=== PATIENT | female | born 1955 | race Caucasian/White ===

== ENCOUNTER → 2020-03-06 08:33 | Outpatient (REF) | payer MEDICARE, SELFPAY ==
--- NOTE | 2020-03-06 | NM_ITS ---
Lexiscan Myocardial perfusion study Indication: Number diabetes, COPD, cholesterol, tobacco use, chest pain, assess for coronary disease and ischemia Technique: The patient was brought in for a Lexiscan perfusion study on 03/06/2020 and was injected 0.4 mg of Lexiscan intravenously. Within a minute of this injection 25 mCi of sestamibi was given intravenously. Images were obtained using the SPECT gamma camera interlaced with the gating device. Images were obtained in supine position. Resting perfusion study was performed on 03/07/2020. Patient was administered 25 mCi of sestamibi intravenously at rest. Images were then obtained in supine position. Total DLP 52mGy-cm. Images were processed with the software and compared side to side in short axis, horizontal long axis and vertical long axis views. Findings: Raw acquisition was reviewed. The stress perfusion study showed no significant perfusion abnormality. Both uncorrected as well as CT attenuation corrected images were reviewed. The gated study shows normal LV systolic function with calculated LVEF of > 70%. LV cavity is normal in size. The gated study shows normal wall thickening and contraction of segments. Resting study shows no significant perfusion abnormality. Gating at rest reveals normal wall motion with ejection fraction at > 70%. The findings are consistent with no reversible or fixed perfusion abnormality. NM/NM aminata perf SPECT rest & str Impression: 1. Myocardial perfusion imaging study shows normal myocardial perfusion. No evidence of any ischemia or infarction. 2. Gated LVEF is > 70%. 3. Transient ischemic dilatation not present. EKG component of the test reported separately.
--- NOTE | 2020-03-06 08:41 | CA_ITS ---
Acquisition Time: 2020-03-06 09:47:40 Total Exercise Time: 00:02:00 Test Indications: Chest Pain Medications: ASA SEE H Protocol: LEXISCAN Max HR: 105 BPM 66% of Pred: 158 BPM Max BP: 112/064 mmHG Max Work Load: 1.0 METS Pharmacological stress test using Lexiscan while sitting and kicking her feet. Pt tolerated well, denies any anginal sx. EKG without any arrhythmias, non-diagnostic for ischemia. Nuclear images to follow. Normotensive response to test. Pt felt lightheaded after Lexiscan and sx reversed with aminophyline 75 mg IV. Test reviewed with Dr. Solares Referred By: Gonzalez Plata Overread By: Darrell Hunter
== END ==
LOC: HO.CARD 08:33
PROVIDERS: PCP Internal Medicine; Visit Provider Internal Medicine
DX: R07.9 Chest pain, unspecified (principal)
CPT/HCPCS: 78452; 93017; A9500; J0280; J2785

== ENCOUNTER 2020-11-19 06:53 | Outpatient (REF) | payer MEDICARE, SELFPAY ==
[2020-11-19 11:17] LABS: MANUAL DIFF FLAG NO
[2020-11-19 11:27] LABS: Basophils Percent Auto 0.3 % (0-2); Eosinophils Absolute Auto 0.2 X10*3/uL (0.0-0.4); Eosinophils Percent Auto 2.6 % (0-4); Hematocrit 38.7 % (37-47); Hemoglobin 12.7 g/dl (12.0-16.0); Imm Gran Abs Auto 0.05 X10*3/uL (0.00-0.03); Imm Gran Pct Auto 0.8 % (0.0-0.4); Lymphocytes Absolute Auto 2.5 X10*3/uL (1.2-4.9); Lymphocytes Percent Auto 37.5 % (20-40); Mean Corpuscular HGB Conc 32.8 g/dl (31.0-35.0); Mean Corpuscular Hemoglobin 32.6 pg (27.0-33.0); Mean Corpuscular Volume 99.5 fL (80-98); Mean Platelet Volume 11.1 fL (9.4-12.3); Monocytes Absolute Auto 0.3 X10*3/uL (0.1-1.2); Monocytes Percent Auto 4.9 % (2-11); Neutrophils Absolute Auto 3.5 X10*3/uL (2.0-8.3); Neutrophils Percent Auto 53.9 % (45-73); Platelet Count 245 X10*3/uL (160-400); Red Blood Count 3.89 X10*6/uL (4.20-5.50); Red Cell Distribution Width 13.5 % (11.0-16.0); White Blood Count 6.5 X10*3/uL (4.8-10.8)
[2020-11-19 12:00] LABS: Alanine Aminotransferase 12 U/L (0-31); Alkaline Phosphatase 98 U/L (39-117); Anion Gap 13 (12-20); Aspartate Amino Transferase 15 U/L (5-31); Bilirubin Total 0.2 mg/dL (0.0-1.0); Blood Urea Nitrogen 12 mg/dL (9-16); Calcium 8.8 mg/dL (8.4-10.2); Carbon Dioxide 26 mmol/L (22-29); Chloride 104 mmol/L (96-108); Cholesterol 193 mg/dL; Estimated Glomerular Filt Rate > 60; Glucose Fasting 91 mg/dL (60-99); HDL Cholesterol 44 mg/dL; LDL Cholesterol Calculated 107 mg/dl; Potassium 3.9 mmol/L (3.3-5.1); Sodium 139 mmol/L (135-145); Total Protein 6.7 g/dL (6.5-8.0); Triglycerides 212 mg/dL
[2020-11-19 12:24] LABS: Creatinine Urine 294.72 mg/dL; Free T4 (Free Thyroxine) 0.73 ng/dL (0.71-1.85); Microalbum/Creatinine Ratio Ur 6.1 ug/mg cr; Vitamin D 25-OH Total 39.2 ng/mL (>30)
[2020-11-19 12:52] LABS: Folate 14.8 ng/mL (> or = 4.0); Vitamin B12 217 pg/mL (200-900)
== END 2020-11-19 06:54 | disposition home or self-care (01) ==
LOC: HO.HMGCLDS 06:53
PROVIDERS: PCP Internal Medicine; Visit Provider Nurse Practitioner Family
DX: E11.65 Type 2 diabetes mellitus with hyperglycemia (principal); E03.9 Hypothyroidism, unspecified; G43.909 Migraine, unspecified, not intractable, without status migrainosus; E78.00 Pure hypercholesterolemia, unspecified
CPT/HCPCS: 36415; 80053; 80061; 82043; 82306; 82607; 82746; 84439; 84443; 85025

== ENCOUNTER 2020-12-10 10:29 | Outpatient (REF) | payer MEDICARE, SELFPAY ==
--- NOTE | ~2020-12-10 | MM_ITS ---
EXAMINATION: BONE DENSITOMETRY CLINICAL INDICATION: Asymptomatic menopausal state. COMPARISON: Baseline BD dated 12/07/2018. TECHNIQUE: Using a Gradalis DXA System (software version: 13.1) manufactured by [employer], dual-energy x-ray absorptiometry was performed of the lumbar spine and left hip. The images are of good technical quality. Summary results are attached. FINDINGS: AP SPINE L1-L4: Current: BMD 0.962 g/cm2, Z-score -0.3, T-score -1.8, osteopenia, 0.1% decrease from baseline (<5% change is not significant). Baseline: BMD 0.963 g/cm2. LEFT FEMUR, NECK: Current: BMD 0.719 g/cm2, Z-score -0.8, T-score -2.3, osteopenia. Baseline: BMD 0.732 g/cm2. LEFT FEMUR, TOTAL: Current: BMD 0.743 g/cm2, Z-score -0.9, T-score -2.1, osteopenia, 2.1% decrease from baseline (<5% change is not significant). Baseline: BMD 0.759 g/cm2. IDENTIFIED RISK FACTORS: Early menopause, secondary osteoporosis, history of fracture (adult), tobacco use (current smoker), recurrent falls, height loss, family history (parental hip fracture), anticonvulsants. HISTORY OF FRACTURE: Spine. Humerus/shoulder. MEDICATIONS: Calcium supplements or multivitamin, vitamin D. MM/XR DEXA axial skeleton IMPRESSION: 1. DIAGNOSIS: Osteopenia based on the lowest T-score value of -2.3 in the femoral neck applying World Health Organization criteria. 2. 10-YEAR FRACTURE RISK PREDICTION, FRAX: Major osteoporotic fracture (clinical spine, forearm, hip or shoulder) 34.6%. Hip fracture 6.3%. 3. Treatment Recommendations: NOF guidelines recommend consideration for treatment in postmenopausal women and men age 50 and older presenting with the following: -A hip or vertebral (clinical or morphometric) fracture. -T-score less than or equal to -2.5 at the femoral neck or spine after appropriate evaluation to exclude secondary causes. -Low bone mass at the hip or spine and a 10-year fracture probability by FRAX of greater than or equal to 3% for hip fracture or greater than or equal to 20% for major osteoporotic fracture based on the [place] adapted WHO algorithm. 4. Other Recommendations: All treatment decisions require clinical judgment and consideration of individual patient factors, including patient preferences, comorbidities, previous drug use, risk factors not captured in the FRAX model (e.g. frailty, falls, vitamin D deficiency, increased bone turnover, interval significant decline in bone density) and possible under or overestimation of fracture risk by FRAX. Additional medical evaluation for secondary cause of low bone mineral density may be appropriate. FUTURE SCAN RECOMMENDATION: People with diagnosed cases of osteoporosis or at high risk for fracture should have regular bone mineral density tests. For patients eligible for Medicare, routine testing is allowed once every 2 years. The testing frequency can be increased to one year for patients who have rapidly progressing disease, those who are receiving or discontinuing medical therapy to restore bone mass, or have additional risk factors.
== END 2020-12-10 10:30 | disposition home or self-care (01) ==
LOC: HO.MAMMO 10:29
PROVIDERS: PCP Internal Medicine; Visit Provider Nurse Practitioner Family
DX: Z13.820 Encounter for screening for osteoporosis (principal); R29.890 Loss of height; F17.200 Nicotine dependence, unspecified, uncomplicated; Z91.81 History of falling; Z79.899 Other long term (current) drug therapy; Z78.0 Asymptomatic menopausal state
CPT/HCPCS: 77080

== ENCOUNTER 2020-12-22 11:13 | Emergency (ER) | payer MEDICARE, SELFPAY ==
--- NOTE | 2020-12-22 11:17 | ECG_ITS ---
Test Reason : MEDICATION ERROR Blood Pressure : / mmHG Vent. Rate : 072 BPM Atrial Rate : 072 BPM P-R Int : 126 ms QRS Dur : 082 ms QT Int : 384 ms P-R-T Axes : 073 059 054 degrees QTc Int : 420 ms Normal sinus rhythm Nonspecific ST and T wave abnormality Abnormal ECG When compared with ECG of 06-JAN-2012 19:00, Vent. rate has decreased BY 37 BPM Referred By: Duyen Wang Electronically Signed By:TULIO GOLDSMITH
[2020-12-22 11:20] VITALS: BP 133/88; PULSE 76; RESP 18; TEMP 36.8; O2SAT 98; BMI 25.7
--- NOTE | 2020-12-22 11:32 | ED.OVERDOSE ---
HPI - Overdose General Chief Complaint: Overdose Stated Complaint: 4 -150MG WELBUTRIN TAKEN FOR ANXIETY Time Seen by Provider: 12/22/20 11:17 Source: patient and EMS Mode of arrival: EMS Limitations: no limitations History of Present Illness MD complaint: accidental overdose Onset (ago): minute(s) (60) Context: Accidental Overdose: other (took a neighbors pills to help with anxiety normally on 100mg wellbutrin a day, ran out felt anxious states she actually took 2 pills of her neighbor's 150mg wellbutrin) Associated symptoms: other (anxiety) Treatments Prior to Arrival: none Related Data Previous Rx's Medication Instructions Recorded albuterol sulfate 90 mcg/actuation 2 puff INHALATION Q4-6H PRN #8.5 g 03/25/20 aerosol inhaler (ProAir HFA) aspirin 81 mg tablet,delayed 81 mg PO DAILY #90 tab 03/25/20 release (Adult Aspirin Regimen) beclomethasone dipropionate 80 1 inh INHALATION BID #3 ea 03/25/20 mcg/actuation HFA breath activated aerosol (Qvar RediHaler) cholecalciferol (vitamin D3) 25 25 mcg PO DAILY #90 cap 03/25/20 mcg (1,000 unit) capsule erenumab-aooe 70 mg/mL 70 mg SUBCUT .COMPLEX 90 Days #3 ea 03/25/20 subcutaneous auto-injector (Aimovig Autoinjector) fluticasone propionate 50 1 spray INTRANASAL DAILY #15.8 ml 03/25/20 mcg/actuation nasal spray,suspension omeprazole 20 mg capsule,delayed 20 mg PO DAILY #90 cap 03/25/20 release sumatriptan succinate 100 mg 100 mg PO .QD PRN 90 Days #30 tab 03/25/20 tablet (Imitrex) methocarbamol 500 mg tablet 500 mg PO TID PRN #270 cap 05/15/20 levothyroxine 75 mcg tablet 75 mcg PO QAM #90 tab 07/11/20 lidocaine 5 % topical ointment 1 appl TOPICAL TID PRN #60 g 07/18/20 fluoxetine 40 mg capsule 40 mg PO DAILY #90 cap 08/08/20 gabapentin 600 mg tablet 600 mg PO BID #180 tab 08/08/20 simvastatin 40 mg tablet 40 mg PO DAILY 90 Days #90 tab 08/08/20 diazepam 5 mg tablet 5 mg PO TID PRN 90 Days #270 tab 10/06/20 promethazine 25 mg tablet 25 mg PO Q6H PRN #28 tab 10/21/20 azithromycin 250 mg tablet See Rx Instructions PO .COMPLEX #6 11/19/20 (Zithromax) tab bupropion HCl 100 mg tablet,12 hr 100 mg PO BEDTIME #30 tab 11/19/20 sustained-release (Wellbutrin SR) naloxone 4 mg/actuation nasal 4 mg INTRANASAL Q3M PRN #2 ea 11/27/20 spray (Narcan) oxycodone 15 mg tablet 15 mg PO Q4-6H 30 Days #168 tab 11/27/20 Allergies Allergy/AdvReac Type Severity Reaction Status Date / Time clarithromycin [From BIAXIN] Allergy Intermediate N/V Verified 10/28/20 13:26 Iodinated Contrast Media Allergy Mild RASH AND Verified 10/28/20 13:26 [IV Dye, Iodine Containing] NAUSEA AND VOMITING atorvastatin Allergy Unknown Unknown Verified 10/28/20 13:26 doxycycline Allergy Unknown Nausea and Verified 10/28/20 13:26 Vomiting lisinopril Allergy Unknown hypotension Verified 10/28/20 13:26 Penicillins AdvReac Unknown UNKNOWN-FROM Verified 10/28/20 13:26 CHILDHOOD Review of Systems Review of Systems: Constitutional : No Weight loss, No Fever, No Chills, No Fatigue, No Malaise ENT/Mouth : No sore throat, No Rhinorrhea Eyes: No Eye Pain, No Swelling, No Redness Cardiovascular : No Chest Pain, No SOB, No Dyspnea on Exertion, No Orthopnea, No Edema, No Palpitations Respiratory : No Cough, No Sputum, No Wheezing Gastrointestinal : No Nausea, No Vomiting, No Diarrhea, No Constipation, No abdominal Pain, No Hematochezia, No Melena Genitourinary : No Dysuria, No Urinary Frequency, No Hematuria, Musculoskeletal : No joint pain, No Myalgias, No Joint Swelling Skin : No Skin Lesions, No rash Neuro : No Weakness, No Numbness, No Dizziness, No Headache Psych : pos Anxiety/Panic, No Depression, no SI/HI Heme/Lymph: No Bruising, No Bleeding,No Lymphadenopathy Endocrine : No Polyuria, No Polydipsia All other systems reviewed and are negative [facility] Past Medical History Attestation statement: The following information was validated with the patient. Medical History Anxiety and depression Asthma Chest pain COPD (chronic obstructive pulmonary disease) GERD (gastroesophageal reflux disease) Herpes zoster Hypercholesterolemia Hypertension Hypothyroid Insomnia Left scapula fracture Low back pain Migraine Peripheral neuropathy Post-menopausal Tobacco abuse Type 2 diabetes mellitus with hyperglycemia Vitamin D deficiency Surgical History History of cholecystectomy History of colonoscopy History of foot surgery History of lumbar surgery History of thyroidectomy Family History Family History Father Prostate cancer Diabetes Hypertension Mother CVD (cardiovascular disease) Myocardial infarction Social History Social History Housing: Apartment Alcohol intake: unknown Patient Tobacco Use Status: Current everyday Tobacco user Tobacco use type: Cigarette Cigarette Packs Per Day: 1 e-Cigarette/Vaping Use: Never Used Second Hand Smoke Exposure: No Use of substances other than those prescribed or required for medical reasons: Unknown Advance Directives: Yes Advance Directives Information Provided: Yes Advance Directives on File: No Patient : No service: No Current occupational status: disabled Physical Exam Vital Signs: Vital Signs: Last Vital Signs Temp 98.2 F 12/22/20 11:20 Pulse 67 12/22/20 12:50 Resp 18 12/22/20 12:50 BP 130/80 12/22/20 12:50 Pulse Ox 97 12/22/20 12:50 Body Mass Index 25.7 Appearance: Alert. Oriented X3. No acute distress. Eyes: Pupils equal, round and reactive to light. ENT: Pharynx normal. Neck: Normal inspection. Neck supple. CVS: Normal heart rate and rhythm. Pulses normal. Respiratory: No respiratory distress. Breath sounds normal. Abdomen: Soft and nontender. Skin: Skin warm and dry. Normal skin color. Normal skin turgor. Extremities: No lower extremity edema. No calf ttp Neuro: Oriented X 3. No motor deficit. No sensory deficit. Psych: no SI/HI Course Course Course Narrative: patient is adamant she took 2 pills only , she states her neighbor just said that because they are in a financial dispute no SI on scene, nothing reported to EMS I discussed with her the reasons to stay including seizures, cardiac arrythmias she refuses to stay, she is alert and oriented, I do not think I can section here she swears she only took two pills, denies prior SI attempts. she is leaving against medical advice MDM - Overdose MDM Narrative Medical decision making narrative: 65 yo female with accidental possible wellbutrin ingestion denies SI/HI will obtain tox labs, EKG and observe. possible discussion with poison control - would normally observe but 300mg does not seem toxic at this time Lab Data Result diagrams: 12/22/20 11:34 12/22/20 11:34 Labs: Lab Results 12/22/20 12/22/20 12/22/20 Range/Units 11:34 11:34 11:34 WBC 4.5 L (4.8-10.8) X10*3/uL RBC 3.78 L (4.20-5.50) X10*6/uL Hgb 12.4 (12.0-16.0) g/dl Hct 37.5 (37-47) % MCV 99.2 H (80-98) fL MCH 32.8 (27.0-33.0) pg MCHC 33.1 (31.0-35.0) g/dl RDW 13.4 (11.0-16.0) % Plt Count 179 D (160-400) X10*3/uL MPV 10.6 (9.4-12.3) fL Immature Gran % (Auto) 0.2 (0.0-0.4) % Neut % (Auto) 63.4 (45-73) % Lymph % (Auto) 28.1 (20-40) % Rice % (Auto) 5.4 (2-11) % Eos % (Auto) 2.2 (0-4) % Baso % (Auto) 0.7 (0-2) % Lymph # (Auto) 1.3 (1.2-4.9) X10*3/uL Rice # (Auto) 0.2 (0.1-1.2) X10*3/uL Eos # (Auto) 0.1 (0.0-0.4) X10*3/uL Baso # (Auto) 0.0 (0.0-0.2) X10*3/uL Abs Immat Gran (auto) 0.01 (0.00-0.03) X10*3/uL Absolute Neuts (auto) 2.8 (2.0-8.3) X10*3/uL Absolute Nucleated RBC 0.000 (0.0-0.012) X10*3/uL Nucleated RBC % (auto) 0.0 (0.0-0.2) /100WBC Sodium 142 (135-145) mmol/L Potassium 3.6 (3.3-5.1) mmol/L Chloride 108 (96-108) mmol/L Carbon Dioxide 27 (22-29) mmol/L Anion Gap 11 L (12-20) BUN 8 L (9-16) mg/dL Creatinine 0.86 (0.5-1.4) mg/dL Estim Creat Clear Calc 63.4 Estimated GFR > 60 Random Glucose 100 (60-115) mg/dL Calcium 8.7 (8.4-10.2) mg/dL Total Bilirubin 0.4 (0.0-1.0) mg/dL Direct Bilirubin 0.2 (0.0-0.5) mg/dL AST 17 (5-31) U/L ALT 14 (0-31) U/L Alkaline Phosphatase 91 (39-117) U/L Total Protein 6.5 (6.5-8.0) g/dL Albumin 4.0 (3.5-5.0) g/dL Salicylates < 5.0 L (15-30) mg/dL Acetaminophen 14 (<30) mcg/mL COVID-19 (MICHAEL) Negative (Negative) COVID-19 Clin Com See Note ECG Data Attestation: I personally reviewed and interpreted this ECG as follows: ECG interpretation date: 12/22/20 ECG interpretation time: 11:39 Interpretation: Rate: 72 Rhythm: NSR [place]: normal Normal P waves. Normal PATRIZIA. Normal QRS complex. ST T wave : non specific no ANKIT qTC: normal prior studies: no acute ischemia The study has been interpreted contemporaneously by me. . Discharge Plan Discharge Clinical Impression: Accidental overdose Qualifiers: Encounter type: initial encounter Qualified Code(s): T50.901A - Poisoning by unspecified drugs, medicaments and biological substances, accidental (unintentional), initial encounter Patient Disposition: Left Against Medical Advice Instructions: Adult Overdose (ED), Against Medical Advice (ED) Additional Instructions: return to ED for any worsening symptoms or concerns it was advised you stay overnight to monitor your heart and to watch for seizures, you refused Prescriptions: No Action albuterol sulfate [ProAir HFA] 90 mcg/actuation HFA aerosol inhaler 2 puff inhalation Q4-6H PRN (Reason: bronchospasm) Qty: 8.5 RF: 0 aspirin [Adult Aspirin Regimen] 81 mg tablet,delayed release (DR/EC) 81 mg PO DAILY Qty: 90 RF: 3 Qvar RediHaler 80 mcg/actuation HFA aerosol breath activated 1 inh inhalation BID Qty: 3 RF: 3 cholecalciferol (vitamin D3) 25 mcg (1,000 unit) capsule 25 mcg PO DAILY Qty: 90 RF: 3 Aimovig Autoinjector 70 mg/mL auto-injector 70 mg subcut .COMPLEX 90 Days Qty: 3 RF: 2 fluticasone propionate 50 mcg/actuation spray,suspension 1 spray intranasal DAILY Qty: 15.8 RF: 5 omeprazole 20 mg capsule,delayed release(DR/EC) 20 mg PO DAILY Qty: 90 RF: 3 sumatriptan succinate [Imitrex] 100 mg tablet 100 mg PO .QD PRN (Reason: migraine headache) 90 Days Qty: 30 RF: 3 methocarbamol 500 mg tablet 500 mg PO TID PRN (Reason: for pain) Qty: 270 RF: 3 levothyroxine 75 mcg tablet 75 mcg PO QAM Qty: 90 RF: 3 lidocaine 5 % ointment 1 appl topical TID PRN (Reason: pain) Qty: 60 RF: 0 simvastatin 40 mg tablet 40 mg PO DAILY 90 Days Qty: 90 RF: 2 fluoxetine 40 mg capsule 40 mg PO DAILY Qty: 90 RF: 2 gabapentin 600 mg tablet 600 mg PO BID Qty: 180 RF: 2 diazepam 5 mg tablet 5 mg PO TID PRN (Reason: muscle spasm) 90 Days Qty: 270 RF: 1 promethazine 25 mg tablet 25 mg PO Q6H PRN (Reason: for nausea/vomiting) Qty: 28 RF: 0 Narcan 4 mg/actuation spray,non-aerosol 4 mg intranasal Q3M PRN (Reason: opioid overdose) Qty: 2 RF: 0 oxycodone 15 mg tablet 15 mg PO Q4-6H 30 Days Qty: 168 RF: 0 azithromycin [Zithromax] 250 mg tablet See Rx Instructions PO .COMPLEX Qty: 6 RF: 0 bupropion HCl [Wellbutrin SR] 100 mg tablet sustained-release 12 hr 100 mg PO BEDTIME Qty: 30 RF: 2
[2020-12-22 11:39] LABS: MANUAL DIFF FLAG NO
[2020-12-22 11:41] LABS: Basophils Percent Auto 0.7 % (0-2); Eosinophils Absolute Auto 0.1 X10*3/uL (0.0-0.4); Eosinophils Percent Auto 2.2 % (0-4); Hematocrit 37.5 % (37-47); Hemoglobin 12.4 g/dl (12.0-16.0); Imm Gran Abs Auto 0.01 X10*3/uL (0.00-0.03); Imm Gran Pct Auto 0.2 % (0.0-0.4); Lymphocytes Absolute Auto 1.3 X10*3/uL (1.2-4.9); Lymphocytes Percent Auto 28.1 % (20-40); Mean Corpuscular HGB Conc 33.1 g/dl (31.0-35.0); Mean Corpuscular Hemoglobin 32.8 pg (27.0-33.0); Mean Corpuscular Volume 99.2 fL (80-98); Mean Platelet Volume 10.6 fL (9.4-12.3); Monocytes Absolute Auto 0.2 X10*3/uL (0.1-1.2); Monocytes Percent Auto 5.4 % (2-11); Neutrophils Absolute Auto 2.8 X10*3/uL (2.0-8.3); Neutrophils Percent Auto 63.4 % (45-73); Platelet Count 179 X10*3/uL (160-400); Red Blood Count 3.78 X10*6/uL (4.20-5.50); Red Cell Distribution Width 13.4 % (11.0-16.0); White Blood Count 4.5 X10*3/uL (4.8-10.8)
[2020-12-22 11:56] LABS: Acetaminophen LAB 14 mcg/mL (<30); Alanine Aminotransferase 14 U/L (0-31); Alkaline Phosphatase 91 U/L (39-117); Anion Gap 11 (12-20); Aspartate Amino Transferase 17 U/L (5-31); Bilirubin Direct 0.2 mg/dL (0.0-0.5); Bilirubin Total 0.4 mg/dL (0.0-1.0); Blood Urea Nitrogen 8 mg/dL (9-16); Calcium 8.7 mg/dL (8.4-10.2); Carbon Dioxide 27 mmol/L (22-29); Chloride 108 mmol/L (96-108); Creatinine Clr Calc Pharmacy 63.4; Estimated Glomerular Filt Rate > 60; Glucose Random 100 mg/dL (60-115); Potassium 3.6 mmol/L (3.3-5.1); Salicylate < 5.0 mg/dL (15-30); Sodium 142 mmol/L (135-145); Total Protein 6.5 g/dL (6.5-8.0)
[2020-12-22 12:05] LABS: COVID-19 Test Negative (Negative); IDNOW Serial# 9DD0AD1C
[2020-12-22 12:50] VITALS: BP 130/80; PULSE 67; RESP 18; O2SAT 97
== END 2020-12-22 13:38 | disposition left against medical advice (07) ==
PROVIDERS: Emergency Provider Emergency Medicine; PCP Internal Medicine
DX: T43.291A Poisoning by other antidepressants, accidental (unintentional), initial encounter (principal); Y92.009 Unspecified place in unspecified non-institutional (private) residence as the place of occurrence of the external cause; F41.1 Generalized anxiety disorder; F43.0 Acute stress reaction; Z20.822 Contact with and (suspected) exposure to COVID-19; Z79.899 Other long term (current) drug therapy; F17.210 Nicotine dependence, cigarettes, uncomplicated; Z71.6 Tobacco abuse counseling
CPT/HCPCS: 36415; 80048; 80076; 80143; 80179; 85025; 87635; 93005; 99283; 99285

== ENCOUNTER 2021-03-03 06:17 | Outpatient (REF) | payer MEDICARE, SELFPAY ==
[2021-03-03 11:41] LABS: MANUAL DIFF FLAG NO
[2021-03-03 11:43] LABS: Basophils Percent Auto 0.7 % (0-2); Eosinophils Absolute Auto 0.3 X10*3/uL (0.0-0.4); Eosinophils Percent Auto 4.6 % (0-4); Hematocrit 38.4 % (37.0-47.0); Imm Gran Abs Auto 0.02 X10*3/uL (0.00-0.03); Imm Gran Pct Auto 0.4 % (0.0-0.4); Lymphocytes Absolute Auto 2.4 X10*3/uL (1.2-4.9); Lymphocytes Percent Auto 41.2 % (20-40); Mean Corpuscular HGB Conc 31.3 g/dl (31.0-35.0); Mean Corpuscular Hemoglobin 31.7 pg (27.0-33.0); Mean Corpuscular Volume 101.6 fL (80.0-98.0); Mean Platelet Volume 10.8 fL (9.4-12.3); Monocytes Absolute Auto 0.3 X10*3/uL (0.1-1.2); Neutrophils Absolute Auto 2.7 x10*3/uL (2.0-8.3); Neutrophils Percent Auto 47.1 % (45-73); Platelet Count 253 X10*3/uL (160-400); Red Blood Count 3.78 X10*6/uL (4.20-5.50); Red Cell Distribution Width 13.1 % (11.0-16.0); White Blood Count 5.7 X10*3/uL (4.8-10.8)
[2021-03-03 12:12] LABS: Alanine Aminotransferase 13 U/L (0-31); Albumin Level 4.1 g/dL (3.5-5.0); Alkaline Phosphatase 113 U/L (39-117); Anion Gap 13 (12-20); Aspartate Amino Transferase 17 U/L (5-31); Bilirubin Total 0.4 mg/dL (0.0-1.0); Blood Urea Nitrogen 13 mg/dL (9-16); Calcium 8.6 mg/dL (8.4-10.2); Carbon Dioxide 27 mmol/L (22-29); Chloride 105 mmol/L (96-108); Cholesterol 188 mg/dL; Estimated Glomerular Filt Rate > 60; Glucose Random 93 mg/dL (60-115); HDL Cholesterol 53 mg/dL; LDL Cholesterol Calculated 107 mg/dl; Potassium 3.8 mmol/L (3.3-5.1); Sodium 141 mmol/L (135-145); Total Protein 6.7 g/dL (6.5-8.0); Triglycerides 140 mg/dL
[2021-03-03 12:36] LABS: Free T4 (Free Thyroxine) 0.75 ng/dL (0.71-1.85); Thyroid Stimulating Hormone 4.99 uIU/mL (0.32-4.0); Vitamin D 25-OH Total 35.6 ng/mL (>30)
[2021-03-03 12:46] LABS: Folate 14.9 ng/mL (> or = 4.0); Vitamin B12 415 pg/mL (200-900)
== END 2021-03-03 06:18 | disposition home or self-care (01) ==
LOC: HO.HMGCLDS 06:17
PROVIDERS: PCP Internal Medicine; Visit Provider Internal Medicine
DX: E03.9 Hypothyroidism, unspecified (principal); E78.00 Pure hypercholesterolemia, unspecified
CPT/HCPCS: 36415; 80053; 80061; 82306; 82607; 82746; 84439; 84443; 85025

== ENCOUNTER 2021-05-07 06:23 | Outpatient (REF) | payer MEDICARE, SELFPAY ==
[2021-05-07 12:01] LABS: Free T4 (Free Thyroxine) 0.87 ng/dL (0.71-1.85); Thyroid Stimulating Hormone 7.97 uIU/mL (0.32-4.0)
== END 2021-05-07 06:24 | disposition home or self-care (01) ==
LOC: HO.HMGCLDS 06:23
PROVIDERS: Visit Provider Internal Medicine
DX: E03.9 Hypothyroidism, unspecified (principal)
CPT/HCPCS: 36415; 84439; 84443

== ENCOUNTER 2021-11-11 14:51 | Outpatient (REF) | payer MEDICARE, SELFPAY ==
--- NOTE | ~2021-11-11 | XR_ITS ---
EXAMINATION: XR CHEST CLINICAL INFORMATION: Circulatory signs COMPARISON: 04/28/2018 TECHNIQUE: 2 views of the chest were obtained. FINDINGS: Mild retrocardiac density may represent a small area of infiltrate. Otherwise lung gandhi are grossly clear. The cardiac silhouette is comparable. No infiltrate. Hilar regions do not appear pathologically enlarged. There is no effusion. XR/XR chest 2V IMPRESSION: Mild retrocardiac opacity may represent a small area of infiltrate. Follow-up films recommended to assess for resolution
[2021-11-11 16:41] LABS: MANUAL DIFF FLAG NO
[2021-11-11 16:54] LABS: Basophils Percent Auto 0.3 % (0-2); Eosinophils Absolute Auto 0.1 X10*3/uL (0.0-0.4); Eosinophils Percent Auto 0.9 % (0-4); Hematocrit 38.3 % (37.0-47.0); Hemoglobin 12.3 g/dl (12.0-16.0); Imm Gran Abs Auto 0.04 X10*3/uL (0.00-0.03); Imm Gran Pct Auto 0.4 % (0.0-0.4); Lymphocytes Absolute Auto 1.5 X10*3/uL (1.2-4.9); Lymphocytes Percent Auto 14.3 % (20-40); Mean Corpuscular HGB Conc 32.1 g/dl (31.0-35.0); Mean Corpuscular Hemoglobin 31.3 pg (27.0-33.0); Mean Corpuscular Volume 97.5 fL (80.0-98.0); Mean Platelet Volume 10.5 fL (9.4-12.3); Monocytes Absolute Auto 0.5 X10*3/uL (0.1-1.2); Monocytes Percent Auto 4.9 % (2-11); Neutrophils Absolute Auto 8.4 x10*3/uL (2.0-8.3); Neutrophils Percent Auto 79.2 % (45-73); Platelet Count 268 X10*3/uL (160-400); Red Blood Count 3.93 X10*6/uL (4.20-5.50); Red Cell Distribution Width 13.1 % (11.0-16.0); White Blood Count 10.6 X10*3/uL (4.8-10.8)
[2021-11-11 17:03] LABS: Estimated Average Glucose 100 mg/dL; Hemoglobin A1c % 5.1 %
[2021-11-11 17:15] LABS: Alanine Aminotransferase 8 U/L (0-31); Alkaline Phosphatase 135 U/L (39-117); Anion Gap 15 (12-20); Aspartate Amino Transferase 11 U/L (5-31); Bilirubin Total 0.2 mg/dL (0.0-1.0); Blood Urea Nitrogen 10 mg/dL (9-16); Calcium 8.7 mg/dL (8.4-10.2); Carbon Dioxide 30 mmol/L (22-29); Chloride 102 mmol/L (96-108); Estimated Glomerular Filt Rate > 60; Glucose Random 90 mg/dL (60-115); Potassium 4.5 mmol/L (3.3-5.1); Sodium 142 mmol/L (135-145); Total Protein 6.9 g/dL (6.5-8.0)
[2021-11-11 17:24] LABS: Thyroid Stimulating Hormone 0.03 uIU/mL (0.32-4.0)
[2021-11-11 17:25] LABS: Free T4 (Free Thyroxine) 1.06 ng/dL (0.71-1.85)
== END 2021-11-11 14:52 | disposition home or self-care (01) ==
LOC: HO.HMGCX 14:51
PROVIDERS: PCP Internal Medicine; Visit Provider Family Medicine
DX: E03.9 Hypothyroidism, unspecified (principal); R09.89 Other specified symptoms and signs involving the circulatory and respiratory systems
CPT/HCPCS: 36415; 71046; 80053; 83036; 84439; 84443; 85025

== ENCOUNTER 2022-01-15 11:42 | Outpatient (REF) | payer MEDICARE, SELFPAY ==
[2022-01-15 14:45] LABS: Free T4 (Free Thyroxine) 1.05 ng/dL (0.71-1.85); Thyroid Stimulating Hormone 0.91 uIU/mL (0.32-4.0)
== END 2022-01-15 11:43 | disposition home or self-care (01) ==
LOC: HO.HMGCLDS 11:42
PROVIDERS: PCP Internal Medicine; Visit Provider Internal Medicine
DX: E03.9 Hypothyroidism, unspecified (principal)
CPT/HCPCS: 36415; 84439; 84443

== ENCOUNTER 2022-05-04 10:41 | Outpatient (REF) | payer MEDICARE, SELFPAY ==
[2022-05-04 11:27] LABS: MANUAL DIFF FLAG NO
[2022-05-04 11:33] LABS: Basophils Percent Auto 0.4 % (0-2); Eosinophils Absolute Auto 0.1 X10*3/uL (0.0-0.4); Eosinophils Percent Auto 0.6 % (0-4); Hematocrit 42.4 % (37.0-47.0); Hemoglobin 14.1 g/dl (12.0-16.0); Imm Gran Abs Auto 0.03 X10*3/uL (0.00-0.03); Imm Gran Pct Auto 0.4 % (0.0-0.4); Lymphocytes Absolute Auto 1.7 X10*3/uL (1.2-4.9); Lymphocytes Percent Auto 20.1 % (20-40); Mean Corpuscular HGB Conc 33.3 g/dl (31.0-35.0); Mean Corpuscular Hemoglobin 32.2 pg (27.0-33.0); Mean Corpuscular Volume 96.8 fL (80.0-98.0); Mean Platelet Volume 10.7 fL (9.4-12.3); Monocytes Absolute Auto 0.3 X10*3/uL (0.1-1.2); Monocytes Percent Auto 3.9 % (2-11); Neutrophils Absolute Auto 6.3 x10*3/uL (2.0-8.3); Neutrophils Percent Auto 74.6 % (45-73); Platelet Count 235 X10*3/uL (160-400); Red Blood Count 4.38 X10*6/uL (4.20-5.50); Red Cell Distribution Width 12.7 % (11.0-16.0); White Blood Count 8.4 X10*3/uL (4.8-10.8)
[2022-05-04 12:27] LABS: Alanine Aminotransferase 7 U/L (0-31); Albumin Level 4.3 g/dL (3.5-5.0); Alkaline Phosphatase 107 U/L (39-117); Anion Gap 19 (12-20); Aspartate Amino Transferase 14 U/L (5-31); Bilirubin Total 0.7 mg/dL (0.0-1.0); Blood Urea Nitrogen 10 mg/dL (9-16); Calcium 9.5 mg/dL (8.4-10.2); Carbon Dioxide 22 mmol/L (22-29); Chloride 105 mmol/L (96-108); Cholesterol 189 mg/dL; Estimated Glomerular Filt Rate 59; Glucose Random 129 mg/dL (60-115); HDL Cholesterol 41 mg/dL; LDL Cholesterol Calculated 106 mg/dl; Potassium 3.9 mmol/L (3.3-5.1); Sodium 142 mmol/L (135-145); Triglycerides 211 mg/dL
[2022-05-04 12:43] LABS: Folate 12.5 ng/mL (> or = 4.0); Free T4 (Free Thyroxine) 0.86 ng/dL (0.71-1.85); Vitamin B12 334 pg/mL (200-900); Vitamin D 25-OH Total 28.2 ng/mL (>30)
[2022-05-04 14:25] LABS: Microalbum/Creatinine Ratio Ur 14.3 ug/mg cr
== END 2022-05-04 10:42 | disposition home or self-care (01) ==
LOC: HO.HMGCLDS 10:41
PROVIDERS: PCP Internal Medicine; Visit Provider Internal Medicine
DX: E11.65 Type 2 diabetes mellitus with hyperglycemia (principal); E78.00 Pure hypercholesterolemia, unspecified
CPT/HCPCS: 36415; 80053; 80061; 82043; 82306; 82607; 82746; 84439; 84443; 85025

== ENCOUNTER → 2022-06-29 12:45 | Outpatient (BNVA) | payer MEDICARE, SELFPAY | PROVIDERS: PCP Internal Medicine; Visit Provider Orthopaedic Surgery | DX: M65.341 Trigger finger, right ring finger (principal) | CPT/HCPCS: 20550; 99202; J1100 ==

== ENCOUNTER → 2022-08-03 13:15 | Outpatient (BNVA) | payer MEDICARE, SELFPAY | PROVIDERS: PCP Internal Medicine; Visit Provider Orthopaedic Surgery | DX: M65.341 Trigger finger, right ring finger (principal) | CPT/HCPCS: 99212 ==

== ENCOUNTER 2022-08-09 09:22 | Day surgery (SDC) | payer MEDICARE, SELFPAY ==
[2022-08-09 10:00] VITALS: BMI 21.3
--- NOTE | 2022-08-09 10:20 | HO.ANESPROP2 ---
HPI - Anesthesia Eval Consult details Narrative: right distal radius fracture heavy pot and smoking history PMF Active Problems Active Problems: All Active Problems (Updated 08/09/22 @ 10:02 by Luzmaria Wilkinson RN) Type 2 diabetes mellitus with hyperglycemia (Acute) Generalized anxiety disorder (Acute) Hammer toe of right foot (Acute) Chronic low back pain (Acute) Depression (Acute) Trigger finger (Acute) Trigger finger, right ring finger (Acute) History of lumbar surgery (Acute) Tobacco abuse (Acute) Migraine (Acute) Hypercholesterolemia (Acute) Hypothyroid (Acute) COPD (chronic obstructive pulmonary disease) (Acute) GERD (gastroesophageal reflux disease) (Acute) Low back pain (Acute) Past Medical History Medical History (Updated 08/09/22 @ 10:02 by Luzmaria Wilkinson RN) Abnormal lung sounds Asthma Chest pain Chest tightness COPD (chronic obstructive pulmonary disease) COPD exacerbation GERD (gastroesophageal reflux disease) Herpes zoster Hypercholesterolemia Hypertension Hypothyroid Insomnia Knee pain, left Left scapula fracture Low back pain Migraine Peripheral neuropathy Pneumonia Post-menopausal Screening for colon cancer Tobacco abuse Type 2 diabetes mellitus with hyperglycemia Vitamin D deficiency Weight loss Family History Family History Father Prostate cancer Diabetes Hypertension Mother CVD (cardiovascular disease) Myocardial infarction Family history of problems with anesthesia: No Surgical History Surgical History History of cholecystectomy History of colonoscopy History of foot surgery History of lumbar surgery History of thyroidectomy History of Problems with Anesthesia: No Social History Social History Housing: Apartment Alcohol intake: unknown Patient Tobacco Use Status: Current everyday Tobacco user Tobacco use type: Cigarette Cigarette Packs Per Day: 1 e-Cigarette/Vaping Use: Never Used Second Hand Smoke Exposure: No Advance Directives: No Advance Directives Information Provided: Yes service: No Current occupational status: disabled Cognitive needs: Yes (cane ) Hearing needs: No Vision needs: Yes Meds Allergies Allergy/AdvReac Type Severity Reaction Status Date / Time clarithromycin [From BIAXIN] Allergy Intermediate N/V Verified 08/09/22 10:00 atorvastatin Allergy Mild Unknown Verified 08/09/22 10:00 Iodinated Contrast Media Allergy Mild RASH AND Verified 08/09/22 10:00 [IV Dye, Iodine Containing] NAUSEA AND VOMITING doxycycline Allergy Unknown Nausea and Verified 08/09/22 10:00 Vomiting lisinopril Allergy Unknown hypotension Verified 08/09/22 10:00 Penicillins AdvReac Unknown UNKNOWN-FROM Verified 08/09/22 10:00 CHILDHOOD Active Medications: Current Medications Lidocaine HCl 8.11 ml/Epinephrine 0.08 mg/ Sodium Bicarbonate 0.405 meq/ IV Miscellaneous Supplies 9 mls @ 0 mls/hr INFILTRATI ONCE ONE Stop: 08/09/22 11:31 Exam Exam Date and Time: August 09, 2022 1020 Height,Weight and Vital Signs: Height 5 ft 6 in Weight 59.874 kg Airway Mallampati Class: II TM Dist: >3cm Neck ROM: Full Heart: rrr Lungs: cta Assessment and Plan Assessment Anesthesia Assessment: Anesthesia Plan Discussed, Smoking Cess. Discussed and Chart Reviewed Final Anesthetic Review Family History of Problems with Anesthesia: No History of Problems with Anesthesia: No NPO: Yes ASA Class: II Final Preanesthetic Review: No Changes in Pt Med Stat, Meds/Allgs Chart Reviewed, Consent Obtained/Reviewed and Anes Risks/Benef Reviewed Patient Risk: Intermediate Procedure Risk: Intermediate Anesthetic Plan Anesthetic Plan: GA and Regional Block Disposition: Standard PACU
--- NOTE | 2022-08-09 12:15 | MHC.SHP ---
Pre-Procedural Eval Section A Date of Service: 08/09/22 The patient is an INPATIENT: No Changes since office visit: No Cold of Flu in the past 2 weeks, No New Medical Problems, No Changes in Medication and No Patient answered all questions The History & Physical has been completed within 30 days and I have reviewed it.: Yes Section B Chief Complaint: Trigger finger, right ring finger Allergies: Allergies Allergy/AdvReac Type Severity Reaction Status Date / Time clarithromycin [From BIAXIN] Allergy Intermediate N/V Verified 08/09/22 10:00 atorvastatin Allergy Mild Unknown Verified 08/09/22 10:00 Iodinated Contrast Media Allergy Mild RASH AND Verified 08/09/22 10:00 [IV Dye, Iodine Containing] NAUSEA AND VOMITING doxycycline Allergy Unknown Nausea and Verified 08/09/22 10:00 Vomiting lisinopril Allergy Unknown hypotension Verified 08/09/22 10:00 Penicillins AdvReac Unknown UNKNOWN-FROM Verified 08/09/22 10:00 CHILDHOOD Plan I have reviewed the history and physical and performed a pertinent physical examination on my patient. No changes have occurred unless specified. Time Spent With Patient Time: Total time managing care of this patient today ____ minutes.
--- NOTE | 2022-08-09 12:15 | W.PM.OPN ---
Operative Note Operative Note Date of Service: 08/09/22 Narrative: Operative Note Preop diagnosis: 1. Right ring finger Trigger finger Postop diagnosis: 1. right ring finger Trigger finger Procedure: 1. right ring finger A1 ilan release Surgeon: Natalia Bowman MD Anesthesia: local block using 1% lidocaine with epinephrine Findings: No locking or catching after A1 ilan release EBL: Less than 5 mL Tourniquet time: None Specimens: None Complications: None Disposition: Brought to recovery room in stable condition Plan: Follow-up for 10-14 days for wound check and suture removal Indications: The patient is 62 for years old, with a right ring finger trigger finger that has been unresponsive to nonoperative management. The risks and benefits of operative treatment including but not limited to risk of damage to blood vessels, nerves, tendons, infection, persistent pain, persistent symptoms, recurrence or possible need for additional surgery were discussed with the patient and the patient wishes to proceed with surgery. Procedure: Once consent was obtained a local block was performed in the preop area using a combination of 1% lidocaine with epinephrine. The patient was then brought back to the operating suite and placed on the operative table in supine position. The right upper extremity was prepped and draped in a standard surgical fashion. Once assured that we had a good block, a 1.5 cm oblique incision was made centered over the A1 ilan of the right ring finger . The incision was made through the skin to the subcutaneous tissues using a #15 blade. Careful dissection was made down to the level of the A1 ilan using tenotomy scissors, with care being taken to protect the nearby neurovascular structures. A longitudinal incision was made in the A1 ilan 1st using a #15 blade, then using tenotomy scissors under direct visualization. The A1 ilan was noted to be thickened. Following our A1 ilan release, we no longer saw any locking or catching of the digit with flexion and extension. Once satisfied with our A1 ilan release the wound was copiously irrigated with normal saline and hemostasis was obtained with a brief period of local pressure. The skin edges were reapproximated with some 5.0 nylon suture material and a sterile dressing was applied. The patient appears to have tolerated the procedure well and with no complications. All digits were well vascularized at the conclusion of the case.
[2022-08-09 12:40] VITALS: BP 146/78; PULSE 75; RESP 16; O2SAT 96
== END 2022-08-09 12:49 | disposition home or self-care (01) ==
PROVIDERS: PCP Internal Medicine; Visit Provider Orthopaedic Surgery
PROC: (CPT 26055; principal; 2022-08-09 10:50)
DX: M65.341 Trigger finger, right ring finger (principal); E11.9 Type 2 diabetes mellitus without complications; J44.9 Chronic obstructive pulmonary disease, unspecified; I10 Essential (primary) hypertension; E78.00 Pure hypercholesterolemia, unspecified; E03.9 Hypothyroidism, unspecified; K21.9 Gastro-esophageal reflux disease without esophagitis; G62.9 Polyneuropathy, unspecified; R63.4 Abnormal weight loss; Z68.28 Body mass index [BMI] 28.0-28.9, adult; E55.9 Vitamin D deficiency, unspecified; Z88.8 Allergy status to other drugs, medicaments and biological substances; Z88.1 Allergy status to other antibiotic agents; Z88.0 Allergy status to penicillin; Z91.041 Radiographic dye allergy status; F17.210 Nicotine dependence, cigarettes, uncomplicated
CPT/HCPCS: 26055; J0171

== ENCOUNTER 2022-08-17 06:13 | Outpatient (REF) | payer MEDICARE, SELFPAY ==
[2022-08-17 11:49] LABS: Alanine Aminotransferase 27 U/L (0-31); Albumin Level 3.9 g/dL (3.5-5.0); Alkaline Phosphatase 123 U/L (39-117); Anion Gap 12 (12-20); Aspartate Amino Transferase 32 U/L (5-31); Bilirubin Total 0.5 mg/dL (0.0-1.0); Blood Urea Nitrogen 12 mg/dL (9-16); Calcium 8.7 mg/dL (8.4-10.2); Carbon Dioxide 27 mmol/L (22-29); Chloride 104 mmol/L (96-108); Cholesterol 141 mg/dL; Estimated Glomerular Filt Rate > 60; Glucose Random 103 mg/dL (60-115); HDL Cholesterol 54 mg/dL; LDL Cholesterol Calculated 70 mg/dl; Potassium 3.9 mmol/L (3.3-5.1); Sodium 139 mmol/L (135-145); Total Protein 6.3 g/dL (6.5-8.0); Triglycerides 85 mg/dL
[2022-08-17 12:06] LABS: Creatinine Urine 110.49 mg/dL
== END 2022-08-17 06:14 | disposition home or self-care (01) ==
LOC: HO.HMGCLDS 06:13
PROVIDERS: PCP Internal Medicine; Visit Provider Internal Medicine
DX: E11.65 Type 2 diabetes mellitus with hyperglycemia (principal); E78.00 Pure hypercholesterolemia, unspecified
CPT/HCPCS: 36415; 80053; 80061

== ENCOUNTER → 2022-08-24 12:35 | Outpatient (BNVA) | payer MEDICARE, SELFPAY | PROVIDERS: PCP Internal Medicine; Visit Provider Orthopaedic Surgery | DX: Z47.89 Encounter for other orthopedic aftercare (principal); Z87.39 Personal history of other diseases of the musculoskeletal system and connective tissue | CPT/HCPCS: 99212 ==

== ENCOUNTER 2022-10-08 10:58 | Outpatient (AMB) | payer MEDICARE, SELFPAY ==
--- NOTE | 2022-10-08 11:05 | A.OFFVIS_ITS ---
Intake Vital Signs 10/08/22 11:09 Height 5 ft 6 in Weight 167 lb BMI 27.0 Intake Visit Reasons: PO R RF Trig Release 08/09/22 AR Intake Note: Sherlyn, 66 yr old right hand dominant female, presents today for her Post Op Right RF Trig Release 08/09/22 AR. States she is now having locking of her pinky and middle finger. States she has pain and swelling in across her A1 ilan of digits 2,3,4 and 5. Allergies clarithromycin [From BIAXIN] Allergy (Intermediate, Verified 10/08/22 11:09) N/V atorvastatin Allergy (Mild, Verified 10/08/22 11:09) Unknown Iodinated Contrast Media [IV Dye, Iodine Containing] Allergy (Mild, Verified 10/08/22 11:09) RASH AND NAUSEA AND VOMITING doxycycline Allergy (Unknown, Verified 10/08/22 11:09) Nausea and Vomiting lisinopril Allergy (Unknown, Verified 10/08/22 11:09) hypotension Penicillins Adverse Reaction (Unknown, Verified 10/08/22 11:09) UNKNOWN-FROM CHILDHOOD HPI PO R RF Trig Release 08/09/22 AR HPI Details Sherlyn us a 66 year old left hand dominant woman who presents with complaints of her right middle & small fingers locking painfully. She is S/P right ring trigger finger release, DOS: 08/09/22. She complains of painful locking of her middle and ring fingers. She denies any pain in the thumb, index, and small fingers The pain she has is in the palm in the area of the middle finger and ring finger A1 pulleys. She does not feel like she has any pain on the dorsal aspect of the MCP joints At her last appointment she had subluxation of the middle finger extensor tendon. [facility] Medical History Abnormal lung sounds Asthma Chest pain Chest tightness COPD (chronic obstructive pulmonary disease) COPD exacerbation GERD (gastroesophageal reflux disease) Herpes zoster Hypercholesterolemia Hypertension Hypothyroid Insomnia Knee pain, left Left scapula fracture Low back pain Migraine Peripheral neuropathy Pneumonia Post-menopausal Screening for colon cancer Tobacco abuse Type 2 diabetes mellitus with hyperglycemia Vitamin D deficiency Weight loss Surgical History History of cholecystectomy History of colonoscopy History of foot surgery History of lumbar surgery History of thyroidectomy Family History Father Prostate cancer Diabetes Hypertension Mother CVD (cardiovascular disease) Myocardial infarction Social History Housing: Apartment Alcohol intake: unknown Patient Tobacco Use Status: Current everyday Tobacco user Tobacco use type: Cigarette Cigarette Packs Per Day: 1 e-Cigarette/Vaping Use: Never Used Second Hand Smoke Exposure: No service: No Current occupational status: disabled Cognitive needs: Yes (cane ) Hearing needs: No Vision needs: Yes Review of Systems Const All systems reviewed & are unremarkable except as noted in HPI and below Physical Exam Vital Signs: BMI result Body Mass Index 27.0 Const General: no acute distress and alert Orientation/consciousness: patient oriented x3 Neuro General: patient oriented x3 Extrem Other: Evaluation of Right Upper Extremity: The patient is alert, oriented, and in no acute distress Neuro: Median, Ulnar, Radial nerves motor and sensory intact and sensation is normal to the tips of all digits Vascular: Cap refill brisk ROM: She can make a fist and extend all her digits Visible subluxation of the middle and ring finger extensor tendons. They both appear to have sagittal band insufficiency on the radial side causing ulnar subluxation of the tendons. She is able to actively bring her fingers from a tight fist to full extension. The area of the extensor tendons as they pass over the MCP joint is not particularly tender today. When I hold the extensor tendons centralized over the MCP joint she brings a fist and extends her fingers I do not see any locking or catching. However, she is tender to palpation over the middle finger A1 ilan or just proximal to the A1 ilan. Again, I think the locking or catching that were seeing is related more to the dorsal sagittal band issues. 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 Right middle finger possible pre trigger tenosynovitis With tenderness over the A1 ilan or just proximal to it. This is the pain that appears to be bothering her the most. Injection #1: The risks and benefits of a steroid injection including but not limited to risk of damage to blood vessels, nerves, tendons, infection, skin bleaching, failure to improve symptoms, increased pain, and possible need for further injections or other intervention were discussed with the patient and the patient wishes to proceed with the steroid injection. Once consent was obtained, I sterilely prepped the area over the A1 ilan of the flexor tendon sheath of the right middle. I then injected the flexor tendon sheath with a combination of 1 mL of dexamethasone (4mg/ml), and 1% lidocaine. The patient tolerated the procedure well with no complications. 2. 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 We are going to treat the painful symptom of the right middle finger pre trigger tenosynovitis and see how that helps her. It is possible that she may benefit from a reconstruction of the radial sagittal bands, however that would involve surgery and casting and likely recovering from some stiffness in her hand. We will see how she does after the trigger finger injection today and see if her hand is more comfortable. She is also in a try to stop smoking, as smoking can affect healing from any jenkins rgery. 4. Right ring trigger finger S/P release Possible radial sagittal band injury DOS: 08/09/22 She appears to be doing well postoperatively, and I do not believe she has locking or catching from a ring finger trigger finger. Scribed for Natalia Bowman MD by Siddharth Warner, health care / medical job titles, on 10/08/22 at 1:30 AM, EST. 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
[2022-10-08 11:09] VITALS: BMI 27.0
== END 2022-10-08 12:26 | disposition home or self-care (01) ==
PROVIDERS: PCP Internal Medicine; Visit Provider Orthopaedic Surgery
DX: M65.331 Trigger finger, right middle finger (principal); M66.241 Spontaneous rupture of extensor tendons, right hand
CPT/HCPCS: 20550; 99214

== ENCOUNTER → 2022-10-08 10:58 | Outpatient (BNVA) | payer MEDICARE, SELFPAY | PROVIDERS: PCP Internal Medicine; Visit Provider Orthopaedic Surgery | DX: M66.249 Spontaneous rupture of extensor tendons, unspecified hand (principal); M65.331 Trigger finger, right middle finger | CPT/HCPCS: 20550; 99212; J1100 ==

== ENCOUNTER 2022-11-02 10:48 | Outpatient (AMB) | payer MEDICARE, SELFPAY ==
[2022-11-02 10:53] VITALS: BP 132/80; PULSE 72; O2SAT 96; BMI 27.0
--- NOTE | 2022-11-02 10:53 | A.OFFVIS_ITS ---
Intake Vital Signs 11/02/22 10:53 Height 5 ft 6 in Weight 167 lb BMI 27.0 BP 132/80 Blood Pressure Location Lt brachial Position Sitting Pulse 72 Pulse Source Pulse Oximeter Temp Source Skin Pulse Oximetry (%) 96 Oxygen Delivery Method Room Air Intake Visit Reasons: V G0439 Intake Note: Patient is here for an Annual Wellness Visit. Relocation Specialist Required: No Allergies clarithromycin [From BIAXIN] Allergy (Intermediate, Verified 11/02/22 11:11) N/V atorvastatin Allergy (Mild, Verified 11/02/22 11:11) Unknown Iodinated Contrast Media [IV Dye, Iodine Containing] Allergy (Mild, Verified 11/02/22 11:11) RASH AND NAUSEA AND VOMITING doxycycline Allergy (Unknown, Verified 11/02/22 11:11) Nausea and Vomiting lisinopril Allergy (Unknown, Verified 11/02/22 11:11) hypotension Penicillins Adverse Reaction (Unknown, Verified 11/02/22 11:11) UNKNOWN-FROM CHILDHOOD Medication List - Last Reconciled 11/02/22 by DRE Ruffin albuterol sulfate 90 mcg/actuation (ProAir HFA) 2 puffs inhalation Q4-6H PRN beclomethasone dipropionate 80 mcg/actuation (Qvar RediHaler) 1 inh inhalation BID buspirone 5 mg PO BID 90 days cholecalciferol (vitamin D3) 25 mcg PO DAILY [DIABETIC SHOES As directed] diazepam 5 mg PO TID PRN 90 days [EXTRA DEPTH ORTHOPEDIC SHOES WITH CUSTOMIZED HEAT MOLDED MULTIDENSITY INNERSOLES As directed] fluoxetine 40 mg PO DAILY fluticasone propionate 50 mcg/actuation 1 spray intranasal DAILY gabapentin 600 mg PO BID levothyroxine take 88 mcg QD except for tuesday orally every morning; 30 days methocarbamol 500 mg PO TID PRN naloxone 4 mg/actuation (Narcan) 4 mg intranasal Q3M PRN omeprazole 20 mg PO DAILY oxycodone 15 mg PO Q4-6H 30 days promethazine 25 mg PO Q6H PRN rosuvastatin 20 mg PO DAILY 90 days sumatriptan succinate (Imitrex) 100 mg PO .QD PRN 90 days Fall Risk Assessment Fall risk assessment: No Falls in past year Date Fall Risk Assessed: 08/24/22 HPI [facility] G0439 HPI Details Patient is a 67-year-old female who presents today for subsequent wellness visit. Patient of Dr. Plata. Today we discussed patient's need for colon cancer screening, mammogram, and cervical cancer screening, patient has declined such screenings. Bone density screen 12/10/2020 which showed osteopenia. Up-to-date with immunizations. PHQ-9 score 23, patient denies SI or HI, interested in counseling referral, also has referral to see Psychiatry. [place] of care was reviewed with the patient and she was provided with a screening schedule. Health care proxy and MOLST forms on file. [facility] Medical History Abnormal lung sounds Asthma Chest pain Chest tightness COPD (chronic obstructive pulmonary disease) COPD exacerbation GERD (gastroesophageal reflux disease) Herpes zoster Hypercholesterolemia Hypertension Hypothyroid Insomnia Knee pain, left Left scapula fracture Low back pain Migraine Peripheral neuropathy Pneumonia Post-menopausal Screening for colon cancer Tobacco abuse Type 2 diabetes mellitus with hyperglycemia Vitamin D deficiency Weight loss Surgical History History of cholecystectomy History of colonoscopy History of foot surgery History of lumbar surgery History of thyroidectomy Family History Father Prostate cancer Diabetes Hypertension Mother CVD (cardiovascular disease) Myocardial infarction Social History Housing: Apartment Alcohol intake: unknown Patient Tobacco Use Status: Current everyday Tobacco user Tobacco use type: Cigarette Cigarette Packs Per Day: 1 e-Cigarette/Vaping Use: Never Used Second Hand Smoke Exposure: No service: No Current occupational status: disabled Cognitive needs: Yes (cane ) Hearing needs: No Vision needs: Yes Questionnaire Medicare Wellness Checkup What [age] What gender do you identify with?: female During the past 4 weeks, how much have you been bothered by emotional problems such as feeling anxious, depressed, irritable, sad or downhearted, and blue?: extremely During the past 4 weeks, has your physical & emotional health limited your social activities with family, friends, neighbors, or groups?: quite a bit During the past 4 weeks, how much bodily pain have you generally had?: moderate pain During the past 4 weeks, was someone available to help you if you needed & wanted help?: yes, some During the past 4 weeks, what was the hardest physical activity you could do for at least 2 minutes?: light Can you get to places out of walking distance without help? (For eg., can you travel alone on buses, taxis or drive your car?): Yes (sometimes ) Can you go shopping for groceries or clothes without someone's help?: No Can you prepare your own meals?: Yes Can you do your housework without help?: Yes (sometimes ) Because of any health problems, do you need the help of another person with your personal care needs such as eating, bathing, dressing or getting around the house?: No Can you handle your own money without help?: Yes (sometimes ) During the past 4 weeks, how would you rate your health in general?: fair During the past 4 weeks how have things been going for you?: good & bad parts about equal Are you having difficulties driving your car?: no Do you always fasten your seat belt when you are in a car?: no During past 4 weeks, have you been bothered by the following: never: Falling or dizzy when standing up, Sexual problems? and Teeth or denture problems?, seldom: Problems using the telephone? and often: Trouble eating well? and Tiredness or fatigue? Have you fallen 2 or more times in the past year?: No Are you afraid of falling?: No Are you a smoker?: yes, and I might quit During the past 4 weeks, how many drinks of wine, beer, or other alcoholic beverages did you have?: no alcohol at all Do you exercise for about 20 minutes 3 or more times a week?: no, I usually do not exercise this much Have you been given information to help with the following?: yes: Hazards in your house that might hurt you? and no: Keeping track of your medications? How often do you have trouble taking medicines the way you have been told to take them?: sometimes I take medicine as prescribed How confident are you that you can control & manage most of your health problems?: somewhat confident What is your race?: White Mini Mental State Exam (MMSE) Orientation What is the (year) (season) (date) (day) (month)?: year, season, date, day and month Score Score: 5 Activity of Daily Living Bathing - sponge bath, tub bath or shower: receives no assistance (gets in/out by self, if usual bathing means Dressing - getting clothes from closets & drawers, including inner/outer garments & fasteners.: gets clothes & gets completely dressed without help Toileting - going to the 'toilet room' for urine/bowel elimination & cleaning self/arranging clothes: goes to toilet room, cleans self, arranges clothes without help Transfer: moves in & out of bed and chair without help (may use support object) Continence: controls urination/bowel movements completely by self Feeding: feeds self without help Total Score: 0 Information obtained from: patient Using telephone: independent Traveling: independent Shopping: needs assistance Preparing meals: needs assistance Housework: needs assistance Taking medicine: independent Managing money: independent PHQ-9 Over the last 2 weeks, how often have you been bothered by any of the following problems? 1. Little interest or pleasure in doing things: nearly every day 2. Feeling down, depressed, or hopeless: nearly every day 3. Trouble falling or staying asleep, or sleeping too much: nearly every day 4. Feeling tired or having little energy: nearly every day 5. Poor appetite or overeating: nearly every day 6. Feeling bad about yourself - or that you are a failure or have let yourself or your family down: nearly every day 7. Trouble concentrating on things, such as reading the newspaper or watching television: nearly every day 8. Moving or speaking so slowly that other people could have noticed. Or the opposite - being so fidgety or restless that you have been moving around a lot more than usual: more than half the days 9. Thoughts that you would be better off or of hurting yourself in some way: not at all Total score: 23 Depression Screening Interpretation: Positive Depression Screening Follow-up: [facility] Mental Health Worker F/U 43120 - PHQ-9 Billing: Yes Source: Developed by Drs. Bhavesh Alfred, Yuridia Suarez, Triston Gabriel and colleagues, with an educational yara from [employer]. SIL-7 AMB Questionnaire SIL-7 Date SIL - 7 assessed: 11/02/22 Feeling nervous, anxious, or on edge: 3 = Nearly every day Not being able to stop or control worryin = Nearly every day Worrying too much about different things: 0 = Not at all Trouble relaxin = Not at all Being so restless that it is hard to sit still: 0 = Not at all Becoming easily annoyed or irritable: 0 = Not at all Feeling afraid as if something awful might happen: 0 = Not at all Total SIL-7 score (0-4 normal; 5-9 mild; 10-14 moderate; 15-21 severe): 6 Source: Developed by Drs. Bhavesh Alfred, Yuridia Suarez, Triston Gabriel and colleagues, with an educational yara from [employer]. SIL-7 Assessment Billing SIL-7 Assessment Tool: SIL-7 Assessment 52065 Thrive Questionnaire Date Thrive assessed: 05/18/22 Physical Exam Vital Signs: Last Vital Signs Pulse 72 11/02/22 10:53 BP 132/80 11/02/22 10:53 Pulse Ox 96 11/02/22 10:53 Oxygen Delivery Method Room Air 11/02/22 10:53 BMI result Body Mass Index 27.0 Const General: cooperative and no acute distress Orientation/consciousness: patient oriented x3 HEENT Other: Whisper test: pass Neuro Other: Balance: Normal - patient ambulance with 2 canes Get up and walk: unable to Romberg: negative Tandem gait: unable to General: patient oriented x3 Assessment & Plan Assessment & Plan (1) Chronic low back pain: Code(s): M54.50 - Low back pain, unspecified; G89.29 - Other chronic pain Plan: Continue current treatment (2) Generalized anxiety disorder: Comment: Panic disorder Code(s): F41.1 - Generalized anxiety disorder Plan: Patient has a referral to Psychiatry - will follow-up on this Referral to counseling Continue current treatment (3) Tobacco abuse: Code(s): Z72.0 - Tobacco use Plan: Encouraged smoking cessation (4) Migraine: Code(s): G43.909 - Migraine, unspecified, not intractable, without status migrainosus Plan: Continue current treatment (5) Type 2 diabetes mellitus with hyperglycemia: Code(s): E11.65 - Type 2 diabetes mellitus with hyperglycemia Qualifiers: Diabetes mellitus mcc insulin use: without biofuels technology development manager use Qualified Code(s): E11.65 - Type 2 diabetes mellitus with hyperglycemia Plan: Diet controlled A1c 5.1 10/2021 A1c ordered (6) Hypercholesterolemia: Code(s): E78.00 - Pure hypercholesterolemia, unspecified Plan: Continue current treatment Low-cholesterol diet (7) Hypothyroid: Code(s): E03.9 - Hypothyroidism, unspecified Qualifiers: Hypothyroidism type: acquired Qualified Code(s): E03.9 - Hypothyroidism, unspecified Plan: Continue levothyroxine (8) COPD (chronic obstructive pulmonary disease): Code(s): J44.9 - Chronic obstructive pulmonary disease, unspecified Qualifiers: COPD type: emphysema Emphysema type: unspecified Qualified Code(s): J43.9 - Emphysema, unspecified Plan: Stable Continue current treatment (9) GERD (gastroesophageal reflux disease): Code(s): K21.9 - Gastro-esophageal reflux disease without esophagitis Qualifiers: Esophagitis presence: without esophagitis Qualified Code(s): K21.9 - Gastro-esophageal reflux disease without esophagitis Plan: Omeprazole 20 mg daily Avoid GERD trigger foods Do not lay down 2-3 hours after evening meal (10) Depression: Code(s): F32.A - Depression, unspecified Qualifiers: Depression Type: other depression Qualified Code(s): F32.89 - Other specified depressive episodes Plan: Patient denies SI or HI Patient has psychiatry referral, counseling referral placed Continue current treatment (11) Adult general medical exam: Code(s): Z00.00 - Encounter for general adult medical examination without abnormal findings (12) Colonoscopy refused: Code(s): Z53.20 - Procedure and treatment not carried out because of patient's decision for unspecified reasons Orders: Orders Hemoglobin A1c Today E11.65 - Type 2 diabetes mellitus with hyperglycemia Referrals Counseling Referral F32.A - Depression, unspecified, F41.1 - Generalized anxiety disorder Quality Reporting (2019) Fall Risk Screening ([facility] 139) Last assessed Fall Risk: 08/24/22 Fall risk assessment: No Falls in past year Depression/Bipolar (159/160/161/177) PHQ-9: Total score: 23 Coding Level of Care Code Medicare Subsequent (G0439) Diagnoses Chronic low back pain M54.50; G89.29 Generalized anxiety disorder F41.1 Tobacco abuse Z72.0 Migraine G43.909 Type 2 diabetes mellitus with hyperglycemia E11.65 Diabetes mellitus mcc insulin use: without mcc use Hypercholesterolemia E78.00 Hypothyroid E03.9 Hypothyroidism type: acquired COPD (chronic obstructive pulmonary disease) J43.9 COPD type: emphysema Emphysema type: unspecified GERD (gastroesophageal reflux disease) K21.9 Esophagitis presence: without esophagitis Depression F32.89 Depression Type: other depression Adult general medical exam Z00.00 Colonoscopy refused Z53.20 CPT Codes Advance Care Planning - Advance Care Planning discussion: On file, no changes ([id number]) Advance Care Planning - Time spent: 1-15 minutes, on File ([id number]) Additional Codes SIL-7 Assessment Billing - SIL-7 Assessment Tool: SIL-7 Assessment 99014 ([id number]) Advance Care Planning Advance Care Planning discussion: On file, no changes Date of discussion: 11/02/22 Who was present: pt and front sight attacher Forms completed: None Time spent: 1-15 minutes, on File Actual minutes spent: 1 Did not discuss due to Cultural/Spiritual beliefs: No
== END 2022-11-02 11:29 | disposition home or self-care (01) ==
PROVIDERS: PCP Internal Medicine; Visit Provider Nurse Practitioner Family
DX: Z00.00 Encounter for general adult medical examination without abnormal findings (principal); G43.909 Migraine, unspecified, not intractable, without status migrainosus; E11.65 Type 2 diabetes mellitus with hyperglycemia; E03.9 Hypothyroidism, unspecified; J43.9 Emphysema, unspecified; K21.9 Gastro-esophageal reflux disease without esophagitis; G89.29 Other chronic pain; M54.50 Low back pain, unspecified; Z72.0 Tobacco use; F41.1 Generalized anxiety disorder; E78.00 Pure hypercholesterolemia, unspecified; F32.89 Other specified depressive episodes
CPT/HCPCS: 1123F; G0439

== ENCOUNTER 2022-12-30 12:36 | Outpatient (REF) | payer MEDICARE, SELFPAY | END 2022-12-30 12:37 | disposition home or self-care (01) | LOC: HO.HMGCLDS 12:36 | PROVIDERS: PCP Nurse Practitioner Family; Visit Provider Nurse Practitioner Family | DX: E11.65 Type 2 diabetes mellitus with hyperglycemia (principal) | CPT/HCPCS: 36415; 83036 ==

== ENCOUNTER 2023-02-21 15:04 | Outpatient (AMB) | payer MEDICARE, SELFPAY ==
[2023-02-21 15:06] VITALS: BP 130/90; PULSE 85; O2SAT 98; BMI 24.5
--- NOTE | 2023-02-21 15:06 | MHC.PC.OV ---
Vital Signs 02/21/23 15:06 Height 5 ft 6 in Weight 152 lb BMI 24.5 BP 130/90 H Blood Pressure Location Lt brachial Position Sitting Pulse 85 Pulse Source Pulse Oximeter Pulse Oximetry (%) 98 Oxygen Delivery Method Room Air Intake Visit Reasons: CLBP [employer]'S Electronic War[employer] Officer Required: No Allergies clarithromycin [From BIAXIN] Allergy (Intermediate, Verified 02/21/23 15:07) N/V atorvastatin Allergy (Mild, Verified 02/21/23 15:07) Unknown Iodinated Contrast Media [IV Dye, Iodine Containing] Allergy (Mild, Verified 02/21/23 15:07) RASH AND NAUSEA AND VOMITING doxycycline Allergy (Unknown, Verified 02/21/23 15:07) Nausea and Vomiting lisinopril Allergy (Unknown, Verified 02/21/23 15:07) hypotension Penicillins Adverse Reaction (Unknown, Verified 02/21/23 15:07) UNKNOWN-FROM CHILDHOOD Medication List - Last Reconciled 02/21/23 by Gonzalez Plata MD albuterol sulfate 90 mcg/actuation (ProAir HFA) 2 puffs inhalation Q4-6H PRN beclomethasone dipropionate 80 mcg/actuation (Qvar RediHaler) 1 inh inhalation BID bupropion HCl (Wellbutrin SR) 100 mg PO BEDTIME cholecalciferol (vitamin D3) 25 mcg PO DAILY [DIABETIC SHOES As directed] diazepam 5 mg PO TID PRN 90 days [EXTRA DEPTH ORTHOPEDIC SHOES WITH CUSTOMIZED HEAT MOLDED MULTIDENSITY INNERSOLES As directed] fluoxetine 40 mg PO DAILY fluticasone propionate 50 mcg/actuation 1 spray intranasal DAILY gabapentin 600 mg PO BID levothyroxine take 88 mcg QD except for tuesday orally every morning; 30 days methocarbamol 500 mg PO TID PRN naloxone 4 mg/actuation (Narcan) 4 mg intranasal Q3M PRN omeprazole 20 mg PO DAILY oxycodone 15 mg PO Q4-6H 30 days promethazine 25 mg PO Q6H PRN rosuvastatin 20 mg PO DAILY 90 days sumatriptan succinate (Imitrex) 100 mg PO .QD PRN 90 days Tobacco use date assessed: 02/21/23 Fall risk assessment: No Falls in past year Last assessed Fall Risk: 02/21/23 Dental Screening Dental Screen Date: 02/21/23 Did you have a dental visit in the last 12 months?: Yes Did you have a dental problem in the last 6 months where you did not have access to dental care?: No Was dental information given to patient?: Patient has dentist HPI CLBP HPI Details 67-year-old female smoker with a history of lumbar surgery on narcotic pain medication, hypercholesterolemia hypothyroidism COPD GERD controlled diabetes mellitus and generalized anxiety disorder last seen in July 2022. Patient's colonoscopy is up-to-date declined mammogram. Patient was seen by the nurse practitioner in October 2022 for annual well visit. Patient had trigger finger with release in 08/10/2019 [facility] Medical History Abnormal lung sounds Asthma Chest pain Chest tightness COPD (chronic obstructive pulmonary disease) COPD exacerbation GERD (gastroesophageal reflux disease) Herpes zoster Hypercholesterolemia Hypertension Hypothyroid Insomnia Knee pain, left Left scapula fracture Low back pain Migraine Peripheral neuropathy Pneumonia Post-menopausal Screening for colon cancer Tobacco abuse Type 2 diabetes mellitus with hyperglycemia Vitamin D deficiency Weight loss Surgical History History of cholecystectomy History of colonoscopy History of foot surgery History of lumbar surgery History of thyroidectomy Family History Father Prostate cancer Diabetes Hypertension Mother CVD (cardiovascular disease) Myocardial infarction Housing: Apartment Alcohol intake: unknown Patient Tobacco Use Status: Current everyday Tobacco user Tobacco use type: Cigarette Cigarette Packs Per Day: 1 e-Cigarette/Vaping Use: Never Used Second Hand Smoke Exposure: No service: No Current occupational status: disabled Cognitive needs: Yes (cane ) Hearing needs: No Vision needs: Yes Questionnaire Thrive Questionnaire Date Thrive assessed: 05/18/22 AUDIT C Alcohol Use Questionnaire (AUDIT-C) 1. How often do you have a drink containing alcohol?: Never 3. How often do you have six or more drinks on one occasion?: Never Total Score: 0 Score Reviewed/Action Taken: No SIL-7 AMB Questionnaire SIL-7 Date SIL - 7 assessed: 11/02/22 Source: Developed by Drs. Bhavesh Alfred, Yuridia Suarez, Triston Gabriel and colleagues, with an educational yara from [employer]. Physical exam (Primary Care) Vital Signs: Last Vital Signs Pulse 85 02/21/23 15:06 BP 130/90 H 02/21/23 15:06 Pulse Ox 98 02/21/23 15:06 Oxygen Delivery Method Room Air 02/21/23 15:06 BMI result Body Mass Index 24.5 Tobacco/Smoking Status: Tobacco use Status Tobacco use date assessed 02/21/23 02/21/23 15:07 Patient Tobacco Use Status Current everyday Tobacco 02/21/23 15:07 Tobacco use type Cigarette 02/21/23 15:07 e-Cigarette/Vaping Use Never Used 02/21/23 15:07 Thrive Assessment: Date of Thrive Assessment Date Thrive assessed 05/18/22 02/21/23 15:07 Const General: alert; No acute distress Eyes Conjunctivae: conjunctivae normal Resp Auscultation: clear to auscultation bilaterally Cardio Rate: regular rate Rhythm: regular rhythm GI Inspection: Yes normal to inspection Extrem General: Yes normal to inspection and No edema Immunizations pneumoc 20-christian conj-dip cr(PF) 0.5 mL IM syringe Performing Provider: Gonzalez Plata MD Performing Location: [facility] Administered by: ANA ROSA Reyes on 02/21/23 15:51 Dose Route Admin Location Dispensed Lot Number Expiration Date [facility] Traveling Secretary 0.5 mL IM Left Deltoid 0.5 mL [id number] 09/26/23 9761-2808-21 [employer] VIS Given Date VIS Provided VIS Publication Date 02/21/23 Single Vaccine 21 Eligibility Eligibility Date Funding Source Not [facility] [place]ible 02/21/23 Private Assessment and Plan Assessment & Plan (1) Type 2 diabetes mellitus with hyperglycemia: Code(s): E11.65 - Type 2 diabetes mellitus with hyperglycemia Qualifiers: Diabetes mellitus photographer news insulin use: without photographer news use Qualified Code(s): E11.65 - Type 2 diabetes mellitus with hyperglycemia Plan: Decrease the amount of carbohydrate intake, pasta, bread, rice and potatoes are all sugar and that is aside from all the sweet stuff, remember that fruits are good but they are Sweet also. With the loss of weight patient on diet control only (2) Tobacco abuse: Code(s): Z72.0 - Tobacco use Plan: Strongly advised to stop smoking! (3) Hypothyroid: Code(s): E03.9 - Hypothyroidism, unspecified Qualifiers: Hypothyroidism type: acquired Qualified Code(s): E03.9 - Hypothyroidism, unspecified Plan: Continue with thyroid medication last blood work was April 2022 (4) Hypercholesterolemia: Code(s): E78.00 - Pure hypercholesterolemia, unspecified Plan: Avoid fried foods, chicken skin, eggs, butter margarine, pastries and meat. Be it pork or beef they have a lot of cholesterol LDL goal of less than 100 and triglyceride of less than 150. Patient on rosuvastatin 20 mg once a day (5) COPD (chronic obstructive pulmonary disease): Code(s): J44.9 - Chronic obstructive pulmonary disease, unspecified Qualifiers: COPD type: emphysema Emphysema type: unspecified Qualified Code(s): J43.9 - Emphysema, unspecified Plan: Stop smoking! Continue with inhaler (6) GERD (gastroesophageal reflux disease): Code(s): K21.9 - Gastro-esophageal reflux disease without esophagitis Qualifiers: Esophagitis presence: without esophagitis Qualified Code(s): K21.9 - Gastro-esophageal reflux disease without esophagitis Plan: Avoid the foods that causes that usually spicy foods, tomato products, juices, coffee, soda and foods that your sensitive to. After eating do not lie down, allow 3-4 hours before in lie down. And keep the head of bed above 30 degrees to avoid the acid from going up. (7) History of lumbar surgery: Comment: work injury low back OR x4 Dr. Montoya Code(s): Z98.890 - Other specified postprocedural states Plan: Narcotic pain meds: Is being prescribed with the understanding that these medications are potentially addictive and should be used only when absolutely necessary and must always be secured. Any remaining pills should be safely disposed off appropriately. Patient is advised that narcotics can impaired judgment and one should not drive or operate heavy machinery while taking these medications. Never share these medications with anybody and do not leave them unattended. They will not be replaced under any circumstances. (8) Generalized anxiety disorder: Comment: Panic disorder Code(s): F41.1 - Generalized anxiety disorder Plan: Continue with present medication (9) Diarrhea: Code(s): R19.7 - Diarrhea, unspecified Orders: Orders Comprehensive Met. Panel 3 Months E78.00 - Pure hypercholesterolemia, unspecified Creatinine Urine 3 Months E11.65 - Type 2 diabetes mellitus with hyperglycemia Complete Blood Count Auto Diff 3 Months E11.65 - Type 2 diabetes mellitus with hyperglycemia Hemoglobin A1c 3 Months E11.65 - Type 2 diabetes mellitus with hyperglycemia Vitamin B12 and Folate 3 Months E11.65 - Type 2 diabetes mellitus with hyperglycemia Comprehensive Met. Panel Today R19.7 - Diarrhea, unspecified Thyroid Stimulating Hormone Today R19.7 - Diarrhea, unspecified Free T4 (Free Thyroxine) Today R19.7 - Diarrhea, unspecified Thyroid Stimulating Hormone 3 Months E03.9 - Hypothyroidism, unspecified Free T4 (Free Thyroxine) 3 Months E03.9 - Hypothyroidism, unspecified Lipid Panel 3 Months E78.00 - Pure hypercholesterolemia, unspecified Microalbumin, Random (w Creat) 3 Months E11.65 - Type 2 diabetes mellitus with hyperglycemia Vitamin D 25-OH Total 3 Months E11.65 - Type 2 diabetes mellitus with hyperglycemia Pneumococcal 20 Immunization Today Z23 - Encounter for immunization Referrals Neurology Referral G43.909 - Migraine, unspecified, not intractable, without status migrainosus Medications: Refilled bupropion HCl (Wellbutrin SR) 100 mg PO BEDTIME 30 tabs 3RF F41.1 - Generalized anxiety disorder promethazine 25 mg PO Q6H PRN 28 tabs 0RF for nausea/vomiting G43.909 - Migraine, unspecified, not intractable, without status migrainosus Discontinued buspirone Discontinued Reason: Ancillary Entered New Order 5 mg PO BID 90 days 180 tabs 2RF F41.1 - Generalized anxiety disorder Coding Level of Care Code Est Pt Level 4 (81478) Diagnoses Type 2 diabetes mellitus with hyperglycemia, without long-term current use of insulin Diabetes mellitus photographer news insulin use: without photographer news use Tobacco abuse Z72.0 Acquired hypothyroidism E03.9 Hypothyroidism type: acquired Hypercholesterolemia E78.00 Pulmonary emphysema, unspecified emphysema type J43.9 COPD type: emphysema Emphysema type: unspecified Gastroesophageal reflux disease without esophagitis K21.9 Esophagitis presence: without esophagitis History of lumbar surgery Z98.890 Generalized anxiety disorder F41.1 Diarrhea R19.7
== END 2023-02-21 15:52 | disposition home or self-care (01) ==
PROVIDERS: PCP Internal Medicine; Visit Provider Internal Medicine
DX: E11.65 Type 2 diabetes mellitus with hyperglycemia (principal); J43.9 Emphysema, unspecified; Z72.0 Tobacco use; Z23 Encounter for immunization; E03.9 Hypothyroidism, unspecified; E78.00 Pure hypercholesterolemia, unspecified; K21.9 Gastro-esophageal reflux disease without esophagitis; Z98.890 Other specified postprocedural states; F41.1 Generalized anxiety disorder; R19.7 Diarrhea, unspecified
CPT/HCPCS: 90471; 90677; 99214

== ENCOUNTER 2023-04-27 09:48 | Outpatient (AMB) | payer MEDICARE, SELFPAY ==
--- NOTE | 2023-04-27 09:53 | MHC.OFFWIV ---
Intake Vital Signs 04/27/23 09:54 Height 5 ft 6 in Weight 152 lb BMI 24.5 BP 134/76 Blood Pressure Location Rt brachial Position Sitting Pulse 81 Pulse Source Pulse Oximeter Temp 98.8 F Temp Source Oral Pulse Oximetry (%) 96 Oxygen Delivery Method Room Air Intake Visit Reasons: EST/right arm pain from fall (lobby) Intake Note: Pt is here c/o right arm pain. Pt states she fell at home three days ago. Patient Tobacco Use Status: Current everyday Tobacco user Allergies clarithromycin [From BIAXIN] Allergy (Intermediate, Verified 04/27/23 09:54) N/V atorvastatin Allergy (Mild, Verified 04/27/23 09:54) Unknown Iodinated Contrast Media [IV Dye, Iodine Containing] Allergy (Mild, Verified 04/27/23 09:54) RASH AND NAUSEA AND VOMITING doxycycline Allergy (Unknown, Verified 04/27/23 09:54) Nausea and Vomiting lisinopril Allergy (Unknown, Verified 04/27/23 09:54) hypotension Penicillins Adverse Reaction (Unknown, Verified 04/27/23 09:54) UNKNOWN-FROM CHILDHOOD Do you need a note to return to daycare/school/sports/work: No HPI HPI Comments History of Present Illness Details Patient is a 67yo F who presents to office with R wrist/forearm pain She is L hand dominant Had mechanical fall in house this week No HT or LOC Oxycodone for chronic back pain Denies numbness/tingling Intermittent pain radiation into digits Worse with ROM/movement. Cant use cane with R hand No other complaints PFSH Medical History Abnormal lung sounds Asthma Chest pain Chest tightness COPD (chronic obstructive pulmonary disease) COPD exacerbation GERD (gastroesophageal reflux disease) Herpes zoster Hypercholesterolemia Hypertension Hypothyroid Insomnia Knee pain, left Left scapula fracture Low back pain Migraine Peripheral neuropathy Pneumonia Post-menopausal Screening for colon cancer Tobacco abuse Type 2 diabetes mellitus with hyperglycemia Vitamin D deficiency Weight loss Surgical History History of cholecystectomy History of colonoscopy History of foot surgery History of lumbar surgery History of thyroidectomy Family History Father Prostate cancer Diabetes Hypertension Mother CVD (cardiovascular disease) Myocardial infarction Social History Housing: Apartment Alcohol intake: unknown Patient Tobacco Use Status: Current everyday Tobacco user Tobacco use type: Cigarette Cigarette Packs Per Day: 1 e-Cigarette/Vaping Use: Never Used Second Hand Smoke Exposure: No service: No Current occupational status: disabled Cognitive needs: Yes (cane ) Hearing needs: No Vision needs: Yes Review of Systems Const Denies chills, Denies fatigue and Denies fever(s) ENT Denies dizziness Card Denies syncope Musc Reports arthralgias, Denies numbness and Denies tingling Skin/Breast Reports erythema (slight swelling to distal R forearm/radial aspect wrist) Neuro Denies dizziness, Denies syncope, Denies numbness, Denies tingling and Denies other (denies LOC or HT) Endo Denies fatigue Physical Exam Vital Signs: Last Vital Signs Temp 98.8 F 04/27/23 09:54 Pulse 81 04/27/23 09:54 BP 134/76 04/27/23 09:54 Pulse Ox 96 04/27/23 09:54 Oxygen Delivery Method Room Air 04/27/23 09:54 BMI result Body Mass Index 24.5 General: Non-toxic, NAD. Speaking full sentences. Skin: Warm dry throughout. SLight edema radial aspect R wrist. Minimal redness without warmth. No blue/black ecchymosis Eye: EOMI Respiratory: No respiratory distress Cardiac: Radial pulse intact RUE MSK: + tenderness to palpation R distal radial aspect forearm. No snuffbox tenderness. + full ROM R wrist, elbow and digits on hand without tenderness to palpation. Neurology: A/O No aphasia or facial droop. Psych: Good mood and affect Assessment & Plan Assessment & Plan (1) Arm pain: Code(s): M79.603 - Pain in arm, unspecified Qualifiers: Laterality: right Qualified Code(s): M79.601 - Pain in right arm Plan: Patient seen and evaluated. Xray R forearm: I viewed as negative. Rest, ice Continue at home pain medicine as prescribed Patient gave verbal understanding and had no additional questions or concerns at time of discharge All questions answered Orders: Orders XR forearm RT 2V Today M79.603 - Pain in arm, unspecified Coding Level of Care Code Est Pt Level 3 (07147) Diagnoses Pain of right upper extremity M79.601 Laterality: right
[2023-04-27 09:54] VITALS: BP 134/76; PULSE 81; TEMP 37.1; O2SAT 96; BMI 24.5
== END 2023-04-27 10:51 | disposition home or self-care (01) ==
PROVIDERS: PCP Internal Medicine; Visit Provider Physician Assistant
DX: M79.601 Pain in right arm (principal)
CPT/HCPCS: 99213

== ENCOUNTER 2023-04-27 10:18 | Outpatient (REF) | payer MEDICARE, SELFPAY ==
--- NOTE | ~2023-04-27 | XR_ITS ---
EXAMINATION: XR FOREARM, RIGHT CLINICAL INFORMATION: Pain. COMPARISON: None available. TECHNIQUE: AP and lateral views of the right forearm were obtained. FINDINGS: No acute fracture or dislocation. No cortical erosion. No concerning lytic or blastic osseous lesion. Probable phlebolith within the medial soft tissues. No abnormal soft tissue calcification. No joint space narrowing or marginal osteophytes. XR/XR forearm RT 2V IMPRESSION: Unremarkable examination.
== END 2023-04-27 10:19 | disposition home or self-care (01) ==
LOC: HO.HMGCX 10:18
PROVIDERS: Visit Provider Physician Assistant
DX: M79.631 Pain in right forearm (principal)
CPT/HCPCS: 73090

== ENCOUNTER 2023-05-09 06:29 | Outpatient (REF) | payer MEDICARE, SELFPAY ==
[2023-05-09 11:48] LABS: MANUAL DIFF FLAG NO
[2023-05-09 12:21] LABS: Estimated Average Glucose 103 mg/dL; Hemoglobin A1c % 5.2 % (<6.0)
[2023-05-09 12:31] LABS: Basophils Percent Auto 0.4 % (0-2); Eosinophils Absolute Auto 0.2 X10*3/uL (0.0-0.4); Eosinophils Percent Auto 2.2 % (0-4); Hematocrit 40.4 % (37.0-47.0); Hemoglobin 13.2 g/dl (12.0-16.0); Imm Gran Abs Auto 0.03 X10*3/uL (0.00-0.03); Imm Gran Pct Auto 0.4 % (0.0-0.4); Lymphocytes Absolute Auto 2.2 X10*3/uL (1.2-4.9); Lymphocytes Percent Auto 32.5 % (20-40); Mean Corpuscular HGB Conc 32.7 g/dl (31.0-35.0); Mean Corpuscular Hemoglobin 32.5 pg (27.0-33.0); Mean Corpuscular Volume 99.5 fL (80.0-98.0); Mean Platelet Volume 10.7 fL (9.4-12.3); Monocytes Absolute Auto 0.4 X10*3/uL (0.1-1.2); Neutrophils Percent Auto 58.5 % (45-73); Platelet Count 274 X10*3/uL (160-400); Red Blood Count 4.06 X10*6/uL (4.20-5.50); Red Cell Distribution Width 13.5 % (11.0-16.0); White Blood Count 6.8 X10*3/uL (4.8-10.8)
[2023-05-09 12:34] LABS: Creatinine Urine 264.67 mg/dL; Microalbum/Creatinine Ratio Ur 7.1 ug/mg cr (<30)
[2023-05-09 12:46] LABS: Alanine Aminotransferase 18 U/L (0-31); Albumin Level 4.1 g/dL (3.5-5.0); Alkaline Phosphatase 163 U/L (39-117); Anion Gap 14 (12-20); Aspartate Amino Transferase 17 U/L (5-31); Bilirubin Total 0.3 mg/dL (0.0-1.0); Blood Urea Nitrogen 18 mg/dL (9-16); Calcium 9.3 mg/dL (8.4-10.2); Carbon Dioxide 24 mmol/L (22-29); Chloride 107 mmol/L (96-108); Cholesterol 149 mg/dL (<200); Estimated Glomerular Filt Rate > 60; Free T4 (Free Thyroxine) 0.86 ng/dL (0.71-1.85); Glucose Random 93 mg/dL (60-115); HDL Cholesterol 54 mg/dL (>40); LDL Cholesterol Calculated 75 mg/dL (<100); Sodium 141 mmol/L (135-145); Thyroid Stimulating Hormone 0.58 uIU/mL (0.32-4.0); Total Protein 7.3 g/dL (6.5-8.0); Triglycerides 102 mg/dL (<150); Vitamin D 25-OH Total 32.5 ng/mL (>30)
[2023-05-09 12:51] LABS: Vitamin B12 309 pg/mL (200-900)
== END 2023-05-09 06:30 | disposition home or self-care (01) ==
LOC: HO.HMGCLDS 06:29
PROVIDERS: PCP Internal Medicine; Visit Provider Internal Medicine
DX: E11.65 Type 2 diabetes mellitus with hyperglycemia (principal); E03.9 Hypothyroidism, unspecified; E78.00 Pure hypercholesterolemia, unspecified
CPT/HCPCS: 36415; 80053; 80061; 82043; 82306; 82570; 82607; 82746; 83036; 84439; 84443; 85025

== ENCOUNTER 2023-05-17 11:41 | Outpatient (AMB) | payer MEDICARE, SELFPAY ==
[2023-05-17 11:42] VITALS: BP 122/68; PULSE 74; TEMP 36.1; O2SAT 97; BMI 26.1
--- NOTE | 2023-05-17 11:42 | MHC.OFFWIV ---
Intake Vital Signs 05/17/23 11:42 Height 5 ft 6 in Weight 162 lb BMI 26.1 BP 122/68 Blood Pressure Location Lt brachial Position Sitting Pulse 74 Pulse Source Pulse Oximeter Temp 97.0 F Temp Source Temporal Artery Scan Pulse Oximetry (%) 97 Oxygen Delivery Method Room Air Intake Visit Reasons: EP Tightness in chest/losing voice about a month Intake Note: pt is here today for tightness in chest losing voice started 1 month ago Patient Tobacco Use Status: Current everyday Tobacco user Allergies clarithromycin [From BIAXIN] Allergy (Intermediate, Verified 05/17/23 11:56) N/V atorvastatin Allergy (Mild, Verified 05/17/23 11:56) Unknown Iodinated Contrast Media [IV Dye, Iodine Containing] Allergy (Mild, Verified 05/17/23 11:56) RASH AND NAUSEA AND VOMITING doxycycline Allergy (Unknown, Verified 05/17/23 11:56) Nausea and Vomiting lisinopril Allergy (Unknown, Verified 05/17/23 11:56) hypotension Penicillins Adverse Reaction (Unknown, Verified 05/17/23 11:56) UNKNOWN-FROM CHILDHOOD Medication List - Last Reconciled 05/17/23 by DRE Hutchinson albuterol sulfate 90 mcg/actuation (ProAir HFA) 2 puffs inhalation Q4-6H PRN beclomethasone dipropionate 80 mcg/actuation (Qvar RediHaler) 1 inh inhalation BID bupropion HCl (Wellbutrin SR) 100 mg PO BEDTIME cholecalciferol (vitamin D3) 25 mcg PO DAILY [DIABETIC SHOES As directed] diazepam 5 mg PO TID PRN 90 days erenumab-aooe (Aimovig Autoinjector) mg subcut [EXTRA DEPTH ORTHOPEDIC SHOES WITH CUSTOMIZED HEAT MOLDED MULTIDENSITY INNERSOLES As directed] fluoxetine 40 mg PO DAILY gabapentin 600 mg PO BID levothyroxine take 88 mcg QD except for tuesday orally every morning; 30 days methocarbamol 500 mg PO TID PRN omeprazole 20 mg PO DAILY oxycodone 15 mg PO Q4-6H 30 days promethazine 25 mg PO Q6H PRN rosuvastatin 20 mg PO DAILY 90 days sumatriptan succinate (Imitrex) 100 mg PO .QD PRN 90 days Do you need a note to return to daycare/school/sports/work: No HPI HPI Comments History of Present Illness Details Patient is a 67-year-old female in today for sick visit. She has a past medical history significant for COPD. She is a current everyday cigarette smoker. The patient states that over the past several weeks she has developed symptoms of cough, sore throat, chest tightness. She states that the sore throat and a cough of resolved, and her chief complaint now is chest congestion. She is prescribed a daily use inhaler QVAR which she states she often forgets to use. She has not used her albuterol inhaler today, will give nebulizer treatment. She denies chest pain, dizziness, numbness, shortness of breath, nausea, vomiting, diarrhea. [facility] Medical History Knee pain, left Pneumonia COPD exacerbation Chest tightness Abnormal lung sounds Screening for colon cancer Weight loss Post-menopausal Herpes zoster Chest pain Migraine Left scapula fracture Asthma Peripheral neuropathy Tobacco abuse Hypercholesterolemia Vitamin D deficiency Hypothyroid COPD (chronic obstructive pulmonary disease) Insomnia GERD (gastroesophageal reflux disease) Hypertension Type 2 diabetes mellitus with hyperglycemia Low back pain Surgical History History of colonoscopy History of lumbar surgery History of foot surgery History of thyroidectomy History of cholecystectomy Family History Father Prostate cancer Diabetes Hypertension Mother CVD (cardiovascular disease) Myocardial infarction Social History Housing: Apartment Alcohol intake: unknown Patient Tobacco Use Status: Current everyday Tobacco user Tobacco use type: Cigarette Cigarette Packs Per Day: 1 e-Cigarette/Vaping Use: Never Used Second Hand Smoke Exposure: No service: No Current occupational status: disabled Cognitive needs: Yes (cane ) Hearing needs: No Vision needs: Yes Review of Systems Const Details: Constitutional : No Weight loss, No Fever, No Chills, No Fatigue, Admits Malaise ENT/Mouth : No sore throat, No Rhinorrhea. No ear pain. Eyes: No Eye Pain, No Swelling, No Redness Cardiovascular : No Chest Pain, No SOB, Admits some Dyspnea on Exertion, No Orthopnea, No Edema, No Palpitations Respiratory : Admits Cough, Admits Sputum, Admits Wheezing Gastrointestinal : No Nausea, No Vomiting, No Diarrhea, No Constipation, No abdominal Pain, No Hematochezia, No Melena Genitourinary : No Dysuria, No Urinary Frequency, No Hematuria, Musculoskeletal : No joint pain, No Myalgias, No Joint Swelling Skin : No Skin Lesions, No rash Neuro : No Weakness, No Numbness, No Dizziness, No Headache Psych : No Anxiety/Panic, No Depression Heme/Lymph: No Bruising, No Bleeding,No Lymphadenopathy Endocrine : No Polyuria, No Polydipsia All other systems reviewed and are negative Physical Exam Vital Signs: Last Vital Signs Temp 97.0 F 05/17/23 11:42 Pulse 74 05/17/23 11:42 BP 122/68 05/17/23 11:42 Pulse Ox 97 05/17/23 11:42 Oxygen Delivery Method Room Air 05/17/23 11:42 BMI result Body Mass Index 26.1 Vital signs reviewed stable Const Other: Appearance: Alert.? Oriented X3.? No acute distress.? Head: Normocephalic, atraumatic. Eyes: Pupils equal, round and reactive to light.? ENT: Pharynx normal.?TM intact and pearly sigala, Neck: Normal inspection.? Neck supple.?Full ROM. CVS: Normal heart rate and rhythm.? Pulses normal.? Respiratory: No respiratory distress.? Bilateral Wheeze Throughout. ? Abdomen: Soft and nontender.? Skin: Skin warm and dry.? Normal skin color.? Normal skin turgor.? Neuro: Oriented X 3.? No motor deficit.? No sensory deficit. CN 2-12 intact Post nebulizer treatment breath sounds Office Procedures Nebulizer Treatment Nebulizer Treatment [id number] RX initial, or Nebulizer Subsequent Treatment Office Meds ipratropium 0.5 mg-albuterol 3 mg (2.5 mg base)/3 mL nebulization soln Performing Provider: DRE Hutchinson Performing Location: [facility] Administered by: DRE Hutchinson on 05/17/23 12:33 Dose Route Admin Location Dispensed Lot Number Expiration Date [employer] 3 mL inhalation 3 mL ndc [id number] 12/27/23 2203-0037-78 [employer]ST[employer] Results Reviewed Results Reviewed: Will call with chest x-ray and blood test results. Assessment & Plan Assessment & Plan (1) Upper respiratory infection: Code(s): J06.9 - Acute upper respiratory infection, unspecified Qualifiers: URI type: unspecified URI Qualified Code(s): J06.9 - Acute upper respiratory infection, unspecified Plan: Patient states that she has had azithromycin in the past with no allergic reaction, will prescribe that, with prednisone. Patient has been instructed to use her QVAR inhaler as it is prescribed. She can also utilize her albuterol inhaler more often as she only uses sparingly. Patient has been educated on signs of worsening symptoms and when to return to the walk-in clinic or when to present to the emergency room. Patient states she understands. Plan Take your medications as prescribed. If you were prescribed antibiotics today, it is important that you take your medication to their entirety, do not skip any doses, do not finish them early. Follow-up with your primary care provider this week. Return to the emergency department with new or worsening symptoms. Such as fevers, chills, chest pain, shortness of breath, nausea, vomiting, dizziness, headache, vision changes, lethargy In case of emergency call 911 Orders: Orders AMB Nebulizer Treatment Today R09.89 - Other specified symptoms and signs involving the circulatory and respiratory systems SARS-CoV2/FLU/RSV Today J06.9 - Acute upper respiratory infection, unspecified Comprehensive Met. Panel Today Z91.89 - Other specified personal risk factors, not elsewhere classified UA CC w/rflx Micro + Cult Today E86.0 - Dehydration XR chest 2V Today Medications: New azithromycin For 250 mg dose pack: take 500 mg today (day 1), then 250 mg for 4 days (days 2-5) PO 6 tabs 0RF prednisone 20 mg PO BID 10 tabs 0RF Refilled beclomethasone dipropionate 80 mcg/actuation (Qvar RediHaler) administer with spacer 1 inh inhalation BID 3 ea 3RF J44.9 - Chronic obstructive pulmonary disease, unspecified Coding Level of Care Code Est Pt Level 3 (65537) Diagnoses Upper respiratory tract infection, unspecified type J06.9 URI type: unspecified URI CPT Codes Nebulizer Treatment - Nebulizer Treatment, initial or subsequent: [id number]/[id number] RX initial, or Nebulizer Subsequent Treatment ([id number]) Time Spent (min) 35
== END 2023-05-17 15:06 | disposition home or self-care (01) ==
PROVIDERS: PCP Internal Medicine; Visit Provider Nurse Practitioner Primary Care
DX: J06.9 Acute upper respiratory infection, unspecified (principal); R09.89 Other specified symptoms and signs involving the circulatory and respiratory systems
CPT/HCPCS: 94640; 99214; J7620

== ENCOUNTER 2023-05-17 12:16 | Outpatient (REF) | payer MEDICARE, SELFPAY ==
--- NOTE | ~2023-05-17 | XR_ITS ---
EXAMINATION: XR CHEST CLINICAL INFORMATION: Cough. COMPARISON: 11/11/2021. TECHNIQUE: 2 views of the chest were obtained. FINDINGS: The lungs are well-inflated. There is no gross pneumothorax. Heart size is normal. Mild degenerative changes in the thoracic spine. Trace left costophrenic angle may represent a tiny pleural effusion. Moderately increased retrocardiac opacities may represent pneumonia. XR/XR chest 2V IMPRESSION: Trace left costophrenic blunting and a tiny pleural effusion. Increased retrocardiac opacities may represent pneumonia. Recommend follow up imaging in 4-6 weeks to confirm resolution and exclude underlying pathology. This study was presented May 17, 2023 for interpretation. Stat results provided at this time as requested by referring provider.
[2023-05-17 13:22] LABS: Appearance Urine Clear; Color Urine Dark Yellow; Glucose Urine UA Negative (Negative); Leukocyte Esterase Urine Negative (Negative); Nitrite Urine Negative (Negative); PH 5.5 (5.0-9.0); Specific Gravity - Urine >= 1.030 (1.005-1.025); Urine Blood Negative (Negative); Urine Ketones Negative (Negative); Urine Protein Negative (Neg-Trace)
[2023-05-17 14:07] LABS: Alanine Aminotransferase 13 U/L (0-31); Albumin Level 4.3 g/dL (3.5-5.0); Alkaline Phosphatase 151 U/L (39-117); Anion Gap 13 (12-20); Aspartate Amino Transferase 21 U/L (5-31); Bilirubin Total 0.3 mg/dL (0.0-1.0); Blood Urea Nitrogen 13 mg/dL (9-16); Calcium 9.3 mg/dL (8.4-10.2); Carbon Dioxide 23 mmol/L (22-29); Chloride 109 mmol/L (96-108); Estimated Glomerular Filt Rate 56; Glucose Random 86 mg/dL (60-115); Potassium 4.3 mmol/L (3.3-5.1); Sodium 141 mmol/L (135-145); Total Protein 7.7 g/dL (6.5-8.0)
[2023-05-17 15:57] LABS: Influenza A PCR NEGATIVE (Negative); Influenza B PCR NEGATIVE (Negative); Resp Syncy Virus RNA Qual PCR NEGATIVE (Negative); SARS COV2 PCR INHOUSE NEGATIVE (Negative)
== END 2023-05-17 12:17 | disposition home or self-care (01) ==
LOC: HO.HMGCX 12:16
PROVIDERS: Visit Provider Nurse Practitioner Primary Care
DX: Z13.89 Encounter for screening for other disorder (principal)
CPT/HCPCS: 0241U; 36415; 71046; 80053; 81003

== ENCOUNTER 2023-05-17 15:00 | Emergency (ER) | payer MEDICARE, SELFPAY ==
[2023-05-17 15:10] VITALS: BP 154/88; PULSE 84; RESP 18; TEMP 37.3; O2SAT 97; BMI 26.3
--- NOTE | 2023-05-17 15:17 | ED.GENADULT ---
HPI - General Adult General Chief complaint: Dyspnea Stated complaint: sent by urgent care to have lungs drained Time Seen by Provider: 05/17/23 17:01 History of Present Illness HPI narrative: Seen by REACTOR TECHNICIAN Giuliana Related Data Home Medications Medication Instructions Recorded Confirmed erenumab-aooe 140 mg/mL mg subcut 05/17/23 05/17/23 subcutaneous auto-injector (Aimovig Autoinjector) Previous Rx's Medication Instructions Recorded DIABETIC SHOES #1 ea 04/05/23 EXTRA DEPTH ORTHOPEDIC SHOES WITH #1 ea 04/05/23 CUSTOMIZED HEAT MOLDED MULTIDENSITY INNERSOLES albuterol sulfate 90 mcg/actuation 2 puff inhalation Q4-6H PRN 04/05/23 aerosol inhaler (ProAir HFA) bronchospasm #8.5 grams bupropion HCl 100 mg tablet,12 hr 100 mg PO BEDTIME #90 tabs 04/05/23 sustained-release (Wellbutrin SR) cholecalciferol (vitamin D3) 25 25 mcg PO DAILY #90 caps 04/05/23 mcg (1,000 unit) capsule diazepam 5 mg tablet 5 mg PO TID PRN muscle spasm 90 04/05/23 days #270 tabs fluoxetine 40 mg capsule 40 mg PO DAILY #90 caps 04/05/23 gabapentin 600 mg tablet 600 mg PO BID #180 tabs 04/05/23 levothyroxine 88 mcg tablet See Rx Instructions PO QAM 30 days 04/05/23 #90 tabs methocarbamol 500 mg tablet 500 mg PO TID PRN for pain #270 04/05/23 caps omeprazole 20 mg capsule,delayed 20 mg PO DAILY #90 caps 04/05/23 release promethazine 25 mg tablet 25 mg PO Q6H PRN for 04/05/23 nausea/vomiting #28 tabs rosuvastatin 20 mg tablet 20 mg PO DAILY 90 days #90 tabs 04/05/23 sumatriptan succinate 100 mg 100 mg PO .QD PRN migraine 04/05/23 tablet (Imitrex) headache 90 days #42 tabs oxycodone 15 mg tablet 15 mg PO Q4-6H pain 30 days #168 05/10/23 tabs azithromycin 250 mg tablet See Rx Instructions PO .COMPLEX #6 05/17/23 tabs beclomethasone dipropionate 80 1 inh inhalation BID #3 ea 05/17/23 mcg/actuation HFA breath activated aerosol (Qvar RediHaler) cefpodoxime 200 mg tablet 200 mg PO BID #14 tabs 05/17/23 prednisone 20 mg tablet 20 mg PO BID #10 tabs 05/17/23 Allergies Allergy/AdvReac Type Severity Reaction Status Date / Time clarithromycin [From BIAXIN] Allergy Intermediate N/V Verified 05/17/23 11:56 atorvastatin Allergy Mild Unknown Verified 05/17/23 11:56 Iodinated Contrast Media Allergy Mild RASH AND Verified 05/17/23 11:56 [IV Dye, Iodine Containing] NAUSEA AND VOMITING doxycycline Allergy Unknown Nausea and Verified 05/17/23 11:56 Vomiting lisinopril Allergy Unknown hypotension Verified 05/17/23 11:56 Penicillins AdvReac Unknown UNKNOWN-FROM Verified 05/17/23 11:56 CHILDHOOD buspirone [From BuSpar] AdvReac Headache Verified 05/17/23 15:18 PMFSH Past Medical History Medical History Knee pain, left Pneumonia COPD exacerbation Chest tightness Abnormal lung sounds Screening for colon cancer Weight loss Post-menopausal Herpes zoster Chest pain Migraine Left scapula fracture Asthma Peripheral neuropathy Tobacco abuse Hypercholesterolemia Vitamin D deficiency Hypothyroid COPD (chronic obstructive pulmonary disease) Insomnia GERD (gastroesophageal reflux disease) Hypertension Type 2 diabetes mellitus with hyperglycemia Low back pain Surgical History History of colonoscopy History of lumbar surgery History of foot surgery History of thyroidectomy History of cholecystectomy Family History Family History Father Prostate cancer Diabetes Hypertension Mother CVD (cardiovascular disease) Myocardial infarction Social History Social History Housing: Apartment Alcohol intake: unknown Patient Tobacco Use Status: Current everyday Tobacco user Tobacco use type: Cigarette Cigarette Packs Per Day: 1 e-Cigarette/Vaping Use: Never Used Second Hand Smoke Exposure: No Advance Directives: No Advance Directives Information Provided: Yes service: No Current occupational status: disabled Cognitive needs: Yes (cane ) Hearing needs: No Vision needs: Yes Physical Exam ED Vital Signs: Vital Signs - 24 hr 05/17/23 15:10 Temperature 99.1 F Pulse Rate 84 Respiratory Rate 18 Blood Pressure 154/88 H Pulse Oximetry 97 Oxygen Delivery Method Room Air BMI result Body Mass Index 26.3 Course Course Course Narrative: RME: 67 yold female with pmh of COPD presents to the ED for admission for Chest xray todays shows plueral effussion with LEft sided pneumonia. 02 sat normal. Will need antibotics. labs ordered. Vital signs stable. Charge nurse made aware of patient for BED. Medical Decision Making Lab Data 05/17/23 15:51 05/17/23 15:51 Labs: Lab Results 05/17/23 05/17/23 Range/Units 15:46 15:51 WBC 7.8 (4.8-10.8) X10*3/uL RBC 3.90 L (4.20-5.50) X10*6/uL Hgb 12.7 (12.0-16.0) g/dl Hct 38.0 (37.0-47.0) % MCV 97.4 (80.0-98.0) fL MCH 32.6 (27.0-33.0) pg MCHC 33.4 (31.0-35.0) g/dl RDW 13.3 (11.0-16.0) % Plt Count 183 D (160-400) X10*3/uL MPV 10.2 (9.4-12.3) fL Immature Gran % (Auto) 0.3 (0.0-0.4) % Neut % (Auto) 78.2 H (45-73) % Lymph % (Auto) 16.3 L (20-40) % [place] % (Auto) 3.7 (2-11) % Eos % (Auto) 1.2 (0-4) % Baso % (Auto) 0.3 (0-2) % Lymph # (Auto) 1.3 (1.2-4.9) X10*3/uL [place] # (Auto) 0.3 (0.1-1.2) X10*3/uL Eos # (Auto) 0.1 (0.0-0.4) X10*3/uL Baso # (Auto) 0.0 (0.0-0.2) X10*3/uL Abs Immat Gran (auto) 0.02 (0.00-0.03) X10*3/uL Absolute Neuts (auto) 6.1 (2.0-8.3) x10*3/uL Absolute Nucleated RBC 0.000 (0.0-0.012) X10*3/uL Nucleated RBC % (auto) 0.0 (0.0-0.2) /100WBC Sodium 140 (135-145) mmol/L Potassium 4.1 (3.3-5.1) mmol/L Chloride 108 (96-108) mmol/L Carbon Dioxide 24 (22-29) mmol/L Anion Gap 12 (12-20) BUN 13 (9-16) mg/dL Creatinine 0.99 (0.5-1.4) mg/dL Estim Creat Clear Calc 58.2 Estimated GFR 56 Random Glucose 121 H (60-115) mg/dL Lactic Acid 1.0 (0.5-2.0) mmol/L Calcium 9.2 (8.4-10.2) mg/dL Total Bilirubin 0.3 (0.0-1.0) mg/dL AST 17 (5-31) U/L ALT 13 (0-31) U/L Alkaline Phosphatase 146 H (39-117) U/L B-Natriuretic Peptide 61 (<100) pg/mL Total Protein 7.6 (6.5-8.0) g/dL Albumin 4.3 (3.5-5.0) g/dL Influenza Type A (PCR) NEGATIVE (Negative) Influenza Type B (PCR) NEGATIVE (Negative) RSV RNA Qual (PCR) NEGATIVE (Negative) SARS-CoV-2 RNA (RT-PCR) NEGATIVE (Negative) Discharge Plan Discharge Clinical Impression: Community acquired pneumonia Patient Disposition: Home, Self-Care Instructions: Community Acquired Pneumonia (ED) Additional Instructions: Take the antibiotics as prescribed by urgent care; azithromycin in addition to the prednisone. Be sure to closely monitor your blood sugar levels while taking the prednisone as this can increase your levels, keep a close watch and follow-up with your doctor regarding any elevated readings I have sent an additional prescription for cefpodoxime, this is also an antibiotic, please take this as prescribed. Complete the entire course, do not skip any doses. As discussed, there is a very small amount of fluid around the bottom of the left lung, this does not require drainage. Contact your primary care provider to arrange for a follow-up visit. Prescriptions: New cefpodoxime 200 mg tablet 200 mg PO BID Qty: 14 0RF Rx Instructions: must administer with a meal/food No Action albuterol sulfate [ProAir HFA] 90 mcg/actuation HFA aerosol inhaler 2 puff inhalation Q4-6H PRN (Reason: bronchospasm) Qty: 8.5 0RF cholecalciferol (vitamin D3) 25 mcg (1,000 unit) capsule 25 mcg PO DAILY Qty: 90 3RF levothyroxine 88 mcg tablet See Rx Instructions PO QAM 30 Days Qty: 90 1RF Rx Instructions: take 88 mcg QD except for tuesday orally every morning; omeprazole 20 mg capsule,delayed release(DR/EC) 20 mg PO DAILY Qty: 90 3RF promethazine 25 mg tablet 25 mg PO Q6H PRN (Reason: for nausea/vomiting) Qty: 28 0RF rosuvastatin 20 mg tablet 20 mg PO DAILY 90 Days Qty: 90 1RF sumatriptan succinate [Imitrex] 100 mg tablet 100 mg PO .QD PRN (Reason: migraine headache) 90 Days Qty: 42 3RF bupropion HCl [Wellbutrin SR] 100 mg tablet sustained-release 12 hr 100 mg PO BEDTIME Qty: 90 2RF (DME) DIABETIC SHOES See Rx Instructions .Route .MEDSUPPLY Qty: 1 0RF Rx Instructions: As directed diazepam 5 mg tablet 5 mg PO TID PRN (Reason: muscle spasm) 90 Days Qty: 270 1RF (DME) EXTRA DEPTH ORTHOPEDIC SHOES WITH CUSTOMIZED HEAT MOLDED MULTIDENSITY INNERSOLES See Rx Instructions .Route .MEDSUPPLY Qty: 1 0RF Rx Instructions: As directed fluoxetine 40 mg capsule 40 mg PO DAILY Qty: 90 3RF gabapentin 600 mg tablet 600 mg PO BID Qty: 180 3RF methocarbamol 500 mg tablet 500 mg PO TID PRN (Reason: for pain) Qty: 270 3RF oxycodone 15 mg tablet 15 mg PO Q4-6H 30 Days Qty: 168 0RF Aimovig Autoinjector 140 mg/mL auto-injector subcut azithromycin 250 mg tablet See Rx Instructions PO .COMPLEX Qty: 6 0RF Rx Instructions: For 250 mg dose pack: take 500 mg today (day 1), then 250 mg for 4 days (days 2-5) PO prednisone 20 mg tablet 20 mg PO BID Qty: 10 0RF Qvar RediHaler 80 mcg/actuation HFA aerosol breath activated 1 inh inhalation BID Qty: 3 3RF Rx Instructions: administer with spacer Referrals: Gonzalez Plata MD [Primary Care Provider] - Interventions: ED Discharge Assessment Last Done: 05/17/23 17:57 Discharge Date/Time: 05/17/23 17:57
[2023-05-17 16:06] LABS: MANUAL DIFF FLAG NO
[2023-05-17 16:09] LABS: Basophils Percent Auto 0.3 % (0-2); Eosinophils Absolute Auto 0.1 X10*3/uL (0.0-0.4); Eosinophils Percent Auto 1.2 % (0-4); Hemoglobin 12.7 g/dl (12.0-16.0); Imm Gran Abs Auto 0.02 X10*3/uL (0.00-0.03); Imm Gran Pct Auto 0.3 % (0.0-0.4); Lymphocytes Absolute Auto 1.3 X10*3/uL (1.2-4.9); Lymphocytes Percent Auto 16.3 % (20-40); Mean Corpuscular HGB Conc 33.4 g/dl (31.0-35.0); Mean Corpuscular Hemoglobin 32.6 pg (27.0-33.0); Mean Corpuscular Volume 97.4 fL (80.0-98.0); Mean Platelet Volume 10.2 fL (9.4-12.3); Monocytes Absolute Auto 0.3 X10*3/uL (0.1-1.2); Monocytes Percent Auto 3.7 % (2-11); Neutrophils Absolute Auto 6.1 x10*3/uL (2.0-8.3); Neutrophils Percent Auto 78.2 % (45-73); Platelet Count 183 X10*3/uL (160-400); Red Cell Distribution Width 13.3 % (11.0-16.0); White Blood Count 7.8 X10*3/uL (4.8-10.8)
[2023-05-17 16:22] LABS: Alanine Aminotransferase 13 U/L (0-31); Albumin Level 4.3 g/dL (3.5-5.0); Alkaline Phosphatase 146 U/L (39-117); Anion Gap 12 (12-20); Aspartate Amino Transferase 17 U/L (5-31); Bilirubin Total 0.3 mg/dL (0.0-1.0); Blood Urea Nitrogen 13 mg/dL (9-16); Calcium 9.2 mg/dL (8.4-10.2); Carbon Dioxide 24 mmol/L (22-29); Chloride 108 mmol/L (96-108); Creatinine Clr Calc Pharmacy 58.2; Estimated Glomerular Filt Rate 56; Glucose Random 121 mg/dL (60-115); Potassium 4.1 mmol/L (3.3-5.1); Sodium 140 mmol/L (135-145); Total Protein 7.6 g/dL (6.5-8.0)
[2023-05-17 16:28] LABS: B Type Natriuretic Peptide 61 pg/mL (<100)
[2023-05-17 16:52] LABS: Influenza A PCR NEGATIVE (Negative); Influenza B PCR NEGATIVE (Negative); Resp Syncy Virus RNA Qual PCR NEGATIVE (Negative); SARS COV2 PCR INHOUSE NEGATIVE (Negative)
--- NOTE | 2023-05-17 17:26 | ED.URI ---
HPI - URI/Sore Throat General Chief Complaint: Dyspnea Stated Complaint: sent by urgent care to have lungs drained Time Seen by Provider: 05/17/23 17:01 Source: patient Mode of arrival: ambulatory Limitations: no limitations History of Present Illness HPI Narrative: Patient is a 67-year-old female presents to the emergency department with referral from [facility] walk-in [facility], advised that she needed to have her lungs drained. She presented there today for evaluation of a productive cough and shortness of breath over the past month. She reports that she was given a prescription for antibiotic and steroids in addition to an inhaler and was discharged home. However, she received a call back stating that she needed to come to the emergency department right away to have would drain from her lungs. She reports that she is only experiencing shortness of breath when she has significant episodes of coughing, increased sputum in color change from what her baseline is with COPD. Denies chest pain, fevers, chills, nausea, vomiting, numbness or tingling of the extremities. Related Data Home Medications Medication Instructions Recorded Confirmed erenumab-aooe 140 mg/mL mg subcut 05/17/23 05/17/23 subcutaneous auto-injector (Aimovig Autoinjector) Previous Rx's Medication Instructions Recorded DIABETIC SHOES #1 ea 04/05/23 EXTRA DEPTH ORTHOPEDIC SHOES WITH #1 ea 04/05/23 CUSTOMIZED HEAT MOLDED MULTIDENSITY INNERSOLES albuterol sulfate 90 mcg/actuation 2 puff inhalation Q4-6H PRN 04/05/23 aerosol inhaler (ProAir HFA) bronchospasm #8.5 grams bupropion HCl 100 mg tablet,12 hr 100 mg PO BEDTIME #90 tabs 04/05/23 sustained-release (Wellbutrin SR) cholecalciferol (vitamin D3) 25 25 mcg PO DAILY #90 caps 04/05/23 mcg (1,000 unit) capsule diazepam 5 mg tablet 5 mg PO TID PRN muscle spasm 90 04/05/23 days #270 tabs fluoxetine 40 mg capsule 40 mg PO DAILY #90 caps 04/05/23 gabapentin 600 mg tablet 600 mg PO BID #180 tabs 04/05/23 levothyroxine 88 mcg tablet See Rx Instructions PO QAM 30 days 04/05/23 #90 tabs methocarbamol 500 mg tablet 500 mg PO TID PRN for pain #270 04/05/23 caps omeprazole 20 mg capsule,delayed 20 mg PO DAILY #90 caps 04/05/23 release promethazine 25 mg tablet 25 mg PO Q6H PRN for 04/05/23 nausea/vomiting #28 tabs rosuvastatin 20 mg tablet 20 mg PO DAILY 90 days #90 tabs 04/05/23 sumatriptan succinate 100 mg 100 mg PO .QD PRN migraine 04/05/23 tablet (Imitrex) headache 90 days #42 tabs oxycodone 15 mg tablet 15 mg PO Q4-6H pain 30 days #168 05/10/23 tabs azithromycin 250 mg tablet See Rx Instructions PO .COMPLEX #6 05/17/23 tabs beclomethasone dipropionate 80 1 inh inhalation BID #3 ea 05/17/23 mcg/actuation HFA breath activated aerosol (Qvar RediHaler) cefpodoxime 200 mg tablet 200 mg PO BID #14 tabs 05/17/23 prednisone 20 mg tablet 20 mg PO BID #10 tabs 05/17/23 Allergies Allergy/AdvReac Type Severity Reaction Status Date / Time clarithromycin [From BIAXIN] Allergy Intermediate N/V Verified 05/17/23 11:56 atorvastatin Allergy Mild Unknown Verified 05/17/23 11:56 Iodinated Contrast Media Allergy Mild RASH AND Verified 05/17/23 11:56 [IV Dye, Iodine Containing] NAUSEA AND VOMITING doxycycline Allergy Unknown Nausea and Verified 05/17/23 11:56 Vomiting lisinopril Allergy Unknown hypotension Verified 05/17/23 11:56 Penicillins AdvReac Unknown UNKNOWN-FROM Verified 05/17/23 11:56 CHILDHOOD buspirone [From BuSpar] AdvReac Headache Verified 05/17/23 15:18 Review of Systems Review of Systems: Yes all other systems are reviewed and are negative PMFSH Past Medical History Attestation statement: The following information was validated with the patient. Source: old records reviewed Medical History Knee pain, left Pneumonia COPD exacerbation Chest tightness Abnormal lung sounds Screening for colon cancer Weight loss Post-menopausal Herpes zoster Chest pain Migraine Left scapula fracture Asthma Peripheral neuropathy Tobacco abuse Hypercholesterolemia Vitamin D deficiency Hypothyroid COPD (chronic obstructive pulmonary disease) Insomnia GERD (gastroesophageal reflux disease) Hypertension Type 2 diabetes mellitus with hyperglycemia Low back pain Surgical History History of colonoscopy History of lumbar surgery History of foot surgery History of thyroidectomy History of cholecystectomy Family History Family History Father Prostate cancer Diabetes Hypertension Mother CVD (cardiovascular disease) Myocardial infarction Social History Social History Housing: Apartment Alcohol intake: unknown Patient Tobacco Use Status: Current everyday Tobacco user Tobacco use type: Cigarette Cigarette Packs Per Day: 1 e-Cigarette/Vaping Use: Never Used Second Hand Smoke Exposure: No Advance Directives: No Advance Directives Information Provided: Yes service: No Current occupational status: disabled Cognitive needs: Yes (cane ) Hearing needs: No Vision needs: Yes Physical Exam Vital Signs: Vital Signs: Last Vital Signs Temp 99.1 F 05/17/23 15:10 Pulse 84 05/17/23 15:10 Resp 18 05/17/23 15:10 BP 154/88 H 05/17/23 15:10 Pulse Ox 97 05/17/23 15:10 O2 Del Method Room Air 05/17/23 15:10 BMI result Body Mass Index 26.3 Appearance: Alert.?Oriented to person, place and time. No acute distress.?Normal affect. Eyes: Pupils equal, round and reactive to light.? ENT: Pharynx normal.?? Neck: Normal inspection.? Neck supple.?? CVS: Heart sounds normal. Normal heart rate and rhythm.? Pulses normal.?? Respiratory: No respiratory distress.? Lung sounds with mild rhonchi in the left lower lobe, no wheezing. Abdomen: Soft and non-tender. Normoactive bowel sounds. Skin: Skin warm and dry.? Normal skin color.? Extremities: No lower extremity edema.? No calf ttp? Neuro: Moves all extremities spontaneously. Sensation intact bilaterally. No focal neuro deficits. Ambulates with normal steady gait. Medical Decision Making Medical Decision Making MDM Narrative: Patient is a 67-year-old female past medical history of COPD, hyperlipidemia, hypothyroidism, GERD, hypertension, type 2 diabetes presenting to emergency department for evaluation from urgent care. Upon review of her outpatient x-ray there is trace left costophrenic blunting representing likely a very small pleural effusion, this does not require thoracentesis and patient was made aware of this. CXR also revealing increased retrocardiac opacities which may represent pneumonia, given her duration of symptoms history of COPD, will treat as community-acquired pneumonia, prescription for azithromycin and prednisone has already been given, patient advised that she will also take cefpodoxime in addition to this and follow-up with her primary care provider outpatient. She is ambulatory with steady gait, speaking clear full sentences, no respiratory distress. She is afebrile without tachycardia tachypnea or hypoxia. Feel that she is stable for outpatient treatment. Discussed strict return precautions. Differential Diagnosis Differential Diagnoses: The differential diagnosis associated with the presentation includes (Pleural effusion, pneumonia, viral syndrome, COPD exacerbation) Admission/Observation Consideration of admission/observation: Escalation of care including admission/observation considered (See narrative above, stable for discharge) Lab Data MDM Lab Attestation statement: I reviewed the patient's lab results. CBC is without leukocytosis or anemia. No electrolyte abnormality, no LUPE, BNP within normal range. Influenza/RSV/COVID-19 testing negative. 05/17/23 15:51 05/17/23 15:51 Labs: Lab Results 05/17/23 05/17/23 Range/Units 15:46 15:51 WBC 7.8 (4.8-10.8) X10*3/uL RBC 3.90 L (4.20-5.50) X10*6/uL Hgb 12.7 (12.0-16.0) g/dl Hct 38.0 (37.0-47.0) % MCV 97.4 (80.0-98.0) fL MCH 32.6 (27.0-33.0) pg MCHC 33.4 (31.0-35.0) g/dl RDW 13.3 (11.0-16.0) % Plt Count 183 D (160-400) X10*3/uL MPV 10.2 (9.4-12.3) fL Immature Gran % (Auto) 0.3 (0.0-0.4) % Neut % (Auto) 78.2 H (45-73) % Lymph % (Auto) 16.3 L (20-40) % [place] % (Auto) 3.7 (2-11) % Eos % (Auto) 1.2 (0-4) % Baso % (Auto) 0.3 (0-2) % Lymph # (Auto) 1.3 (1.2-4.9) X10*3/uL [place] # (Auto) 0.3 (0.1-1.2) X10*3/uL Eos # (Auto) 0.1 (0.0-0.4) X10*3/uL Baso # (Auto) 0.0 (0.0-0.2) X10*3/uL Abs Immat Gran (auto) 0.02 (0.00-0.03) X10*3/uL Absolute Neuts (auto) 6.1 (2.0-8.3) x10*3/uL Absolute Nucleated RBC 0.000 (0.0-0.012) X10*3/uL Nucleated RBC % (auto) 0.0 (0.0-0.2) /100WBC Sodium 140 (135-145) mmol/L Potassium 4.1 (3.3-5.1) mmol/L Chloride 108 (96-108) mmol/L Carbon Dioxide 24 (22-29) mmol/L Anion Gap 12 (12-20) BUN 13 (9-16) mg/dL Creatinine 0.99 (0.5-1.4) mg/dL Estim Creat Clear Calc 58.2 Estimated GFR 56 Random Glucose 121 H (60-115) mg/dL Lactic Acid 1.0 (0.5-2.0) mmol/L Calcium 9.2 (8.4-10.2) mg/dL Total Bilirubin 0.3 (0.0-1.0) mg/dL AST 17 (5-31) U/L ALT 13 (0-31) U/L Alkaline Phosphatase 146 H (39-117) U/L B-Natriuretic Peptide 61 (<100) pg/mL Total Protein 7.6 (6.5-8.0) g/dL Albumin 4.3 (3.5-5.0) g/dL Influenza Type A (PCR) NEGATIVE (Negative) Influenza Type B (PCR) NEGATIVE (Negative) RSV RNA Qual (PCR) NEGATIVE (Negative) SARS-CoV-2 RNA (RT-PCR) NEGATIVE (Negative) Independent Interpretation I performed an independent interpretation of an: Plain X-Ray (Trace pleural effusion, not amenable to thoracentesis) Independent Historian Clinical information obtained from an independent historian. History obtained from or confirmed by: Friend (Present who confirms history) External Record Review External record reviewed: Outpatient record XR/XR chest 2V IMPRESSION: Trace left costophrenic blunting and a tiny pleural effusion. Increased retrocardiac opacities may represent pneumonia. Recommend follow up imaging in 4-6 weeks to confirm resolution and exclude underlying pathology. This study was presented May 17, 2023 for interpretation. Stat results provided at this time as requested by referring provider. Prescription Management I considered prescription management with: Antibiotic Chronic Conditions Patient?s care impacted by: Diabetes and Hypertension Critical Care Time Critical Care Time Critical Care Time: Yes Total Critical Care Time: 35 Attestation: I personally attest to this critical care time spent taking care of the patient exclusive of all other billable procedures was approximately 35 minutes including initial evaluation of patient, ordering tests, x-ray interpretation, documentation, re-evaluation. Discharge Plan Discharge Clinical Impression: Community acquired pneumonia Patient Disposition: Home, Self-Care Instructions: Community Acquired Pneumonia (ED) Additional Instructions: Take the antibiotics as prescribed by urgent care; azithromycin in addition to the prednisone. Be sure to closely monitor your blood sugar levels while taking the prednisone as this can increase your levels, keep a close watch and follow-up with your doctor regarding any elevated readings I have sent an additional prescription for cefpodoxime, this is also an antibiotic, please take this as prescribed. Complete the entire course, do not skip any doses. As discussed, there is a very small amount of fluid around the bottom of the left lung, this does not require drainage. Contact your primary care provider to arrange for a follow-up visit. Prescriptions: New cefpodoxime 200 mg tablet 200 mg PO BID Qty: 14 0RF Rx Instructions: must administer with a meal/food No Action albuterol sulfate [ProAir HFA] 90 mcg/actuation HFA aerosol inhaler 2 puff inhalation Q4-6H PRN (Reason: bronchospasm) Qty: 8.5 0RF cholecalciferol (vitamin D3) 25 mcg (1,000 unit) capsule 25 mcg PO DAILY Qty: 90 3RF levothyroxine 88 mcg tablet See Rx Instructions PO QAM 30 Days Qty: 90 1RF Rx Instructions: take 88 mcg QD except for tuesday orally every morning; omeprazole 20 mg capsule,delayed release(DR/EC) 20 mg PO DAILY Qty: 90 3RF promethazine 25 mg tablet 25 mg PO Q6H PRN (Reason: for nausea/vomiting) Qty: 28 0RF rosuvastatin 20 mg tablet 20 mg PO DAILY 90 Days Qty: 90 1RF sumatriptan succinate [Imitrex] 100 mg tablet 100 mg PO .QD PRN (Reason: migraine headache) 90 Days Qty: 42 3RF bupropion HCl [Wellbutrin SR] 100 mg tablet sustained-release 12 hr 100 mg PO BEDTIME Qty: 90 2RF (DME) DIABETIC SHOES See Rx Instructions .Route .MEDSUPPLY Qty: 1 0RF Rx Instructions: As directed diazepam 5 mg tablet 5 mg PO TID PRN (Reason: muscle spasm) 90 Days Qty: 270 1RF (DME) EXTRA DEPTH ORTHOPEDIC SHOES WITH CUSTOMIZED HEAT MOLDED MULTIDENSITY INNERSOLES See Rx Instructions .Route .MEDSUPPLY Qty: 1 0RF Rx Instructions: As directed fluoxetine 40 mg capsule 40 mg PO DAILY Qty: 90 3RF gabapentin 600 mg tablet 600 mg PO BID Qty: 180 3RF methocarbamol 500 mg tablet 500 mg PO TID PRN (Reason: for pain) Qty: 270 3RF oxycodone 15 mg tablet 15 mg PO Q4-6H 30 Days Qty: 168 0RF Aimovig Autoinjector 140 mg/mL auto-injector subcut azithromycin 250 mg tablet See Rx Instructions PO .COMPLEX Qty: 6 0RF Rx Instructions: For 250 mg dose pack: take 500 mg today (day 1), then 250 mg for 4 days (days 2-5) PO prednisone 20 mg tablet 20 mg PO BID Qty: 10 0RF Qvar RediHaler 80 mcg/actuation HFA aerosol breath activated 1 inh inhalation BID Qty: 3 3RF Rx Instructions: administer with spacer Referrals: Po,Gonzalez Narvaez MD [Primary Care Provider] - Interventions: ED Discharge Assessment Last Done: 05/17/23 17:57 Discharge Date/Time: 05/17/23 17:57
== END 2023-05-17 17:57 | disposition home or self-care (01) ==
PROVIDERS: Physician Assistant; Emergency Provider Emergency Medicine Emergency Medical Services; PCP Internal Medicine
DX: J18.9 Pneumonia, unspecified organism (principal); R06.02 Shortness of breath; R05.9 Cough, unspecified; F17.210 Nicotine dependence, cigarettes, uncomplicated; Z11.52 Encounter for screening for COVID-19; Z20.822 Contact with and (suspected) exposure to COVID-19; Z79.899 Other long term (current) drug therapy
CPT/HCPCS: 0241U; 36415; 71046; 80053; 81003; 83605; 83880; 85025; 87040; 99282; 99283

== ENCOUNTER 2023-05-24 14:59 | Outpatient (AMB) | payer MEDICARE, SELFPAY ==
[2023-05-24 15:06] VITALS: BP 144/92; PULSE 79; O2SAT 99; BMI 25.8
--- NOTE | 2023-05-24 15:06 | A.OFFPC_ITS ---
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: No Allergies clarithromycin [From BIAXIN] Allergy (Intermediate, Verified 05/24/23 15:17) N/V atorvastatin Allergy (Mild, Verified 05/24/23 15:17) Unknown Iodinated Contrast Media [IV Dye, Iodine Containing] Allergy (Mild, Verified 05/24/23 15:17) RASH AND NAUSEA AND VOMITING doxycycline Allergy (Unknown, Verified 05/24/23 15:17) Nausea and Vomiting lisinopril Allergy (Unknown, Verified 05/24/23 15:17) hypotension Penicillins Adverse Reaction (Unknown, Verified 05/24/23 15:17) UNKNOWN-FROM CHILDHOOD buspirone [From BuSpar] Adverse Reaction (Verified 05/24/23 15:17) Headache Medication List - Last Reconciled 05/24/23 by Gonzalez Plata MD albuterol sulfate 90 mcg/actuation (ProAir HFA) 2 puffs inhalation Q4-6H PRN beclomethasone dipropionate 80 mcg/actuation (Qvar RediHaler) 1 inh inhalation BID bupropion HCl (Wellbutrin SR) 100 mg PO BEDTIME cholecalciferol (vitamin D3) 25 mcg PO DAILY [DIABETIC SHOES As directed] diazepam 5 mg PO TID PRN 90 days erenumab-aooe (Aimovig Autoinjector) mg subcut [EXTRA DEPTH ORTHOPEDIC SHOES WITH CUSTOMIZED HEAT MOLDED MULTIDENSITY INNERSOLES As directed] fluoxetine 40 mg PO DAILY gabapentin 600 mg PO BID levothyroxine take 88 mcg QD except for tuesday orally every morning; 30 days methocarbamol 500 mg PO TID PRN nebulizers (Aeroneb Go Nebulizer) As directed UPDRAFT QID omeprazole 20 mg PO DAILY oxycodone 15 mg PO Q4-6H 30 days prednisone 20 mg PO BID promethazine 25 mg PO Q6H PRN rosuvastatin 20 mg PO DAILY 90 days sumatriptan succinate (Imitrex) 100 mg PO .QD PRN 90 days Tobacco use date assessed: 05/24/23 Fall risk assessment: No Falls in past year Last assessed Fall Risk: 05/24/23 HPI migraine, tobacco abuse HPI Details 67-year-old female smoker with controlle d diabetes mellitus hypothyroidism hypercholesterolemia COPD GERD history lumbar surgery having low back pain on narcotic pain medication and generalized anxiety disorder last seen in January 2023. Mammogram declined, bone density last done in November 2020 and colonoscopy last done in August 2016. Noted ER visit for sore throat in April diagnosis of community-acquired pneumonia treated with cefpodoxime 200 mg twice a day. COUNTS INCLUDE 234 BEDS AT THE [facility] Medical History (Updated 05/24/23 @ 15:45 by Gonzalez Plata MD) Community acquired pneumonia Knee pain, left Pneumonia COPD exacerbation Chest tightness Abnormal lung sounds Screening for colon cancer Weight loss Post-menopausal Herpes zoster Chest pain Migraine Left scapula fracture Asthma Peripheral neuropathy Tobacco abuse Hypercholesterolemia Vitamin D deficiency Hypothyroid COPD (chronic obstructive pulmonary disease) Insomnia GERD (gastroesophageal reflux disease) Hypertension Type 2 diabetes mellitus with hyperglycemia Low back pain Surgical History History of colonoscopy History of lumbar surgery History of foot surgery History of thyroidectomy History of cholecystectomy Family History Father Prostate cancer Diabetes Hypertension Mother CVD (cardiovascular disease) Myocardial infarction Social History Housing: Apartment Alcohol intake: unknown Patient Tobacco Use Status: Current everyday Tobacco user Tobacco use type: Cigarette Cigarette Packs Per Day: 1 e-Cigarette/Vaping Use: Never Used Second Hand Smoke Exposure: No service: No Current occupational status: disabled Cognitive needs: Yes (cane ) Hearing needs: No Vision needs: Yes Questionnaire Thrive Questionnaire Date Thrive assessed: 05/24/23 I am a: Patient What is your living situation today?: I have a steady place to live Within the past 12 months, did the food you bought not last and you didn't have the money to get more?: Never true Within the past 12 months, did you worry whether your food would run out before you got money to buy more?: Never true Do you have trouble paying for medicines?: No Do you have trouble getting transportation to medical appointments?: No Do you have trouble paying your heating and electricity bill?: No Do you have trouble taking care of your child, family member or friend?: No Do you have trouble with day-to-day activities such as bathing, preparing meals, shopping, managing finances, etc.?: No Are you currently unemployed and looking for a job?: No Are you interested in more education?: No Please select the resources that you would like help with: None THRIVE Score: 0 AUDIT C Alcohol Use Questionnaire (AUDIT-C) 1. How often do you have a drink containing alcohol?: Never 3. How often do you have six or more drinks on one occasion?: Never Total Score: 0 Score Reviewed/Action Taken: No SIL-7 AMB Questionnaire SIL-7 Date SIL - 7 assessed: 05/24/23 Source: Developed by Drs. Bhavesh Alfred, Yuridia Suarez, Triston Gabriel and colleagues, with an educational yara from [employer]. Physical exam (Primary Care) Vital Signs: Last Vital Signs Pulse 79 05/24/23 15:06 BP 144/92 H 05/24/23 15:06 Pulse Ox 99 05/24/23 15:06 Oxygen Delivery Method Room Air 05/24/23 15:06 BMI result Body Mass Index 25.8 Tobacco/Smoking Status: Tobacco use Status Tobacco use date assessed 05/24/23 05/24/23 15:07 Patient Tobacco Use Status Current everyday Tobacco 05/24/23 15:07 Tobacco use type Cigarette 05/24/23 15:07 e-Cigarette/Vaping Use Never Used 05/24/23 15:07 Thrive Assessment: Date of Thrive Assessment Date Thrive assessed 05/24/23 05/24/23 15:07 Const General: alert; No acute distress Eyes Conjunctivae: conjunctivae normal Resp Auscultation: crackles, rales and wheezes Cardio Rate: regular rate Rhythm: regular rhythm GI Inspection: Yes normal to inspection Extrem General: Yes normal to inspection and No edema Assessment and Plan Assessment & Plan (1) Community acquired pneumonia: Comment: April 2023 Code(s): J18.9 - Pneumonia, unspecified organism Plan: Patient has been treated with cefpodoxime. Advised to repeat chest x-ray in 1 month (2) Type 2 diabetes mellitus with hyperglycemia: Code(s): E11.65 - Type 2 diabetes mellitus with hyperglycemia Qualifiers: Diabetes mellitus terminal makeup operator insulin use: without terminal makeup operator use Qualified Code(s): E11.65 - Type 2 diabetes mellitus with hyperglycemia Plan: Decrease the amount of carbohydrate intake, pasta, bread, rice and potatoes are all sugar and that is aside from all the sweet stuff, remember that fruits are good but they are Sweet also. Diet controlled (3) COPD (chronic obstructive pulmonary disease): Code(s): J44.9 - Chronic obstructive pulmonary disease, unspecified Qualifiers: COPD type: emphysema Emphysema type: unspecified Qualified Code(s): J4 3.9 - Emphysema, unspecified Plan: Patient advised to stop smoking! Continue with inhalers (4) Tobacco abuse: Code(s): Z72.0 - Tobacco use Plan: Patient is strongly advised to stop smoking! (5) History of lumbar surgery: Comment: work injury low back OR x4 Dr. Montoya Code(s): Z98.890 - Other specified postprocedural states Plan: Narcotic pain meds: Is being prescribed with the understanding that these medications are potentially addictive and should be used only when absolutely necessary and must always be secured. Any remaining pills should be safely disposed off appropriately. Patient is advised that narcotics can impaired judgment and one should not drive or operate heavy machinery while taking these medications. Never share these medications with anybody and do not leave them unattended. They will not be replaced under any circumstances. (6) Hypercholesterolemia: Code(s): E78.00 - Pure hypercholesterolemia, unspecified Plan: Avoid fried foods, chicken skin, eggs, butter margarine, pastries and meat. Be it pork or beef they have a lot of cholesterol LDL goal of less than 100 on rosuvastatin 20 mg once a day (7) Hypothyroid: Code(s): E03.9 - Hypothyroidism, unspecified Qualifiers: Hypothyroidism type: acquired Qualified Code(s): E03.9 - Hypothyroidism, unspecified Plan: Continue with thyroid medication (8) Hoarseness of voice: Code(s): R49.0 - Dysphonia Orders: Orders XR chest 2V 4 Weeks J18.9 - Pneumonia, unspecified organism Referrals Pulmonology Referral J43.9 - Emphysema, unspecified Medications: New umeclidinium 62.5 mcg/actuation (Incruse Ellipta) 1 inh inhalation BEDTIME 30 ea 1RF J43.9 - Emphysema, unspecified Discontinued beclomethasone dipropionate 80 mcg/actuation (Qvar RediHaler) administer with spacer Discontinued Reason: Doctor's Order 1 inh inhalation BID 3 ea 3RF J44.9 - Chronic obstructive pulmonary disease, unspecified prednisone Discontinued Reason: Patient Completed Course 20 mg PO BID 10 tabs 0RF Coding Level of Care Code Est Pt Level 4 (25917) Diagnoses Community acquired pneumonia J18.9 Type 2 diabetes mellitus with hyperglycemia, without long-term current use of insulin E11.65 Diabetes mellitus terminal makeup operator insulin use: without terminal makeup operator use Pulmonary emphysema, unspecified emphysema type J43.9 COPD type: emphysema Emphysema type: unspecified Tobacco abuse Z72.0 History of lumbar surgery Z98.890 Hypercholesterolemia E78.00 Acquired hypothyroidism E03.9 Hypothyroidism type: acquired Hoarseness of voice R49.0
== END 2023-05-24 16:03 | disposition home or self-care (01) ==
PROVIDERS: PCP Nurse Practitioner Family; Visit Provider Internal Medicine
DX: J18.9 Pneumonia, unspecified organism (principal); E11.65 Type 2 diabetes mellitus with hyperglycemia; J43.9 Emphysema, unspecified; Z72.0 Tobacco use; Z98.890 Other specified postprocedural states; E78.00 Pure hypercholesterolemia, unspecified; E03.9 Hypothyroidism, unspecified; R49.0 Dysphonia
CPT/HCPCS: 99214

== ENCOUNTER 2023-06-16 19:49 | Emergency (ER) | payer MEDICARE, SELFPAY ==
--- NOTE | 2023-06-16 | ECG_ITS ---
Test Reason : DYSPNEA Blood Pressure : / mmHG Vent. Rate : 071 BPM Atrial Rate : 071 BPM P-R Int : 126 ms QRS Dur : 086 ms QT Int : 406 ms P-R-T Axes : 065 057 038 degrees QTc Int : 441 ms Normal sinus rhythm Nonspecific ST abnormality Abnormal ECG When compared with ECG of 22-DEC-2020 11:25, No significant changes seen Referred By: Generic ED Physician Electronically Signed By:RENE BRAVO
--- NOTE | ~2023-06-16 | XR_ITS ---
EXAMINATION: XR CHEST CLINICAL INFORMATION: Dyspnea. COMPARISON: Chest 05/17/2023 TECHNIQUE: 2 views of the chest were obtained. FINDINGS: The lungs are well-expanded and clear. The heart size and pulmonary vascularity is normal. No gross bony abnormality seen. XR/XR chest 2V IMPRESSION: Unremarkable chest exam.
[2023-06-16 19:57] VITALS: BP 150/66; BP 155/80; PULSE 74; PULSE 80; RESP 16; TEMP 36.7; O2SAT 96; O2SAT 99; BMI 27.1
--- NOTE | 2023-06-16 20:14 | PC.NURSE ---
pt biba from home, reporting onset of shortness of breath 3 months ago. pt reports being diagnosed with pneumonia one month ag and was given medications without relief. prior to arrival pt was given duoneb treatment and reports relief. pt sating 96-98 on room air. pt denies fevers, n/v/d. lung sounds clear bilaterally. 20G placed in right ac by ems. labs obtained and sent to lab. pt normal sinus on tele 68-72bpm.
[2023-06-16 20:15] LABS: MANUAL DIFF FLAG NO
[2023-06-16 20:16] LABS: Basophils Percent Auto 0.2 % (0-2); Eosinophils Absolute Auto 0.1 X10*3/uL (0.0-0.4); Eosinophils Percent Auto 1.5 % (0-4); Hemoglobin 11.9 g/dl (12.0-16.0); Imm Gran Abs Auto 0.02 X10*3/uL (0.00-0.03); Imm Gran Pct Auto 0.2 % (0.0-0.4); Lymphocytes Absolute Auto 2.1 X10*3/uL (1.2-4.9); Lymphocytes Percent Auto 24.3 % (20-40); Mean Corpuscular HGB Conc 33.1 g/dl (31.0-35.0); Mean Corpuscular Hemoglobin 32.6 pg (27.0-33.0); Mean Corpuscular Volume 98.6 fL (80.0-98.0); Mean Platelet Volume 10.4 fL (9.4-12.3); Monocytes Absolute Auto 0.4 X10*3/uL (0.1-1.2); Monocytes Percent Auto 4.9 % (2-11); Neutrophils Absolute Auto 5.9 x10*3/uL (2.0-8.3); Neutrophils Percent Auto 68.9 % (45-73); Platelet Count 193 X10*3/uL (160-400); Red Blood Count 3.65 X10*6/uL (4.20-5.50); Red Cell Distribution Width 13.8 % (11.0-16.0); White Blood Count 8.6 X10*3/uL (4.8-10.8)
--- NOTE | 2023-06-16 20:23 | ED.SOB ---
HPI - SOB/Dyspnea General Chief Complaint: Dyspnea Stated Complaint: SOB Time Seen by Provider: 06/16/23 20:13 Source: patient Mode of arrival: ambulatory Limitations: no limitations History of Present Illness HPI Narrative: Patient with 40 pack year history with COPD comes here for increased shortness of breath for last 3 months using nebulizer treatment at home has a dry cough no fever no chills no chest pain has not seen any pricer bagger yet patient had small pneumonia on 05/17/2023 Related Data Home Medications Medication Instructions Recorded Confirmed erenumab-aooe 140 mg/mL mg subcut 05/17/23 05/24/23 subcutaneous auto-injector (Aimovig Autoinjector) Previous Rx's Medication Instructions Recorded DIABETIC SHOES #1 ea 04/05/23 EXTRA DEPTH ORTHOPEDIC SHOES WITH #1 ea 04/05/23 CUSTOMIZED HEAT MOLDED MULTIDENSITY INNERSOLES albuterol sulfate 90 mcg/actuation 2 puff inhalation Q4-6H PRN 04/05/23 aerosol inhaler (ProAir HFA) bronchospasm #8.5 grams bupropion HCl 100 mg tablet,12 hr 100 mg PO BEDTIME #90 tabs 04/05/23 sustained-release (Wellbutrin SR) cholecalciferol (vitamin D3) 25 25 mcg PO DAILY #90 caps 04/05/23 mcg (1,000 unit) capsule diazepam 5 mg tablet 5 mg PO TID PRN muscle spasm 90 04/05/23 days #270 tabs fluoxetine 40 mg capsule 40 mg PO DAILY #90 caps 04/05/23 gabapentin 600 mg tablet 600 mg PO BID #180 tabs 04/05/23 levothyroxine 88 mcg tablet See Rx Instructions PO QAM 30 days 04/05/23 #90 tabs methocarbamol 500 mg tablet 500 mg PO TID PRN for pain #270 04/05/23 caps omeprazole 20 mg capsule,delayed 20 mg PO DAILY #90 caps 04/05/23 release promethazine 25 mg tablet 25 mg PO Q6H PRN for 04/05/23 nausea/vomiting #28 tabs rosuvastatin 20 mg tablet 20 mg PO DAILY 90 days #90 tabs 04/05/23 sumatriptan succinate 100 mg 100 mg PO .QD PRN migraine 04/05/23 tablet (Imitrex) headache 90 days #42 tabs nebulizers (Aeroneb Go Nebulizer) #1 ea 02/21/24 umeclidinium 62.5 mcg/actuation 1 inh inhalation BEDTIME #30 ea 05/24/23 blister powder for inhalation (Incruse Ellipta) albuterol sulfate 2.5 mg/3 mL 2.5 mg (3 mL) inhalation QID PRN 05/30/23 (0.083 %) solution for nebulization shortness of breath or wheezing #180 mL oxycodone 15 mg tablet 15 mg PO Q4-6H pain 30 days #168 06/08/23 tabs benzonatate 200 mg capsule 200 mg PO TID PRN cough #30 caps 06/16/23 cefuroxime axetil 500 mg tablet 500 mg PO BID 7 days #14 tabs 06/16/23 prednisone 20 mg tablet 40 mg (2 x 20 mg) PO DAILY #10 tabs 06/16/23 Allergies Allergy/AdvReac Type Severity Reaction Status Date / Time clarithromycin [From BIAXIN] Allergy Intermediate N/V Verified 06/16/23 20:07 atorvastatin Allergy Mild Unknown Verified 06/16/23 20:07 Iodinated Contrast Media Allergy Mild RASH AND Verified 06/16/23 20:07 [IV Dye, Iodine Containing] NAUSEA AND VOMITING doxycycline Allergy Unknown Nausea and Verified 06/16/23 20:07 Vomiting lisinopril Allergy Unknown hypotension Verified 06/16/23 20:07 Penicillins AdvReac Unknown UNKNOWN-FROM Verified 06/16/23 20:07 CHILDHOOD buspirone [From BuSpar] AdvReac Headache Verified 06/16/23 20:07 Review of Systems Review of Systems: Yes all other systems are reviewed and are negative [facility] Past Medical History Medical History (Updated 06/16/23 @ 23:01 by Apolinar Valadez MD) Community acquired pneumonia Knee pain, left Pneumonia COPD exacerbation Chest tightness Abnormal lung sounds Screening for colon cancer Weight loss Post-menopausal Herpes zoster Chest pain Migraine Left scapula fracture Asthma Peripheral neuropathy Tobacco abuse Hypercholesterolemia Vitamin D deficiency Hypothyroid COPD (chronic obstructive pulmonary disease) Insomnia GERD (gastroesophageal reflux disease) Hypertension Type 2 diabetes mellitus with hyperglycemia Low back pain Surgical History History of colonoscopy History of lumbar surgery History of foot surgery History of thyroidectomy History of cholecystectomy Family History Family History Father Prostate cancer Diabetes Hypertension Mother CVD (cardiovascular disease) Myocardial infarction Social History Social History Housing: Apartment Alcohol intake: unknown Patient Tobacco Use Status: Current everyday Tobacco user Tobacco use type: Cigarette Cigarette Packs Per Day: 1 Smoked in Last 30 Days: No e-Cigarette/Vaping Use: Never Used Second Hand Smoke Exposure: No Use of substances other than those prescribed or required for medical reasons: No Advance Directives: Yes Advance Directives on File: Yes Advance Directives Date on File: 02/12/21 service: No Current occupational status: disabled Cognitive needs: Yes (cane ) Hearing needs: No Vision needs: Yes Physical Exam Vital Signs: Vital Signs: Last Vital Signs Temp 98.9 F 06/17/23 00:23 Pulse 74 06/17/23 00:23 Resp 17 06/17/23 00:23 BP 136/77 06/17/23 00:23 Pulse Ox 96 06/17/23 00:23 O2 Del Method Room Air 06/17/23 00:23 BMI result Body Mass Index 27.1 Appearance: Alert. Oriented X3. No acute distress. Eyes: No pallor or icterus ENT: Pharynx normal. Oral Mucosa moist Neck: Normal inspection. Neck supple. CVS: Normal heart rate and rhythm. Pulses normal. Respiratory: No respiratory distress. Equal air entry bilateral, no wheezing/rales/rhonchi prolonged expiration Abdomen: Soft and nontender. Bowel sounds are present, no mass palpable, no CVA tenderness Skin: Skin warm and dry. Normal skin color. Normal skin turgor. Extremities: No lower extremity edema. No calf tenderness Neuro: Oriented X 3. No motor deficit. Medications Administered Discontinued Medications Generic Name Dose Route Start Last Admin Trade Name Freq PRN Reason Stop Dose Admin Benzonatate 200 mg 06/16/23 20:51 06/16/23 21:06 Benzonatate 100 Mg Capsule PO 06/16/23 20:52 200 mg ONCE ONE Administration Albuterol Sulfate 2.5 mg/ 0 mg 06/16/23 20:51 06/16/23 21:07 Albuterol/Ipratropium 3 ml INHALE 06/16/23 20:52 5 dose ONCE ONE Administration Prednisone 40 mg 06/16/23 20:51 06/16/23 21:06 Prednisone 20 Mg Tablet PO 06/16/23 20:52 40 mg ONCE ONE Administration Medical Decision Making Medical Decision Making [facility] Narrative: Patient has chronic lung disease from smoking COPD comes here for chronic shortness of breath and cough patient already on nebulizing treatment at home scribe were short course of prednisone and short course of antibiotic for bronchitis labs are stable Differential Diagnosis Differential Diagnoses: The differential diagnosis associated with the presentation includes Lab Data MDM Lab Attestation statement: I reviewed the patient's lab results. 06/16/23 20:10 06/16/23 20:34 Labs: Lab Results 06/16/23 06/16/23 Range/Units 20:10 20:34 WBC 8.6 (4.8-10.8) X10*3/uL RBC 3.65 L (4.20-5.50) X10*6/uL Hgb 11.9 L (12.0-16.0) g/dl Hct 36.0 L (37.0-47.0) % MCV 98.6 H (80.0-98.0) fL MCH 32.6 (27.0-33.0) pg MCHC 33.1 (31.0-35.0) g/dl RDW 13.8 (11.0-16.0) % Plt Count 193 (160-400) X10*3/uL MPV 10.4 (9.4-12.3) fL Immature Gran % (Auto) 0.2 (0.0-0.4) % Neut % (Auto) 68.9 (45-73) % Lymph % (Auto) 24.3 (20-40) % [place] % (Auto) 4.9 (2-11) % Eos % (Auto) 1.5 (0-4) % Baso % (Auto) 0.2 (0-2) % Lymph # (Auto) 2.1 (1.2-4.9) X10*3/uL [place] # (Auto) 0.4 (0.1-1.2) X10*3/uL Eos # (Auto) 0.1 (0.0-0.4) X10*3/uL Baso # (Auto) 0.0 (0.0-0.2) X10*3/uL Abs Immat Gran (auto) 0.02 (0.00-0.03) X10*3/uL Absolute Neuts (auto) 5.9 (2.0-8.3) x10*3/uL Absolute Nucleated RBC 0.000 (0.0-0.012) X10*3/uL Nucleated RBC % (auto) 0.0 (0.0-0.2) /100WBC Sodium 144 (135-145) mmol/L Potassium 4.2 (3.3-5.1) mmol/L Chloride 109 H (96-108) mmol/L Carbon Dioxide 23 (22-29) mmol/L Anion Gap 16 (12-20) BUN 8 L (9-16) mg/dL Creatinine 0.81 (0.5-1.4) mg/dL Estim Creat Clear Calc 72.2 Estimated GFR > 60 Random Glucose 132 H (60-115) mg/dL Calcium 9.2 (8.4-10.2) mg/dL Total Bilirubin 0.2 (0.0-1.0) mg/dL AST 28 (5-31) U/L ALT 17 (0-31) U/L Alkaline Phosphatase 122 H (39-117) U/L B-Natriuretic Peptide 59 (<100) pg/mL Total Protein 7.5 (6.5-8.0) g/dL Albumin 4.0 (3.5-5.0) g/dL Urine Color Yellow Urine Appearance Clear Urine pH 5.5 (5.0-9.0) Ur Specific [place] 1.010 (1.005-1.025) Urine Protein Negative (Neg-Trace) mg/dL Urine Glucose (UA) Negative (Negative) mg/dL Urine Ketones Negative (Negative) mg/dL Urine Blood Negative (Negative) Urine Nitrite Negative (Negative) Ur Leukocyte Esterase Negative (Negative) Urine RBC 0-2 (0-2) /HPF Urine WBC 0-5 (0-5) /HPF Ur Squamous Epith Cells 0-2 (0-2) /HPF Urine Bacteria None Seen (None Seen) Hyaline Casts 0-2 (0-2) /LPF Influenza Type A (PCR) NEGATIVE (Negative) Influenza Type B (PCR) NEGATIVE (Negative) RSV RNA Qual (PCR) NEGATIVE (Negative) SARS-CoV-2 RNA (RT-PCR) NEGATIVE (Negative) Independent Interpretation I performed an independent interpretation of an: Plain X-Ray Interpretation: No infiltrate Radiology Impression Discussion of test interpretation with radiology: I have reviewed the radiologist's reading. Discharge Plan Discharge Clinical Impression: Acute bronchitis, COPD (chronic obstructive pulmonary disease) Patient Disposition: Home, Self-Care Instructions: Acute Bronchitis (ED), COPD (Chronic Obstructive Pulmonary Disease) (DC) Additional Instructions: Take cough syrup and antibiotic as prescribed Prednisone as prescribed Continue to use your nebulizer every 4-6 hours as needed Follow-up with lung specialist as planned Prescriptions: New benzonatate 200 mg capsule 200 mg PO TID PRN (Reason: cough) Qty: 30 0RF cefuroxime axetil 500 mg tablet 500 mg PO BID 7 Days Qty: 14 0RF prednisone 20 mg tablet 40 mg PO DAILY Qty: 10 0RF No Action albuterol sulfate [ProAir HFA] 90 mcg/actuation HFA aerosol inhaler 2 puff inhalation Q4-6H PRN (Reason: bronchospasm) Qty: 8.5 0RF cholecalciferol (vitamin D3) 25 mcg (1,000 unit) capsule 25 mcg PO DAILY Qty: 90 3RF levothyroxine 88 mcg tablet See Rx Instructions PO QAM 30 Days Qty: 90 1RF Rx Instructions: take 88 mcg QD except for tuesday orally every morning; omeprazole 20 mg capsule,delayed release(DR/EC) 20 mg PO DAILY Qty: 90 3RF promethazine 25 mg tablet 25 mg PO Q6H PRN (Reason: for nausea/vomiting) Qty: 28 0RF rosuvastatin 20 mg tablet 20 mg PO DAILY 90 Days Qty: 90 1RF sumatriptan succinate [Imitrex] 100 mg tablet 100 mg PO .QD PRN (Reason: migraine headache) 90 Days Qty: 42 3RF bupropion HCl [Wellbutrin SR] 100 mg tablet sustained-release 12 hr 100 mg PO BEDTIME Qty: 90 2RF (DME) DIABETIC SHOES See Rx Instructions .Route .MEDSUPPLY Qty: 1 0RF Rx Instructions: As directed diazepam 5 mg tablet 5 mg PO TID PRN (Reason: muscle spasm) 90 Days Qty: 270 1RF (DME) EXTRA DEPTH ORTHOPEDIC SHOES WITH CUSTOMIZED HEAT MOLDED MULTIDENSITY INNERSOLES See Rx Instructions .Route .MEDSUPPLY Qty: 1 0RF Rx Instructions: As directed fluoxetine 40 mg capsule 40 mg PO DAILY Qty: 90 3RF gabapentin 600 mg tablet 600 mg PO BID Qty: 180 3RF methocarbamol 500 mg tablet 500 mg PO TID PRN (Reason: for pain) Qty: 270 3RF (DME) nebulizers [Aeroneb Go Nebulizer] Misc See Rx Instructions .Route Qty: 1 0RF Rx Instructions: As directed UPDRAFT QID albuterol sulfate 2.5 mg /3 mL (0.083 %) solution for nebulization 2.5 mg inhalation QID PRN (Reason: shortness of breath or wheezing) Qty: 180 0RF oxycodone 15 mg tablet 15 mg PO Q4-6H 30 Days Qty: 168 0RF Incruse Ellipta 62.5 mcg/actuation blister with device 1 inh inhalation BEDTIME Qty: 30 1RF Aimovig Autoinjector 140 mg/mL auto-injector subcut Interventions: ED Discharge Assessment Last Done: 06/17/23 00:23 Discharge Date/Time: 06/17/23 00:24
[2023-06-16 20:41] LABS: Appearance Urine Clear; Color Urine Yellow; Glucose Urine UA Negative (Negative); Leukocyte Esterase Urine Negative (Negative); Nitrite Urine Negative (Negative); PH 5.5 (5.0-9.0); Urine Blood Negative (Negative); Urine Ketones Negative (Negative); Urine Protein Negative (Neg-Trace)
[2023-06-16 20:43] LABS: Bacteria Urine None Seen (None Seen); Hyaline Casts Urine 0-2 /LPF (0-2); RBC Urine 0-2 /HPF (0-2); Squamous Epithelial Cell Urine 0-2 /HPF (0-2); WBC Urine 0-5 /HPF (0-5)
[2023-06-16 20:57] LABS: Alanine Aminotransferase 17 U/L (0-31); Alkaline Phosphatase 122 U/L (39-117); Anion Gap 16 (12-20); Aspartate Amino Transferase 28 U/L (5-31); Bilirubin Total 0.2 mg/dL (0.0-1.0); Blood Urea Nitrogen 8 mg/dL (9-16); Calcium 9.2 mg/dL (8.4-10.2); Carbon Dioxide 23 mmol/L (22-29); Chloride 109 mmol/L (96-108); Creatinine Clr Calc Pharmacy 72.2; Estimated Glomerular Filt Rate > 60; Glucose Random 132 mg/dL (60-115); Potassium 4.2 mmol/L (3.3-5.1); Sodium 144 mmol/L (135-145); Total Protein 7.5 g/dL (6.5-8.0)
[2023-06-16] MEDS: Benzonatate 100 MG CAPSULE 200 MG PO (21:06)
[2023-06-16] MEDS: predniSONE 20 MG TABLET 40 MG PO (21:06)
[2023-06-16] MEDS: Albuterol Sulfate 2.5 MG, Albuterol/Iprat 2.5/0.5MG 3 ML 3 ML INHALE (21:07)
--- NOTE | 2023-06-16 21:07 | PC.NURSE ---
pt medicated per mar, tolerated well with water.
[2023-06-16 21:10] VITALS: PULSE 72; RESP 16; O2SAT 96
[2023-06-16 21:18] LABS: B Type Natriuretic Peptide 59 pg/mL (<100)
[2023-06-16 23:16] LABS: Influenza A PCR NEGATIVE (Negative); Influenza B PCR NEGATIVE (Negative); Resp Syncy Virus RNA Qual PCR NEGATIVE (Negative); SARS COV2 PCR INHOUSE NEGATIVE (Negative)
[2023-06-17 00:23] VITALS: BP 136/77; PULSE 74; RESP 17; TEMP 37.2; O2SAT 96
== END 2023-06-17 00:24 | disposition home or self-care (01) ==
PROVIDERS: Emergency Provider Internal Medicine; PCP Internal Medicine
DX: J20.9 Acute bronchitis, unspecified (principal); J44.9 Chronic obstructive pulmonary disease, unspecified; R06.02 Shortness of breath; R05.9 Cough, unspecified; R94.31 Abnormal electrocardiogram [ECG] [EKG]; Z11.52 Encounter for screening for COVID-19; Z20.822 Contact with and (suspected) exposure to COVID-19; Z79.899 Other long term (current) drug therapy
CPT/HCPCS: 0241U; 36415; 71046; 80053; 81001; 83880; 85025; 93005; 94640; 99283; 99285

== ENCOUNTER → 2023-06-16 20:00 | Outpatient (BNV) | payer MEDICARE, SELFPAY | PROVIDERS: Emergency Provider Internal Medicine; PCP Internal Medicine; Visit Provider Internal Medicine | DX: R06.00 Dyspnea, unspecified (principal) | CPT/HCPCS: 93010 ==

== ENCOUNTER 2023-06-27 11:04 | Outpatient (AMB) | payer MEDICARE, SELFPAY ==
[2023-06-27 11:07] VITALS: BP 136/68; PULSE 88; O2SAT 97; BMI 25.6
--- NOTE | 2023-06-27 11:07 | A.OFFVIS_ITS ---
Intake Vital Signs 06/27/23 11:07 Height 5 ft 6 in Weight 158 lb 11.725 oz BMI 25.6 BP 136/68 Blood Pressure Location Lt brachial Position Sitting Pulse 88 Pulse Source Pulse Oximeter Pulse Oximetry (%) 97 Oxygen Delivery Method Room Air Intake Visit Reasons: Empysema Lokie Engineer Required: No Accompanied by: Self / Same As Patient Allergies clarithromycin [From BIAXIN] Allergy (Intermediate, Verified 06/27/23 11:15) N/V atorvastatin Allergy (Mild, Verified 06/27/23 11:15) Unknown Iodinated Contrast Media [IV Dye, Iodine Containing] Allergy (Mild, Verified 06/27/23 11:15) RASH AND NAUSEA AND VOMITING doxycycline Allergy (Unknown, Verified 06/27/23 11:15) Nausea and Vomiting lisinopril Allergy (Unknown, Verified 06/27/23 11:15) hypotension Penicillins Adverse Reaction (Unknown, Verified 06/27/23 11:15) UNKNOWN-FROM CHILDHOOD buspirone [From BuSpar] Adverse Reaction (Verified 06/27/23 11:15) Headache Medication List - Last Reconciled 06/27/23 by Tereza Peters LPN albuterol sulfate 90 mcg/actuation (ProAir HFA) 2 puffs inhalation Q4-6H PRN albuterol sulfate 2.5 mg (3 mL) inhalation QID PRN benzonatate 200 mg PO TID PRN bupropion HCl (Wellbutrin SR) 100 mg PO BEDTIME cholecalciferol (vitamin D3) 25 mcg PO DAILY [DIABETIC SHOES As directed] diazepam 5 mg PO TID PRN 90 days erenumab-aooe (Aimovig Autoinjector) mg subcut [EXTRA DEPTH ORTHOPEDIC SHOES WITH CUSTOMIZED HEAT MOLDED MULTIDENSITY INNERSOLES As directed] fluoxetine 40 mg PO DAILY gabapentin 600 mg PO BID levothyroxine take 88 mcg QD except for tuesday orally every morning; 30 days methocarbamol 500 mg PO TID PRN nebulizers (Aeroneb Go Nebulizer) As directed UPDRAFT QID omeprazole 20 mg PO DAILY oxycodone 15 mg PO Q4-6H 30 days promethazine 25 mg PO Q6H PRN rosuvastatin 20 mg PO DAILY 90 days sumatriptan succinate (Imitrex) 100 mg PO .QD PRN 90 days umeclidinium 62.5 mcg/actuation (Incruse Ellipta) 1 inh inhalation BEDTIME HPI Empysema HPI Details Sherlyn is a pleasant 67 year old female, former smoker, recently quit, with 100+ pack year history, with underlying COPD, emphysema, asthma, GERD, HTN, and DMII. She was referred by PCP for pulmonary evaluation for worsening respiratory symptoms. She reports over the last three months she has noticed an increase in dyspnea, wheezing, and chest tightness. Of note, she was recently treated on 06/15 with cefuroxime and prednisone for exacerbation and feels symptoms are unchanged. She continues with chest congestion and difficulty expectorating. When she has been able to produce sputum, it has been green. She has been using Incruse as well as albuterol MDI/neb with suboptimal effect. She also reports hoarseness as well as difficulty swallowing, reporting food getting stuck in throat on multiple occasions. She does have a h/o GERD which is moderately controlled. She reports mild seasonal allergies. 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 She denies any pertinent family history. [facility] Medical History (Updated 06/27/23 @ 12:51 by Fabiana Calero NP) Community acquired pneumonia Knee pain, left Pneumonia COPD exacerbation Chest tightness Abnormal lung sounds Screening for colon cancer Weight loss Post-menopausal Herpes zoster Chest pain Migraine Left scapula fracture Asthma Peripheral neuropathy Tobacco abuse Hypercholesterolemia Vitamin D deficiency Hypothyroid COPD (chronic obstructive pulmonary disease) Insomnia GERD (gastroesophageal reflux disease) Hypertension Type 2 diabetes mellitus with hyperglycemia Low back pain Surgical History History of colonoscopy History of lumbar surgery History of foot surgery History of thyroidectomy History of cholecystectomy Family History Father Prostate cancer Diabetes Hypertension Mother CVD (cardiovascular disease) Myocardial infarction Social History (Updated 06/27/23 @ 11:19 by Tereza Peters LPN) Housing: Apartment Alcohol intake: unknown Patient Tobacco Use Status: Former Tobacco user Tobacco use type: Cigarette Years Smoked: 45 years/ Quit Feb 2023 e-Cigarette/Vaping Use: Never Used Second Hand Smoke Exposure: No Advance Directives Date on File: 02/12/21 service: No Current occupational status: disabled Cognitive needs: Yes (cane ) Hearing needs: No Vision needs: Yes Review of Systems Const Denies chills, Denies excessive sweating, Denies fever(s), Denies headache(s) and Denies night sweats Eyes Denies dry eyes, Denies irritation and Denies itchy eyes ENT Reports Normal hearing present, Denies headache(s), Denies nasal congestion, Denies nasal discharge, Denies post nasal drip and Denies sore throat Card Denies chest pain, Denies chest pain at rest, Denies chest pain with activity, Denies claudication, Denies leg edema and Denies paroxysmal nocturnal dyspnea Resp Denies excessive phlegm production, Denies pain on inspiration, Denies pain with cough and Denies stridor Musc Denies myalgias Neuro Reports Normal hearing present and Denies headache(s) Endo Denies excessive sweating Dayo/Lymph Denies lymphadenopathy Aller/Immun Denies itchy eyes and Denies seasonal rhinorrhea Physical Exam Vital Signs: Last Vital Signs Pulse 88 06/27/23 11:07 BP 136/68 06/27/23 11:07 Pulse Ox 97 06/27/23 11:07 Oxygen Delivery Method Room Air 06/27/23 11:07 BMI result Body Mass Index 25.6 Const Other: severe kyphosis ambulating with two canes. General: cooperative, healthy appearing, comfortable, no acute distress, well developed and alert Orientation/consciousness: patient oriented x3 HEENT Head: Yes normal to inspection, Yes normocephalic and Yes atraumatic Ears: hearing grossly normal bilaterally and external ears normal Eyes General: appearance normal, both eyes and all related structures Eyelids: Yes eyelids normal Sclerae: sclerae normal EOM: EOMs intact bilaterally Neck Neck: Yes normal visual inspection and Yes no lymphadenopathy Lymphatic: no lymphadenopathy noted Chest Chest palpation & inspection: normal inspection of the chest Resp Effort & Inspection: normal respiratory effort, able to speak in complete sentences, no audible wheezes, no cough, no stridor, not tachypneic, no tripod positioning and no use of accessory muscles Auscultation: no crackles, no rhonchi, no wheezes and diminished lung sounds Cardio Jugular venous distension: no JVD Rate: regular rate Rhythm: regular rhythm Skin Other: warm, dry General skin exam: no rashes or lesions noted Neuro General: patient oriented x3 Cranial nerves: Yes Normal hearing present Cognition (Neuro): normal cognition Extrem General: Yes normal to inspection, Yes capillary refill normal, Yes no clubbing, cyanosis or edema and Yes no pedal edema Psych Appearance: grossly normal and well kempt Speech and movement: Normal speech and movement present and Clear speech present Affect: normal affect Attitude: cooperative Thought process: Normal thought process present Thought content: Normal thought content present Insight: Good insight present (Psych) Judgement: Good judgement present (Psych) Assessment & Plan Assessment & Plan (1) COPD (chronic obstructive pulmonary disease): Code(s): J44.9 - Chronic obstructive pulmonary disease, unspecified (2) Kyphosis: Code(s): M40.209 - Unspecified kyphosis, site unspecified (3) Nicotine dependence, cigarettes, uncomplicated: Code(s): F17.210 - Nicotine dependence, cigarettes, uncomplicated (4) Dysphagia: Code(s): R13.10 - Dysphagia, unspecified (5) Dyspnea on minimal exertion: Code(s): R06.09 - Other forms of dyspnea Plan Sherlyn's symptoms are likely due to COPD, unclear severity, as well as restrictive defect secondary to kyphotic posture. Will send for PFT to evaluate. Patient with significant smoking history and reports worsening dyspnea on exertion, will send for chest CT to evaluate. CXR unremarkable. Will treat bronc hitic symptoms with levaquin as patient unresponsive to cefuroxime. Discussed risk of tendon rupture. Will switch Incruse to Trelegy and trial duoneb in place of albuterol neb. She noted duoneb with recent evaluation at [facility] with significant improvement in symptoms. Patient also reported newer onset of hoarseness and dysphagia, will send for MBSS. If unremarkable, will enter referral to ENT. All questions were answered and patient is in agreement of plan. Will follow up to review results of PFT, CT, MBSS and response to trelegy. Orders: Orders CT chest wo IV con 4 Weeks F17.210 - Nicotine dependence, cigarettes, uncomplicated, J44.9 - Chronic obstructive pulmonary disease, unspecified FL barium swallow modified Today R13.10 - Dysphagia, unspecified PFT pulmonary function test Today J44.9 - Chronic obstructive pulmonary disease , unspecified Medications: New levofloxacin 750 mg PO DAILY 7 tabs 0RF hmezbtqrehw-jpxzbdjvr-gaqmuwel 200-62.5-25 mcg (Trelegy Ellipta) 1 inh inhalation DAILY 60 ea 6RF ipratropium-albuterol 0.5 mg-3 mg(2.5 mg base)/3 mL 3 mL inhalation DAILY PRN 90 mL 0RF wheezing Discontinued umeclidinium 62.5 mcg/actuation (Incruse Ellipta) Discontinued Reason: Ancillary Entered New Order 1 inh inhalation BEDTIME 30 ea 1RF J43.9 - Emphysema, unspecified Coding Level of Care Code New Pt Level 4 (18140) Diagnoses Pulmonary emphysema, unspecified emphysema type J44.9 Kyphosis M40.209 Nicotine dependence, cigarettes, uncomplicated F17.210 Dysphagia R13.10 Dyspnea on minimal exertion R06.09
== END 2023-06-27 12:02 | disposition home or self-care (01) ==
PROVIDERS: PCP Internal Medicine; Referring Provider Internal Medicine; Visit Provider Nurse Practitioner Family
DX: J44.9 Chronic obstructive pulmonary disease, unspecified (principal); M40.209 Unspecified kyphosis, site unspecified; F17.210 Nicotine dependence, cigarettes, uncomplicated; R13.10 Dysphagia, unspecified; R06.09 Other forms of dyspnea
CPT/HCPCS: 99204

== ENCOUNTER → 2023-06-27 11:04 | Outpatient (BNVA) | payer MEDICARE, SELFPAY | PROVIDERS: PCP Internal Medicine; Referring Provider Internal Medicine; Visit Provider Nurse Practitioner Family | DX: J43.9 Emphysema, unspecified (principal); J44.9 Chronic obstructive pulmonary disease, unspecified; M40.209 Unspecified kyphosis, site unspecified; R13.10 Dysphagia, unspecified; R06.09 Other forms of dyspnea; Z87.891 Personal history of nicotine dependence | CPT/HCPCS: 99202 ==

== ENCOUNTER 2023-07-22 10:14 | Outpatient (REF) | payer MEDICARE, SELFPAY ==
--- NOTE | ~2023-07-22 | FL_ITS ---
EXAMINATION: Modified Barium Swallow CLINICAL INFORMATION: Dysphagia COMPARISON: None TECHNIQUE: Modified barium swallow was performed under lateral fluoroscopy with patient in standing position. Different consistency of barium was administered by the speech therapist. FINDINGS: No laryngeal penetration or aspiration was seen during this examination. There is to and fro motion of the barium column. FLUOROSCOPY TIME: 1 minute 35 seconds Number of Spot Images: 1 image hold DOSE AREA PRODUCT: 674 uGy-m2 (microgray-meter squared) FL/FL barium swallow modified IMPRESSION: 1. No evidence of laryngeal penetration or aspiration was seen during this examination 2. Limited evaluation of the esophagus demonstrates to and fro motion of the barium column. This likely represents esophageal dysmotility. Recommend dedicated esophagram. Refer to the speech therapy report for further clarification This procedure was performed by Solomon Kat PA-C, and supervised by Dr. Ram
--- NOTE | ~2023-07-22 | XR_ITS ---
EXAMINATION: XR CHEST CLINICAL INFORMATION: Pneumonia COMPARISON: None available. TECHNIQUE: 2 views of the chest were obtained. FINDINGS: No significant abnormality is noted involving the heart, lungs, mediastinum, bony thorax or soft tissues. XR/XR chest 2V IMPRESSION: Unremarkable examination. No x-ray signs of pneumonia
--- NOTE | 2023-08-24 13:14 | MHC.SL.IMP ---
Date of Plan of Treatment: 07/22/23 Onset of Symptoms/Illness: 05/23/23 Date Treatment Started: 07/22/23 Admitting Diagnosis: Dysphagia Primary Speech & Language Diagnosis: R13.10 Dysphagia Reason for Today's Visit: 23533 Modified Barium Swallow Study Pre-evaluation Dietary Consistencies: Regular Pre-evaluation Liquid Consistency: Thin Pre-evaluation Medication Administration: Whole with Liquid Medical History: Community acquired pneumonia Knee pain, left Pneumonia COPD exacerbation Chest tightness Abnormal lung sounds Screening for colon cancer Weight loss Post-menopausal Herpes zoster Chest pain Migraine Left scapula fracture Asthma Peripheral neuropathy Tobacco abuse Hypercholesterolemia Vitamin D deficiency Hypothyroid COPD (chronic obstructive pulmonary disease) Insomnia GERD (gastroesophageal reflux disease) Hypertension Type 2 diabetes mellitus with hyperglycemia Low back pain Oral Motor Exam Facial Symmetry: Normal for Patient Symmetrical Facial Movement: Oral-Facial Teeth Characteristics: Intact/Normal Oral-Facial Lip Pucker Description: Normal Oral-Facial Smile (Lips) Description: Normal Oral-Facial Puff Cheeks Description: Normal Oral Expression Ability: No Impairment Is patient able to manage secretions?: Yes Is patient able to produce volitional cough?: Yes Food and Liquid Trials: Oral Impairment: Lip Closure: 0=No labial escape Oral Impairment: Tongue Control During Bolus Hold: 0=Cohesive bolus between tongue to palatal seal Oral Impairment: Bolus Preparation/Mastication: 0=Timely and efficient chewing and mashing Oral Impairment: Bolus Transport/Lingual Motion: 0=Brisk tongue motion Oral Impairment: Oral Residue: 1=Trace residue lining oral structures Oral Impairment:Initiation of Pharyngeal Swallow: 3=Bolus head in pyriforms Pharyngeal Impairment: Soft Palate Elevation: 0=No bolus between soft palate (SP)/pharyngeal wall (PW) Pharyngeal Impairment: Laryngeal Elevation: 1=Partial thyroid cartilage/arytenoids to epiglottic petiole movement Pharyngeal Impairment: Anterior Hyoid Excursion: 1=Partial anterior movement Pharyngeal Impairment: Epiglottic Movement: 0=Complete inversion Pharyngeal Impairment: Laryngeal Vestibular Closure:: 1=Incomplete: narrow column air/contrast in laryngeal vestibule Pharyngeal Impairment: Pharyngeal Stripping Wave: 0=Present: complete Pharyngeal Impairment: Pharyngeal Contraction: Did not test Pharyngeal Impairment: Pharyngoesophageal Segment Openin=Partial distention/partial duration: partial obstruction of flow Pharyngeal Impairment: Tongue Base (TB) Retraction: 2=Narrow column of contrast/air between TB and posterior PW Pharyngeal Impairment: Pharyngeal Residue: 1=Trace residue within or on pharyngeal structures Pharyngeal Impairment: Esophageal Clearance Upright Position: 2=Esophageal retention with retrograde flow below PES Impressions and Recommendations Clinical Observations: MBSImP Results: Lip closure for intraoral bolus containment resulted in no labial escape. Tongue control during bolus hold maintained a cohesive bolus held between tongue to palate seal. Bolus preparation and mastication resulted in timely and efficient chewing and mashing. Bolus transport/lingual motion was with brisk tongue motion. Oral residue was a trace, lining oral structures. Initiation of the pharyngeal swallow occurred when the bolus head was in the pyriform sinuses. Soft palate elevation resulted in no bolus between the soft palate and the pharyngeal wall. Laryngeal elevation was decreased, with partial superior movement of the thyroid cartilage/partial approximation of the arytenoids to the epiglottic petiole. Anterior hyoid excursion demonstrated partial anterior movement. Epiglottic movement resulted in complete inversion. Laryngeal vestibular closure was incomplete, with a narrow column of air/contrast noted within the laryngeal vestibule at the height of the swallow. Pharyngeal stripping wave was present and complete. Pharyngeal contraction could not be determined due to logistical reasons not related to physiologic impairment. Pharyngoesophageal segment opening could not be assessed due to logistical reasons not related to physiologic impairment. Tongue base retraction could not be assessed due to logistical reasons not related to physiologic impairment. Pharyngeal residue could not be assessed due to logistical reasons not related to physiologic impairment. Esophageal clearance in the upright position resulted in esophageal retention with incidence of retrograde bolus flow below the pharyngoesophageal segment. Oral Impairment Score: 3 Pharyngeal Impairment Score: 3 (absence of score, component 13component 14component 15component 16) Esophageal Impairment Score: 2 Laryngeal Penetration and Aspiration: Penetration was observed in today's study. Cookie, Pudding-thick, Thin Contrast entered the airway, remained above the vocal folds, and were ejected from the airway. SUMMARY: Findings were significant for delayed initiation of the swallow to the level of the pyriforms. This resulted on penetration across all consistencies, however any penetrated contrast was spontaneously removed from the airway. Given globus pharyngeus symptoms an oblique scan of the esophagus was performed and significant for retrograde motion of the contrast contained within the esophagus. Liquid Intake Recommendation: Thin Liquid Intake Strategies: Unrestricted Dietary Recommendations: Regular Medication Administration: Please contact the pharmacy regarding appropriate crushable or liquid drug formulations that are available whenever modified delivery is recommended. Compensatory Strategies Recommended: Sitting Upright (90 deg) Supervision during eating and or drinking: None Needed Recommended Treatments: Compens. Strategy Educat. Recommendation for Speech Therapy: NA:Typical Evaluation Timeline to reassess: PRN Hot Baller Clinician/Clinical Fellow: No Supervisory Statement: N/A Speech Language Pathologist: Uche Morales M.A., CCC-GRAVEL SCREENER
== END 2023-07-22 10:15 | disposition home or self-care (01) ==
LOC: HO.XRAY 10:14
PROVIDERS: PCP Internal Medicine; Visit Provider Nurse Practitioner Family
DX: R13.10 Dysphagia, unspecified (principal); J18.9 Pneumonia, unspecified organism
CPT/HCPCS: 71046; 74230; 92611

== ENCOUNTER → 2023-07-22 10:18 | Outpatient (BNV) | payer MEDICARE, SELFPAY | PROVIDERS: PCP Internal Medicine; Visit Provider Physician Assistant Surgical | DX: R13.10 Dysphagia, unspecified (principal) | CPT/HCPCS: 74230 ==

== ENCOUNTER 2023-08-01 09:40 | Outpatient (REF) | payer MEDICARE, SELFPAY ==
[2023-08-01 08:48] VITALS: PULSE 88; RESP 16; O2SAT 95
--- NOTE | 2023-08-01 13:33 | PFT_ITS ---
Flows: FEV1: 93 % of predicted at 2.32 L FVC: 100 % of predicted at 3.20 L FEV1/FVC: 73 % Bronchodilator response: Absent Volumes: Total lung capacity: 89 % of predicted at 4.82 L Residual volume: 81 % of predicted at on 0.60 L Slow vital capacity: 95 % of predicted at 3.2 to L Expiratory reserve volume: 107 % of predicted at 0.90 L Diffusion capacity: Mildly decreased Impression: No obstructive or restrictive ventilatory defect. No bronchodilator response. Decreased diffusion capacity suggests emphysema. MTDD
== END 2023-08-01 09:41 | disposition home or self-care (01) ==
LOC: HO.RESP 09:40
PROVIDERS: PCP Internal Medicine; Visit Provider Nurse Practitioner Family
DX: J44.9 Chronic obstructive pulmonary disease, unspecified (principal)
CPT/HCPCS: 94010; 94640; 94727; 94729

== ENCOUNTER → 2023-08-01 13:33 | Outpatient (BNV) | payer MEDICARE, SELFPAY | PROVIDERS: PCP Internal Medicine; Visit Provider Internal Medicine Pulmonary Disease | DX: J44.9 Chronic obstructive pulmonary disease, unspecified (principal) | CPT/HCPCS: 94060; 94727; 94729 ==

== ENCOUNTER 2023-08-03 14:22 | Outpatient (AMB) | payer MEDICARE, SELFPAY ==
[2023-08-03 14:31] VITALS: BP 142/72; PULSE 87; O2SAT 97; BMI 23.4
--- NOTE | 2023-08-03 14:31 | A.OFFPC_ITS ---
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: No Ethics Officer: Not Required per policy Accompanied by: Self / Same As Patient Allergies clarithromycin [From BIAXIN] Allergy (Intermediate, Verified 08/03/23 14:32) N/V atorvastatin Allergy (Mild, Verified 08/03/23 14:32) Unknown Iodinated Contrast Media [IV Dye, Iodine Containing] Allergy (Mild, Verified 08/03/23 14:32) RASH AND NAUSEA AND VOMITING doxycycline Allergy (Unknown, Verified 08/03/23 14:32) Nausea and Vomiting lisinopril Allergy (Unknown, Verified 08/03/23 14:32) hypotension Penicillins Adverse Reaction (Unknown, Verified 08/03/23 14:32) UNKNOWN-FROM CHILDHOOD buspirone [From BuSpar] Adverse Reaction (Verified 08/03/23 14:32) Headache Medication List - Last Reconciled 08/03/23 by Gonzalez Plata MD albuterol sulfate 90 mcg/actuation (ProAir HFA) 2 puffs inhalation Q4-6H PRN albuterol sulfate 2.5 mg (3 mL) inhalation QID PRN benzonatate 200 mg PO TID PRN bupropion HCl SR (Wellbutrin SR) 100 mg PO BEDTIME cholecalciferol (vitamin D3) 25 mcg PO DAILY [DIABETIC SHOES As directed] diazepam 5 mg PO TID PRN 90 days erenumab-aooe (Aimovig Autoinjector) mg subcut [EXTRA DEPTH ORTHOPEDIC SHOES WITH CUSTOMIZED HEAT MOLDED MULTIDENSITY INNERSOLES As directed] fluoxetine 40 mg PO DAILY febsydclsvn-mkiztczbk-raivlley 200-62.5-25 mcg (Trelegy Ellipta) 1 inh inhalation DAILY gabapentin 600 mg PO BID guaifenesin ER (Mucinex) 600 mg PO Q12H PRN ipratropium-albuterol 0.5 mg-3 mg(2.5 mg base)/3 mL 3 mL inhalation DAILY PRN levofloxacin 750 mg PO DAILY levothyroxine take 88 mcg QD except for tuesday orally every morning; 30 days methocarbamol 500 mg PO TID PRN nebulizers (Aeroneb Go Nebulizer) As directed UPDRAFT QID omeprazole 20 mg PO DAILY oxycodone 15 mg PO Q4-6H 30 days promethazine 25 mg PO Q6H PRN rosuvastatin 20 mg PO DAILY 90 days sumatriptan succinate (Imitrex) 100 mg PO .QD PRN 90 days Tobacco use date assessed: 05/24/23 Fall risk assessment: No Falls in past year Last assessed Fall Risk: 08/03/23 Dental Screening Dental Screen Date: 08/03/23 Did you have a dental visit in the last 12 months?: No Did you have a dental problem in the last 6 months where you did not have access to dental care?: No Was dental information given to patient?: Patient has dentist HPI COPD HPI Details 67-year-old female smoker generalized an xiety disorder controlled diabetes mellitus after weight loss chronic low back pain on narcotic pain medication coming in for follow-up. Last seen in April 2023 had some pneumonia at that time. Patient's colonoscopy is August 2016 declined mammogram bone density done in November 2020. with COPD GERD hypothyroid hypercholesterolemia Revie of the notes had pulmonary function test no results chest x-ray in June. Negative patient also had the barium swallow showing no e vidence of laryngeal penetration or aspiration but has esophageal dysmotility. Patient has seen Pulmonary also in June 2023 COPD problem with hoarseness advised referral to ear nose and throat . PFT done yesterday [facility] Medical History (Updated 06/27/23 @ 12:51 by Fabiana Calero NP) Community acquired pneumonia Knee pain, left Pneumonia COPD exacerbation Chest tightness Abnormal lung sounds Screening for colon cancer Weight loss Post-menopausal Herpes zoster Chest pain Migraine Left scapula fracture Asthma Peripheral neuropathy Tobacco abuse Hypercholesterolemia Vitamin D deficiency Hypothyroid COPD (chronic obstructive pulmonary disease) Insomnia GERD (gastroesophageal reflux disease) Hypertension Type 2 diabetes mellitus with hyperglycemia Low back pain Surgical History History of colonoscopy History of lumbar surgery History of foot surgery History of thyroidectomy History of cholecystectomy Family History Father Prostate cancer Diabetes Hypertension Mother CVD (cardiovascular disease) Myocardial infarction Social History (Updated 06/27/23 @ 11:19 by Tereza Peters LPN) Housing: Apartment Alcohol intake: unknown Patient Tobacco Use Status: Former Tobacco user Tobacco use type: Cigarette Years Smoked: 45 years/ Quit Feb 2023 e-Cigarette/Vaping Use: Never Used Second Hand Smoke Exposure: No Advance Directives Date on File: 02/12/21 service: No Current occupational status: disabled Cognitive needs: Yes (cane ) Hearing needs: No Vision needs: Yes Questionnaire Thrive Questionnaire Date Thrive assessed: 05/24/23 SIL-7 AMB Questionnaire SIL-7 Date SIL - 7 assessed: 05/24/23 Source: Developed by Drs. Bhavesh Alfred, Yuridia Suarez, Triston Gabriel and colleagues, with an educational yara from [employer]. Physical exam (Primary Care) Vital Signs: Last Vital Signs Pulse 87 08/03/23 14:31 BP 142/72 H 08/03/23 14:31 Pulse Ox 97 08/03/23 14:31 Oxygen Delivery Method Room Air 08/03/23 14:31 BMI result Body Mass Index 23.4 Tobacco/Smoking Status: Tobacco use Status Tobacco use date assessed 05/24/23 08/03/23 14:33 Patient Tobacco Use Status Former Tobacco user 08/03/23 14:33 Tobacco use type Cigarette 08/03/23 14:33 e-Cigarette/Vaping Use Never Used 08/03/23 14:33 Thrive Assessment: Date of Thrive Assessment Date Thrive assessed 05/24/23 08/03/23 14:33 Const General: alert; No acute distress Eyes Conjunctivae: conjunctivae normal Resp Auscultation: clear to auscultation bilaterally Cardio Rate: regular rate Rhythm: regular rhythm GI Inspection: Yes normal to inspection Extrem General: Yes normal to inspection and No edema Results AMB Hemoglobin A1c AMB Hemoglobin A1c 5.9 % Last Edit by ANA ROSA Adame on 08/03/23 14:48 Results Reviewed Results Reviewed: Laboratory Last Values Hgb A1c (Clinic) 5.9 % (4.0-6.0) 08/03/23 14:33 Assessment and Plan Assessment & Plan (1) Type 2 diabetes mellitus with hyperglycemia: Code(s): E11.65 - Type 2 diabetes mellitus with hyperglycemia Qualifiers: Diabetes mellitus prison insulin use: without keno terminal operator use Qualified Code(s): E11.65 - Type 2 diabetes mellitus with hyperglycemia Plan: Decrease the amount of carbohydrate intake, pasta, bread, rice and potatoes are all sugar and that is aside from all the sweet stuff, remember that fruits are good but they are Sweet also. Since weight loss hemoglobin A1c has been under control (2) Tobacco abuse: Code(s): Z72.0 - Tobacco use Plan: Patient is strongly advised to stop smoking! (3) COPD (chronic obstructive pulmonary disease): Code(s): J44.9 - Chronic obstructive pulmonary disease, unspecified Plan: Stop smoking! Has the albuterol inhaler (4) GERD (gastroesophageal reflux disease): Code(s): K21.9 - Gastro-esophageal reflux disease without esophagitis Qualifiers: Esophagitis presence: without esophagitis Qualified Code(s): K21.9 - Gastro-esophageal reflux disease without esophagitis Plan: Avoid the foods that causes that usually spicy foods, tomato products, juices, c offee, soda and foods that your sensitive to. After eating do not lie down, allow 3-4 hours before in lie down. And keep the head of bed above 30 degrees to avoid the acid from going up. (5) Hypothyroid: Code(s): E03.9 - Hypothyroidism, unspecified Qualifiers: Hypothyroidism type: acquired Qualified Code(s): E03.9 - Hypothyroidism, unspecified Plan: Continue with thyroid medication (6) Hypercholesterolemia: Code(s): E78.00 - Pure hypercholesterolemia, unspecified Plan: Avoid fried foods, chicken skin, eggs, butter margarine, pastries and meat. Be it pork or beef they have a lot of cholesterol LDL goal of less than 100 and triglyceride of less than 150. On rosuvastatin 20 mg once a day (7) History of lumbar surgery: Comment: work injury low back OR x4 Dr. Montoya Code(s): Z98.890 - Other specified postprocedural states Plan: Continue with narcotic pain medication. (8) Hoarseness of voice: Code(s): R49.0 - Dysphonia Plan: referral to ENT Orders: Orders AMB Hemoglobin A1c Today E11.65 - Type 2 diabetes mellitus with hyperglycemia Referrals 2 Ear/Nose/Throat Referral R49.0 - Dysphonia Medications: New guaifenesin ER (Mucinex) 600 mg PO Q12H PRN 30 tabs 0RF congestion R49.0 - Dysphonia Refilled oxycodone 15 mg PO Q4-6H 168 tabs 0RF pain 30 days M54.5 - Low back pain Coding Level of Care Code Est Pt Level 4 (89190) Diagnoses Type 2 diabetes mellitus with hyperglycemia, without long-term current use of insulin E11.65 Diabetes mellitus prison insulin use: without keno terminal operator use Tobacco abuse Z72.0 Pulmonary emphysema, unspecified emphysema type J44.9 Gastroesophageal reflux disease without esophagitis K21.9 Esophagitis presence: without esophagitis Acquired hypothyroidism E03.9 Hypothyroidism type: acquired Hypercholesterolemia E78.00 History of lumbar surgery Z98.890 Hoarseness of voice R49.0
== END 2023-08-03 14:59 | disposition home or self-care (01) ==
PROVIDERS: PCP Internal Medicine; Visit Provider Internal Medicine
DX: E11.65 Type 2 diabetes mellitus with hyperglycemia (principal); Z72.0 Tobacco use; J44.9 Chronic obstructive pulmonary disease, unspecified; K21.9 Gastro-esophageal reflux disease without esophagitis; E03.9 Hypothyroidism, unspecified; E78.00 Pure hypercholesterolemia, unspecified; Z98.890 Other specified postprocedural states; R49.0 Dysphonia
CPT/HCPCS: 83036; 99214

== ENCOUNTER 2023-08-08 09:35 | Outpatient (AMB) | payer MEDICARE, SELFPAY ==
--- NOTE | 2023-08-08 09:38 | MHC.OFFVIS ---
Vital Signs 08/08/23 09:46 Height 5 ft 6 in Weight 151 lb 0.266 oz BMI 24.4 BP 120/68 Blood Pressure Location Lt brachial Position Sitting Pulse 89 Pulse Source Pulse Oximeter Pulse Oximetry (%) 96 Oxygen Delivery Method Room Air Intake Visit Reasons: Emphysema/PFT/CT Chest Follow Up Allergies clarithromycin [From BIAXIN] Allergy (Intermediate, Verified 08/08/23 09:51) N/V atorvastatin Allergy (Mild, Verified 08/08/23 09:51) Unknown Iodinated Contrast Media [IV Dye, Iodine Containing] Allergy (Mild, Verified 08/08/23 09:51) RASH AND NAUSEA AND VOMITING doxycycline Allergy (Unknown, Verified 08/08/23 09:51) Nausea and Vomiting lisinopril Allergy (Unknown, Verified 08/08/23 09:51) hypotension Penicillins Adverse Reaction (Unknown, Verified 08/08/23 09:51) UNKNOWN-FROM CHILDHOOD buspirone [From BuSpar] Adverse Reaction (Verified 08/08/23 09:51) Headache HPI HPI Emphysema/PFT/CT Chest Follow Up: Details: Sherlyn is a pleasant 67 year old female, current 03/31-03/29 ppd smoker, with 100+ pack year history, with underlying COPD, emphysema, asthma, GERD, HTN, and DMII. She reports over the last three months she has noticed an increase in dyspnea, wheezing, and chest tightness. At the last visit, she was switched from Incruse to Trelegy and duoneb QD with improvement in symptoms. However over the weekend she developed chest congestion with difficulty expectorating, wheezing and feeling feverish. She denies any change in dyspnea on exertion. She denies any chills or sick contacts. She does report improvements overall and hoarseness. Today she presents to review results of MBSS for dysphagia, as well as PFT and chest CT. [facility] Medical History (Updated 08/08/23 @ 10:21 by Fabiana Calero NP) Community acquired pneumonia Knee pain, left Pneumonia COPD exacerbation Chest tightness Abnormal lung sounds Screening for colon cancer Weight loss Post-menopausal Herpes zoster Chest pain Migraine Left scapula fracture Asthma Peripheral neuropathy Tobacco abuse Hypercholesterolemia Vitamin D deficiency Hypothyroid COPD (chronic obstructive pulmonary disease) Insomnia GERD (gastroesophageal reflux disease) Hypertension Type 2 diabetes mellitus with hyperglycemia Low back pain Surgical History History of colonoscopy History of lumbar surgery History of foot surgery History of thyroidectomy History of cholecystectomy Family History Father Prostate cancer Diabetes Hypertension Mother CVD (cardiovascular disease) Myocardial infarction Social History (Updated 08/08/23 @ 09:50 by Claudia Worthy CMA) Housing: Apartment Alcohol intake: unknown Patient Tobacco Use Status: Current everyday Tobacco user Tobacco use type: Cigarette Cigarettes Per Day: 6 Years Smoked: 45 years/ Quit Feb 2023 e-Cigarette/Vaping Use: Never Used Second Hand Smoke Exposure: No Advance Directives Date on File: 02/12/21 service: No Current occupational status: disabled Cognitive needs: Yes (cane ) Hearing needs: No Vision needs: Yes Review of Systems Const Denies chills, Denies excessive sweating, Denies headache(s) and Denies night sweats Eyes Denies dry eyes, Denies irritation and Denies itchy eyes ENT Reports Normal hearing present and Denies headache(s) Card Denies chest pain, Denies chest pain at rest, Denies chest pain with activity, Denies claudication, Denies leg edema and Denies paroxysmal nocturnal dyspnea Resp Denies excessive phlegm production, Denies pain on inspiration, Denies pain with cough and Denies stridor Musc Denies myalgias Neuro Reports Normal hearing present and Denies headache(s) Endo Denies excessive sweating Dayo/Lymph Denies lymphadenopathy Aller/Immun Denies itchy eyes and Denies seasonal rhinorrhea Physical Exam Vital Signs: Last Vital Signs Pulse 89 08/08/23 09:46 BP 120/68 08/08/23 09:46 Pulse Ox 96 08/08/23 09:46 Oxygen Delivery Method Room Air 08/08/23 09:46 BMI result Body Mass Index 24.4 Const Other: severe kyphosis ambulating with two canes. General: cooperative, healthy appearing, comfortable, no acute distress, well developed and alert Orientation/consciousness: patient oriented x3 HEENT Head: Yes normal to inspection, Yes normocephalic and Yes atraumatic Ears: hearing grossly normal bilaterally and external ears normal Eyes General: appearance normal, both eyes and all related structures Eyelids: Yes eyelids normal Sclerae: sclerae normal EOM: EOMs intact bilaterally Neck Neck: Yes normal visual inspection and Yes no lymphadenopathy Lymphatic: no lymphadenopathy noted Chest Chest palpation & inspection: normal inspection of the chest Resp Effort & Inspection: normal respiratory effort, able to speak in complete sentences, no audible wheezes, no cough, no stridor, not tachypneic, no tripod positioning and no use of accessory muscles Auscultation: no crackles, no rhonchi, no wheezes and diminished lung sounds Cardio Jugular venous distension: no JVD Rate: regular rate Rhythm: regular rhythm Skin Other: warm, dry General skin exam: no rashes or lesions noted Neuro General: patient oriented x3 Cranial nerves: Yes Normal hearing present Cognition (Neuro): normal cognition Extrem General: Yes normal to inspection, Yes capillary refill normal, Yes no clubbing, cyanosis or edema and Yes no pedal edema Psych Appearance: grossly normal and well kempt Speech and movement: Normal speech and movement present and Clear speech present Affect: normal affect Attitude: cooperative Thought process: Normal thought process present Thought content: Normal thought content present Insight: Good insight present (Psych) Judgement: Good judgement present (Psych) Results Reviewed Results Reviewed: [address] [address] Fluoroscopy Report Signed Patient: Sherlyn Biggs MR#: [id number] : 1955 Acct:[id number] Age/Sex: 67 / F ADM Date: 07/22/23 Loc: HO.XRAY Attending Dr: Fabiana Calero NP Ordering Physician: Fabiana Calero NP Date of Service: 07/22/23 Procedure(s): FL barium swallow modified Accession Number(s): [id number] cc: Gonzalez Plata MD; Fabiana Calero NP~ EXAMINATION: Modified Barium Swallow CLINICAL INFORMATION: Dysphagia COMPARISON: None TECHNIQUE: Modified barium swallow was performed under lateral fluoroscopy with patient in standing position. Different consistency of barium was administered by the speech therapist. FINDINGS: No laryngeal penetration or aspiration was seen during this examination. There is to and fro motion of the barium column. FLUOROSCOPY TIME: 1 minute 35 seconds Number of Spot Images: 1 image hold DOSE AREA PRODUCT: 674 uGy-m2 (microgray-meter squared) FL/FL barium swallow modified IMPRESSION: 1. No evidence of laryngeal penetration or aspiration was seen during this examination 2. Limited evaluation of the esophagus demonstrates to and fro motion of the barium column. This likely represents esophageal dysmotility. Recommend dedicated esophagram. Refer to the speech therapy report for further clarification This procedure was performed by Solomon Kat PA-C, and supervised by Dr. 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: Assessment & Plan Assessment & Plan (1) COPD (chronic obstructive pulmonary disease): Code(s): J44.9 - Chronic obstructive pulmonary disease, unspecified Category: Medical (2) Kyphosis: Code(s): M40.209 - Unspecified kyphosis, site unspecified Category: Medical (3) Nicotine dependence, cigarettes, uncomplicated: Code(s): F17.210 - Nicotine dependence, cigarettes, uncomplicated Category: Medical (4) Dysphagia: Code(s): R13.10 - Dysphagia, unspecified Category: Medical (5) Dyspnea on minimal exertion: Code(s): R06.09 - Other forms of dyspnea Category: Medical Plan Reviewed PFT which reveals borderline obstructive defect. No response to bronchodilator. There was a decrease in diffusion capacity suggestive of emphysema. Patient was sent for chest CT however this is not been scheduled yet. Order was placed at last visit. Will treat bronchitic symptoms with azithromycin. She is aware if symptoms do not improve to call the office. Advised to continue using Trelegy and DuoNeb. Patient previously reported newer onset of hoarseness and dysphagia, so was sent for MBSS. This revealed esophageal dysmotility, with recommendations for esophagram. Will enter a referral to GI. Patient also reported possible seasonal allergies contributing to symptoms, will send for RAST testing. All questions were answered and patient is in agreement of plan. Will follow up to review results of CT. Orders: Orders Immunoglobulin E Today Z91.09 - Other allergy status, other than to drugs and biological substances Resp Allergy Profile Region I Today Z91.09 - Other allergy status, other than to drugs and biological substances Complete Blood Count Auto Diff Today Z91.09 - Other allergy status, other than to drugs and biological substances Referrals Gastroenterology Referral R13.10 - Dysphagia, unspecified Medications: New azithromycin For 250 mg dose pack: take 500 mg today (day 1), then 250 mg for 4 days (days 2-5) PO 6 tabs 0RF Refilled ipratropium-albuterol 0.5 mg-3 mg(2.5 mg base)/3 mL 3 mL inhalation DAILY PRN 180 mL 3RF wheezing J44.9 - Chronic obstructive pulmonary disease, unspecified Coding Level of Care Code Est Pt Level 4 (02773) Diagnoses Pulmonary emphysema, unspecified emphysema type J44.9 Kyphosis M40.209 Nicotine dependence, cigarettes, uncomplicated F17.210 Dysphagia R13.10 Dyspnea on minimal exertion R06.09
[2023-08-08 09:46] VITALS: BP 120/68; PULSE 89; O2SAT 96; BMI 24.4
== END 2023-08-08 10:31 | disposition home or self-care (01) ==
PROVIDERS: PCP Internal Medicine; Visit Provider Nurse Practitioner Family
DX: J44.9 Chronic obstructive pulmonary disease, unspecified (principal); M40.209 Unspecified kyphosis, site unspecified; F17.210 Nicotine dependence, cigarettes, uncomplicated; R13.10 Dysphagia, unspecified; R06.09 Other forms of dyspnea
CPT/HCPCS: 99214

== ENCOUNTER → 2023-08-08 09:35 | Outpatient (BNVA) | payer MEDICARE, SELFPAY | PROVIDERS: PCP Internal Medicine; Visit Provider Nurse Practitioner Family | DX: J44.9 Chronic obstructive pulmonary disease, unspecified (principal); M40.209 Unspecified kyphosis, site unspecified; R13.10 Dysphagia, unspecified; R06.09 Other forms of dyspnea; F17.210 Nicotine dependence, cigarettes, uncomplicated | CPT/HCPCS: 99212 ==

== ENCOUNTER 2023-08-23 06:07 | Outpatient (REF) | payer MEDICARE, SELFPAY ==
[2023-08-23 10:22] LABS: MANUAL DIFF FLAG NO
[2023-08-23 10:38] LABS: Basophils Percent Auto 0.4 % (0-2); Eosinophils Absolute Auto 0.1 X10*3/uL (0.0-0.4); Eosinophils Percent Auto 1.6 % (0-4); Hematocrit 42.3 % (37.0-47.0); Hemoglobin 13.9 g/dl (12.0-16.0); Imm Gran Abs Auto 0.03 X10*3/uL (0.00-0.03); Imm Gran Pct Auto 0.4 % (0.0-0.4); Lymphocytes Absolute Auto 1.4 X10*3/uL (1.2-4.9); Lymphocytes Percent Auto 18.9 % (20-40); Mean Corpuscular HGB Conc 32.9 g/dl (31.0-35.0); Mean Corpuscular Volume 97.2 fL (80.0-98.0); Mean Platelet Volume 10.7 fL (9.4-12.3); Monocytes Absolute Auto 0.4 X10*3/uL (0.1-1.2); Neutrophils Absolute Auto 5.6 x10*3/uL (2.0-8.3); Neutrophils Percent Auto 73.7 % (45-73); Platelet Count 260 X10*3/uL (160-400); Red Blood Count 4.35 X10*6/uL (4.20-5.50); White Blood Count 7.6 X10*3/uL (4.8-10.8)
[2023-08-27 06:09] LABS: Class Alternaria alternata 0; Class Aspergillus fumigatus 0/1; Class Bermuda Grass 0; Class Birch 0; Class Cat Dander 0; Class Cladosporium herbarum 0; Class Cockroach 0; Class Common Ragweed 0; Class Cottonwood 0; Class Derm. pterony 0; Class Dermatophagoides farinae 0; Class Dog Dander 0; Class Elm 0; Class Maple Box Elder 0; Class Mountain Cedar 0; Class Mouse Urine Protein 0; Class Mugwort 0; Class Oak 0; Class Penicillium crysogenum 0; Class Rough Pigweed 0; Class Sheep Sorrel 0; Class Sycamore 0; Class Timothy Grass 0; Class Walnut Tree 0; Class White Ash 0; Class White Mulberry 0; D001 IgE D pteronyssinus <0.10 kU/L; D002 - IgE D farinae <0.10 kU/L; E001 - IgE Cat Dander <0.10 kU/L; E005 - IgE Dog Dander <0.10 kU/L; E072-IgE Mouse Urine <0.10 kU/L; G002 IgE Bermuda Grass <0.10 kU/L; G006 - IgE Timothy Grass <0.10 kU/L; I006-IgE Cockroach, German <0.10 kU/L; Immunoglobulin E 94 kU/L (<OR=114); M001 IgE Penicillium chrysogen <0.10 kU/L; M002 - IgE Cladosporium herbar <0.10 kU/L; M003 - IgE Aspergillus fumigat 0.28 kU/L; M006 - IgE Alternaria alternat <0.10 kU/L; T001 IgE Maple/Box Elder <0.10 kU/L; T003 IgE Common Silver Birch <0.10 kU/L; T006 - IgE Cedar, Mountain <0.10 kU/L; T007 - IgE Oak, White <0.10 kU/L; T008 IgE Elm, American <0.10 kU/L; T010 - IgE Walnut <0.10 kU/L; T011 - IgE Maple Leaf Sycamore <0.10 kU/L; T014 - IgE Cottonwood <0.10 kU/L; T015 - IgE Ash, White <0.10 kU/L; T070 - IgE White Mulberry <0.10 kU/L; W001 - IgE Ragweed, Short <0.10 kU/L; W006 - IgE Mugwort <0.10 kU/L; W014 IgE Pigweed, Common <0.10 kU/L; W018 IgE Sheep Sorrel <0.10 kU/L
== END 2023-08-23 06:08 | disposition home or self-care (01) ==
LOC: HO.HMGCLDS 06:07
PROVIDERS: PCP Internal Medicine; Visit Provider Nurse Practitioner Family
DX: Z91.09 Other allergy status, other than to drugs and biological substances (principal)
CPT/HCPCS: 36415; 82785; 85025; 86003

== ENCOUNTER 2023-10-21 07:00 | Outpatient (REF) | payer MEDICARE, SELFPAY ==
--- NOTE | ~2023-10-21 | CT_ITS ---
EXAMINATION: CT CHEST WITHOUT IV CONTRAST. CLINICAL INFORMATION: J44.9 - Chronic obstructive pulmonary disease, unspecified COMPARISON: Prior CT scan 2018 TECHNIQUE: Multidetector volumetric CT imaging of the chest was done. Axial MIP volume rendering provided. Sagittal and coronal reformatted images were obtained. This CT examination was performed using dose optimization techniques as appropriate, variously including the following: *Automated exposure control *Adjustment of mA and/or kV according to patient size (this includes techniques or standardized protocols for targeted exams where dose is matched to indication/reason for exam; i.e. extremities or head) *Use of iterative reconstruction technique CONTRAST: Noncontrasted study. DLP: 149 mGy-cm FINDINGS: SEARCH STRATEGIST: LINES/TUBES: Metal Ceiling Builder reviewed, no lines. LUNGS: Lung parenchyma: Diffuse mild panlobular pulmonary emphysema. Lung nodules/masses: There is a 5 mm nodule right lower lobe image 134 series 1 unchanged from prior exam. 4 mm radiodensity left lower lobe unchanged. There are several other scattered tiny lung densities measuring 3 mm or less nonspecific. No suspicious nodule or lung mass. AIRWAYS: Trachea and bronchi are normal. PLEURA: No pleural effusion or pneumothorax. MEDIASTINUM AND DIYA: No mediastinal, hilar or axillary lymphadenopathy. No mediastinal mass. VESSELS: HEART AND PERICARDIUM: Thoracic aorta is normal in size. Heart is normal in size. No pericardial effusion. There are a few coronary artery calcifications. Pulmonary arteries are normal in size. LOWER NECK, AXILLA: The visualized thyroid gland is unremarkable. No axillary mass or adenopathy. VISUALIZED ABDOMEN: Diffusely hyperdense liver, this has been described in association with a metabolic disease including iron deposition such as hemosiderosis, thalassemia, copper deposition Chris disease, glycogen storage disease and certain medications such as amiodarone and gold therapy. Otherwise upper abdomen is unremarkable. CHEST WALL AND BONES: Incidental finding was made of soft tissue nodule in the left breast measuring 1.1 cm, this may require correlation with follow-up diagnostic mammogram and ultrasound. The visualized bony thorax is within normal limits. CT/CT chest wo IV con IMPRESSION: * Incidental finding made of 1.1 cm soft tissue NODULE IN THE LEFT BREAST, attention to follow-up correlation with diagnostic mammogram and ultrasound. * Diffuse mild panlobular pulmonary emphysema. * No suspicious lung mass, there are stable subcentimeter lung nodules largest 5 mm nodule right lower lobe unchanged. According to the UPDATED 2017 Fleischner Society recommendations, the advised follow-up imaging for nodules <6mm in the upper lobes is not necessarily required in low-risk patients. In high-risk patients with a nodule in the upper lobe and/or demonstrating suspicious morphology, an optional CT follow-up at 12 months may be obtained. If stable at 12 months, no further follow-up is recommended. * Diffusely hyperdense liver, this has been described in association with a metabolic disease including iron deposition such as hemosiderosis, thalassemia, copper deposition Chris disease, glycogen storage disease and certain medications such as amiodarone and gold therapy. * Coronary calcification. (Referring physician staff is being called, by physician staff assistance, to be alerted of the above critical findings and recommendations.) 11/23/2023 10:06 AM CDT KH Electronically signed by: Kimberly Bahena MD 11/23/2023 11:07 AM EDT
== END 2023-10-21 07:01 | disposition home or self-care (01) ==
LOC: HO.CT 07:00
PROVIDERS: PCP Internal Medicine; Visit Provider Nurse Practitioner Family
DX: J44.9 Chronic obstructive pulmonary disease, unspecified (principal); F17.210 Nicotine dependence, cigarettes, uncomplicated
CPT/HCPCS: 71250

== ENCOUNTER 2023-10-25 11:30 | Outpatient (AMB) | payer MEDICARE, SELFPAY ==
[2023-10-25 11:40] VITALS: BP 116/66; PULSE 72
--- NOTE | 2023-10-25 11:40 | MHC.OFFVIS ---
Vital Signs 10/25/23 11:40 Weight 143 lb 4.807 oz BP 116/66 Blood Pressure Location Lt brachial Position Sitting Pulse 72 Intake Visit Reasons: Dysphagia - Referred by Pulmonology Intake Note: Patient in office today for evaluation and management of dysphagia. CC: Patient c/o chocking with solids and liquids and that the food stays stuck in her esophagus. She also reports heartburn, and acid reflux and occasional diarrhea. 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 Accompanied by: Friend Allergies clarithromycin [From BIAXIN] Allergy (Intermediate, Verified 10/25/23 11:45) N/V atorvastatin Allergy (Mild, Verified 10/25/23 11:45) Unknown Iodinated Contrast Media [IV Dye, Iodine Containing] Allergy (Mild, Verified 10/25/23 11:45) RASH AND NAUSEA AND VOMITING doxycycline Allergy (Unknown, Verified 10/25/23 11:45) Nausea and Vomiting lisinopril Allergy (Unknown, Verified 10/25/23 11:45) hypotension Penicillins Adverse Reaction (Unknown, Verified 10/25/23 11:45) UNKNOWN-FROM CHILDHOOD buspirone [From BuSpar] Adverse Reaction (Verified 10/25/23 11:45) Headache HPI HPI Dysphagia - Referred by Pulmonology: Details: FOR INITIAL EVALUATION OF DYSPHAGIA. She is referred by her instrumentation specialist but her primary care provider is Dr. Plata. PMX Smoker COPD/asthma Diabetes Migraines High cholesterol Hypothyroid Peripheral neuropathy GERD Chronic low back pain Depression with anxiety Diarrhea * SURGICAL HISTORY Trigger finger release Lumbar surgery Thyroidectomy Cholecystectomy Foot surgery Colonoscopy with EGD-2016 * ALLERGIES CLARITHROMYCIN ATORVASTATIN IVP CONTRAST DOXYCYCLINE LISINOPRIL PENICILLIN BUSPAR * [employer] LABS: Laboratory Tests 06/16/23 08/23/23 20:34 06:28 WBC 7.6 Hgb 13.9 Hct 42.3 Plt Count 260 D Estimated GFR > 60 Total Bilirubin 0.2 AST 28 ALT 17 Alkaline Phosphatase 122 H EXAMINATION: Modified Barium Swallow 07/22/23 CLINICAL INFORMATION: Dysphagia COMPARISON: None TECHNIQUE: Modified barium swallow was performed under lateral fluoroscopy with patient in standing position. Different consistency of barium was administered by the speech therapist. FINDINGS: No laryngeal penetration or aspiration was seen during this examination. There is to and fro motion of the barium column. FLUOROSCOPY TIME: 1 minute 35 seconds Number of Spot Images: 1 image hold DOSE AREA PRODUCT: 674 uGy-m2 (microgray-meter squared) FL/FL barium swallow modified IMPRESSION: 1. No evidence of laryngeal penetration or aspiration was seen during this examination 2. Limited evaluation of the esophagus demonstrates to and fro motion of the barium column. This likely represents esophageal dysmotility. Recommend dedicated esophagram. Refer to the speech therapy report for further clarification SUMMARY: Findings were significant for delayed initiation of the swallow to the level of the pyriforms. This resulted on penetration across all consistencies, however any penetrated contrast was spontaneously removed from the airway. Given globus pharyngeus symptoms an oblique scan of the esophagus was performed and significant for retrograde motion of the contrast contained within the esophagus. Liquid Intake Recommendation: Thin Liquid Intake Strategies: Unrestricted Dietary Recommendations: Regular Medication Administration: Please contact the pharmacy regarding appropriate crushable or liquid drug formulations that are available whenever modified delivery is recommended. Compensatory Strategies Recommended: Sitting Upright (90 deg) Supervision during eating and or drinking: None Needed Recommended Treatments: Compens. Strategy Educat. Recommendation for Speech Therapy: NA:Typical Evaluation TODAY'S VISIT She had dysphagia initially many years ago when she had a large goiter, but this resolved with thyroidectomy. But 7 mos ago she had a return of the sx, and she had a choking episode that was followed by a bout of pneumonia. She has continued dysphagia since then. She has dysphagia of both solids and liquids, but more solids that occurs in the area of the voicebox. This happens every time I eat, and this makes her fearful of eating. It happens occasionally with pills and it will panic. She feels like the left side is worse and she will frequently cough food back up. She says she had a hard time with the mod barium swallow r/t anxiety and a dry mouth. At times [facility] also feels that food gets stuck at the GE jxn area. She has a hx of PUD and she takes omeprazole. The modified barium swallow may have shown some evidence for to and fro movement and esophageal dysmotility. She suffers post prandial diarrhea and uses imodium if I have to go out. She likely has some element of bile diarrhea and possible bile reflux/gastritis since she is status post cholecystectomy. She has a CT of the chest pending. 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 Low back pain Trigger finger Knee pain, left Pneumonia COPD exacerbation Chest tightness Abnormal lung sounds Screening for colon cancer Weight loss Post-menopausal Herpes zoster Chest pain Migraine Left scapula fracture Asthma Peripheral neuropathy Tobacco abuse Hypercholesterolemia Vitamin D deficiency Hypothyroid COPD (chronic obstructive pulmonary disease) Insomnia GERD (gastroesophageal reflux disease) Hypertension Type 2 diabetes mellitus with hyperglycemia Surgical History (Updated 10/25/23 @ 11:50 by PHILLIP Calderon) History of lumbar surgery History of colonoscopy History of foot surgery History of thyroidectomy History of cholecystectomy Family History Father Prostate cancer Diabetes Hypertension Mother CVD (cardiovascular disease) Myocardial infarction Social History (Updated 08/08/23 @ 09:50 by Claudia Worthy [facility]) Housing: Apartment Alcohol intake: unknown Patient Tobacco Use Status: Current everyday Tobacco user Tobacco use type: Cigarette Cigarettes Per Day: 6 Years Smoked: 45 years/ Quit Feb 2023 e-Cigarette/Vaping Use: Never Used Second Hand Smoke Exposure: No Advance Directives Date on File: 02/12/21 service: No Current occupational status: disabled Cognitive needs: Yes (cane ) Hearing needs: No Vision needs: Yes Review of Systems Const Denies fatigue, Denies fever(s), Denies night sweats, Denies poor appetite and Denies weight loss Eyes Details: Glasses Reports requires corrective lenses ENT Reports Normal hearing present, Reports change in voice, Denies dental pain, Reports dysphagia, Denies hearing loss, Denies mouth pain, Denies odynophagia, Denies throat swelling, Denies tongue swelling and Reports other (Dentition adequate) Card Reports no additional complaints and Reports dyspnea on exertion Resp Reports cough and Reports dyspnea on exertion GI Details: Denies abdominal pain, Denies melena, Denies bloating, Denies hematochezia, Denies constipation, Denies GI cramping, Reports dysphagia, Denies excessive flatus, Denies early satiety, Reports heartburn, Reports diarrhea, Denies nausea, Denies odynophagia, Denies vomiting and Denies hematemesis Skin/Breast Denies pruritus, Denies lesions, Denies rash and Denies jaundice Neuro Reports Normal hearing present and Denies Abnormal speech present Psych Reports anxiety Endo Denies fatigue Aller/Immun Denies throat swelling and Denies tongue swelling Physical Exam Vital Signs: Last Vital Signs Pulse 72 10/25/23 11:40 BP 116/66 10/25/23 11:40 Const General: cooperative, no acute distress, well developed and well groomed Nutritional Appearance: well nourished and overweight Orientation/consciousness: oriented to person, oriented to place and oriented to time Limitations: No language barrier and ambulation with cane HEENT Head: Yes normocephalic and Yes atraumatic Eyes General: appearance normal, both eyes and all related structures Pupils: Equal, round and reactive pupils present Neck Neck: Yes normal visual inspection and Yes no lymphadenopathy Resp Effort & Inspection: normal respiratory effort and able to speak in complete sentences Auscultation: clear to auscultation bilaterally Cardio Rate: regular rate Rhythm: regular rhythm Heart sounds: Normal, physiologic split S2 sound present Peripheral pulses: radial pulses present and posterior tibial pulses present GI Inspection: No distended, No Abdominal panniculus present, Yes obesity and Yes scar Palpation (GI): Soft to palpation, nontender, no guarding, not rigid and No hepatosplenomegaly present Percussion: Yes normal to percussion Auscultation: normal bowel sounds Rectal Exam - Female: deferred Abdomen image: 1. surgical scar Skin General skin exam: no rashes or lesions noted, turgor normal, skin not dry, no jaundice, No spider nevi and no striae Rashes: no rashes Nails: normal Neuro General: oriented to person, oriented to place and oriented to time Cranial nerves: Yes Equal, round and reactive pupils present and Yes Normal hearing present Speech: No Abnormal speech present Extrem General: Yes normal to inspection, No clubbing, No cyanosis and No edema Psych Appearance: grossly normal and well kempt Mental Status: mental status grossly normal Speech and movement: Normal speech and movement present Affect: Anxious affect present Attitude: cooperative Thought process: not confabulating Thought content: Normal thought content present Insight: Limited insight present (Psych) Judgement: Limited judgement present (Psych) Results Reviewed Results Reviewed: Laboratory Tests 06/16/23 08/23/23 20:34 06:28 WBC 7.6 Hgb 13.9 Hct 42.3 Plt Count 260 D Estimated GFR > 60 Total Bilirubin 0.2 AST 28 ALT 17 Alkaline Phosphatase 122 H EXAMINATION: Modified Barium Swallow 07/22/23 CLINICAL INFORMATION: Dysphagia COMPARISON: None TECHNIQUE: Modified barium swallow was performed under lateral fluoroscopy with patient in standing position. Different consistency of barium was administered by the speech therapist. FINDINGS: No laryngeal penetration or aspiration was seen during this examination. There is to and fro motion of the barium column. FLUOROSCOPY TIME: 1 minute 35 seconds Number of Spot Images: 1 image hold DOSE AREA PRODUCT: 674 uGy-m2 (microgray-meter squared) FL/FL barium swallow modified IMPRESSION: 1. No evidence of laryngeal penetration or aspiration was seen during this examination 2. Limited evaluation of the esophagus demonstrates to and fro motion of the barium column. This likely represents esophageal dysmotility. Recommend dedicated esophagram. Refer to the speech therapy report for further clarification SUMMARY: Findings were significant for delayed initiation of the swallow to the level of the pyriforms. This resulted on penetration across all consistencies, however any penetrated contrast was spontaneously removed from the airway. Given globus pharyngeus symptoms an oblique scan of the esophagus was performed and significant for retrograde motion of the contrast contained within the esophagus. Liquid Intake Recommendation: Thin Liquid Intake Strategies: Unrestricted Dietary Recommendations: Regular Medication Administration: Please contact the pharmacy regarding appropriate crushable or liquid drug formulations that are available whenever modified delivery is recommended. Compensatory Strategies Recommended: Sitting Upright (90 deg) Supervision during eating and or drinking: None Needed Recommended Treatments: Compens. Strategy Educat. Recommendation for Speech Therapy: NA:Typical Evaluation Assessment & Plan Assessment & Plan (1) Dysphagia: Code(s): R13.10 - Dysphagia, unspecified Category: Medical (2) COPD (chronic obstructive pulmonary disease): Code(s): J44.9 - Chronic obstructive pulmonary disease, unspecified Category: Medical (3) GERD (gastroesophageal reflux disease): Code(s): K21.9 - Gastro-esophageal reflux disease without esophagitis Category: Medical Qualifiers: Esophagitis presence: without esophagitis Qualified Code(s): K21.9 - Gastro-esophageal reflux disease without esophagitis (4) Tobacco abuse: Code(s): Z72.0 - Tobacco use Category: Medical Plan She had dysphagia initially many years ago when she had a large goiter, but this resolved with thyroidectomy. But 7 mos ago she had a return of the sx, and she had a choking episode that was followed by a bout of pneumonia. She has continued dysphagia since then. She has dysphagia of both solids and liquids, but more solids that occurs in the area of the voicebox. This happens every time I eat, and this makes her fearful of eating. It happens occasionally with pills and it will panic. She feels like the left side is worse and she will frequently cough food back up. She says she had a hard time with the mod barium swallow r/t anxiety and a dry mouth. At times [facility] also feels that food gets stuck at the GE jxn area. She has a hx of PUD and she takes omeprazole. The modified barium swallow may have shown some evidence for to and fro movement and esophageal dysmotility. She suffers post prandial diarrhea and uses imodium if I have to go out. She likely has some element of bile diarrhea and possible bile reflux/gastritis since she is status post cholecystectomy. She has a CT of the chest pending. Orders: Orders EGD - GI Use Only Today R13.10 - Dysphagia, unspecified FL barium swallow Today R13.10 - Dysphagia, unspecified Coding Level of Care Code New Pt Level 3 (11303) Diagnoses Dysphagia R13.10 Pulmonary emphysema, unspecified emphysema type J44.9 Gastroesophageal reflux disease without esophagitis K21.9 Esophagitis presence: without esophagitis Tobacco abuse Z72.0
== END 2023-10-25 12:23 | disposition home or self-care (01) ==
PROVIDERS: PCP Internal Medicine; Visit Provider Nurse Practitioner
DX: R13.10 Dysphagia, unspecified (principal); J44.9 Chronic obstructive pulmonary disease, unspecified; K21.9 Gastro-esophageal reflux disease without esophagitis; Z72.0 Tobacco use
CPT/HCPCS: 99203; 99213

== ENCOUNTER → 2023-10-25 11:30 | Outpatient (BNVA) | payer MEDICARE, SELFPAY | PROVIDERS: PCP Internal Medicine; Visit Provider Nurse Practitioner | DX: R13.10 Dysphagia, unspecified (principal); K21.9 Gastro-esophageal reflux disease without esophagitis; J44.9 Chronic obstructive pulmonary disease, unspecified; Z72.0 Tobacco use | CPT/HCPCS: 99202 ==

== ENCOUNTER 2023-10-31 09:58 | Outpatient (AMB) | payer MEDICARE, SELFPAY ==
--- NOTE | 2023-10-31 10:01 | MHC.OFFVIS ---
Vital Signs 10/31/23 10:02 Height 5 ft 6 in Weight 149 lb 14.629 oz BMI 24.2 BP 100/58 L Blood Pressure Location Lt brachial Position Sitting Pulse 69 Pulse Source Pulse Oximeter Pulse Oximetry (%) 98 Oxygen Delivery Method Room Air Intake Visit Reasons: COPD Allergies clarithromycin [From BIAXIN] Allergy (Intermediate, Verified 10/31/23 10:05) N/V atorvastatin Allergy (Mild, Verified 10/31/23 10:05) Unknown Iodinated Contrast Media [IV Dye, Iodine Containing] Allergy (Mild, Verified 10/31/23 10:05) RASH AND NAUSEA AND VOMITING doxycycline Allergy (Unknown, Verified 10/31/23 10:05) Nausea and Vomiting lisinopril Allergy (Unknown, Verified 10/31/23 10:05) hypotension Penicillins Adverse Reaction (Unknown, Verified 10/31/23 10:05) UNKNOWN-FROM CHILDHOOD buspirone [From BuSpar] Adverse Reaction (Verified 10/31/23 10:05) Headache HPI HPI COPD: Details: Sherlyn is a pleasant 68 year old female, current 1/4-1/ ppd smoker, with 100+ pack year history, with underlying COPD, emphysema, asthma, GERD, HTN, and DMII. Since the last visit she has been well controlled on Trelegy and albuterol MDI/neb. She is requesting the Duoneb prescription to be sent to [facility] which is a [facility] of [facility]. At the last visit, she reported bronchitic symptoms treated with a zpak with resolution of symptoms. She continues to report dyspnea on moderate exertion otherwise denies wheezing, chest tightness or cough. Unfortunately, she continues to smoke 1/4 ppd. She has tried chantix, hypnosis and NRT with no effect. She is currently maintained on Wellbutrin for mood disorder however discontinued due to increased headaches. Recommended a referral to nurse navigator but she deferred at this time. She denies any urgent care visits or hospitalizations since last visit. Today she presents to review RAST and CT chest results. Of note, she was referred to GI for dysphagia and it was recommended she proceed with endoscopy for further evaluation. 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 Low back pain Trigger finger Knee pain, left Pneumonia COPD exacerbation Chest tightness Abnormal lung sounds Screening for colon cancer Weight loss Post-menopausal Herpes zoster Chest pain Migraine Left scapula fracture Asthma Peripheral neuropathy Tobacco abuse Hypercholesterolemia Vitamin D deficiency Hypothyroid COPD (chronic obstructive pulmonary disease) Insomnia GERD (gastroesophageal reflux disease) Hypertension Type 2 diabetes mellitus with hyperglycemia Surgical History (Updated 10/25/23 @ 11:50 by PHILLIP Calderon) History of lumbar surgery History of colonoscopy History of foot surgery History of thyroidectomy History of cholecystectomy Family History Father Prostate cancer Diabetes Hypertension Mother CVD (cardiovascular disease) Myocardial infarction Social History Housing: Apartment Alcohol intake: unknown Patient Tobacco Use Status: Current everyday Tobacco user Tobacco use type: Cigarette Cigarettes Per Day: 6 Years Smoked: 45 years/ Quit Feb 2023 e-Cigarette/Vaping Use: Never Used Second Hand Smoke Exposure: No Advance Directives Date on File: 02/12/21 service: No Current occupational status: disabled Cognitive needs: Yes (cane ) Hearing needs: No Vision needs: Yes Review of Systems Const Denies chills, Denies excessive sweating, Denies headache(s) and Denies night sweats Eyes Denies dry eyes, Denies irritation and Denies itchy eyes ENT Reports Normal hearing present and Denies headache(s) Card Denies chest pain, Denies chest pain at rest, Denies chest pain with activity, Denies claudication, Denies leg edema and Denies paroxysmal nocturnal dyspnea Resp Denies excessive phlegm production, Denies pain on inspiration, Denies pain with cough and Denies stridor Musc Denies myalgias Neuro Reports Normal hearing present and Denies headache(s) Endo Denies excessive sweating Dayo/Lymph Denies lymphadenopathy Aller/Immun Denies itchy eyes and Denies seasonal rhinorrhea Physical Exam Vital Signs: Last Vital Signs Pulse 69 10/31/23 10:02 BP 100/58 L 10/31/23 10:02 Pulse Ox 98 10/31/23 10:02 Oxygen Delivery Method Room Air 10/31/23 10:02 BMI result Body Mass Index 24.2 Const Other: severe kyphosis ambulating with two canes. General: cooperative, healthy appearing, comfortable, no acute distress, well developed and alert Orientation/consciousness: patient oriented x3 HEENT Head: Yes normal to inspection, Yes normocephalic and Yes atraumatic Ears: hearing grossly normal bilaterally and external ears normal Eyes General: appearance normal, both eyes and all related structures Eyelids: Yes eyelids normal Sclerae: sclerae normal EOM: EOMs intact bilaterally Neck Neck: Yes normal visual inspection and Yes no lymphadenopathy Lymphatic: no lymphadenopathy noted Chest Chest palpation & inspection: normal inspection of the chest Resp Effort & Inspection: normal respiratory effort, able to speak in complete sentences, no audible wheezes, no cough, no stridor, not tachypneic, no tripod positioning and no use of accessory muscles Auscultation: no crackles, no rhonchi, no wheezes and diminished lung sounds Cardio Jugular venous distension: no JVD Rate: regular rate Rhythm: regular rhythm Skin Other: warm, dry General skin exam: no rashes or lesions noted Neuro General: patient oriented x3 Cranial nerves: Yes Normal hearing present Cognition (Neuro): normal cognition Extrem General: Yes normal to inspection, Yes capillary refill normal, Yes no clubbing, cyanosis or edema and Yes no pedal edema Psych Appearance: grossly normal and well kempt Speech and movement: Normal speech and movement present and Clear speech present Affect: normal affect Attitude: cooperative Thought process: Normal thought process present Thought content: Normal thought content present Insight: Good insight present (Psych) Judgement: Good judgement present (Psych) Assessment & Plan Assessment & Plan (1) COPD (chronic obstructive pulmonary disease): Code(s): J44.9 - Chronic obstructive pulmonary disease, unspecified Category: Medical (2) Kyphosis: Code(s): M40.209 - Unspecified kyphosis, site unspecified Category: Medical (3) Nicotine dependence, cigarettes, uncomplicated: Code(s): F17.210 - Nicotine dependence, cigarettes, uncomplicated Category: Medical (4) Dysphagia: Code(s): R13.10 - Dysphagia, unspecified Category: Medical (5) Dyspnea on minimal exertion: Code(s): R06.09 - Other forms of dyspnea Category: Medical Plan At this time Sherlyn reports good control of symptoms with current regimen, advised to continue. Will send Duoneb prescription to [facility]. She is aware to call if there are issues obtaining prescription or if symptoms worsen. Reviewed RAST which revealed positive IgE to aspergillus, mildly elevated IgE 94, with no eosinophilia. Will monitor symptoms and if worsen will consider Dupixent. Awaiting CT chest read from radiologist. All questions were answered and patient is in agreement of plan. Will follow up in 3-6 months or sooner if needed. Medications: Refilled ipratropium-albuterol 0.5 mg-3 mg(2.5 mg base)/3 mL 3 mL inhalation DAILY PRN 180 mL 3RF wheezing J44.9 - Chronic obstructive pulmonary disease, unspecified Coding Level of Care Code Est Pt Level 4 (13147) Diagnoses Pulmonary emphysema, unspecified emphysema type J44.9 Kyphosis M40.209 Nicotine dependence, cigarettes, uncomplicated F17.210 Dysphagia R13.10 Dyspnea on minimal exertion R06.09
[2023-10-31 10:02] VITALS: BP 100/58; PULSE 69; O2SAT 98; BMI 24.2
== END 2023-10-31 10:53 | disposition home or self-care (01) ==
PROVIDERS: PCP Internal Medicine; Visit Provider Nurse Practitioner Family
DX: J44.9 Chronic obstructive pulmonary disease, unspecified (principal); M40.209 Unspecified kyphosis, site unspecified; F17.210 Nicotine dependence, cigarettes, uncomplicated; R13.10 Dysphagia, unspecified; R06.09 Other forms of dyspnea
CPT/HCPCS: 99214

== ENCOUNTER → 2023-10-31 09:58 | Outpatient (BNVA) | payer MEDICARE, SELFPAY | PROVIDERS: PCP Internal Medicine; Visit Provider Nurse Practitioner Family | DX: J43.9 Emphysema, unspecified (principal); M40.209 Unspecified kyphosis, site unspecified; R13.10 Dysphagia, unspecified; R06.09 Other forms of dyspnea; F17.210 Nicotine dependence, cigarettes, uncomplicated; Z79.899 Other long term (current) drug therapy | CPT/HCPCS: 99212 ==

== ENCOUNTER 2023-11-07 09:45 | Outpatient (AMB) | payer MEDICARE, SELFPAY ==
[2023-11-07 09:59] VITALS: BP 102/58; PULSE 102; O2SAT 97; BMI 22.6
--- NOTE | 2023-11-07 09:59 | AM.OFFVISMDC ---
Intake Vital Signs 11/07/23 09:59 Height 5 ft 6 in Weight 140 lb BMI 22.6 BP 102/58 L Blood Pressure Location Lt brachial Position Sitting Pulse 102 H Pulse Source Pulse Oximeter Pulse Oximetry (%) 97 Oxygen Delivery Method Room Air Intake Visit Reasons: SAWV Allergies clarithromycin [From BIAXIN] Allergy (Intermediate, Verified 10/31/23 10:05) N/V atorvastatin Allergy (Mild, Verified 10/31/23 10:05) Unknown Iodinated Contrast Media [IV Dye, Iodine Containing] Allergy (Mild, Verified 10/31/23 10:05) RASH AND NAUSEA AND VOMITING doxycycline Allergy (Unknown, Verified 10/31/23 10:05) Nausea and Vomiting lisinopril Allergy (Unknown, Verified 10/31/23 10:05) hypotension Penicillins Adverse Reaction (Unknown, Verified 10/31/23 10:05) UNKNOWN-FROM CHILDHOOD buspirone [From BuSpar] Adverse Reaction (Verified 10/31/23 10:05) Headache Medication List - Last Reconciled 11/07/23 by Bridgett ePrez PA-C albuterol sulfate 90 mcg/actuation (ProAir HFA) 2 puffs inhalation Q4-6H PRN albuterol sulfate 2.5 mg (3 mL) inhalation QID PRN bupropion HCl SR (Wellbutrin SR) 100 mg PO BEDTIME cholecalciferol (vitamin D3) 25 mcg PO DAILY [DIABETIC SHOES As directed] diazepam 5 mg PO TID erenumab-aooe (Aimovig Autoinjector) mg subcut .once a month [EXTRA DEPTH ORTHOPEDIC SHOES WITH CUSTOMIZED HEAT MOLDED MULTIDENSITY INNERSOLES As directed] fluoxetine 40 mg PO DAILY nszhglhwxch-rjackpsan-ioxfijek 200-62.5-25 mcg (Trelegy Ellipta) 1 inh inhalation DAILY gabapentin 600 mg PO BID ipratropium-albuterol 0.5 mg-3 mg(2.5 mg base)/3 mL 3 mL inhalation DAILY PRN levothyroxine take 88 mcg QD except for tuesday orally every morning; 30 days methocarbamol 500 mg PO TID PRN nebulizers (Aeroneb Go Nebulizer) As directed UPDRAFT QID omeprazole 20 mg PO DAILY oxycodone 15 mg PO Q4-6H 30 days promethazine 25 mg PO Q6H PRN rosuvastatin 20 mg PO DAILY 90 days sumatriptan succinate (Imitrex) 100 mg PO .QD PRN 90 days HPI SAWV HPI Details 68-year-old female with past medical history of GERD, COPD, hypothyroid, hypercholesterolemia, tobacco abuse, generalized anxiety disorder, and diabetes mellitus last seen by Dr. Plata 07/2023 coming in for annual wellness visit.? In review of the notes, patient was seen by pulmonology 10/2023 considered stable on current med regimen.? She was seen by GI 09/2023 after completion of barium swallow which showed esophageal dysmotility.? Scheduled for EGD.? Also seen by Podiatry for annual diabetic foot exam. Patient states her breathing has been okay because she has not left the house often however she does still have shortness of breath. She has not use her Trelegy daily instead use as needed. She also mentioned she has been more depressed and anxious lately it has previously seen a counselor in the past. Patient is overdue for mammogram, bone density and colonoscopy and has declined both of the services. She does not regularly see a environmental health nurse and is not up-to-date on Pap smears. She also mentions she has been trying to get visiting nurse services due to limited mobility. [facility] Medical History Nicotine dependence, cigarettes, uncomplicated Hoarseness of voice Community acquired pneumonia Arm pain Scratch of eye region Trigger finger, right middle finger 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 Low back pain Trigger finger Knee pain, left Pneumonia COPD exacerbation Chest tightness Abnormal lung sounds Screening for colon cancer Weight loss Post-menopausal Herpes zoster Chest pain Migraine Left scapula fracture Asthma Peripheral neuropathy Tobacco abuse Hypercholesterolemia Vitamin D deficiency Hypothyroid COPD (chronic obstructive pulmonary disease) Insomnia GERD (gastroesophageal reflux disease) Hypertension Type 2 diabetes mellitus with hyperglycemia Surgical History History of lumbar surgery History of colonoscopy History of foot surgery History of thyroidectomy History of cholecystectomy Family History Father Prostate cancer Diabetes Hypertension Mother CVD (cardiovascular disease) Myocardial infarction Social History (Reviewed 11/07/23 @ 10:56 by STACIE Jaimes Housing: Apartment Alcohol intake: unknown Patient Tobacco Use Status: Current everyday Tobacco user Tobacco use type: Cigarette Cigarettes Per Day: 6 Years Smoked: 45 years/ Quit Feb 2023 e-Cigarette/Vaping Use: Never Used Second Hand Smoke Exposure: No Advance Directives Date on File: 02/12/21 service: No Current occupational status: disabled Cognitive needs: Yes (cane ) Hearing needs: No Vision needs: Yes Questionnaire Medicare Wellness Checkup What [age] What gender do you identify with?: female During the past 4 weeks, how much have you been bothered by emotional problems such as feeling anxious, depressed, irritable, sad or downhearted, and blue?: extremely During the past 4 weeks, has your physical & emotional health limited your social activities with family, friends, neighbors, or groups?: quite a bit During the past 4 weeks, how much bodily pain have you generally had?: severe pain During the past 4 weeks, was someone available to help you if you needed & wanted help?: yes, quite a bit During the past 4 weeks, what was the hardest physical activity you could do for at least 2 minutes?: very light Can you get to places out of walking distance without help? (For eg., can you travel alone on buses, taxis or drive your car?): Yes (sometimes ) Can you go shopping for groceries or clothes without someone's help?: No Can you prepare your own meals?: Yes Can you do your housework without help?: No Because of any health problems, do you need the help of another person with your personal care needs such as eating, bathing, dressing or getting around the house?: No Can you handle your own money without help?: Yes (sometimes ) During the past 4 weeks, how would you rate your health in general?: fair During the past 4 weeks how have things been going for you?: pretty bad Are you having difficulties driving your car?: sometimes Do you always fasten your seat belt when you are in a car?: yes, sometimes During past 4 weeks, have you been bothered by the following: never: Falling or dizzy when standing up and Sexual problems?, sometimes: Teeth or denture problems?, often: Problems using the telephone? and Tiredness or fatigue? and always: Trouble eating well? Have you fallen 2 or more times in the past year?: No Are you afraid of falling?: No Are you a smoker?: yes, and I might quit During the past 4 weeks, how many drinks of wine, beer, or other alcoholic beverages did you have?: no alcohol at all Do you exercise for about 20 minutes 3 or more times a week?: no, I usually do not exercise this much Have you been given information to help with the following?: yes: Hazards in your house that might hurt you? and no: Keeping track of your medications? How often do you have trouble taking medicines the way you have been told to take them?: sometimes I take medicine as prescribed How confident are you that you can control & manage most of your health problems?: somewhat confident What is your race?: White Activity of Daily Living Bathing - sponge bath, tub bath or shower: receives no assistance (gets in/out by self, if usual bathing means Dressing - getting clothes from closets & drawers, including inner/outer garments & fasteners.: gets clothes & gets completely dressed without help Toileting - going to the 'toilet room' for urine/bowel elimination & cleaning self/arranging clothes: goes to toilet room, cleans self, arranges clothes without help Transfer: moves in & out of bed and chair without help (may use support object) Continence: controls urination/bowel movements completely by self Feeding: feeds self without help Total Score: 0 Information obtained from: patient Using telephone: independent Traveling: independent Shopping: independent Preparing meals: independent Housework: needs assistance Taking medicine: independent Managing money: independent PHQ-9 Over the last 2 weeks, how often have you been bothered by any of the following problems? 1. Little interest or pleasure in doing things: nearly every day 2. Feeling down, depressed, or hopeless: nearly every day 3. Trouble falling or staying asleep, or sleeping too much: more than half the days 4. Feeling tired or having little energy: more than half the days 5. Poor appetite or overeating: nearly every day 6. Feeling bad about yourself - or that you are a failure or have let yourself or your family down: nearly every day 7. Trouble concentrating on things, such as reading the newspaper or watching television: nearly every day 8. Moving or speaking so slowly that other people could have noticed. Or the opposite - being so fidgety or restless that you have been moving around a lot more than usual: nearly every day Depression Screening Interpretation: Positive (Declined counseling referral) Depression Screening Follow-up: New Medication prescribed Depression Screening Done: Yes [id number] - PHQ-9 Billing: Yes Source: Developed by Drs. Bhavesh Alfred, Yuridia Suarez, Triston Gabriel and colleagues, with an educational yara from [employer]. Review of Systems Const Denies body aches, Denies fatigue, Denies fever(s), Denies frequent falls, Reports headache(s) (improving with Aimovig) and Denies weakness Eyes Reports no additional complaints and Denies change in vision ENT Denies dysphagia, Denies dizziness, Denies facial pain, Reports headache(s) (improving with Aimovig), Denies nasal congestion, Denies odynophagia and Denies sinus pressure Card Denies chest pain, Denies syncope, Denies irregular heart rhythm, Denies leg edema, Denies lightheadedness and Reports dyspnea (improves with inhaler) Resp Denies cough and Reports dyspnea (improves with inhaler) GI Denies constipation, Denies dysphagia, Denies dyspepsia, Reports diarrhea (after every meal), Denies nausea, Denies odynophagia and Denies vomiting Denies urinary frequency, Denies dysuria, Denies urinary hesitancy and Denies urinary urgency Musc Reports back pain (Chronic) and Denies myalgias Skin/Breast Reports system reviewed and no additional complaints, except as documented Neuro Denies dizziness, Denies syncope, Denies frequent falls, Reports headache(s) (improving with Aimovig) and Denies weakness Psych Reports no additional complaints Endo Denies fatigue Physical Exam Vital Signs: Last Vital Signs Pulse 102 H 11/07/23 09:59 BP 102/58 L 11/07/23 09:59 Pulse Ox 97 11/07/23 09:59 Oxygen Delivery Method Room Air 11/07/23 09:59 BMI result Body Mass Index 22.6 Const General: cooperative, healthy appearing, comfortable and no acute distress Orientation/consciousness: patient oriented x3 HEENT Head: Yes normocephalic Ears: hearing grossly normal bilaterally, external ears normal, TM's normal bilaterally and EAC's normal General nose exam: Normal external nose present Face and sinus: Yes normal facial exam and Yes sinuses nontender Mouth: Normal oral and palatal mucosa present and tongue normal Throat: Yes posterior oropharynx normal Eyes General: appearance normal, both eyes and all related structures Conjunctivae: conjunctivae normal Pupils: Equal, round and reactive pupils present EOM: EOMs intact bilaterally and No Nystagmus present Neck Neck: Yes normal visual inspection, Yes full ROM and Yes no lymphadenopathy Chest Chest palpation & inspection: normal inspection of the chest Resp Effort & Inspection: normal respiratory effort Auscultation: clear to auscultation bilaterally, no crackles, no rales, no rhonchi, no wheezes and breath sounds present Cardio Rate: regular rate Rhythm: regular rhythm Peripheral pulses: radial pulses present and dorsalis pedis present GI Inspection: Yes normal to inspection and No Abdominal wall edema Palpation (GI): Soft to palpation, not firm and nontender Auscultation: normal bowel sounds Rectal Exam - Female: deferred General: Yes no CVA tenderness Back/Spine/Pelvis Back: no CVA tenderness Skin General skin exam: no rashes or lesions noted Neuro General: patient oriented x3 Cranial nerves: Yes Equal, round and reactive pupils present, Yes Midline tongue present, Yes Ability to bilaterally elevate shoulders present and No Nystagmus present Gait exam (Neuro): Normal gait present Extrem General: Yes normal to inspection, Yes full ROM, No no pedal edema and No edema Psych Speech and movement: Normal speech and movement present Affect: normal affect Insight: Good insight present (Psych) Judgement: Good judgement present (Psych) Results AMB Hemoglobin A1c AMB Hemoglobin A1c 5.5 % Last Edit by ANA ROSA Reyes on 11/07/23 10:10 Assessment & Plan Assessment & Plan (1) Chronic low back pain: Code(s): M54.50 - Low back pain, unspecified; G89.29 - Other chronic pain Plan: Patient has chronic low back pain on oxycodone. Declined referral for pain management. Patient requesting VNA services due to limited mobility and pain with mobility. Referral placed today. (2) Dysphagia: Code(s): R13.10 - Dysphagia, unspecified Plan: Patient is following with Gastroenterology for dysphagia and is scheduled for EGD. Barium swallow completed 09/2023 which showed esophageal dysmotility. 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 Not currently on medications. Decrease the amount of carbohydrates such as pasta, bread, rice, and potatoes and limit the amount of sweets. Although fruits are generally healthy they should be eaten in moderation as they are still high in sugar. (4) Generalized anxiety disorder: Comment: Panic disorder Code(s): F41.1 - Generalized anxiety disorder Plan: Patient is currently on fluoxetine and diazepam for management of anxiety. Previously on Wellbutrin but did not find this helpful and has discontinued at this time. Discussed at length the mental health services available to us and patient has declined all services at this time. We will trial hydroxyzine 25 mg nightly for anxiety. Follow up at next appointment. (5) Depression: Code(s): F32.A - Depression, unspecified Qualifiers: Depression Type: other depression Qualified Code(s): F32.89 - Other specified depressive episodes Plan: Continue on fluoxetine and diazepam. Counseling referral declined at this time. (6) Tobacco abuse: Code(s): Z72.0 - Tobacco use Plan: Patient is a current every day tobacco user. Discussed the importance of smoking cessation at this visit. She has declined nicotine replacement therapy or pharmacotherapy for smoking cessation. Declined annual lung cancer screening. (7) Migraine: Code(s): G43.909 - Migraine, unspecified, not intractable, without status migrainosus Plan: Continue on Aimovig as well as sumatriptan and promethazine as needed. (8) Hypercholesterolemia: Code(s): E78.00 - Pure hypercholesterolemia, unspecified Plan: Continue on rosuvastatin. We will order for updated labs. Avoid foods that are high in cholesterol such as red meat, fried foods, eggs and baked goods. LDL goal of less than 100. (9) Hypothyroid: Code(s): E03.9 - Hypothyroidism, unspecified Qualifiers: Hypothyroidism type: acquired Qualified Code(s): E03.9 - Hypothyroidism, unspecified Plan: Continue on levothyroxine. (10) COPD (chronic obstructive pulmonary disease): Code(s): J44.9 - Chronic obstructive pulmonary disease, unspecified Plan: Patient had previously been taking Trelegy as needed instead of daily. She mentioned symptoms are not well managed and she does have often shortness of breath. Begin taking Trelegy daily and albuterol as needed for symptom management. Continue to follow with pulmonology (11) GERD (gastroesophageal reflux disease): Code(s): K21.9 - Gastro-esophageal reflux disease without esophagitis Qualifiers: Esophagitis presence: without esophagitis Qualified Code(s): K21.9 - Gastro-esophageal reflux disease without esophagitis Plan: Patient no longer taking omeprazole under guidance of GI. Continue to follow up with Gastroenterology. (12) Medicare annual wellness visit, subsequent: Code(s): Z00.00 - Encounter for general adult medical examination without abnormal findings Plan: Patient has declined colonoscopy, mammogram, lung cancer screening, and bone density scan despite recommendations. Strongly encouraged patient COVID a screenings however she continues to decline. Routine blood work ordered. Follow up at next visit. Plan This note was constructed using voice recognition software. While every effort has been made to ensure accuracy and senior online marketing manager, still areas may have been included sometimes these areas may affect the content or meeting of the given symptoms. Total time spent caring for the patient today was 45 minutes. This includes time spent before the visit reviewing the chart, time spent during the visit, and time spent after the visit and documentation. Orders: Orders AMB Hemoglobin A1c Today E11.65 - Type 2 diabetes mellitus with hyperglycemia Complete Blood Count Auto Diff Today Z00.00 - Encounter for general adult medical examination without abnormal findings Comprehensive Met. Panel Today Z00.00 - Encounter for general adult medical examination without abnormal findings Free T4 (Free Thyroxine) Today Z00.00 - Encounter for general adult medical examination without abnormal findings TSH reflex Free T4 Today Z00.00 - Encounter for general adult medical examination without abnormal findings Vitamin B12 and Folate Today Z00.00 - Encounter for general adult medical examination without abnormal findings Lipid Panel Today Z00.00 - Encounter for general adult medical examination without abnormal findings Vitamin D 25-OH (D2 and D3) Today Z00.00 - Encounter for general adult medical examination without abnormal findings Referrals [facility] Referral G89.29 - Other chronic pain, M54.50 - Low back pain, unspecified, R06.09 - Other forms of dyspnea Medications: New hydroxyzine HCl 25 mg PO BEDTIME 30 tabs 3RF Refilled ipratropium-albuterol 0.5 mg-3 mg(2.5 mg base)/3 mL 3 mL inhalation DAILY PRN 180 mL 3RF wheezing J44.9 - Chronic obstructive pulmonary disease, unspecified Discontinued bupropion HCl SR (Wellbutrin SR) Discontinued Reason: Patient no longer taking 100 mg PO BEDTIME 90 tabs 2RF F41.1 - Generalized anxiety disorder Quality Reporting (2019) Adult ([facility] 13805/19/68) Smoking risk assessment performed?: Yes Patient Tobacco Use Status: Current everyday Tobacco user Tobacco cessation counseling provided: Yes Items discussed: Nicotine replacement Pharmacotherapy not ordered: Yes (Patient declined) Depression screening performed: Yes Screen Results: Yes Positive screen (Patient declined counseling or psych referral) Positive Screen Plan: Yes follow-up for depression Recommended changes: lifestyle and physical activity Coding Level of Care Code Medicare Subsequent (G0439) Est Pt Level 3 (33531) Diagnoses Chronic low back pain M54.50; G89.29 Dysphagia R13.10 Type 2 diabetes mellitus with hyperglycemia, without long-term current use of insulin E11.65 Diabetes mellitus 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 insulin use: without senior care use Generalized anxiety disorder F41.1 Other depression F32.89 Depression Type: other depression Tobacco abuse Z72.0 Migraine G43.909 Hypercholesterolemia E78.00 Acquired hypothyroidism E03.9 Hypothyroidism type: acquired Pulmonary emphysema, unspecified emphysema type J44.9 Gastroesophageal reflux disease without esophagitis K21.9 Esophagitis presence: without esophagitis Medicare annual wellness visit, subsequent Z00.00 CPT Codes Advance Care Planning - Advance Care Planning discussion: On file, no changes ([id number]) Advance Care Planning - Time spent: 1-15 minutes, on File ([id number]) Advance Care Planning Advance Care Planning discussion: On file, no changes Date of discussion: 11/07/23 Who was present: Patient Forms completed: Health Care Proxy and MOLST Time spent: 1-15 minutes, on File Actual minutes spent: 5 Did not discuss due to Cultural/Spiritual beliefs: No
== END 2023-11-07 10:53 | disposition home or self-care (01) ==
PROVIDERS: PCP Internal Medicine
DX: Z00.00 Encounter for general adult medical examination without abnormal findings (principal); E11.65 Type 2 diabetes mellitus with hyperglycemia; J44.9 Chronic obstructive pulmonary disease, unspecified; M54.50 Low back pain, unspecified; G89.29 Other chronic pain; R13.10 Dysphagia, unspecified; F41.1 Generalized anxiety disorder; F32.89 Other specified depressive episodes; Z72.0 Tobacco use; G43.909 Migraine, unspecified, not intractable, without status migrainosus; E78.00 Pure hypercholesterolemia, unspecified; E03.9 Hypothyroidism, unspecified
CPT/HCPCS: 1123F; 83036; 99213; G0439

== ENCOUNTER 2023-11-22 09:11 | Day surgery (SDC) | payer MEDICARE, SELFPAY ==
[2023-11-22 10:04] VITALS: BMI 23.9
[2023-11-22 10:12] VITALS: BP 127/75; PULSE 67; RESP 18; TEMP 36.9; O2SAT 96
[2023-11-22] MEDS: Lactated Ringers 1,000 ML 80 ML IVCONT (10:27)
--- NOTE | 2023-11-22 10:34 | P.OP_ITS ---
Operative Note Operative Note Date of Service: 11/22/23 Narrative: Procedure: Esophagogastroduodenoscopy Endoscopist: Sofia Ziegler MD Indication: Dysphagia Anesthesia Provider: Anesthesia Type: MAC ?? EGD Procedure:?? The procedure, indications, preparation and potential complications were reviewed with the patient, who indicated understanding and gave written informed consent to proceed. A physical exam was performed. The endoscope was introduced through the mouth, and advanced to the second part of duodenum. The mucosa was carefully examined on slow withdrawal of the endoscope. The patient tolerated the procedure well. There were no immediate complications.? ? EGD Findings:? * Oropharynx: Localised erythema and ulceration of hard palate noticed on endoscopic exam. * Esophagus:? Normal mucosa noted in the entire esophagus. The Z line was at 40 cm. Middle and lower esophagus forceps biopsies were obtained to rule out eosinophilic esophagitis. * Stomach:? Erythema erosions and scant heme noted in the body of the stomach. Retroflexion performed in the cardia showed Hill grade II hiatal hernia. Small patch of erythematous and edematous mucosa noted ib antrum just at the pyloric opening. Targeted antral as well as random cold forceps biopsies were taken from the stomach. * Duodenum:? Normal mucosa was noted in the whole of the examined duodenum. Additional intervention: Soft tipped Savary wire was advanced through the biopsy channel of the gastroscope span left in the antrum. Gastroscope was then backed out. A Savary Laura bougie measuring 18 mm in diameter was advanced over the guidewire and the esophagus was dilated. On relook with the endoscope, there was a superficial tear at 15-17 cm confirming successful dilation at the level of cricopharyngeus. ? EGD Impressions:? * Hard palate ulcer * UES stenosis (dilation) * Normal esophageal mucosa (biopsy) * Gastritis (biopsy) * Normal duodenum (biopsy) ?? Recommendations:?? * Follow biopsy results. Our office will call or send a letter with results within 7-10 days. * Increase PPI to BID * If H pylori +, patient will be prescribed eradication therapy followed by test of cure. * Avoid NSAIDs and smoking. * Anticipate improvement in difficulty swallowing after the dilation. Can repeat this PRN for return of symptoms. Above has been reviewed with the patient.
--- NOTE | 2023-11-22 10:34 | MHC.SHP ---
Pre-Procedural Eval Section A - 24 Hr Update-Section A only Date of Service: 11/22/23 The patient is an INPATIENT: No The patient has been examined within 24 hours of the surgical procedure. The History & Physical has been completed within 30 days and I have reviewed it.: Yes Section B - Complete if H&P > 30 days Chief Complaint: Dysphagia, unspecified Allergies: Allergies Allergy/AdvReac Type Severity Reaction Status Date / Time clarithromycin [From BIAXIN] Allergy Intermediate N/V Verified 10/31/23 10:05 atorvastatin Allergy Mild Unknown Verified 10/31/23 10:05 Iodinated Contrast Media Allergy Mild RASH AND Verified 10/31/23 10:05 [IV Dye, Iodine Containing] NAUSEA AND VOMITING doxycycline Allergy Unknown Nausea and Verified 10/31/23 10:05 Vomiting lisinopril Allergy Unknown hypotension Verified 10/31/23 10:05 Penicillins AdvReac Unknown UNKNOWN-FROM Verified 10/31/23 10:05 CHILDHOOD buspirone [From BuSpar] AdvReac Headache Verified 10/31/23 10:05 Plan Diagnosis/Plan: Unchanged I have reviewed the history and physical and performed a pertinent physical examination on my patient. No changes have occurred unless specified. Time Spent With Patient Time: Total time managing care of this patient today ____ minutes.
--- NOTE | 2023-11-22 10:51 | HO.ANESPROP2 ---
HPI - Anesthesia Eval Consult details Narrative: for endo PMFSH Active Problems Active Problems: All Active Problems Medicare annual wellness visit, subsequent (Acute) Environmental allergies (Acute) Dyspnea on minimal exertion (Acute) Dysphagia (Acute) Kyphosis (Acute) Diarrhea (Acute) Colonoscopy refused (Acute) Type 2 diabetes mellitus with hyperglycemia (Acute) Generalized anxiety disorder (Acute) Hammer toe of right foot (Acute) Chronic low back pain (Acute) Depression (Acute) Trigger finger, right ring finger (Acute) Tobacco abuse (Acute) Migraine (Acute) Hypercholesterolemia (Acute) Hypothyroid (Acute) COPD (chronic obstructive pulmonary disease) (Acute) GERD (gastroesophageal reflux disease) (Acute) Past Medical History Medical History Nicotine dependence, cigarettes, uncomplicated Hoarseness of voice Community acquired pneumonia Arm pain Scratch of eye region Trigger finger, right middle finger 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 Low back pain Trigger finger Knee pain, left Pneumonia COPD exacerbation Chest tightness Abnormal lung sounds Screening for colon cancer Weight loss Post-menopausal Herpes zoster Chest pain Migraine Left scapula fracture Asthma Peripheral neuropathy Tobacco abuse Hypercholesterolemia Vitamin D deficiency Hypothyroid COPD (chronic obstructive pulmonary disease) Insomnia GERD (gastroesophageal reflux disease) Hypertension Type 2 diabetes mellitus with hyperglycemia Family History Family History Father Prostate cancer Diabetes Hypertension Mother CVD (cardiovascular disease) Myocardial infarction Family history of problems with anesthesia: No Surgical History Surgical History History of lumbar surgery History of colonoscopy History of foot surgery History of thyroidectomy History of cholecystectomy History of Problems with Anesthesia: No Social History Social History Housing: Apartment Alcohol intake: unknown Patient Tobacco Use Status: Current everyday Tobacco user Tobacco use type: Cigarette Cigarette Packs Per Day: 0.5 Cigarettes Per Day: 10.0 Years Smoked: 45 years/ Quit Feb 2023 e-Cigarette/Vaping Use: Never Used Second Hand Smoke Exposure: No Use of substances other than those prescribed or required for medical reasons: No Are you DNR?: No Advance Directives: No Advance Directives Information Provided: Yes Advance Directives on File: No Advance Directives Date on File: 02/12/21 Recently lost weight without trying: No Eating poorly because of decreased appetite: No Nutrition Risks: No Nutritional Risk Patient : No service: No Current occupational status: disabled Cognitive needs: Yes (cane ) Hearing needs: No Vision needs: Yes Meds Allergies Allergy/AdvReac Type Severity Reaction Status Date / Time clarithromycin [From BIAXIN] Allergy Intermediate N/V Verified 10/31/23 10:05 atorvastatin Allergy Mild Unknown Verified 10/31/23 10:05 Iodinated Contrast Media Allergy Mild RASH AND Verified 10/31/23 10:05 [IV Dye, Iodine Containing] NAUSEA AND VOMITING doxycycline Allergy Unknown Nausea and Verified 10/31/23 10:05 Vomiting lisinopril Allergy Unknown hypotension Verified 10/31/23 10:05 Penicillins AdvReac Unknown UNKNOWN-FROM Verified 10/31/23 10:05 CHILDHOOD buspirone [From BuSpar] AdvReac Headache Verified 10/31/23 10:05 Active Medications: Current Medications Lactated Ringer's (Lr) 1,000 mls @ 80 mls/hr IVCONT .[id number] LG Last Admin: 11/22/23 10:27 Dose: 80 mls/hr Home Medications ?Medication ?Instructions ?Recorded ?Confirmed ?Last Taken ?Type diazepam 5 mg tablet 5 mg PO TID muscle spasm 10/25/23 11/07/23 11/22/23 History erenumab-aooe 140 mg/mL mg subcut .once a month 10/25/23 11/07/23 Unknown History subcutaneous auto-injector (Aimovig Autoinjector) Exam Height,Weight and Vital Signs: Height 5 ft 6 in Weight 67.188 kg Last Vital Signs Temp 98.4 F 11/22/23 10:12 Pulse 67 11/22/23 10:12 Resp 18 11/22/23 10:12 BP 127/75 11/22/23 10:12 Pulse Ox 96 11/22/23 10:12 O2 Del Method Room Air 11/22/23 10:12 Airway Mallampati Class: II TM Dist: >3cm Heart: rrr Lungs: cta Assessment and Plan Assessment Anesthesia Assessment: Anesthesia Plan Discussed Final Anesthetic Review Family History of Problems with Anesthesia: No History of Problems with Anesthesia: No NPO: Yes ASA Class: III Final Preanesthetic Review: No Changes in Pt Med Stat, Meds/Allgs Chart Reviewed, Consent Obtained/Reviewed and Anes Risks/Benef Reviewed Patient Risk: Intermediate Procedure Risk: Low Anesthetic Plan Anesthetic Plan: MAC: Disposition: Standard PACU
[2023-11-22 11:04] LABS: Glucose, Whole Blood 91 mg/dL (60-115)
[2023-11-22 11:05] VITALS: BP 98/56; PULSE 58; RESP 16; TEMP 36.2; O2SAT 99
[2023-11-22 11:20] VITALS: BP 130/90; PULSE 66; RESP 18; TEMP 36.1; O2SAT 98
== END 2023-11-22 12:20 | disposition home or self-care (01) ==
PROVIDERS: PCP Internal Medicine; Visit Provider Internal Medicine
PROC: 0DJ08ZZ Inspection of Upper Intestinal Tract, Via Natural or Artificial Opening Endoscopic (ICD-10-PCS; CPT 43235; principal; 2023-11-22 09:20)
DX: R13.10 Dysphagia, unspecified (principal); K29.50 Unspecified chronic gastritis without bleeding; K29.80 Duodenitis without bleeding; K44.9 Diaphragmatic hernia without obstruction or gangrene; K21.9 Gastro-esophageal reflux disease without esophagitis; I10 Essential (primary) hypertension; E11.65 Type 2 diabetes mellitus with hyperglycemia; J44.9 Chronic obstructive pulmonary disease, unspecified; Z87.01 Personal history of pneumonia (recurrent); E78.00 Pure hypercholesterolemia, unspecified; Z79.51 Long term (current) use of inhaled steroids; Z79.899 Other long term (current) drug therapy; Z88.0 Allergy status to penicillin; Z88.1 Allergy status to other antibiotic agents; Z88.8 Allergy status to other drugs, medicaments and biological substances; Z91.041 Radiographic dye allergy status; F17.210 Nicotine dependence, cigarettes, uncomplicated
CPT/HCPCS: 43248; 43239; 82947; 88305; 88313; 88342; C1769; J2704

== ENCOUNTER → 2023-11-22 09:11 | Outpatient (BNV) | payer MEDICARE, SELFPAY | PROVIDERS: PCP Internal Medicine; Visit Provider Internal Medicine | DX: K22.89 Other specified disease of esophagus (principal); K22.2 Esophageal obstruction; K29.70 Gastritis, unspecified, without bleeding | CPT/HCPCS: 43239; 43450 ==

== ENCOUNTER 2023-12-09 06:18 | Outpatient (REF) | payer MEDICARE, SELFPAY ==
[2023-12-09 10:30] LABS: MANUAL DIFF FLAG NO
[2023-12-09 10:36] LABS: Basophils Percent Auto 0.3 % (0-2); Eosinophils Absolute Auto 0.1 X10*3/uL (0.0-0.4); Eosinophils Percent Auto 1.3 % (0-4); Hematocrit 41.5 % (37.0-47.0); Imm Gran Abs Auto 0.04 X10*3/uL (0.00-0.03); Imm Gran Pct Auto 0.4 % (0.0-0.4); Lymphocytes Absolute Auto 1.4 X10*3/uL (1.2-4.9); Lymphocytes Percent Auto 13.7 % (20-40); Mean Corpuscular HGB Conc 33.7 g/dl (31.0-35.0); Mean Corpuscular Hemoglobin 33.3 pg (27.0-33.0); Mean Corpuscular Volume 98.6 fL (80.0-98.0); Mean Platelet Volume 10.9 fL (9.4-12.3); Monocytes Absolute Auto 0.4 X10*3/uL (0.1-1.2); Monocytes Percent Auto 3.8 % (2-11); Neutrophils Absolute Auto 8.4 x10*3/uL (2.0-8.3); Neutrophils Percent Auto 80.5 % (45-73); Platelet Count 218 X10*3/uL (160-400); Red Blood Count 4.21 X10*6/uL (4.20-5.50); Red Cell Distribution Width 13.9 % (11.0-16.0); White Blood Count 10.4 X10*3/uL (4.8-10.8)
[2023-12-09 10:53] LABS: Creatinine Urine 152.56 mg/dL
[2023-12-09 11:03] LABS: Alanine Aminotransferase 17 U/L (0-31); Alkaline Phosphatase 112 U/L (39-117); Anion Gap 12 (12-20); Aspartate Amino Transferase 20 U/L (5-31); Bilirubin Total 0.3 mg/dL (0.0-1.0); Blood Urea Nitrogen 12 mg/dL (9-16); Calcium 9.5 mg/dL (8.4-10.2); Carbon Dioxide 28 mmol/L (22-29); Chloride 105 mmol/L (96-108); Cholesterol 172 mg/dL (<200); Estimated Glomerular Filt Rate 56; Glucose Random 124 mg/dL (60-115); HDL Cholesterol 66 mg/dL (>40); LDL Cholesterol Calculated 85 mg/dL (<100); Potassium 4.3 mmol/L (3.3-5.1); Sodium 141 mmol/L (135-145); Total Protein 7.2 g/dL (6.5-8.0); Triglycerides 108 mg/dL (<150)
[2023-12-09 11:21] LABS: TSH reflex Free T4 4.43 uIU/mL (0.32-4.0); Thyroid Stimulating Hormone 4.43 uIU/mL (0.32-4.0)
[2023-12-09 11:23] LABS: Folate 9.7 ng/mL (> or = 4.0); Vitamin B12 253 pg/mL (200-900)
[2023-12-15 15:28] LABS: Vitamin D 25-OH, D2 <4 ng/mL; Vitamin D 25-OH, D3 22 ng/mL; Vitamin D 25-OH, Total 22 ng/mL (30-100)
== END 2023-12-09 06:19 | disposition home or self-care (01) ==
LOC: HO.HMGCLDS 06:18
PROVIDERS: PCP Internal Medicine; Visit Provider Internal Medicine
DX: Z00.00 Encounter for general adult medical examination without abnormal findings (principal); R19.7 Diarrhea, unspecified; E11.65 Type 2 diabetes mellitus with hyperglycemia
CPT/HCPCS: 36415; 80053; 80061; 82306; 82570; 82607; 82746; 84439; 84443; 85025

== ENCOUNTER 2023-12-14 13:55 | Outpatient (AMB) | payer MEDICARE, SELFPAY ==
--- NOTE | 2023-12-14 13:57 | A.OFFVIS_ITS ---
Vital Signs 12/14/23 13:58 Height 5 ft 6 in Weight 154 lb 5.177 oz BMI 24.9 BP 119/76 Blood Pressure Location Lt brachial Position Sitting Pulse 68 Intake Visit Reasons: s/p egd Allergies clarithromycin [From BIAXIN] Allergy (Intermediate, Verified 12/26/23 10:47) N/V atorvastatin Allergy (Mild, Verified 12/26/23 10:47) Unknown Iodinated Contrast Media [IV Dye, Iodine Containing] Allergy (Mild, Verified 12/26/23 10:47) RASH AND NAUSEA AND VOMITING doxycycline Allergy (Unknown, Verified 12/26/23 10:47) Nausea and Vomiting lisinopril Allergy (Unknown, Verified 12/26/23 10:47) hypotension Penicillins Adverse Reaction (Unknown, Verified 12/26/23 10:47) UNKNOWN-FROM CHILDHOOD buspirone [From BuSpar] Adverse Reaction (Verified 12/26/23 10:47) Headache HPI HPI s/p egd: Details: Assessment & Plan (1) Dysphagia: Code(s): R13.10 - Dysphagia, unspecified Category: Medical (2) COPD (chronic obstructive pulmonary disease): Code(s): J44.9 - Chronic obstructive pulmonary disease, unspecified Category: Medical (3) GERD (gastroesophageal reflux disease): Code(s): K21.9 - Gastro-esophageal reflux disease without esophagitis Category: Medical Qualifiers: Esophagitis presence: without esophagitis Qualified Code(s): K21.9 - Gastro-esophageal reflux disease without esophagitis (4) Tobacco abuse: Code(s): Z72.0 - Tobacco use Category: Medical Plan She had dysphagia initially many years ago when she had a large goiter, but this resolved with thyroidectomy. But 7 mos ago she had a return of the sx, and she had a choking episode that was followed by a bout of pneumonia. She has continued dysphagia since then. She has dysphagia of both solids and liquids, but more solids that occurs in the area of the voicebox. This happens every time I eat, and this makes her fearful of eating. It happens occasionally with pills and it will panic. She feels like the left side is worse and she will frequently cough food back up. She says she had a hard time with the mod barium swallow r/t anxiety and a dry mouth. [facility] also feels that food gets stuck at the GE jxn area. She has a hx of PUD and she takes omeprazole. The modified barium swallow may have shown some evidence for to and fro movement and esophageal dysmotility. She suffers post prandial diarrhea and uses imodium if I have to go out. She likely has some element of bile diarrhea and possible bile reflux/gastritis since she is status post cholecystectomy. She has a CT of the chest pending. Orders: Orders EGD - GI Use Only Today R13.10 - Dysphagia, unspecified [place] barium swallow Today R13.10 - Dysphagia, unspecified BARIUM SWALLOW 07/22/23 IMPRESSION: 1. No evidence of laryngeal penetration or aspiration was seen during this examination 2. Limited evaluation of the esophagus demonstrates to and fro motion of the barium column. This likely represents esophageal dysmotility. Recommend dedicated esophagram. Refer to the speech therapy report for further clarification SPEECH THERAPY REPORT SUMMARY: Findings were significant for delayed initiation of the swallow to the level of the pyriforms. This resulted on penetration across all consistencies, however any penetrated contrast was spontaneously removed from the airway. Given globus pharyngeus symptoms an oblique scan of the esophagus was performed and significant for retrograde motion of the contrast contained within the esophagus. Liquid Intake Recommendation: Thin Liquid Intake Strategies: Unrestricted Dietary Recommendations: Regular Medication Administration: Please contact the pharmacy regarding appropriate crushable or liquid drug formulations that are available whenever modified delivery is recommended. Compensatory Strategies Recommended: Sitting Upright (90 deg) Supervision during eating and or drinking: None Needed Recommended Treatments: Compens. Strategy Educat. Recommendation for Speech Therapy: NA:Typical Evaluation EGD 11/22/23 EGD Findings:? * Oropharynx: Localised erythema and ulceration of hard palate noticed on endoscopic exam. * Esophagus:? Normal mucosa noted in the entire esophagus. The Z line was at 40 cm. Middle and lower esophagus forceps biopsies were obtained to rule out eosinophilic esophagitis. * Stomach:? Erythema erosions and scant heme noted in the body of the stomach. Retroflexion performed in the cardia showed Hill grade II hiatal hernia. Small patch of erythematous and edematous mucosa noted ib antrum just at the pyloric opening. Targeted antral as well as random cold forceps biopsies were taken from the stomach. * Duodenum:? Normal mucosa was noted in the whole of the examined duodenum. * * EGD Impressions:? * Hard palate ulcer * UES stenosis (dilation) * Normal esophageal mucosa (biopsy) * Gastritis (biopsy) * Normal duodenum (biopsy)?? Recommendations:?? * Follow biopsy results. Our office will call or send a letter with results within 7-10 days. * Increase PPI to BID * If H pylori +, patient will be prescribed eradication therapy followed by test of cure. * Avoid NSAIDs and smoking. * Anticipate improvement in difficulty swallowing after the dilation. Can repeat this PRN for return of symptoms. BIOPSY Received: 11/22/23 Diagnosis A. Stomach, random, biopsy: Antral-type and oxyntic mucosa with mild chronic inactive inflammation; no Helicobacter organisms seen. B. Stomach, antrum, biopsy: Reactive gastropathy with background mild chronic inactive inflammation; no Helicobacter organisms seen. C. Esophagus, lower, biopsy: Squamous epithelium within normal limits; negative for eosinophilic esophagitis. D. Esophagus, middle, biopsy: Squamous epithelium within normal limits; negative for eosinophilic esophagitis CHEST CT 11/23/23 FINDINGS: OCCUPATIONAL THERAPY PROFESSOR: LINES/TUBES: Platform Power Technician reviewed, no lines. LUNGS: Lung parenchyma: Diffuse mild panlobular pulmonary emphysema. Lung nodules/masses: There is a 5 mm nodule right lower lobe image 134 series 1 unchanged from prior exam. 4 mm radiodensity left lower lobe unchanged. There are several other scattered tiny lung densities measuring 3 mm or less nonspecific. No suspicious nodule or lung mass. AIRWAYS: Trachea and bronchi are normal. PLEURA: No pleural effusion or pneumothorax. MEDIASTINUM AND DIYA: No mediastinal, hilar or axillary lymphadenopathy. No mediastinal mass. VESSELS: HEART AND PERICARDIUM: Thoracic aorta is normal in size. Heart is normal in size. No pericardial effusion. There are a few coronary artery calcifications. Pulmonary arteries are normal in size. LOWER NECK, AXILLA: The visualized thyroid gland is unremarkable. No axillary mass or adenopathy. VISUALIZED ABDOMEN: Diffusely hyperdense liver, this has been described in association with a metabolic disease including iron deposition such as hemosiderosis, thalassemia, copper deposition Chris disease, glycogen storage disease and certain medications such as amiodarone and gold therapy. Otherwise upper abdomen is unremarkable. CHEST WALL AND BONES: Incidental finding was made of soft tissue nodule in the left breast measuring 1.1 cm, this may require correlation with follow-up diagnostic mammogram and ultrasound. The visualized bony thorax is within normal limits. CT/CT chest wo IV con IMPRESSION: * Incidental finding made of 1.1 cm soft tissue NODULE IN THE LEFT BREAST, attention to follow-up correlation with diagnostic mammogram and ultrasound. * Diffuse mild panlobular pulmonary emphysema. * No suspicious lung mass, there are stable subcentimeter lung nodules largest 5 mm nodule right lower lobe unchanged. According to the UPDATED 2017 Fleischner Society recommendations, the advised follow-up imaging for nodules <6mm in the upper lobes is not necessarily required in low-risk patients. In high-risk patients with a nodule in the upper lobe and/or demonstrating suspicious morphology, an optional CT follow-up at 12 months may be obtained. If stable at 12 months, no further follow-up is recommended. * Diffusely hyperdense liver, this has been described in association with a metabolic disease including iron deposition such as hemosiderosis, thalassemia, copper deposition Chris disease, glycogen storage disease and certain medications such as amiodarone and gold therapy. TODAYS VISIT She has trouble initiating her swallow and this was helped mildly by the dilation after the EGD. This also some evidence that she has some motility problems in the esophagus and they did noted delay in initiation of the swallow. She sometimes is helped with this if she grabbed some water to get things going. Usually, this is a neurologic issue and is treated only with conservative measures and urging the patient to use care in chewing and swallowing. She still has a sensation of things sticking around the gastroesophageal junct ion area. Because of this I would like to get a full barium swallow and this was also recommended by the radiologist during the modified swallow. Patient is agreeable to this but she has had some trouble with her phone retail center receptionist where she lives and we may have had some trouble calling her to get it scheduled. She is taking the omeprazole twice a day which is good since we discovered erosions in her stomach. I let her know that on her CT there were some possible liver abnormalities that likely are just an over-read but I will order some blood work just to be sure to protect her overall health. She is agreeable to this. 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 Low back pain Trigger finger Knee pain, left Pneumonia COPD exacerbation Chest tightness Abnormal lung sounds Screening for colon cancer Weight loss Post-menopausal Herpes zoster Chest pain Migraine Left scapula fracture Asthma Peripheral neuropathy Tobacco abuse Hypercholesterolemia Vitamin D deficiency Hypothyroid COPD (chronic obstructive pulmonary disease) Insomnia GERD (gastroesophageal reflux disease) Hypertension Type 2 diabetes mellitus with hyperglycemia Surgical History History of esophagogastroduodenoscopy (EGD) History of lumbar surgery History of colonoscopy History of foot surgery History of thyroidectomy History of cholecystectomy Family History Father Prostate cancer Diabetes Hypertension Mother CVD (cardiovascular disease) Myocardial infarction Social History Housing: Apartment Alcohol intake: unknown Patient Tobacco Use Status: Current everyday Tobacco user Tobacco use type: Cigarette Cigarette Packs Per Day: 0.5 Cigarettes Per Day: 8.0 Years Smoked: 45 years/ Quit Feb 2023 e-Cigarette/Vaping Use: Never Used Second Hand Smoke Exposure: No Advance Directives Date on File: 02/12/21 service: No Current occupational status: disabled Cognitive needs: Yes (cane ) Hearing needs: No Vision needs: Yes Review of Systems Const Denies fatigue, Denies fever(s), Denies night sweats, Denies poor appetite and Denies weight loss ENT Reports Normal hearing present, Reports dysphagia, Denies odynophagia, Denies throat swelling and Denies tongue swelling Card Reports no additional complaints Resp Reports no additional complaints GI Details: Denies abdominal pain, Denies melena, Denies bloating, Denies hematochezia, Denies constipation, Denies GI cramping, Reports dysphagia, Denies excessive flatus, Denies early satiety, Reports heartburn, Reports diarrhea, Denies nausea, Denies odynophagia, Denies vomiting and Denies hematemesis Skin/Breast Denies pruritus, Denies lesions, Denies rash and Denies jaundice Neuro Reports Normal hearing present and Denies Abnormal speech present Endo Denies fatigue Aller/Immun Denies throat swelling and Denies tongue swelling Physical Exam Vital Signs: Last Vital Signs Pulse 68 12/14/23 13:58 BP 119/76 12/14/23 13:58 BMI result Body Mass Index 24.9 Const General: cooperative, no acute distress, well developed and well groomed Nutritional Appearance: average body habitus and well nourished Orientation/consciousness: oriented to person, oriented to place and oriented to time Limitations: No language barrier and ambulation with cane (2 canes) HEENT Head: Yes normocephalic and Yes atraumatic Eyes General: appearance normal, both eyes and all related structures Pupils: Equal, round and reactive pupils present Neck Neck: Yes normal visual inspection and Yes no lymphadenopathy Thyroid: Thyroid normal Resp Effort & Inspection: normal respiratory effort and able to speak in complete sentences Auscultation: clear to auscultation bilaterally Cardio Rate: regular rate Rhythm: regular rhythm Heart sounds: Normal, physiologic split S2 sound present Peripheral pulses: radial pulses present and posterior tibial pulses present GI Inspection: No distended and No Abdominal panniculus present Palpation (GI): Soft to palpation, nontender, no guarding, not rigid and No hepatosplenomegaly present Percussion: Yes normal to percussion Auscultation: normal bowel sounds Rectal Exam - Female: deferred Skin General skin exam: no rashes or lesions noted, turgor normal, skin not dry, no jaundice, No spider nevi and no striae Rashes: no rashes Nails: normal Neuro General: oriented to person, oriented to place and oriented to time Cranial nerves: Yes Equal, round and reactive pupils present and Yes Normal hearing present Speech: No Abnormal speech present Extrem General: Yes normal to inspection, No clubbing, No cyanosis and No edema Psych Appearance: grossly normal and well kempt Mental Status: mental status grossly normal Speech and movement: Normal speech and movement present Affect: normal affect Attitude: cooperative Thought process: Normal thought process present and not confabulating Thought content: Normal thought content present Insight: Fair insight present (Psych) Judgement: Fair judgement present (Psych) Quality Reporting (2019) Adult ([facility] 138/05/19/68) Smoking risk assessment performed?: Yes Patient Tobacco Use Status: Current everyday Tobacco user Results Reviewed Results Reviewed: BARIUM SWALLOW 07/22/23 IMPRESSION: 1. No evidence of laryngeal penetration or aspiration was seen during this examination 2. Limited evaluation of the esophagus demonstrates to and fro motion of the barium column. This likely represents esophageal dysmotility. Recommend dedicated esophagram. Refer to the speech therapy report for further clarification SPEECH THERAPY REPORT SUMMARY: Findings were significant for delayed initiation of the swallow to the level of the pyriforms. This resulted on penetration across all consistencies, however any penetrated contrast was spontaneously removed from the airway. Given globus pharyngeus symptoms an oblique scan of the esophagus was performed and significant for retrograde motion of the contrast contained within the esophagus. Liquid Intake Recommendation: Thin Liquid Intake Strategies: Unrestricted Dietary Recommendations: Regular Medication Administration: Please contact the pharmacy regarding appropriate crushable or liquid drug formulations that are available whenever modified delivery is recommended. Compensatory Strategies Recommended: Sitting Upright (90 deg) Supervision during eating and or drinking: None Needed Recommended Treatments: Compens. Strategy Educat. Recommendation for Speech Therapy: NA:Typical Evaluation EGD 11/22/23 EGD Findings:? * Oropharynx: Localised erythema and ulceration of hard palate noticed on endoscopic exam. * Esophagus:? Normal mucosa noted in the entire esophagus. The Z line was at 40 cm. Middle and lower esophagus forceps biopsies were obtained to rule out eosinophilic esophagitis. * Stomach:? Erythema erosions and scant heme noted in the body of the stomach. Retroflexion performed in the cardia showed Hill grade II hiatal hernia. Small patch of erythematous and edematous mucosa noted ib antrum just at the pyloric opening. Targeted antral as well as random cold forceps biopsies were taken from the stomach. * Duodenum:? Normal mucosa was noted in the whole of the examined duodenum. * * EGD Impressions:? * Hard palate ulcer * UES stenosis (dilation) * Normal esophageal mucosa (biopsy) * Gastritis (biopsy) * Normal duodenum (biopsy)?? Recommendations:?? * Follow biopsy results. Our office will call or send a letter with results within 7-10 days. * Increase PPI to BID * If H pylori +, patient will be prescribed eradication therapy followed by test of cure. * Avoid NSAIDs and smoking. * Anticipate improvement in difficulty swallowing after the dilation. Can repeat this PRN for return of symptoms. BIOPSY Received: 11/22/23 Diagnosis A. Stomach, random, biopsy: Antral-type and oxyntic mucosa with mild chronic inactive inflammation; no Helicobacter organisms seen. B. Stomach, antrum, biopsy: Reactive gastropathy with background mild chronic inactive inflammation; no Helicobacter organisms seen. C. Esophagus, lower, biopsy: Squamous epithelium within normal limits; negative for eosinophilic esophagitis. D. Esophagus, middle, biopsy: Squamous epithelium within normal limits; negative for eosinophilic esophagitis CHEST CT 11/23/23 FINDINGS: OCCUPATIONAL THERAPY PROFESSOR: LINES/TUBES: Platform Power Technician reviewed, no lines. LUNGS: Lung parenchyma: Diffuse mild panlobular pulmonary emphysema. Lung nodules/masses: There is a 5 mm nodule right lower lobe image 134 series 1 unchanged from prior exam. 4 mm radiodensity left lower lobe unchanged. There are several other scattered tiny lung densities measuring 3 mm or less nonspecific. No suspicious nodule or lung mass. AIRWAYS: Trachea and bronchi are normal. PLEURA: No pleural effusion or pneumothorax. MEDIASTINUM AND DIYA: No mediastinal, hilar or axillary lymphadenopathy. No mediastinal mass. VESSELS: HEART AND PERICARDIUM: Thoracic aorta is normal in size. Heart is normal in size. No pericardial effusion. There are a few coronary artery calcifications. Pulmonary arteries are normal in size. LOWER NECK, AXILLA: The visualized thyroid gland is unremarkable. No axillary mass or adenopathy. VISUALIZED ABDOMEN: Diffusely hyperdense liver, this has been described in association with a metabolic disease including iron deposition such as hemosiderosis, thalassemia, copper deposition Chris disease, glycogen storage disease and certain medications such as amiodarone and gold therapy. Otherwise upper abdomen is unremarkable. CHEST WALL AND BONES: Incidental finding was made of soft tissue nodule in the left breast measuring 1.1 cm, this may require correlation with follow-up diagnostic mammogram and ultrasound. The visualized bony thorax is within normal limits. CT/CT chest wo IV con IMPRESSION: * Incidental finding made of 1.1 cm soft tissue NODULE IN THE LEFT BREAST, attention to follow-up correlation with diagnostic mammogram and ultrasound. * Diffuse mild panlobular pulmonary emphysema. * No suspicious lung mass, there are stable subcentimeter lung nodules largest 5 mm nodule right lower lobe unchanged. According to the UPDATED 2017 Fleischner Society recommendations, the advised follow-up imaging for nodules <6mm in the upper lobes is not necessarily required in low-risk patients. In high-risk patients with a nodule in the upper lobe and/or demonstrating suspicious morphology, an optional CT follow-up at 12 months may be obtained. If stable at 12 months, no further follow-up is recommended. * Diffusely hyperdense liver, this has been described in association with a metabolic disease including iron deposition such as hemosiderosis, thalassemia, copper deposition Chris disease, glycogen storage disease and certain medications such as amiodarone and gold therapy. Assessment & Plan Assessment & Plan (1) GERD (gastroesophageal reflux disease): Code(s): K21.9 - Gastro-esophageal reflux disease without esophagitis Category: Medical Qualifiers: Esophagitis presence: without esophagitis Qualified Code(s): K21.9 - Gastro-esophageal reflux disease without esophagitis (2) Erosive gastritis: Code(s): K29.60 - Other gastritis without bleeding Category: Medical (3) Dysphagia: Code(s): R13.10 - Dysphagia, unspecified Category: Medical (4) Abnormal CT of liver: Code(s): R93.2 - Abnormal findings on diagnostic imaging of liver and biliary tract Category: Medical Plan She has trouble initiating her swallow and this was helped mildly by the dilation after the EGD. This also some evidence that she has some motility p roblems in the esophagus and they did noted delay in initiation of the swallow. She sometimes is helped with this if she grabbed some water to get things going. Usually, this is a neurologic issue and is treated only with conservative measures and urging the patient to use care in chewing and swallowing. She still has a sensation of things sticking around the gastroesophageal junction area. Because of this I would like to get a full barium swallow and this was also recommended by the radiologist during the modified swallow. Patient is agreeable to this but she has had some trouble with her phone retail center receptionist where she lives and we may have had some trouble calling her to get it scheduled. She is taking the omeprazole twice a day which is good since we discovered erosions in her stomach. I let her know that on her CT there were some possible liver abnormalities that likely are just an over-read but I will order some blood work just to be sure to protect her overall health. She is agreeable to this. Return office visit after the barium swallow Orders: Orders Ceruloplasmin 12/14/23 R93.2 - Abnormal findings on diagnostic imaging of liver and biliary tract Ferritin 12/14/23 R93.2 - Abnormal findings on diagnostic imaging of liver and biliary tract Creatine Kinase Total 12/14/23 R93.2 - Abnormal findings on diagnostic imaging of liver and biliary tract [place] barium swallow 12/14/23 R93.2 - Abnormal findings on diagnostic imaging of liver and biliary tract Medications: Refilled omeprazole 20 mg PO BID 120 caps 1RF Coding Level of Care Code Est Pt Level 4 (52620) Diagnoses Gastroesophageal reflux disease without esophagitis K21.9 Esophagitis presence: without esophagitis Erosive gastritis K29.[address] of liver R93.2 Time Spent (min) 35
[2023-12-14 13:58] VITALS: BP 119/76; PULSE 68; BMI 24.9
--- NOTE | 2023-12-14 13:58 | MHC.OFFVIS ---
Vital Signs 12/14/23 13:58 Height 5 ft 6 in Weight 154 lb 5.177 oz BMI 24.9 BP 119/76 Blood Pressure Location Lt brachial Position Sitting Pulse 68 Intake Visit Reasons: s/p egd Intake Note: Sherlyn returns to in office follow up s/p EGD. CC: Patient states that she stills choking a little bit . Denies other GI symptoms today. Vp Customer Development Required: No Accompanied by: Self / Same As Patient Allergies clarithromycin [From BIAXIN] Allergy (Intermediate, Verified 12/14/23 14:10) N/V atorvastatin Allergy (Mild, Verified 12/14/23 14:10) Unknown Iodinated Contrast Media [IV Dye, Iodine Containing] Allergy (Mild, Verified 12/14/23 14:10) RASH AND NAUSEA AND VOMITING doxycycline Allergy (Unknown, Verified 12/14/23 14:10) Nausea and Vomiting lisinopril Allergy (Unknown, Verified 12/14/23 14:10) hypotension Penicillins Adverse Reaction (Unknown, Verified 12/14/23 14:10) UNKNOWN-FROM CHILDHOOD buspirone [From BuSpar] Adverse Reaction (Verified 12/14/23 14:10) Headache [facility] Medical History Colonoscopy refused Medicare annual wellness visit, subsequent Nicotine dependence, cigarettes, uncomplicated Hoarseness of voice Community acquired pneumonia Arm pain Scratch of eye region Trigger finger, right middle finger 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 Low back pain Trigger finger Knee pain, left Pneumonia COPD exacerbation Chest tightness Abnormal lung sounds Screening for colon cancer Weight loss Post-menopausal Herpes zoster Chest pain Migraine Left scapula fracture Asthma Peripheral neuropathy Tobacco abuse Hypercholesterolemia Vitamin D deficiency Hypothyroid COPD (chronic obstructive pulmonary disease) Insomnia GERD (gastroesophageal reflux disease) Hypertension Type 2 diabetes mellitus with hyperglycemia Surgical History History of esophagogastroduodenoscopy (EGD) History of lumbar surgery History of colonoscopy History of foot surgery History of thyroidectomy History of cholecystectomy Family History Father Prostate cancer Diabetes Hypertension Mother CVD (cardiovascular disease) Myocardial infarction Social History Housing: Apartment Alcohol intake: unknown Patient Tobacco Use Status: Current everyday Tobacco user Tobacco use type: Cigarette Cigarette Packs Per Day: 0.5 Cigarettes Per Day: 10.0 Years Smoked: 45 years/ Quit Feb 2023 e-Cigarette/Vaping Use: Never Used Second Hand Smoke Exposure: No Advance Directives Date on File: 02/12/21 service: No Current occupational status: disabled Cognitive needs: Yes (cane ) Hearing needs: No Vision needs: Yes Quality Reporting (2019) Adult ([facility] 138/05/19/68) Smoking risk assessment performed?: Yes Patient Tobacco Use Status: Current everyday Tobacco user Coding
== END 2023-12-14 14:31 | disposition home or self-care (01) ==
PROVIDERS: PCP Internal Medicine; Visit Provider Nurse Practitioner
DX: K21.9 Gastro-esophageal reflux disease without esophagitis (principal); K29.60 Other gastritis without bleeding; R13.10 Dysphagia, unspecified; R93.2 Abnormal findings on diagnostic imaging of liver and biliary tract
CPT/HCPCS: 99214

== ENCOUNTER → 2023-12-14 13:55 | Outpatient (BNVA) | payer MEDICARE, SELFPAY | PROVIDERS: PCP Internal Medicine; Visit Provider Nurse Practitioner | DX: K21.9 Gastro-esophageal reflux disease without esophagitis (principal); K29.60 Other gastritis without bleeding; R13.10 Dysphagia, unspecified; J44.9 Chronic obstructive pulmonary disease, unspecified; R93.2 Abnormal findings on diagnostic imaging of liver and biliary tract; Z72.0 Tobacco use | CPT/HCPCS: 99212 ==

== ENCOUNTER 2023-12-26 10:36 | Outpatient (AMB) | payer MEDICARE, SELFPAY ==
[2023-12-26 10:45] VITALS: BP 114/72; PULSE 76; O2SAT 94; BMI 26.0
--- NOTE | 2023-12-26 10:45 | A.OFFPC_ITS ---
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 Accompanied by: Self / Same As Patient Allergies clarithromycin [From BIAXIN] Allergy (Intermediate, Verified 12/26/23 10:47) N/V atorvastatin Allergy (Mild, Verified 12/26/23 10:47) Unknown Iodinated Contrast Media [IV Dye, Iodine Containing] Allergy (Mild, Verified 12/26/23 10:47) RASH AND NAUSEA AND VOMITING doxycycline Allergy (Unknown, Verified 12/26/23 10:47) Nausea and Vomiting lisinopril Allergy (Unknown, Verified 12/26/23 10:47) hypotension Penicillins Adverse Reaction (Unknown, Verified 12/26/23 10:47) UNKNOWN-FROM CHILDHOOD buspirone [From BuSpar] Adverse Reaction (Verified 12/26/23 10:47) Headache Tobacco use date assessed: 12/26/23 Fall risk assessment: No Falls in past year Last assessed Fall Risk: 12/26/23 Dental Screening Dental Screen Date: 08/03/23 HPI Chronic low back pain, COPD, tobacco abuse HPI Details 68-year-old female smoker with a history of chronic low back pain on narcotic pain medication with diabetes mellitus controlled after losing weight generalized anxiety disorder, hypercholesterolemia hypothyroid COPD GERD coming in for follow-up. Last seen for annual wellness in 11/07/2023. Review of the notes follows up with Gastroenterology patient had the barium swallow in June having dysphagia EGD done with upper esophageal stenosis and dilatation done gastritis/esophagitis had a CT scan of the chest noted left breast nodule 1.1 cm COPD stable pulmonary nodule right lower lobe. This was done in November 23 2023 dysphagia better after EGD treated conservatively . 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 Low back pain Trigger finger Knee pain, left Pneumonia COPD exacerbation Chest tightness Abnormal lung sounds Screening for colon cancer Weight loss Post-menopausal Herpes zoster Chest pain Migraine Left scapula fracture Asthma Peripheral neuropathy Tobacco abuse Hypercholesterolemia Vitamin D deficiency Hypothyroid COPD (chronic obstructive pulmonary disease) Insomnia GERD (gastroesophageal reflux disease) Hypertension Type 2 diabetes mellitus with hyperglycemia Surgical History History of esophagogastroduodenoscopy (EGD) History of lumbar surgery History of colonoscopy History of foot surgery History of thyroidectomy History of cholecystectomy Family History Father Prostate cancer Diabetes Hypertension Mother CVD (cardiovascular disease) Myocardial infarction Social History Housing: Apartment Alcohol intake: unknown Patient Tobacco Use Status: Current everyday Tobacco user Tobacco use type: Cigarette Cigarette Packs Per Day: 0.5 Cigarettes Per Day: 8.0 Years Smoked: 45 years/ Quit Feb 2023 e-Cigarette/Vaping Use: Never Used Second Hand Smoke Exposure: No Advance Directives Date on File: 02/12/21 service: No Current occupational status: disabled Cognitive needs: Yes (cane ) Hearing needs: No Vision needs: Yes Questionnaire PHQ-9 Over the last 2 weeks, how often have you been bothered by any of the following problems? 1. Little interest or pleasure in doing things: nearly every day 2. Feeling down, depressed, or hopeless: nearly every day 3. Trouble falling or staying asleep, or sleeping too much: more than half the days 4. Feeling tired or having little energy: more than half the days 5. Poor appetite or overeating: nearly every day 6. Feeling bad about yourself - or that you are a failure or have let yourself or your family down: nearly every day 7. Trouble concentrating on things, such as reading the newspaper or watching television: nearly every day 8. Moving or speaking so slowly that other people could have noticed. Or the opposite - being so fidgety or restless that you have been moving around a lot more than usual: nearly every day Depression Screening Interpretation: Positive (Declined counseling referral) Depression Screening Follow-up: New Medication prescribed Depression Screening Done: Yes 58572 - PHQ-9 Billing: Yes Source: Developed by Drs. Bhavesh Alfred, rTiston Andrews and colleagues, with an educational yara from [employer]. Thrive Questionnaire Date Thrive assessed: 05/24/23 Are you currently unemployed and looking for a job?: No AUDIT C Alcohol Use Questionnaire (AUDIT-C) 1. How often do you have a drink containing alcohol?: Never 3. How often do you have six or more drinks on one occasion?: Never Total Score: 0 Score Reviewed/Action Taken: No SIL-7 AMB Questionnaire SIL-7 Date SIL - 7 assessed: 05/24/23 Source: Developed by Drs. Bhavesh Alfred, Yuridia Suarez, Triston Gabriel and colleagues, with an educational yara from [employer]. Physical exam (Primary Care) Vital Signs: Last Vital Signs Pulse 76 12/26/23 10:45 BP 114/72 12/26/23 10:45 Pulse Ox 94 12/26/23 10:45 Oxygen Delivery Method Room Air 12/26/23 10:45 BMI result Body Mass Index 26.0 Tobacco/Smoking Status: Tobacco use Status Tobacco use date assessed 12/26/23 12/26/23 10:51 Patient Tobacco Use Status Current everyday Tobacco 12/26/23 10:51 Tobacco use type Cigarette 12/26/23 10:51 e-Cigarette/Vaping Use Never Used 12/26/23 10:51 Depression Screening Interpretation: Positive (Declined counseling referral) Depression Screening Follow-up: New Medication prescribed Thrive Assessment: Date of Thrive Assessment Date Thrive assessed 05/24/23 12/26/23 10:51 Const General: alert; No acute distress Eyes Conjunctivae: conjunctivae normal Resp Auscultation: clear to auscultation bilaterally Cardio Rate: regular rate Rhythm: regular rhythm GI Inspection: Yes normal to inspection Extrem General: Yes normal to inspection and No edema Assessment and Plan Assessment & Plan (1) Erosive gastritis: Code(s): K29.60 - Other gastritis without bleeding Plan: Patient has seen gastroenterology on omeprazole advised strongly to stop smoking! (2) Breast nodule: Comment: September 2023Incidental finding made of 1.1 cm soft tissue NODULE IN THE LEFT BREAST, attention to follow-up correlation with diagnostic mammogram and ultrasound. * Diffuse mild panlobular pulmonary emphysema. * No suspicious lung mass, there are stable subcentimeter lung nodules largest 5 mm nodule right lower lobe unchanged. According to the UPDATED 2017 Fleischner Society recommendations, the advised follow-up imaging for nodules <6mm in the upper lobes is not necessarily required in low-risk patients. In high-risk patients with a nodule in the upper lobe and/or demonstrating suspicious morphology, an optional CT follow-up at 12 months may be obtained. If stable at 12 months, no further follow-up is recommended. The left breast nodule is 1.1 cm located upper outer quadrant 2:00 approximately 5 cm from the nipple. Code(s): N63.0 - Unspecified lump in unspecified breast Plan: Discussed about breast nodule noted. decline further work up for now (3) Pulmonary nodule: Comment: October 21 2023Incidental finding made of 1.1 cm soft tissue NODULE IN THE LEFT BREAST, attention to follow-up correlation with diagnostic mammogram and ultrasound. * Diffuse mild panlobular pulmonary emphysema. * No suspicious lung mass, there are stable subcentimeter lung nodules largest 5 mm nodule right lower lobe unchanged. According to the UPDATED 2017 Fleischner Society recommendations, the advised follow-up imaging for nodules <6mm in the upper lobes is not necessarily required in low-risk patients. In high-risk patients with a nodule in the upper lobe and/or demonstrating suspicious morphology, an optional CT follow-up at 12 months may be obtained. If stable at 12 months, no further follow-up is recommended. Code(s): R91.1 - Solitary pulmonary nodule Plan: Continue with lung cancer screening and follow-up with Pulmonary (4) Generalized anxiety disorder: Comment: Panic disorder Code(s): F41.1 - Generalized anxiety disorder Plan: Continue with counseling and therapy. (5) Chronic low back pain: Code(s): M54.50 - Low back pain, unspecified; G89.29 - Other chronic pain Plan: Narcotic pain meds: Is being prescribed with the understanding that these medications are potentially addictive and should be used only when absolutely necessary and must always be secured. Any remaining pills should be safely disposed off appropriately. Patient is advised that narcotics can impaired judgment and one should not drive or operate heavy machinery while taking these medications. Never share these medications with anybody and do not leave them unattended. They will not be replaced under any circumstances. (6) Tobacco abuse: Comment: 8 cigarettes a day (11/2023) Code(s): Z72.0 - Tobacco use Plan: Patient is strongly advised to stop smoking! 8 cigarettes a day (7) COPD (chronic obstructive pulmonary disease): Code(s): J44.9 - Chronic obstructive pulmonary disease, unspecified Plan: Patient is strongly advised to stop smoking follows up with Pulmonary. On DuoNeb (8) GERD (gastroesophageal reflux disease): Code(s): K21.9 - Gastro-esophageal reflux disease without esophagitis Qualifiers: Esophagitis presence: without esophagitis Qualified Code(s): K21.9 - Gastro-esophageal reflux disease without esophagitis Plan: Avoid the foods that causes that usually spicy foods, tomato products, juices, coffee, soda and foods that your sensitive to. After eating do not lie down, allow 3-4 hours before in lie down. And keep the head of bed above 30 degrees to avoid the acid from going up. (9) Hypothyroid: Code(s): E03.9 - Hypothyroidism, unspecified Qualifiers: Hypothyroidism type: acquired Qualified Code(s): E03.9 - Hypothyroidism, unspecified Plan: Continue with thyroid medication (10) Hypercholesterolemia: Code(s): E78.00 - Pure hypercholesterolemia, unspecified Plan: Avoid fried foods, chicken skin, eggs, butter margarine, pastries and meat. Be it pork or beef they have a lot of cholesterol LDL goal of less than 100 and triglyceride of less than 150 on rosuvastatin 20 mg once a day (11) Vitamin B 12 deficiency: Code(s): E53.8 - Deficiency of other specified B group vitamins Plan: replete with vitamin b 12 Orders: Orders Free T4 (Free Thyroxine) 6 Weeks E03.9 - Hypothyroidism, unspecified Thyroid Stimulating Hormone 6 Weeks E03.9 - Hypothyroidism, unspecified Coding Level of Care Code Est Pt Level 4 (94232) Diagnoses Erosive gastritis K29.60 Breast nodule N63.0 Pulmonary nodule R91.1 Generalized anxiety disorder F41.1 Chronic low back pain M54.50; G89.29 Tobacco abuse Z72.0 Pulmonary emphysema, unspecified emphysema type J44.9 Gastroesophageal reflux disease without esophagitis K21.9 Esophagitis presence: without esophagitis Acquired hypothyroidism E03.9 Hypothyroidism type: acquired Hypercholesterolemia E78.00 Vitamin B 12 deficiency E53.8
== END 2023-12-26 11:39 | disposition home or self-care (01) ==
PROVIDERS: PCP Internal Medicine; Visit Provider Internal Medicine
DX: J44.9 Chronic obstructive pulmonary disease, unspecified (principal); K29.60 Other gastritis without bleeding; N63.21 Unspecified lump in the left breast, upper outer quadrant; R91.1 Solitary pulmonary nodule; F41.1 Generalized anxiety disorder; M54.50 Low back pain, unspecified; Z72.0 Tobacco use; K21.9 Gastro-esophageal reflux disease without esophagitis; E03.9 Hypothyroidism, unspecified; E78.00 Pure hypercholesterolemia, unspecified; E53.8 Deficiency of other specified B group vitamins

== ENCOUNTER → 2023-12-26 10:36 | Outpatient (BNVA) | payer MEDICARE, SELFPAY | PROVIDERS: PCP Internal Medicine; Visit Provider Internal Medicine | DX: K29.60 Other gastritis without bleeding (principal); N63.0 Unspecified lump in unspecified breast; R91.1 Solitary pulmonary nodule; F41.1 Generalized anxiety disorder; M54.50 Low back pain, unspecified; G89.29 Other chronic pain; Z72.0 Tobacco use; J44.9 Chronic obstructive pulmonary disease, unspecified; K21.9 Gastro-esophageal reflux disease without esophagitis; E03.9 Hypothyroidism, unspecified; E78.00 Pure hypercholesterolemia, unspecified; E53.8 Deficiency of other specified B group vitamins | CPT/HCPCS: 99212 ==

== ENCOUNTER → 2024-03-19 14:48 | Outpatient (BNVA) | payer MEDICARE, SELFPAY | PROVIDERS: PCP Internal Medicine; Visit Provider Nurse Practitioner Family | DX: J44.9 Chronic obstructive pulmonary disease, unspecified (principal); R06.09 Other forms of dyspnea; M40.209 Unspecified kyphosis, site unspecified; R13.10 Dysphagia, unspecified | CPT/HCPCS: 94640; 99212 ==

== ENCOUNTER 2024-03-19 14:51 | Outpatient (AMB) | payer MEDICARE, SELFPAY ==
[2024-03-19 14:50] VITALS: BP 130/70; PULSE 74; O2SAT 97; BMI 24.2
--- NOTE | 2024-03-19 14:50 | MHC.OFFVIS ---
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 Allergies clarithromycin [From BIAXIN] Allergy (Intermediate, Verified 03/19/24 14:55) N/V atorvastatin Allergy (Mild, Verified 03/19/24 14:55) Unknown Iodinated Contrast Media [IV Dye, Iodine Containing] Allergy (Mild, Verified 03/19/24 14:55) RASH AND NAUSEA AND VOMITING doxycycline Allergy (Unknown, Verified 03/19/24 14:55) Nausea and Vomiting lisinopril Allergy (Unknown, Verified 03/19/24 14:55) hypotension Penicillins Adverse Reaction (Unknown, Verified 03/19/24 14:55) UNKNOWN-FROM CHILDHOOD buspirone [From BuSpar] Adverse Reaction (Verified 03/19/24 14:55) Headache HPI HPI Shortness of breath: Details: Sherlyn is a pleasant 68 year old female, current 1/4 ppd smoker, with 100+ pack year history, with underlying COPD, emphysema, asthma, GERD, HTN, and DMII. Since the last visit she has been well controlled on Trelegy and albuterol MDI. She does note worsening chest congestion, productive cough with green sputum, increased dyspnea and wheezing over the last month. She denies any urgent care visits or hospitalizations to address this. She was previously presribed DuoNeb however never received rx. 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 Low back pain Trigger finger Knee pain, left Pneumonia COPD exacerbation Chest tightness Abnormal lung sounds Screening for colon cancer Weight loss Post-menopausal Herpes zoster Chest pain Migraine Left scapula fracture Asthma Peripheral neuropathy Tobacco abuse Hypercholesterolemia Vitamin D deficiency Hypothyroid COPD (chronic obstructive pulmonary disease) Insomnia GERD (gastroesophageal reflux disease) Hypertension Type 2 diabetes mellitus with hyperglycemia Surgical History History of esophagogastroduodenoscopy (EGD) History of lumbar surgery History of colonoscopy History of foot surgery History of thyroidectomy History of cholecystectomy Family History Father Prostate cancer Diabetes Hypertension Mother CVD (cardiovascular disease) Myocardial infarction Social History (Updated 03/19/24 @ 14:57 by Cecile Graham [facility]) Housing: Apartment Alcohol intake: unknown Patient Tobacco Use Status: Current everyday Tobacco user Tobacco use type: Cigarette Cigarette Packs Per Day: 0.5 Cigarettes Per Day: 4 Years Smoked: 45 years/ Quit Feb 2023 e-Cigarette/Vaping Use: Never Used Second Hand Smoke Exposure: No Advance Directives Date on File: 02/12/21 service: No Current occupational status: disabled Cognitive needs: Yes (cane ) Hearing needs: No Vision needs: Yes Review of Systems Const Denies chills, Denies excessive sweating, Denies headache(s) and Denies night sweats Eyes Denies dry eyes, Denies irritation and Denies itchy eyes ENT Reports Normal hearing present and Denies headache(s) Card Denies chest pain, Denies chest pain at rest, Denies chest pain with activity, Denies claudication, Denies leg edema, Reports dyspnea on exertion and Denies paroxysmal nocturnal dyspnea Resp Reports change in phlegm color, Reports chest congestion, Reports cough, Denies hemoptysis, Denies excessive phlegm production, Denies pain on inspiration, Denies pain with cough, Reports dyspnea on exertion, Denies stridor and Reports wheezing Musc Denies myalgias Neuro Reports Normal hearing present and Denies headache(s) Endo Denies excessive sweating Dayo/Lymph Denies lymphadenopathy Aller/Immun Denies itchy eyes, Denies seasonal rhinorrhea and Reports wheezing Physical Exam Vital Signs: Last Vital Signs Pulse 74 03/19/24 14:50 BP 130/70 03/19/24 14:50 Pulse Ox 97 03/19/24 14:50 Oxygen Delivery Method Room Air 03/19/24 14:50 BMI result Body Mass Index 24.2 Const Other: severe kyphosis ambulating with two canes. General: cooperative, healthy appearing, comfortable, no acute distress, well developed and alert Orientation/consciousness: patient oriented x3 HEENT Head: Yes normal to inspection, Yes normocephalic and Yes atraumatic Ears: hearing grossly normal bilaterally and external ears normal Eyes General: appearance normal, both eyes and all related structures Eyelids: Yes eyelids normal Sclerae: sclerae normal EOM: EOMs intact bilaterally Neck Neck: Yes normal visual inspection and Yes no lymphadenopathy Lymphatic: no lymphadenopathy noted Chest Chest palpation & inspection: normal inspection of the chest Resp Other: inspiratory crackles of LLL, faint expiratory wheezes resolved with duoneb Effort & Inspection: normal respiratory effort, able to speak in complete sentences, no audible wheezes, no cough, no stridor, not tachypneic, no tripod positioning and no use of accessory muscles Auscultation: no rhonchi and diminished lung sounds Cardio Jugular venous distension: no JVD Rate: regular rate Rhythm: regular rhythm Skin Other: warm, dry General skin exam: no rashes or lesions noted Neuro General: patient oriented x3 Cranial nerves: Yes Normal hearing present Cognition (Neuro): normal cognition Extrem General: Yes normal to inspection, Yes capillary refill normal, Yes no clubbing, cyanosis or edema and Yes no pedal edema Psych Appearance: grossly normal and well kempt Speech and movement: Normal speech and movement present and Clear speech present Affect: normal affect Attitude: cooperative Thought process: Normal thought process present Thought content: Normal thought content present Insight: Good insight present (Psych) Judgement: Good judgement present (Psych) Office Procedures Nebulizer Treatment Nebulizer Treatment [id number] RX initial, or Nebulizer Subsequent Treatment Office Meds ipratropium 0.5 mg-albuterol 3 mg (2.5 mg base)/3 mL nebulization lesn Performing Provider: Fabiana Calero NP [place] [facility] [place] Administered by: Sanam Macdonald LPN on 03/19/24 15:31 Dose Route Admin Location Dispensed Lot Number Expiration Date NDC Administrative Support Assistant 3 mL inhalation 3 mL [id number] 06/25/25 09466-735-51 [employer] Quality Reporting (2019) Adult ([facility] 138/05/19/68) Smoking risk assessment performed?: Yes Patient Tobacco Use Status: Current everyday Tobacco user Assessment & Plan Assessment & Plan (1) COPD (chronic obstructive pulmonary disease): Code(s): J44.9 - Chronic obstructive pulmonary disease, unspecified Category: Medical (2) Kyphosis: Code(s): M40.209 - Unspecified kyphosis, site unspecified Category: Medical (3) Dysphagia: Code(s): R13.10 - Dysphagia, unspecified Category: Medical (4) Dyspnea on minimal exertion: Code(s): R06.09 - Other forms of dyspnea Category: Medical Plan Will treat bronchitic symptoms with azithromycin. She is aware if symptoms do not improve to call, will obtain CXR, and seek emergent care if symptoms worsen. All questions were answered and patient is in agreement of plan. Will follow up in 4-6 weeks or sooner if needed. Orders: Orders AMB Nebulizer Treatment Today J44.9 - Chronic obstructive pulmonary disease, unspecified Medications: New azithromycin 500 mg PO DAILY 5 tabs 0RF 5 days Refilled ipratropium-albuterol 0.5 mg-3 mg(2.5 mg base)/3 mL 3 mL inhalation DAILY PRN 180 mL 3RF wheezing J44.9 - Chronic obstructive pulmonary disease, unspecified [id number] 200-62.5-25 mcg (Trelegy Ellipta) 1 inh inhalation DAILY 60 ea 6RF Coding Level of Care Code Est Pt Level 4 (29034) Diagnoses Pulmonary emphysema, unspecified emphysema type J44.9 Kyphosis M40.209 Dysphagia R13.10 Dyspnea on minimal exertion R06.09 CPT Codes Nebulizer Treatment - Nebulizer Treatment, initial or subsequent: [id number] RX initial, or Nebulizer Subsequent Treatment ([id number])
== END 2024-03-19 15:43 | disposition home or self-care (01) ==
PROVIDERS: PCP Internal Medicine; Visit Provider Nurse Practitioner Family
DX: J44.9 Chronic obstructive pulmonary disease, unspecified (principal); M40.209 Unspecified kyphosis, site unspecified; R13.10 Dysphagia, unspecified; R06.09 Other forms of dyspnea
CPT/HCPCS: 99214

== ENCOUNTER 2024-04-13 10:14 | Outpatient (AMB) | payer MEDICARE, SELFPAY ==
[2024-04-13 10:22] VITALS: BP 150/88; PULSE 79; O2SAT 98; BMI 26.0
--- NOTE | 2024-04-13 10:22 | A.OFFPC_ITS ---
Vital Signs 04/13/24 10:22 04/13/24 11:22 Height 5 ft 6 in Weight 161 lb BMI 26.0 BP 150/88 H 130/82 Blood Pressure Location Lt brachial Lt brachial Position Sitting Sitting Pulse 79 Pulse Source Pulse Oximeter Pulse Oximetry (%) 98 Oxygen Delivery Method Room Air Intake Visit Reasons: COPD Follow Up Allergies clarithromycin [From BIAXIN] Allergy (Intermediate, Verified 04/13/24 10:22) N/V atorvastatin Allergy (Mild, Verified 04/13/24 10:22) Unknown Iodinated Contrast Media [IV Dye, Iodine Containing] Allergy (Mild, Verified 04/13/24 10:22) RASH AND NAUSEA AND VOMITING doxycycline Allergy (Unknown, Verified 04/13/24 10:22) Nausea and Vomiting lisinopril Allergy (Unknown, Verified 04/13/24 10:22) hypotension Penicillins Adverse Reaction (Unknown, Verified 04/13/24 10:22) UNKNOWN-FROM CHILDHOOD buspirone [From BuSpar] Adverse Reaction (Verified 04/13/24 10:22) Headache Medication List - Last Reconciled 04/13/24 by Bridgett Perez PA-C albuterol sulfate 2.5 mg (3 mL) inhalation QID PRN albuterol sulfate 90 mcg/actuation 2 puffs inhalation Q4-6H PRN cholecalciferol (vitamin D3) 25 mcg PO DAILY [DIABETIC SHOES As directed] diazepam 5 mg PO TID erenumab-aooe (Aimovig Autoinjector) mg subcut .once a month [EXTRA DEPTH ORTHOPEDIC SHOES WITH CUSTOMIZED HEAT MOLDED MULTIDENSITY INNERSOLES As directed] fluoxetine 40 mg PO DAILY ciskuzoquhx-cngtpjtay-oktilwxo 200-62.5-25 mcg (Trelegy Ellipta) 1 inh inhalation DAILY gabapentin 600 mg PO BID hydroxyzine HCl 25 mg PO BEDTIME ipratropium-albuterol 0.5 mg-3 mg(2.5 mg base)/3 mL 3 mL inhalation DAILY PRN levothyroxine take 88 mcg QD except for tuesday orally every morning; 30 days methocarbamol 500 mg PO TID PRN nebulizers (Aeroneb Go Nebulizer) As directed UPDRAFT QID omeprazole 20 mg PO BID oxycodone 15 mg PO Q4-6H 30 days promethazine 25 mg PO Q6H PRN rosuvastatin 20 mg PO DAILY 90 days sumatriptan succinate (Imitrex) 100 mg PO .QD PRN 90 days Tobacco use date assessed: 04/13/24 Fall risk assessment: No Falls in past year Last assessed Fall Risk: 04/13/24 Dental Screening Dental Screen Date: 04/13/24 Did you have a dental visit in the last 12 months?: Yes Did you have a dental problem in the last 6 months where you did not have access to dental care?: No Was dental information given to patient?: Patient has dentist HPI COPD Follow Up HPI Details 68-year-old female with past medical his tory of GERD, COPD, hypothyroid, hypercholesterolemia, tobacco abuse, generalized anxiety disorder, and diabetes mellitus last seen by Dr. Plata 10/2023 coming in for follow up. In review of the notes, patient was seen by Pulmonology 02/2024 treated with azithromycin for cough symptoms and advised follow up in 4-6 weeks. Patient tells us today she has not seen much improvement since being on the antibiotics given by pulmonology. She has not reached out to pulmonology for follow up but does have an appointment coming up next week. She has been having acid reflux and underwent barium swallow last year and missed follow up appointment with Gastroenterology. Her acid reflux has been worsening and finds every food she eats we will come back up. She continues to smoke cigarettes and has not tried nicotine lozenges. [facility] Medical History Colonoscopy refused Medicare annual wellness visit, subsequent Nicotine dependence, cigarettes, uncomplicated Hoarseness of voice Community acquired pneumonia Arm pain Scratch of eye region Trigger finger, right middle finger 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 Low back pain Trigger finger Knee pain, left Pneumonia COPD exacerbation Chest tightness Abnormal lung sounds Screening for colon cancer Weight loss Post-menopausal Herpes zoster Chest pain Migraine Left scapula fracture Asthma Peripheral neuropathy Tobacco abuse Hypercholesterolemia Vitamin D deficiency Hypothyroid COPD (chronic obstructive pulmonary disease) Insomnia GERD (gastroesophageal reflux disease) Hypertension Type 2 diabetes mellitus with hyperglycemia Surgical History History of esophagogastroduodenoscopy (EGD) History of lumbar surgery History of colonoscopy History of foot surgery History of thyroidectomy History of cholecystectomy Family History Father Prostate cancer Diabetes Hypertension Mother CVD (cardiovascular disease) Myocardial infarction Social History Housing: Apartment Alcohol intake: unknown Patient Tobacco Use Status: Current everyday Tobacco user Tobacco use type: Cigarette Cigarette Packs Per Day: 0.5 Cigarettes Per Day: 4 Years Smoked: 45 years/ Quit Feb 2023 e-Cigarette/Vaping Use: Never Used Second Hand Smoke Exposure: No Advance Directives Date on File: 02/12/21 service: No Current occupational status: disabled Cognitive needs: Yes (cane ) Hearing needs: No Vision needs: Yes Questionnaire PHQ-9 Over the last 2 weeks, how often have you been bothered by any of the following problems? 1. Little interest or pleasure in doing things: nearly every day 2. Feeling down, depressed, or hopeless: nearly every day 3. Trouble falling or staying asleep, or sleeping too much: more than half the days 4. Feeling tired or having little energy: more than half the days 5. Poor appetite or overeating: nearly every day 6. Feeling bad about yourself - or that you are a failure or have let yourself or your family down: nearly every day 7. Trouble concentrating on things, such as reading the newspaper or watching television: nearly every day 8. Moving or speaking so slowly that other people could have noticed. Or the opposite - being so fidgety or restless that you have been moving around a lot more than usual: nearly every day Depression Screening Interpretation: Positive (Declined counseling referral) Depression Screening Follow-up: New Medication prescribed Depression Screening Done: Yes 60108 - PHQ-9 Billing: Yes Source: Developed by Drs. Bhavesh Alrfed, Yuridia Suarez, Triston Gabriel and colleagues, with an educational yara from [employer]. Thrive Questionnaire Date Thrive assessed: 04/13/24 I am a: Patient What is your living situation today?: I have a steady place to live Within the past 12 months, did the food you bought not last and you didn't have the money to get more?: Never true Within the past 12 months, did you worry whether your food would run out before you got money to buy more?: Never true Do you have trouble paying for medicines?: No Do you have trouble getting transportation to medical appointments?: No Do you have trouble paying your heating and electricity bill?: No Do you have trouble taking care of your child, family member or friend?: No Do you have trouble with day-to-day activities such as bathing, preparing meals, shopping, managing finances, etc.?: No Are you currently unemployed and looking for a job?: No Are you interested in more education?: No Currently or been in a relationship where the following occur: No concerns reported THRIVE Score: 0 AUDIT C Alcohol Use Questionnaire (AUDIT-C) 3. How often do you have six or more drinks on one occasion?: Never Total Score: 0 SIL-7 AMB Questionnaire SIL-7 Date SIL - 7 assessed: 04/13/24 Feeling nervous, anxious, or on edge: 0 = Not at all Not being able to stop or control worryin = Not at all Worrying too much about different things: 0 = Not at all Trouble relaxin = Not at all Being so restless that it is hard to sit still: 0 = Not at all Becoming easily annoyed or irritable: 0 = Not at all Feeling afraid as if something awful might happen: 0 = Not at all Total SIL-7 score (0-4 normal; 5-9 mild; 10-14 moderate; 15-21 severe): 0 Source: Developed by Drs. Bhavesh Alfred, Yuridia Suarez, Triston Gabriel and colleagues, with an educational yara from [employer]. Review of Systems Const Denies body aches, Denies chills, Denies fever(s), Denies headache(s) and Denies poor appetite Eyes Reports no additional complaints ENT Reports dysphagia, Denies dizziness, Denies headache(s) and Denies odynophagia Card Denies chest pain, Denies lightheadedness, Denies dyspnea and Reports dyspnea on exertion Resp Reports cough, Denies dyspnea and Reports dyspnea on exertion GI Denies abdominal pain, Denies constipation, Reports dysphagia, Reports dyspepsia, Reports heartburn, Denies diarrhea, Reports nausea, Denies odynophagia and Denies vomiting Reports no additional complaints Musc Reports no additional complaints and Denies abnormal gait Skin/Breast Reports system reviewed and no additional complaints, except as documented Neuro Denies abnormal gait, Denies dizziness and Denies headache(s) Psych Reports no additional complaints Physical exam (Primary Care) Vital Signs: Last Vital Signs Pulse 79 04/13/24 10:22 BP 130/82 04/13/24 11:22 Pulse Ox 98 04/13/24 10:22 Oxygen Delivery Method Room Air 04/13/24 10:22 BMI result Body Mass Index 26.0 Tobacco/Smoking Status: Tobacco use Status Tobacco use date assessed 04/13/24 04/13/24 10:24 Patient Tobacco Use Status Current everyday Tobacco 04/13/24 10:24 Tobacco use type Cigarette 04/13/24 10:24 e-Cigarette/Vaping Use Never Used 04/13/24 10:24 Are you ready to quit: No Tobacco cessation counseling provided: Yes Items discussed: Nicotine replacement Relapse Prevention: discussed extending NRT and discussed dietary, exercise and/or lifestyle changes Number of minutes spent counselin CPT code: 78446 - 4-10 Minutes Depression Screening Interpretation: Positive (Declined counseling referral) Depression Screening Follow-up: New Medication prescribed Thrive Assessment: Date of Thrive Assessment Date Thrive assessed 04/13/24 04/13/24 10:24 Currently or been in a relationship where the following occur: No concerns reported Const General: cooperative, healthy appearing, comfortable and no acute distress Orientation/consciousness: patient oriented x3 HENMT Head: Yes normocephalic Ears: hearing grossly normal bilaterally General nose exam: Normal external nose present Eyes General: appearance normal, both eyes and all related structures Conjunctivae: conjunctivae normal Neck Neck: Yes full ROM and Yes no lymphadenopathy Resp Effort & Inspection: normal respiratory effort Auscultation: clear to auscultation bilaterally, no crackles, no rales, no rhonchi and no wheezes Cardio Rate: regular rate Rhythm: regular rhythm Skin General skin exam: no rashes or lesions noted Neuro General: patient oriented x3 Gait exam (Neuro): Normal gait present Extrem General: Yes normal to inspection, Yes full ROM and No edema Psych Affect: normal affect Attitude: cooperative Insight: Good insight present (Psych) Judgement: Good judgement present (Psych) Results AMB Hemoglobin A1c AMB Hemoglobin A1c 5.5 % Last Edit by Claudia Velasquez CMA on 04/13/24 10 :57 Results Reviewed Results Reviewed: Laboratory Last Values Hgb A1c (Clinic) 5.5 % (4.0-6.0) 04/13/24 10:24 Coding Level of Care Code Est Pt Level 4 (73582) Diagnoses Dyspnea on minimal exertion R06.09 Dysphagia R13.10 Type 2 diabetes mellitus with hyperglycemia, without long-term current use of insulin E11.65 Diabetes mellitus [facility] insulin use: without [facility] use Tobacco abuse Z72.0 Pulmonary emphysema, unspecified emphysema type J44.9 Additional Codes PHQ-9 - 32930 - PHQ-9 Billing: Yes ([id number]) Vital Signs *Quality* - CPT code: 05264 - 4-10 Minutes ([id number]) Assessment & Plan Assessment & Plan (1) Dyspnea on minimal exertion: Code(s): R06.09 - Other forms of dyspnea Category: Medical Plan: Patient complaining of continued dyspnea on exertion. Advised to follow up with her occupational health nurse manager prior to her next appointment as her symptoms have not improved and was advised by her occupational health nurse manager to follow up. Ordered for chest x-ray for further evaluation. Lungs are clear to auscultation bilaterally. (2) Dysphagia: Code(s): R13.10 - Dysphagia, unspecified Category: Medical Plan: Patient complaining of dysphagia and regurgitate if symptoms. Patient completed barium swallow advised to reach out to gastroenterology for follow up appointment. Patient currently on omeprazole b.i.d. (3) Type 2 diabetes mellitus with hyperglycemia: Code(s): E11.65 - Type 2 diabetes mellitus with hyperglycemia Category: Medical Qualifiers: Diabetes mellitus extermination inspector insulin use: without [facility] use Qualif ied Code(s): E11.65 - Type 2 diabetes mellitus with hyperglycemia Plan: Decrease the amount of carbohydrates such as pasta, bread, rice, and potatoes and limit the amount of sweets. Although fruits are generally healthy they should be eaten in moderation as they are still high in sugar. Hemoglobin A1c goal of less than 7%. A1c at goal today. (4) Tobacco abuse: Comment: 4 cigarettes a day (03/2024) Code(s): Z72.0 - Tobacco use Category: Medical Plan: Smoking cigarettes and the use of tobacco can be harmful. We discussed the importance of stopping and options to aid in smoking cessation. Advised patient to trial nicotine lozenges (5) COPD (chronic obstructive pulmonary disease): Code(s): J44.9 - Chronic obstructive pulmonary disease, unspecified Category: Medical Plan: Continue on current inhalers and advised patient to reach out to occupational health nurse manager for continued symptom management. Plan This note was constructed using voice recognition software. While every effort has been made to ensure accuracy and trim machine adjuster, still areas may have been included sometimes these areas may affect the content or meeting of the given symptoms. Total time spent caring for the patient today was 20 minutes. This includes time spent before the visit reviewing the chart, time spent during the visit, and time spent after the visit and documentation. Orders: Orders AMB Hemoglobin A1c Today Z13.9 - Encounter for screening, unspecified XR chest 2V Today R06.09 - Other forms of dyspnea
[2024-04-13 11:22] VITALS: BP 130/82
== END 2024-04-13 11:15 | disposition home or self-care (01) ==
PROVIDERS: PCP Internal Medicine
DX: R06.09 Other forms of dyspnea (principal); R13.10 Dysphagia, unspecified; E11.65 Type 2 diabetes mellitus with hyperglycemia; Z72.0 Tobacco use; J44.9 Chronic obstructive pulmonary disease, unspecified; Z13.9 Encounter for screening, unspecified

== ENCOUNTER → 2024-04-13 10:14 | Outpatient (BNVA) | payer MEDICARE, SELFPAY | PROVIDERS: PCP Internal Medicine | DX: R06.09 Other forms of dyspnea (principal); R13.10 Dysphagia, unspecified; E11.65 Type 2 diabetes mellitus with hyperglycemia; J44.9 Chronic obstructive pulmonary disease, unspecified; Z72.0 Tobacco use; Z79.4 Long term (current) use of insulin | CPT/HCPCS: 83036; 96127; 99212 ==

== ENCOUNTER 2024-04-20 14:19 | Outpatient (REF) | payer MEDICARE, SELFPAY ==
--- NOTE | ~2024-04-20 | XR_ITS ---
EXAMINATION: XR CHEST 2 VIEWS HISTORY: R06.09 - Other forms of dyspnea COMPARISON: Comparison is made with the prior examination dated 07/22/2023. FINDINGS: PA and lateral views of the chest are submitted. The lungs are hyperinflated, consistent with COPD. The lungs are clear. There is no pleural effusion, pneumothorax, or pulmonary vascular congestion. The heart is normal in size. The bones are intact. XR/XR chest 2V IMPRESSION: COPD. No acute cardiopulmonary abnormality. Electronically signed by: Bhavesh Dang MD 04/20/2024 02:46 PM EST
--- OUTSIDE RECORDS SUMMARY | 2024-04-20 15:59 | XMS_ITS ---
Author Organization [facility] Address [address] [place] [address] Care Team Providers Care Softball Coach Name Role Phone Gonzalez Plata Primary Care Provider Wilbert Figueroa Unavailable [phone] Allergies Allergen (clinical drug ingredient) Drug/Non Drug [...] MG 1/2 tablet Orally On ce a day for 30 day(s) Not-Taking Extra Depth Orthopedic Shoes (1 Pair) with Customized Heat Molded Multidensity Innersoles (3 Pair) as directed Dx: NIDDM/Polyneuropathy (E11.42), Hammertoe Foot Deformity (M20.41,M20.42), Preulcerative Skin Lesion(s) (L85.1 Active vitamin D 50,000 Act carter ZyPREXA Not-Taking Roxicodone Not-Takin g predniSONE 1 tsp Orally Once a day Not-Taking Vitamin B 12 Active Robaxin 500 MG 1 tablet Orally Four times a day for 30 day(s) Active Promethazine HCl 25 MG/ML 0.5 ml as needed Injection every 4 hrs Active PROzac 20 MG 1 capsule in the mor martha Orally Once a day for 30 day(s) Active Provigil Active Gabapentin 300 MG Orally two times a d ay, 600 mg at night (2 capsules) Active oxyCODONE HCl 15 MG 1 tablet Orally ever y 6 hrs PRN Active Mirtazapine 7.5 MG as directed Orally O nce a day Active Levothyroxine Sodium 100 MCG 1 tablet every morning on an empty stomach Orally Once a day for 30 day(s) Active Omeprazole 20 MG 1 capsule Orally Onc e a day for 30 day(s) Active diazePAM 5mg daily Active Crestor 40 MG 1 tablet Orally Once a day for 30 day(s) Active Flovent HFA 44 MCG/ACT 2 puffs Inhalatio n Twice a day Active buPROPion HCl 100 MG 1 tablet Orally Twi ce a day for 30 day(s) Active Aimovig 70 MG/ML Subcutaneous Active Albuterol Active Encounters Encounter Location Date Provider Diagnosis [facility] [address] [place] [address] 03/27/2024 Wilbert Husain Plan Of Treatment No Information Progress Notes * Mini VELOZcy LDOB:1955 (68 yo F)Acc No.[id number]:03/27/2024 Progress Note Patient:?Sherlyn VELOZ Provider:?Wilbert Husain DPM :1955???Age:68 Y???Sex:Female D ate:03/27/2024 Address:[address] [place] [address], [address] Pcp:Gonzalez Plata Subjective: * Chief Complaints: * ??? * Medical History:?Thyroid dis order, Stomach ulcer, Chronic sinusitis, Mumps, Measles, Joint implants/screws, Headaches/migraines, Depression, Chicken pox, Back, hip, knee pain, Anxiety disorder, Hypertension, Diabetic type ll. * Medications:?Taking Albutero l , Taking Aimovig 70 MG/ML Solution Auto-injector [...] Not-Taking/PRN Ritalin , Not-Taking/PRN Atorvastatin Calcium * Allergies:?Biaxin: hives, Am oxicillin: sick, Iodinated Diagnostic Agents: rash, Penicillin: sick. Objective: * Vitals:? Assessment: Plan: * Treatment: * Images: * The named appointment provid er may or may not be the originator of this progress note, and it is not deemed complete until electronically signed by the appointment provider. Sign off status: Pending * Provider:?Wilbert Husain DPM Date:?2023 Generated for Eliana buenrostro/Dinah/Chuck on:?04/20/2024 03:59 PM EST
--- OUTSIDE RECORDS SUMMARY | 2024-04-20 15:59 | XMS_ITS | Patient Health Record ---
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 Name Role Phone Gonzalez Plata Primary Care Provider Wilbert Figueroa Unavailable [phone] Allergies Allergen (clinical drug ingredient) Drug/Non Drug Allergy documented on EMR Reaction Allergy Type Onset Date Status amoxicillin Amoxicillin sick Drug Allergy Act carter Biaxin hives Drug Allergy Active Iodinated contrast media (substance) Iodinated Diagnostic Agents rash Drug Allergy Active Penicillin sick Drug Allergy Active Results Component Value Reference Range Notes HEMOGLOBIN A1C (GLYCOHEMOGLO BIN) Reviewed date:09/23/2023 08:59:24 AM Interpretation: Performing Lab: Notes/Report: HEMOGLOBIN A1C % (HH) 5.5 HEMOGLOBIN A1C (GLYCOHEMOGLO BIN) Reviewed date:12/23/2023 11:03:20 AM Interpretation: Performing Lab: Notes/Report: TOTAL HEMOGLOBIN (HGBA1C) 5.3 Reason For Referral No Information Medications Medication SIG (Take, Route, Frequency, Duration) Notes Start Date End Date Status Vitamin B 12 Active Robaxin 500 MG 1 tablet Orally Four times a day for 30 day(s) Active Extra Depth Orthopedic Shoes (1 Pair) with Customized Heat Molded Multidensity Innersoles (3 Pair) as directed Dx: NIDDM/Polyneuropathy (E11.42), Hammertoe Foot Deformity (M20.41,M20.42), Preulcerative Skin Lesion(s) (L85.1 Active vitamin D 50,000 Act carter Promethazine HCl 25 MG/ML 0.5 ml as needed Injection every 4 hrs Active oxyCODONE HCl 15 MG 1 tablet Orally ever y 6 hrs PRN Active PROzac 20 MG 1 capsule in the mor martha Orally Once a day for 30 day(s) Active Provigil Active ZyPREXA Not-Taking Roxicodone Not-Takin g diazePAM 5mg daily Active Crestor 40 MG 1 tablet Orally Once a day for 30 day(s) Active Gabapentin 300 MG Orally two times a d ay, 600 mg at night (2 capsules) Active Flovent HFA 44 MCG/ACT 2 puffs Inhalatio n Twice a day Active Albuterol Active buPROPion HCl 100 MG 1 tablet Orally Twi ce a day for 30 day(s) Active Aimovig 70 MG/ML Subcutaneous Active Synthroid Not-Taking Ankle Brace/High Performance S Not-Taking Atorvastatin Calcium Not-Taking Ritalin Not-Taking Mirtazapine 7.5 MG as directed Orally O nce a day Active Levothyroxine Sodium 100 MCG 1 tablet every morning on an empty stomach Orally Once a day for 30 day(s) Active Lisinopril 10 MG 1/2 tablet Orally On ce a day for 30 day(s) Not-Taking Omeprazole 20 MG 1 capsule Orally Onc e a day for 30 day(s) Active predniSONE 1 tsp Orally Once a day Not-Taking Immunizations Vaccine Route Administration Date Status Comme nts COVID-19 [employer]jun [employer] Arjun/Esteban Unknown 07/10/2021 R efused Influenza Unknown 05/21/2016 Refused Influenza Unknown 06/10/2017 Refused Pneumococcal Unknown 07/17/2015 Administered Social History Tobacco Use: Social History Observation Description Date Details (start date - stop date) Current Smoker NA - NA Tobacco Use/Smoking Question Answer Notes Are you a: current smoker How often do you smoke cigarettes? every day How many cigarettes a day do you smoke? 11-20 How soon after you wake up d o you smoke your first cigarette? within 5 minutes Are you interested in quitting? Thinking about q uitting Additional Findings: Tobacco User Heavy cigarett e smoker (20-39 cigs/day) Alcohol Screen Question Answer Notes Did you have a drink containing alcohol in the p ast year? No Points 0 Interpretation Negative Tobacco use other than smoking: Question Answer Notes Are you an other tobacco user? No Problems Problem Type SNOMED Code ICD Code Onset Dates Problem Status W/U Status Risk Notes Problem Acquired hammer toe of right foot (1263641557026580 ) Other hammer toe(s) (acquired), right foot (M20.41) Active confirmed [facility] Problem Acquired hammer toe of left foot (6545967571579192 ) Other hammer toe(s) (acquired), left foot (M20.42) Active confirmed Response to treatment, [facility] t Problem Polyneuropathy due to type 2 diabetes mellitus (174622857) Type 2 diabetes mellitus with diabetic polyneuropathy (E11.42) Active confirmed Vital Signs Blood pressure diastolic 70 mm Hg 12/23/2023 Height 5ft6in in 12/23/2023 Blood pressure systolic 120 mm Hg 12/23/2023 Weight 145 lbs 12/23/2023 BMI 23.40 kg/m2 12/23/2023 Procedures Procedure Date Ordered Date Performed Result Body Sit e 94069-KOSVXLS NAIL, 6 OR MORE 04/22/2023 N/A 14953-GQNF SKIN LESIONS, OVER 4 04/22/2023 N/A 82710-GTYLZCA NAIL, 6 OR MORE 09/23/2023 N/A 26562-TZUT SKIN LESIONS, OVER 4 09/23/2023 N/A 18297-OLMLKGH NAIL, 6 OR MORE 12/23/2023 N/A 53984-STEG SKIN LESIONS, OVER 4 12/23/2023 N/A Encounters Encounter Location Date Provider Diagnosis [address] [address] 04/22/2023 Wilbertsukhjinder Husain Type 2 diabetes mellitus with diabetic polyneuropathy E11.42 and Tinea unguium B35.[address] [address] 09/23/2023 Wilbert Rodrigue Type 2 diabetes mellitus with diabetic polyneuropathy E11.42 ; Tinea unguium B35.1 ; Other hammer toe(s) (acquired), right foot M20.41 and Other hammer toe(s) (acquired), left foot M20.[address] [address] 12/23/2023 Wilbert Rodrigue Type 2 diabetes mellitus with diabetic polyneuropathy E11.42 ; Tinea unguium B35.1 ; Other hammer toe(s) (acquired), right foot M20.41 and Other hammer toe(s) (acquired), left foot M20.[address] [facility] [address] 07/14/2023 [facility] [address] 09/23/2023 Wilbert Rodrigue [facility] [address] 03/27/2024 Wilbert Mccordier Assessments Encounter Date Diagnosis (ICD Code) Assessment Notes Treatment Notes Treatment Clinical Notes Section Notes 04/22/2023 Type 2 diabetes mellitus with diabetic polyneuropathy (ICD-10 - E11.42) 04/22/2023 Tinea unguium (ICD-10 - B35.1) 09/23/2023 Type 2 diabetes mellitus with diabetic polyneuropathy (ICD-10 - E11.42) 09/23/2023 Tinea unguium (ICD-10 - B35.1) 12/23/2023 Type 2 diabetes mellitus with diabetic polyneuropathy (ICD-10 - E11.42) 12/23/2023 Tinea unguium (ICD-10 - B35.1) 09/23/2023 Other hammer toe(s) (acquired), right foot (ICD-10 - M20.41) Patient Educated with: DIABETIC FOOT CARE INSTRUCTIONS. pdf (DIABETIC FOOT CARE INSTRUCTIONS. pdf) 12/23/2023 Other hammer toe(s) (acquired), right foot (ICD-10 - M20.41) Patient Educated with: DIABETIC FOOT CARE INSTRUCTIONS. pdf (DIABETIC FOOT CARE INSTRUCTIONS. pdf) 12/23/2023 Other hammer toe(s) (acquired), left foot (ICD-10 - M20.42) 09/23/2023 Other hammer toe(s) (acquired), left foot (ICD-10 - M20.42) Plan Of Treatment Pending Test Test Name Order Date Hemoglobin A1c 11/05/2014 X ray : Foot, left 3V 05/07/2011 X ray : Foot, left 3V 05/21/2011 X ray : Foot, left 3V 06/04/2011 X ray : Foot, left 3V 06/22/2011 X ray : Foot, left 3V 07/23/2011 X ray : Foot, left 3V 08/27/2011 X ray : Foot, left 3V 11/05/2011 59884-FSJNDCL NAIL, 6 OR MORE 10/17/2012 57651-QOYUCXW NAIL, 6 OR MORE 01/09/2013 61171-HLQRUZU NAIL, 6 OR MORE 10/19/2013 62377-TRNLCKM NAIL, 6 OR MORE 01/15/2014 80533-VSUSZFT NAIL, 6 OR MORE 04/16/2014 02949-OTGEAHT NAIL, 6 OR MORE 08/02/2014 24611-EGYBWCF NAIL, 6 OR MORE 11/05/2014 72619-INXCKWX NAIL, 6 OR MORE 02/07/2015 07054-NUAXHCZ NAIL, 6 OR MORE 05/13/2015 25405-XDQFOSX NAIL, 6 OR MORE 08/12/2015 75658-XRNNKOY NAIL, 6 OR MORE 11/14/2015 21492-LPTLIUV NAIL, 6 OR MORE 02/17/2016 48666-EFCDJNF NAIL, 6 OR MORE 05/21/2016 09655-YYOUFST NAIL, 6 OR MORE 08/24/2016 65252-MNLYVNB NAIL, 6 OR MORE 11/30/2016 18986-MAVVHQR NAIL, 6 OR MORE 03/04/2017 13429-KFJBNUV NAIL, 6 OR MORE 06/10/2017 47418-ESLVVPY NAIL, 6 OR MORE 09/16/2017 07895-LFWVLQR NAIL, 6 OR MORE 12/23/2017 17080-MFWXEFQ NAIL, 6 OR MORE 04/04/2018 85182-GCJTNNW NAIL, 6 OR MORE 06/27/2018 80487-CPBIPVN NAIL, 6 OR MORE 09/12/2018 44539-WMUBGFI NAIL, 6 OR MORE 12/15/2018 61545-BWCIENR NAIL, 6 OR MORE 03/02/2019 45268-TMXZQQU NAIL, 6 OR MORE 05/18/2019 64840-ZRWLELQ NAIL, 6 OR MORE 08/21/2019 43709-NNIHTHT NAIL, 6 OR MORE 02/12/2020 18384-WWAFHUB NAIL, 6 OR MORE 11/05/2020 49159-OABBQCP NAIL, 6 OR MORE 02/06/2021 03605-WGQYIMX NAIL, 6 OR MORE 07/10/2021 65303-FFYUNDM NAIL, 6 OR MORE 10/20/2021 39931-ANJRHKI NAIL, 6 OR MORE 01/29/2022 85623-TWOLNQJ NAIL, 6 OR MORE 05/07/2022 91592-GBDHBFW NAIL, 6 OR MORE 08/13/2022 97495-MCUSQFE NAIL, 6 OR MORE 01/07/2023 95810-UPUUDGT NAIL, 6 OR MORE 04/22/2023 62827-FCCPDFU NAIL, 6 OR MORE 09/23/2023 88372-PCPTKFO NAIL, 6 OR MORE 12/23/2023 04710-Wpswattb Plate 02/07/2015 64534-Mgtqfriu Plate 07/23/2011 84728-Udqspudd Plate 06/22/2011 33592-Xhuopccq Plate 06/04/2011 85666-Roznzndj Plate 05/14/2011 29164-Aoauwmne Plate 05/21/2011 70535-Qbaoubnf Plate 02/16/2011 56401-Fvumomeq Plate 04/30/2011 73357-Yjuxavyq Plate 05/07/2011 83315-OUIX SKIN LESIONS, OVER 4 12/23/19 24 62824-BFAW SKIN LESIONS, OVER 4 09/23/19 24 89892-MQCL SKIN LESIONS, OVER 4 04/22/19 24 97980-TMSS SKIN LESIONS, OVER 4 01/08/20 23 37155-PCFI SKIN LESIONS, OVER 4 08/14/19 23 52973-VJZQ SKIN LESIONS, OVER 4 05/07/19 23 18855-OYKF SKIN LESIONS, 2 TO 4 01/30/20 18405-CGEO SKIN LESIONS, 2 TO 4 10/21/19 75348-ETNI SKIN LESIONS, 2 TO 4 07/11/19 28095-QITY SKIN LESIONS, 2 TO 4 02/07/20 55870-RGYU SKIN LESIONS, 2 TO 4 02/12/20 91469-JJGW SKIN LESIONS, 2 TO 4 11/06/19 51460-HSMT SKIN LESIONS, 2 TO 4 08/21/19 71309-AXAB SKIN LESIONS, 2 TO 4 05/18/19 89672-OXSR SKIN LESIONS, 2 TO 4 09/17/19 18 76836-FQVP SKIN LESIONS, 2 TO 4 12/19/19 11 99527-BZDV SKIN LESIONS, 2 TO 4 06/22/19 12 46020-PESV SKIN LESIONS, 2 TO 4 07/23/19 12 43598-GQKN SKIN LESIONS, 2 TO 4 08/27/19 12 41471-WENL SKIN LESIONS, 2 TO 4 11/06/19 15 04446-YIVG SKIN LESIONS, 2 TO 4 08/03/19 15 58747-OQSJ SKIN LESIONS, 2 TO 4 04/16/19 15 08843-BWKB SKIN LESIONS, 2 TO 4 01/16/20 14 79090-TJFQ SKIN LESIONS, 2 TO 4 10/20/19 14 52288-SWGG SKIN LESIONS, 2 TO 4 01/10/20 13 72626-WORI SKIN LESIONS, 2 TO 4 10/18/19 13 48902-GKDA SKIN LESIONS, 2 TO 4 11/05/19 12 50430-SKBM SKIN LESIONS, 2 TO 4 02/08/20 15 92063-ORJG SKIN LESIONS, 2 TO 4 05/13/19 16 18534-OWJZ SKIN LESIONS, 2 TO 4 11/14/19 16 02947-CTQR SKIN LESIONS, 2 TO 4 08/12/19 16 53177-IPMY SKIN LESIONS, 2 TO 4 03/04/20 17 09351-MPGB SKIN LESIONS, 2 TO 4 12/01/19 17 04653-QTMM SKIN LESIONS, 2 TO 4 05/21/19 17 13115-QBHP SKIN LESIONS, 2 TO 4 08/25/19 17 53640-EBXM SKIN LESIONS, 2 TO 4 02/17/20 16 75770-WUCW SKIN LESIONS, 2 TO 4 03/02/20 19 42696-AJIF SKIN LESIONS, 2 TO 4 12/16/19 19 65751-XSVU SKIN LESIONS, 2 TO 4 06/28/19 19 51924-HOJZ SKIN LESIONS, 2 TO 4 09/13/19 19 46485-CRFX SKIN LESIONS, 2 TO 4 04/04/19 19 82656-BHUZ SKIN LESIONS, 2 TO 4 12/24/19 18 62751-SIJB SKIN LESIONS, 2 TO 4 06/11/19 18 G3655-ILTBTOIW DYSTROPHIC NAILS ANY # Z3727-EIXCYVTA DYSTROPHIC NAILS ANY # B9611-NTVWVQIS DYSTROPHIC NAILS ANY # I2785-OVYGVMVB DYSTROPHIC NAILS ANY # V4696-MFLLBIPR DYSTROPHIC NAILS ANY # 72475 - Tenotomy, open flexor 09/02/2017 Insurance Providers Payer Name Payer Address Payer Phone Subscriber Number Group Number Insured Name Patient Relationship to Insured Coverage Start Date Coverage End Date Medicare National [employer] [address] [place] [address] [id number] Sherlyn Biggs Self - patient is the insured 1 [employer] [address] [place] [address] [id number] Sherlyn Biggs Self - patient is the insured Medical (General) History Medical History History ICD Code thyroid disorder stomach ulcer chronic sinusitis mumps measles joint implants/screws headaches/migraines depression chicken pox back, hip, knee pain Anxiety disorder hypertension Diabetic type ll Surgical History Surgery Date(Month/Year) back surgery 1997, 1998, 2009 thyroidectomy 1993 foot 2011 Hospitalization History Reason Date(Month/Year) Urgent care -pneumonia 1 day 10/2021
--- OUTSIDE RECORDS SUMMARY | 2024-04-20 15:59 | XMS_ITS ---
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 [address] [place], [address] * true * Date:? Generated for Eliana buenrostro/Dinah/eTransmitting on:?04/20/2024 03:59 PM EST
--- OUTSIDE RECORDS SUMMARY | 2024-04-20 16:00 | XMS_ITS ---
Author Organization [facility] Address [address] [place] [address] Care Team Providers Care Steel Rod Buster Name Role Phone Gonzalez Plata Primary Care Provider Wilbert Figueroa Unavailable [phone] Allergies Allergen (clinical drug ingredient) Drug/Non Drug Allergy documented on EMR Reaction Allergy Type Onset Date Status amoxicillin Amoxicillin sick Drug Allergy Act carter Biaxin hives Drug Allergy Active Iodinated contrast media (substance) Iodinated Diagnostic Agents rash Drug Allergy Active Penicillin sick Drug Allergy Active REASON FOR VISIT At Risk Footcare, Toe Irritation Medications Medication SIG (Take, Route, Frequency, Duration) Notes Start Date End Date Status predniSONE 1 tsp Orally Once a day Not-Taking ZyPREXA Not-Taking Roxicodone Not-Takin g vitamin D 50,000 Act carter Vitamin B 12 Active Robaxin 500 MG 1 tablet Orally Four times a day for 30 day(s) Active PROzac 20 MG 1 capsule in the mor martha Orally Once a day for 30 day(s) Active Provigil Active Promethazine HCl 25 MG/ML 0.5 ml as needed Injection every 4 hrs Active oxyCODONE HCl 15 MG 1 tablet Orally ever y 6 hrs PRN Active Omeprazole 20 MG 1 capsule Orally Onc e a day for 30 day(s) Active Mirtazapine 7.5 MG as directed Orally O nce a day Active Levothyroxine Sodium 100 MCG 1 tablet every morning on an empty stomach Orally Once a day for 30 day(s) Active Gabapentin 300 MG Orally two times a d ay, 600 mg at night (2 capsules) Active Flovent HFA 44 MCG/ACT 2 puffs Inhalatio n Twice a day Active diazePAM 5mg daily Active Crestor 40 MG 1 tablet Orally Once a day for 30 day(s) Active buPROPion HCl 100 MG 1 tablet Orally Twi ce a day for 30 day(s) Active Aimovig 70 MG/ML Subcutaneous Active Albuterol Active Ritalin Not-Taking Synthroid Not-Taking Ankle Brace/High Performance S Not-Taking Extra Depth Orthopedic Shoes (1 Pair) with Customized Heat Molded Multidensity Innersoles (3 Pair) as directed Dx: NIDDM/Polyneuropathy (E11.42), Hammertoe Foot Deformity (M20.41,M20.42), Preulcerative Skin Lesion(s) (L85.1 Active Atorvastatin Calcium Not-Taking Lisinopril 10 MG 1/2 tablet Orally On ce a day for 30 day(s) Not-Taking Social History Tobacco Use: Social History Observation [...] Are you an other tobacco user? No Vital Signs Height 5ft6in in 12/23/2023 Weight 145 lbs 12/23/2023 BMI 23.40 kg/m2 12/23/2023 Blood pressure systolic 120 mm Hg 12/23/19 24 Blood pressure diastolic 70 mm Hg 024 Procedures Procedure Date Ordered Date Performed Result Body Sit e 26235-EOPRDHV NAIL, 6 OR MORE 12/23/2023 N/A 42840-KKPC SKIN LESIONS, OVER 4 12/23/2023 N/A Encounters Encounter Location Date Provider Diagnosis [facility] [place] [address] [place] [address] 12/23/2023 Wilbert Husain Type 2 diabetes mellitus with diabetic polyneuropathy E11.42 ; Tinea unguium B35.1 ; Other hammer toe(s) (acquired), right foot M20.41 and Other hammer toe(s) (acquired), left foot M20.42 Assessments Encounter Date Diagnosis (ICD Code) Assessment Notes Treatment Notes Treatment Clinical Notes Section Notes 12/23/2023 Type 2 diabetes mellitus with diabetic polyneuropathy (ICD-10 - E11.42) 12/23/2023 Tinea unguium (ICD-10 - B35.1) 12/23/2023 Other hammer toe(s) (acquired), right foot (ICD-10 - M20.41) Patient Educated with: DIABETIC FOOT CARE INSTRUCTIONS. pdf (DIABETIC FOOT CARE INSTRUCTIONS. pdf) 12/23/2023 Other hammer toe(s) (acquired), left foot (ICD-10 - M20.42) Plan Of Treatment Medication Medication Name Sig Start Date Stop Date Notes Extra Depth Orthopedic Shoes (1 Pair) with Customized Heat Molded Multidensity Innersoles (3 Pair) as directed Dx: NIDDM/Polyneuropathy (E11.42), Hammertoe Foot Deformity (M20.41,M20.42), Preulcerative Skin Lesion(s) (L85.1 Treatment Notes Assessment Notes Other hammer toe(s) (acquired), right fo ot Patient Educated with: DIABETIC FOOT CARE INSTRUCTIONS.pdf (DIABETIC FOOT CARE INSTRUCTIONS.pdf) Pending Test Test Name Order Date 41316-TAILNJI NAIL, 6 OR MORE 12/23/2023 18879-RFDV SKIN LESIONS, OVER 4 12/23/19 24 Next Appt Details Follow Up: prn, Reason: Procedure Notes * Category Sub-Category Detail Notes Debride Nail 6-10 Nail debridement Performance o f this nail treatment by a nonprofessional would put this patients foot and overall health at risk. Therefore, nail debridement was performed extensively to reduce/remove overall nail length, girth, thickness, subungual debris, and necrotic tissue, by manual and/or electrical means through the use of a nail nipper and/or dremel-type surface grinder, to a more viable healthy nail plate or bed tissue 6-10. Silver nitrate used for any petechial bleeding as necessary. Definitive antifungal treatment options have been reviewed and discussed with the patient. The patient chooses, no pharmaceutical tx - 49145 Keratoma Treatment Parring or Cutting o f Benign Hyperkeratotic Lesion(s) (-57) More than 4 Lesions - The Benign hyperkeratotic lesions, as described above were pared, and/or cut utilizing a sterile 15 blade, tissue nippers, and/or dremel - 46858 Progress Notes * Sherlyn BIGGS LDOB:1955 (68 yo F)Acc No.[id number]:12/23/2023 Progress Note Patient:?Sherlyn Biggs Provider:?Wilbert Husain DPM :1955???Age:68 Y???Sex:Female D ate:12/23/2023 Address:[address] [place] [address], [facility] [address], [facility] Pcp:Gonzalez Plata Subjective: * Chief Complaints: * ???At Risk FootcareToe Irrit ation * HPI: ???At Risk footcare:?Pt States Last PCP Visit:?Date?11/18/2023 ???Toe pain:?Location:?B/L feet.?Duration:?several years.?Course:?worse.?Aggravated by:?shoes, any pressure.?Treatments:?change in shoes , Rx shoes , states still needs.? * ROS:?General/Constitutional:?Nausea?denies.?Vomiting?denies.?Hunger Thirst?denies.?Loss appetite?denies.?Chills?denies.?Fatigue?denies.?Fever?denies.?Night Sweats?denies.?Unexplained weight loss?denies.?Ophthalmologic:?Blurred vision?denies.?Red eye?denies.?HEENTM:?Dentures?denies.?Dizziness?denies.?Glasses/contacts?denies.?Retinopathy?de nies.?Blurred/double vision?denies.?TMJ?denies.?Discharge/drainage?denies.?Implants?denies.?Hard of hearing denies.?Difficulty chewing/swallowing/speaking?denies.?Nose bleeds?denies.?Sore mouth?denies.?Swollen glands?denies.?Respiratory:?On Oxygen?denies.?Pneumonia/pleurisy?denies.?Bronchitis?denies.?Emphysema?denies.?C oughing?denies.?Cough blood?denies.?Shortness of breath?denies.?Wheezing?denies.?Cardiovascular:?Pacemaker?denies.?MVP?denies.?WPW?denies.?CHF?denies.?Heart attack?denies.?Septal defect?denies.?Rapid beat?denies.?Chest pain ?denies.?Atrial Fib.?denies.?Murmur/Palpitations?denies.?Gastrointestinal:?Hemorrhoids?denies.?Stomach/Abdominal pain?denies.?Dark blood stool?denies.?Irritable bowel ?denies.?Constipation?denies.?Diarrhea?denies.?Vomiting?denies.?Hematology:?Swelling?denies.?Bruising?denies.?Bleeding problem?denies.?Genitourinary:?Blood urine?denies.?Frequent/Painfu/urination/bladder control?denies.?Kidney stones?denies.?Infection (UTI)?denies.?Nephropathy?denies.?Musculoskeletal:?Hammertoes?admits.?Bunions?denies.?Scoliosis/kyphosis?denies.?Muscle cramps / walking?denies.?Generalized aches and pains?denies.?Weakness?admits, that is generalized, that is moderate, bilateral lower extremities.?Integ.:?Woo?denies.?Scars?denies.?Corns/calluses?admits.?Ingrown nails?admits.?Painful nails?denies.?Rashes?denies.?Neurologic:?Difficulty sleeping?denies.?Bipolar?denies.?Brain disorder?denies.?Balance trouble?admits.?Confusion?denies.?Fainting/blackouts?denies.?Headache?denies.?Tr emors?denies.? * Medical History:? * Surgical History:?back surge ry 1997, 1998, 2010thyroidectomy 1992foot 2011 * Hospitalization/Major Diagno stic Procedure:?Urgent care -pneumonia 1 day 10/2021 * Family History:?Mother: dece ased, diagnosed with Family history of arthritis.?Father: , diagnosed with Diabetic - NIDDM, Unspecified heart disease.?Siblings: diabetes.? father(). * Social History:?Tobacco Use:?Tobacco Use/Smoking?Are you a:?current smoker ?How often do you smoke cigarettes??every day ?How many cigarettes a day do you smoke??11-20 ?How soon after you wake up do you smoke your first cigarette??within 5 minutes ?Are you interested in quitting??Thinking about quitting ?Additional Findings: Tobacco User?Heavy cigarette smoker (20-39 cigs/day) ?Tobacco use other than smoking?Are you an other tobacco user??No ???Drugs/Alcohol:?Drugs?Have you used drugs other than those for medical reasons in the past 12 months??No ?Alcohol Screen?Did you have a drink containing alcohol in the past year??No ?Points?0 ?Interpretation?Negative ???Miscellaneous:?Caffeine: yes, 3-5 cups per day,. ?no Children. ?no Exercise. ?Marital status: single. ?Occupation: disable. * Medications:?TakingAlbuterol Aimovig 70 MG/ML Solution Auto-injector Subcutaneous buPROPion HCl 100 MG Tablet 1 tablet Orally Twice a dayCrestor 40 MG Tablet 1 tablet Orally Once a daydiazePAM 5mg dailyFlovent HFA 44 MCG/ACT Aerosol 2 puffs Inhalation Twice a dayGabapentin 300 MG Capsule Orally two times a day, 600 mg at night (2 capsules)Levothyroxine Sodium 100 MCG Tablet 1 tablet every morning on an empty stomach Orally Once a dayMirtazapine 7.5 MG Tablet as directed Orally Once a dayOmeprazole 20 MG Capsule Delayed Release 1 capsule Orally Once a dayoxyCODONE HCl 15 MG Tablet 1 tablet Orally every 6 hrs, Notes: PRNPromethazine HCl 25 MG/ML Solution 0.5 ml as needed Injection every 4 hrsProvigil PROzac 20 MG Capsule 1 capsule in the morning Orally Once a dayRobaxin 500 MG Tablet 1 tablet Orally Four times a dayVitamin B 12 vitamin D 50,000 Extra Depth Orthopedic Shoes (1 Pair) with Customized Heat Molded Multidensity Innersoles (3 Pair) as directed Dx: NIDDM/Polyneuropathy (E11.42), Hammertoe Foot Deformity (M20.41,M20.42), Preulcerative Skin Lesion(s) (L85.1Taking Albuterol Taking Aimovig 70 MG/ML Solution Auto-injector Subcutaneous Taking buPROPion HCl 100 MG Tablet 1 tablet Orally Twice a dayTaking Crestor 40 MG Tablet 1 tablet Orally Once a dayTaking diazePAM 5mg dailyTaking Flovent HFA 44 MCG/ACT Aerosol 2 puffs Inhalation Twice a dayTaking Gabapentin 300 MG Capsule Orally two times a day, 600 mg at night (2 capsules)Taking Levothyroxine Sodium 100 MCG Tablet 1 tablet every morning on an empty stomach Orally Once a dayTaking Mirtazapine 7.5 MG Tablet as directed Orally Once a dayTaking Omeprazole 20 MG Capsule Delayed Release 1 capsule Orally Once a dayTaking oxyCODONE HCl 15 MG Tablet 1 tablet Orally every 6 hrs, Notes: PRNTaking Promethazine HCl 25 MG/ML Solution 0.5 ml as needed Injection every 4 hrsTaking Provigil Taking PROzac 20 MG Capsule 1 capsule in the morning Orally Once a dayTaking Robaxin 500 MG Tablet 1 tablet Orally Four times a dayTaking Vitamin B 12 Taking vitamin D 50,000 Taking Extra Depth Orthopedic Shoes (1 Pair) with Customized Heat Molded Multidensity Innersoles (3 Pair) as directed Dx: NIDDM/Polyneuropathy (E11.42), Hammertoe Foot Deformity (M20.41,M20.42), Preulcerative Skin Lesion(s) (L85.1Not-Taking/PRNRoxicodone ZyPREXA predniSONE 1 tsp Orally Once a dayLisinopril 10 MG Tablet 1/2 tablet Orally Once a dayAnkle Brace/High Performance S Synthroid Ritalin Atorvastatin Calcium Medication List reviewed and reconciled with the patientNot-Taking/PRN Roxicodone Not-Taking/PRN ZyPREXA Not-Taking/PRN predniSONE 1 tsp Orally Once a dayNot-Taking/PRN Lisinopril 10 MG Tablet 1/2 tablet Orally Once a dayNot-Taking/PRN Ankle Brace/High Performance S Not-Taking/PRN Synthroid Not-Taking/PRN Ritalin Not-Taking/PRN Atorvastatin Calcium Medication List reviewed and reconciled with the patient * Allergies:?Biaxin: hivesAmox icillin: sickIodinated Diagnostic Agents: rashPenicillin: sickyes[Allergies Verified] Objective: * Vitals:?Ht: 5ft6in, Wt:145, BMI:23.40, Shoe size:9W, BP:120/70 mm Hg, BS:not taken. * ???Past Orders: ???Lab:HEMOGLOBIN A1C (GLYCO HEMOGLOBIN) (Order Date - 12/23/2023) (Collection Date - 10/27/2023) ? Value Reference Range ?TOTAL HEMOGLOBIN (HGBA1C) 5.3 * Examination: ???Neurological: ?SENSORY:?Neurological exam demonstrates, reduced light touch sensation, reduced sharp/dull discrimination lower extremity, reduced vibration lower extremity, in a stocking fashion, B/L, 5.07 monofilament test performed at plantar aspects of 5 varied sites per foot, shows sensation, reduced, B/L.?Nails: ?NAILS are:?Elongated, overgrown, dystrophic, lytic, greater than 3mm thick, discolored and friable with crumbly malodorous subungual debris, 1-5 B/L.?Dermatologic: ?SKIN FINDINGS:?Skin exam reveals Keratotic lesion(s) located at, SUB MTH (s), 1, B/L , SUB MTH (s), 2, B/L , Heel(s), B/L .?Orthopedic: ?MUSCLE STRENGTH:? Generalized decrease in strength, B/L.?GAIT ABNORMALITY:? appropulsive, cane-assisted.?FOOT MORPHOLOGY:? Pes Cavus structure, No Charcot collapse/destruction noted at MTJ.?DIGITAL DEFORMITIES:?Digital contracture, PIPJ, 2-5 B/L (Save T1), incompl-reducible to push-up test, no over, nor underlapping,?with evidence of shoe producing skin irritation.?FOOTWEAR:?worn, OT were inspected and noted to be severely worn , in poor condition not giving proper support at the present time , shoe gear properties exacerbate patients foot/toe deformity.?Vascular: ?DP PULSES(B):? 2/4, B/L.?PT PULSES(B):? 2/4, B/L.?CAPILLARY FILL TIME:? 3 secs. per digit, B/L.?TROPHIC CONDITION-TEXTURE/ELASTICITY/TURGOR/HAIR GROWTH(B):?normal, B/L.?TEMPERTURE GRADIENT(C):?normal, warm to cool, proximal to distal, B/L, B/L.?PIGMENTATION:?normal, B/L.?EDEMA(C):?absent, B/L.?Ophthalmology Referral: ?DIABETES EYE EXAM?General Examination: ?GENERAL APPEARANCE:?Reveals a pleasant, alert, well nourished, well developed, well hydrated individual, who demonstrates proper attention to hygiene/body habitus, and is in no acute distress , Pt serves as own historian for office visit today.?ORIENTED:?person, place, and time.?FOOT EXAM:?Footwear Evaluation? Assessment: * Assessment: 1.?Type 2 diabetes mellitus with diabetic polyneuropathy - E11.42 (Primary)?2.?Tinea unguium - B35.1?3.?Other hammer toe(s) (acquired), right foot - M20.41, Chronic problem, Worse (4),Rx Management (4)?4.?Other hammer toe(s) (acquired), left foot - M20.42, Chronic problem, Worse (4),Rx Management (4)? Plan: * Treatment: 2.?Other hammer toe(s) (acqu ired), right foot? Start Extra Depth Orthopedic Shoes (1 Pair) with Customized Heat Molded Multidensity Innersoles (3 Pair), as directed, Dx: NIDDM/Polyneuropathy (E11.42), Hammertoe Foot Deformity (M20.41,M20.42), Preulcerative Skin Lesion(s) (L85.1, 1, Refills 0.?? Notes: Patient Educated with: DIABETIC FOOT CARE INSTRUCTIONS.pdf (DIABETIC FOOT CARE INSTRUCTIONS.pdf)?? * Procedures:?Debride Nail 6-10:?Nail debridement?Performance of this nail treatment by a nonprofessional would put this patients foot and overall health at risk. Therefore, nail debridement was performed extensively to reduce/remove overall nail length, girth, thickness, subungual debris, and necrotic tissue, by manual and/or electrical means through the use of a nail nipper and/or dremel-type surface grinder, to a more viable healthy nail plate or bed tissue 6-10. Silver nitrate used for any petechial bleeding as necessary. Definitive antifungal treatment options have been reviewed and discussed with the patient. The patient chooses, no pharmaceutical tx - 23618.?Keratoma Treatment:?Parring or Cutting of Benign Hyperkeratotic Lesion(s)?(-57) More than 4 Lesions - The Benign hyperkeratotic lesions, as described above were pared, and/or cut utilizing a sterile 15 blade, tissue nippers, and/or dremel - 08174.? * Procedure Codes:?69909 DEBRI DE NAIL, 6 OR MORE, Modifiers: XS 70730 TRIM SKIN LESIONS, OVER 4, Modifiers: XS * Preventive Medicine:? ??Counseling:?Tobacco use:?Type of Tobacco Use Cessation Counseling provided?Smoking effects education ?Discussion:?-14: Office or other outpatient visit for the evaluation and management of an established patient, which required a medically appropriate history and/or examination and MODERATE level of DECISION MAKING for: 1 OR MORE CHRONIC PROBLEM(S) THATS WORSENING, 2 STABLE CHRONIC PROBLEMS, A NEWLY DIAGNOSED PROBLEM WITH UNCERTAIN PROGNOSIS, AN ACUTE COMPLICATED INJURY WITH MULTIPLE TREATMENT OPTIONS, OR AN ACUTE PROBLEM WITH ACCOMPANYING SYSTEMIC SYMPTOMS, THAT POSE(S) A MODERATE RISK OF MORBIDITY. THIS CONDITION MAY ALSO INCLUDE RX DRUG MANAGEMENT, OR A DECISON FOR MINOR SURGERY. The visit on the day of the encounter encompassed interpreting the data and educating the patient as to the nature of their condition, treatment options available according to their individual PMH, meds, allergies, and overall health/living conditions, as well as any potential risks or complications that may occur from a failure to adhere to, and participate in, the recommended course of therapy. The discussion included a complete verbal, and/or written explanation of the examination results, any x-rays taken, the proposed diagnosis, and outline of the treatment plan. A schedule for future care needs was also explained. The patient verbalized an understanding of the instructions at this time and agreed to be an active participant in their treatment. If the patient should think of any questions or concerns after the visit, I have encouraged the patient to call the office.?Digital Surgery:?Digital surgery was discussed with the patient, We elected to try conservative treatment at the present time, due to the patients medical history and increased asssociated post-operative risks.?Digital Treatment:?HT- I explained to the patient the possible etiologies of Hammertoes, including genetics/foot type/shoegear/activity level/exercise routine and the risks/benefits of all the different treatment options for their pain including: No treatment at all, Rest, Ice, New/supportive/wider/deeper Shoegear, Digital Padding/Strapping/Taping/Bracing/Gel protective sleeves, Foot/Ankle AFO Bracing, Stretching exercises, Deep Tissue Massage, Arch support/shoe inserts with splay metatarsal padding, and Custom orthoses. I insisted that any digital devices be removed daily and not worn overnight for safety. The patient is to carefully examine the toes daily for any skin irritation while using any splinting or padding device. The advantages and disadvantages of each option were discussed and the patients questions re: shoegear, padding, custom vs prefabricated inserts, activity level, and consistency in home treatment regimens for optimal success were answered to their verbally confirmed satisfaction.?Shoe Gear Counseling:?SHOE Rx - The patient was counseled in great detail on their muscoloskeletal foot and toe deformities which coincided with the dermatological presentations visualized on exam. We discussed how their deformities put the integrity of their feet at risk for potential pedal complications which makes the accomidative diabetic shoes and cutomizable inserts medically necessary. We discussed the different shoe and insert treatment types and options, as well as the important advantages for adhering to regularly wearing these accomidative devices daily. The patient was made aware of the fact that a failure to abide by these recommedations may be deleterious to their foot health as they are able to prevent many pedal complications such as skin irritation, skin ulceration, infection, and even loss of toe/foot/leg/or life. Time was also spent with the patient dispensing and discussing proper diabetic footcare techniques including daily skin moisturization, daily foot inspection for any interruption in skin integrity including open lesions, or sign of infection such as redness/malodor/drainage/swelling. Also discussed and recommended were procedures regarding daily shoe inspection for the presence of internal foreign bodies as well as any visualized irregular shoe or insert wear. Patient questions re: shoes, inserts, and self foot inspections were answered to their satisfaction as the patient verbally confirmed a full understanding of the above information. A Rx for Extra Depth Orthopedic Shoes with 3 pair of custom heat-molded inserts was dispensed.? ??Screening/Special Tests:?Fall Risk?Assessment:?Performed ?Plan of Care:?Documented ?Screening:?No falls in the past year ?FALLS: Screening for Future Fall Risk?Have you had any falls with injury in the past year??No * Follow Up:?prn * Images: * Sign off status: Completed true * Provider:?Wilbert Husain DPM Date:?2023 Generated for Eliana buenrostro/Dinah/Chuck on:?04/20/2024 03:59 PM EST History and Physical Notes * HPI (History of Present Illness) Category Sub-Category Detail Notes Category Not es Toe pain Location: B/L feet Duration: several years Course: worse Aggravated by: shoes, any pressure Treatments: change in shoes , Rx shoes , states still needs At Risk footcare Pt States Last PCP Visit: Date: 4 Examination Category Sub-Category Detail Notes Category Not es Neurological SENSORY: Neurological exa m demonstrates, reduced light touch sensation, reduced sharp/dull discrimination lower extremity, reduced vibration lower extremity, in a stocking fashion, B/L, 5.07 monofilament test performed at plantar aspects of 5 varied sites per foot, shows sensation, reduced, B/L Dermatologic SKIN FINDINGS: Skin exam reveal s Keratotic lesion(s) located at, SUB MTH (s), 1, B/L , SUB MTH (s), 2, B/L , Heel(s), B/L Orthopedic GAIT ABNORMALITY: appropulsive, cane-assi sted FOOT MORPHOLOGY: Pes Cavus structure, No Charcot collapse/destruction noted at WIJ FOOTWEAR: worn, OT were inspec linh and noted to be severely worn , in poor condition not giving proper support at the present time , shoe gear properties exacerbate patients foot/toe deformity DIGITAL DEFORMITIES: Digital contracture , PIPJ, 2-5 B/L (Save T1), incompl- reducible to push-up test, no over, nor underlapping, with evidence of shoe producing skin irritation MPJ PATHOLOGY: MUSCLE STRENGTH: Generalized decrease in strength, B/L General Examination GENERAL APPEARANCE: Reveals a pleasant, alert, well nourished, well developed, well hydrated individual, who demonstrates proper attention to hygiene/body habitus, and is in no acute distress , Pt serves as own historian for office visit today FOOT EXAM: Lower Extremity Neurological Exa m performed:: Yes ORIENTED: person, place, and t amairani Footwear Evaluation Footwear Evaluation performe d:: Yes Ophthalmology Referral DIABETES EYE EXAM Diabetic Retinopa thy Screening:: No Vascular DP PULSES (B): 2/4, B/L PT PULSES (B): 2/4, B/L CAPILLARY FILL TIME: 3 secs. per digit, B/L TEMPERTURE GRADIENT (C): normal, warm to cool, proximal to distal, B/L, B/L TROPHIC CONDITION-TEXTURE/ELASTICITY/TURGOR/HAIR GROWTH (B): normal, B/L EDEMA (C): absent, B/L PIGMENTATION: normal, B/L Nails NAILS are: Elongated, overg rown, dystrophic, lytic, greater than 3mm thick, discolored and friable with crumbly malodorous subungual debris, 1-5 B/L
== END 2024-04-20 14:20 | disposition home or self-care (01) ==
LOC: HO.HMGCX 14:19
PROVIDERS: PCP Internal Medicine
DX: R06.09 Other forms of dyspnea (principal)
CPT/HCPCS: 71046

== ENCOUNTER → 2024-04-20 14:22 | Outpatient (BNV) | payer MEDICARE, SELFPAY | PROVIDERS: PCP Internal Medicine; Visit Provider Radiology Diagnostic Radiology | DX: R06.9 Unspecified abnormalities of breathing (principal) | CPT/HCPCS: 71046 ==

== ENCOUNTER 2024-07-13 08:01 | Outpatient (AMB) | payer MEDICARE, SELFPAY ==
--- NOTE | 2024-07-13 08:04 | MHC.PC.OV ---
Vital Signs 07/13/24 08:09 Height 5 ft 6 in Weight 147 lb BMI 23.7 BP 132/80 Blood Pressure Location Lt brachial Position Sitting Pulse 72 Pulse Source Pulse Oximeter Temp 96.6 F L Temp Source Temporal Artery Scan Pulse Oximetry (%) 98 Oxygen Delivery Method Room Air Intake Visit Reasons: f/u COPD and GERD Intake Note: Patient is here to follow up on COPD, GERD. Child Therapist Required: No Nuclear Plant Equipment Operator: Not Required per policy Accompanied by: Self / Same As Patient Allergies clarithromycin [From BIAXIN] Allergy (Intermediate, Verified 07/13/24 08:08) N/V atorvastatin Allergy (Mild, Verified 07/13/24 08:08) Unknown Iodinated Contrast Media [IV Dye, Iodine Containing] Allergy (Mild, Verified 07/13/24 08:08) RASH AND NAUSEA AND VOMITING doxycycline Allergy (Unknown, Verified 07/13/24 08:08) Nausea and Vomiting lisinopril Allergy (Unknown, Verified 07/13/24 08:08) hypotension Penicillins Adverse Reaction (Unknown, Verified 07/13/24 08:08) UNKNOWN-FROM CHILDHOOD buspirone [From BuSpar] Adverse Reaction (Verified 07/13/24 08:08) Headache Medication List - Last Reconciled 07/13/24 by Bridgett Perez PA-C albuterol sulfate 2.5 mg (3 mL) inhalation QID PRN albuterol sulfate 90 mcg/actuation 2 puffs inhalation Q4-6H PRN cholecalciferol (vitamin D3) 25 mcg PO DAILY [DIABETIC SHOES As directed] diazepam 5 mg PO TID erenumab-aooe (Aimovig Autoinjector) mg subcut .once a month [EXTRA DEPTH ORTHOPEDIC SHOES WITH CUSTOMIZED HEAT MOLDED MULTIDENSITY INNERSOLES As directed] fluoxetine 40 mg PO DAILY moqufglbwmd-ccpyczjzi-fgjcsxvq 200-62.5-25 mcg (Trelegy Ellipta) 1 inh inhalation DAILY gabapentin 600 mg PO BID hydroxyzine HCl 25 mg PO BEDTIME ipratropium-albuterol 0.5 mg-3 mg(2.5 mg base)/3 mL 3 mL inhalation DAILY PRN levothyroxine take 88 mcg QD except for tuesday orally every morning; 30 days methocarbamol 500 mg PO TID PRN nebulizers (Aeroneb Go Nebulizer) As directed UPDRAFT QID omeprazole 20 mg PO BID oxycodone 15 mg PO Q4-6H 30 days promethazine 25 mg PO Q6H PRN rosuvastatin 20 mg PO DAILY 90 days sumatriptan succinate (Imitrex) 100 mg PO .QD PRN 90 days Tobacco use date assessed: 07/13/24 Fall risk assessment: No Falls in past year Last assessed Fall Risk: 07/13/24 Dental Screening Dental Screen Date: 04/13/24 HPI f/u COPD and GERD HPI Details 68-year-old female with past medical history of GERD, COPD, hypothyroid, hypercholesterolemia, tobacco abuse, generalized anxiety disorder, and diabetes mellitus last seen 03/2024 coming in for follow up.? Presenting with dysphagia and cognitive concerns. She has reported recurrent issues with swallowing, resulting in previous examinations and treatments including a barium swallow test and esophageal dilation. A follow-up swallowing test was advised but not scheduled due to test-related challenges. The patient describes ongoing cognitive difficulties, expressing concern over memory lapses impacting daily activities. She is under treatment for anxiety and depression with fluoxetine and diazepam and acknowledges frequent anxiety episodes. There has been significant weight loss attributed to reduced food intake due to swallowing problems and fear of regurgitation. The patient smokes approximately one pack of cigarettes every three days and is making efforts to cut back. [facility] Medical History Colonoscopy refused Medicare annual wellness visit, subsequent Nicotine dependence, cigarettes, uncomplicated Hoarseness of voice Community acquired pneumonia Arm pain Scratch of eye region Trigger finger, right middle finger 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 Low back pain Trigger finger Knee pain, left Pneumonia COPD exacerbation Chest tightness Abnormal lung sounds Screening for colon cancer Weight loss Post-menopausal Herpes zoster Chest pain Migraine Left scapula fracture Asthma Peripheral neuropathy Tobacco abuse Hypercholesterolemia Vitamin D deficiency Hypothyroid COPD (chronic obstructive pulmonary disease) Insomnia GERD (gastroesophageal reflux disease) Hypertension Type 2 diabetes mellitus with hyperglycemia Surgical History History of esophagogastroduodenoscopy (EGD) History of lumbar surgery History of colonoscopy History of foot surgery History of thyroidectomy History of cholecystectomy Family History (Updated 07/13/24 @ 08:06 by ANA ROSA Oglesby) Father Prostate cancer Diabetes Hypertension Mother CVD (cardiovascular disease) Myocardial infarction Social History Housing: Apartment Alcohol intake: unknown Patient Tobacco Use Status: Current everyday Tobacco user Tobacco use type: Cigarette Cigarette Packs Per Day: 0.5 Cigarettes Per Day: 4 Years Smoked: 45 years/ Quit Feb 2023 e-Cigarette/Vaping Use: Never Used Second Hand Smoke Exposure: No Advance Directives Date on File: 02/12/21 service: No Current occupational status: disabled Cognitive needs: Yes (cane ) Hearing needs: No Vision needs: Yes Questionnaire Thrive Questionnaire Date Thrive assessed: 04/13/24 SIL-7 AMB Questionnaire SIL-7 Date SIL - 7 assessed: 04/13/24 Source: Developed by Drs. Bhavesh Alfred, Yuridia Suarez, Triston Gabriel and colleagues, with an educational yara from [email or web address]. Review of Systems Const Denies body aches, Denies chills, Denies fever(s), Denies headache(s) and Denies poor appetite Eyes Reports no additional complaints ENT Reports dysphagia, Denies dizziness, Denies headache(s) and Denies odynophagia Card Denies chest pain, Denies lightheadedness and Denies dyspnea Resp Denies cough and Denies dyspnea GI Denies abdominal pain, Reports dysphagia, Reports dyspepsia, Reports heartburn, Reports nausea, Denies odynophagia and Denies vomiting Reports no additional complaints Musc Reports no additional complaints and Denies abnormal gait Skin/Breast Reports system reviewed and no additional complaints, except as documented Neuro Denies abnormal gait, Denies dizziness and Denies headache(s) Psych Reports no additional complaints Physical exam (Primary Care) Vital Signs: Last Vital Signs Temp 96.6 F L 07/13/24 08:09 Pulse 72 07/13/24 08:09 BP 132/80 07/13/24 08:09 Pulse Ox 98 07/13/24 08:09 Oxygen Delivery Method Room Air 07/13/24 08:09 BMI result Body Mass Index 23.7 Tobacco/Smoking Status: Tobacco use Status Tobacco use date assessed 07/13/24 07/13/24 08:23 Patient Tobacco Use Status Current everyday Tobacco 07/13/24 08:06 Tobacco use type Cigarette 07/13/24 08:06 e-Cigarette/Vaping Use Never Used 07/13/24 08:06 Thrive Assessment: Date of Thrive Assessment Date Thrive assessed 04/13/24 07/13/24 08:06 Const General: cooperative, healthy appearing, comfortable and no acute distress Orientation/consciousness: patient oriented x3 [facility] Head: Yes normocephalic Ears: hearing grossly normal bilaterally General nose exam: Normal external nose present Eyes General: appearance normal, both eyes and all related structures Conjunctivae: conjunctivae normal Neck Neck: Yes full ROM and Yes no lymphadenopathy Resp Effort & Inspection: normal respiratory effort Auscultation: clear to auscultation bilaterally, no crackles, no rales, no rhonchi and no wheezes Cardio Rate: regular rate Rhythm: regular rhythm Skin General skin exam: no rashes or lesions noted Neuro General: patient oriented x3 Gait exam (Neuro): Normal gait present Extrem General: Yes normal to inspection, Yes full ROM and No edema Psych Affect: normal affect Attitude: cooperative Insight: Good insight present (Psych) Judgement: Good judgement present (Psych) Coding Level of Care Code Est Pt Level 3 (21039) Diagnoses Dysphagia R13.10 Type 2 diabetes mellitus with hyperglycemia, without long-term current use of insulin E11.65 Diabetes mellitus salvage determiner insulin use: without salvage determiner use Tobacco abuse Z72.0 Pulmonary emphysema, unspecified emphysema type J44.9 Memory loss R41.3 Gastroesophageal reflux disease without esophagitis K21.9 Esophagitis presence: without esophagitis Assessment & Plan Assessment & Plan (1) Dysphagia: Code(s): R13.10 - Dysphagia, unspecified Category: Medical Plan: Patient complaining of dysphagia and regurgitate if symptoms. Patient completed barium swallow advised to reach out to gastroenterology for follow up appointment. Patient currently on omeprazole b.i.d. only advised patient to reach out to Gastroenterology to follow up. (2) Type 2 diabetes mellitus with hyperglycemia: Code(s): E11.65 - Type 2 diabetes mellitus with hyperglycemia Category: Medical Qualifiers: Diabetes mellitus salvage determiner insulin use: without salvage determiner use Qualified Code(s): E11.65 - Type 2 diabetes mellitus with hyperglycemia Plan: Decrease the amount of carbohydrates such as pasta, bread, rice, and potatoes and limit the amount of sweets. Although fruits are generally healthy they should be eaten in moderation as they are still high in sugar. Hemoglobin A1c goal of less than 7%. (3) Tobacco abuse: Comment: 4 cigarettes a day (03/2024) Code(s): Z72.0 - Tobacco use Category: Medical Plan: Smoking cigarettes and the use of tobacco can be harmful. We discussed the importance of stopping and options to aid in smoking cessation. Advised patient to trial nicotine lozenges (4) COPD (chronic obstructive pulmonary disease): Code(s): J44.9 - Chronic obstructive pulmonary disease, unspecified Category: Medical Plan: Continue on current inhalers and advised patient to reach out to projection camera operator for continued symptom management. Advised patient to reach out to pulmonology to reschedule her missed appointment. (5) Memory loss: Code(s): R41.3 - Other amnesia Category: Medical Plan: Patient had mini-mental status exam in the office today which was normal. She is seeing her neurologist later this month advised to bring concerns to the neurologist at this time. (6) GERD (gastroesophageal reflux disease): Code(s): K21.9 - Gastro-esophageal reflux disease without esophagitis Category: Medical Qualifiers: Esophagitis presence: without esophagitis Qualified Code(s): K21.9 - Gastro-esophageal reflux disease without esophagitis Plan: Avoid trigger foods such as citrus, tomato products, soda, caffeine, spicy foods and other foods that may be irritating to your stomach. Avoid laying flat 3-4 hours after eating and elevate the head of the bed 30 degrees to prevent acid from moving into the esophagus. Continue on omeprazole Plan This note was constructed using voice recognition software. While every effort has been made to ensure accuracy and wool dyer, still areas may have been included sometimes these areas may affect the content or meeting of the given symptoms. Total time spent caring for the patient today was 20 minutes. This includes time spent before the visit reviewing the chart, time spent during the visit, and time spent after the visit and documentation. Patient was informed and verbally consented to the use of an ambient scribe for clinic note documentation during this visit. Medications: Refilled diazepam 5 mg PO TID 270 tabs 1RF muscle spasm F32.9 - Major depressive disorder, single episode, unspecified, F41.9 - Anxiety disorder, unspecified
--- OUTSIDE RECORDS SUMMARY | 2024-07-13 08:08 | XMS_ITS ---
Author Organization [facility] Address [address] [place] [address] Care Team Providers Care Stamp Collector Name Role Phone Gonzalez Plata Primary Care Provider Wilbert Figueroa Unavailable [phone] Allergies Allergen (clinical drug ingredient) Drug/Non Drug [...] Active Encounters Encounter Location Date Provider Diagnosis [facility] [address] [address] 03/27/2024 Wilbert Husain Plan Of Treatment Next Appt Details Provider Name:Wilbert Husain , 08/10/2024 11:30:00 AM, [address] [place] [address], [phone], Progress Notes * Sherlyn VELOZ LDOB:1955 (68 yo F)Acc No.[id number]:03/27/2024 Progress Note Patient:Sherlyn WONG Provider:?Wilbert Husain DPM :1955???Age:68 Y???Sex:Female D ate:03/27/2024 Address:[address] [place] [address], [facility] [address], [facility] Pcp:Gonzalez Plata Subjective: * Chief Complaints: * [...] Husain DPM Date:?2023 Generated for Eliana buenrostro/Dinah/Chuck on:?07/13/2024 08:08 AM EDT
--- OUTSIDE RECORDS SUMMARY | 2024-07-13 08:08 | XMS_ITS ---
Author Organization [facility] Address [address] [place] [address] Care Team Providers Care Travel Physical Therapist Name Role Phone Gonzalez Plata Primary Care Provider Wilbert Figueroa [phone] REASON FOR VISIT chest infection Encounters Encounter Location Date Provider Diagnosis [facility] [address] [place] [address] 03/27/2024 Wilbert Husain Plan Of Treatment Next Appt Details Provider Name:Wilbert Husain , 08/10/2024 11:30:00 AM, [address] [place], [address], Progress Notes * Sherlyn BIGGS LDOB:1955 (68 yo F)Acc No.[id number]:03/27/2024 Patient:?Sherlyn BIGGS :1955???Age:68 Y???Sex:Female Address:[address] [facility] [address], [place], [address] * true * Date:? Generated for Eliana buenrostro/Dinah/eTransmitting on:?07/13/2024 08:08 AM EDT
--- OUTSIDE RECORDS SUMMARY | 2024-07-13 08:08 | XMS_ITS | Patient Health Record ---
Author Organization [facility] [place] Address [address] [place] [address] Care Team Providers Care Lens Examiner Name Role Phone Gonzalez Plata Primary Care Provider Wilbert Figueroa Unavailable [phone] Allergies Allergen (clinical drug ingredient) Drug/Non Drug [...] Problem Acquired hammer toe of right foot ([id number] ) Other hammer toe(s) (acquired), right foot (M20.41) Active confirmed Response to treatment, Improvemen t Problem Acquired hammer toe of left foot ([id number] ) Other hammer toe(s) (acquired), left foot (M20.42) Active confirmed Response to treatment, Improvemen t Problem Polyneuropathy due to type 2 diabetes mellitus (805166172) Type 2 diabetes mellitus with diabetic polyneuropathy (E11.42) Active confirmed Vital Signs Blood pressure diastolic 70 mm Hg 12/23/2023 Height 5ft6in in 12/23/2023 Blood pressure systolic 120 mm Hg 12/23/2023 Weight 145 lbs 12/23/2023 BMI 23.40 kg/m2 12/23/2023 Procedures Procedure Date Ordered Date Performed Result Body Sit e 73837-WIDBCMJ NAIL, 6 OR MORE 09/23/2023 N/A 11163-KFZX SKIN LESIONS, OVER 4 09/23/2023 N/A 28914-OCPQSMM NAIL, 6 OR MORE 12/23/2023 N/A 11917-DNRN SKIN LESIONS, OVER 4 12/23/2023 N/A Encounters Encounter Location Date Provider Diagnosis [address] [address] 09/23/2023 Wilbert Husain Type 2 diabetes mellitus with diabetic polyneuropathy E11.42 ; Tinea unguium B35.1 ; Other hammer toe(s) (acquired), right foot M20.41 and Other hammer toe(s) (acquired), left foot M20.[address] [address] 12/23/2023 Wilbert Husain Type 2 diabetes mellitus with diabetic polyneuropathy E11.42 ; Tinea unguium B35.1 ; Other hammer toe(s) (acquired), right foot M20.41 and Other hammer toe(s) (acquired), left foot M20.[address] [address] 07/14/2023 Wilbert Husain [address] [address] 09/23/2023 Wilbert Husain [facility] [place] [address] [place] [address] 03/27/2024 Wilbert Husain Assessments Encounter Date Diagnosis (ICD Code) Assessment Notes Treatment Notes Treatment Clinical Notes Section Notes 09/23/2023 Type 2 diabetes mellitus with diabetic [...] X ray : Foot, left 3V 11/05/2011 96132-DGUTJCU NAIL, 6 OR MORE 10/17/2012 33022-OFAFBYP NAIL, 6 OR MORE 01/09/2013 69479-YWKIJQC NAIL, 6 OR MORE 10/19/2013 50520-UMPJPON NAIL, 6 OR MORE 01/15/2014 84311-FEOZQMP NAIL, 6 OR MORE 04/16/2014 24957-NOOEEDG NAIL, 6 OR MORE 08/02/2014 53503-DQVPGQT NAIL, 6 OR MORE 11/05/2014 39738-EAVPEMJ NAIL, 6 OR MORE 02/07/2015 10240-DESRCLK NAIL, 6 OR MORE 05/13/2015 66278-FRHNYNZ NAIL, 6 OR MORE 08/12/2015 51866-XLRVLEL NAIL, 6 OR MORE 11/14/2015 59651-QPSCKQG NAIL, 6 OR MORE 02/17/2016 17852-MWWYVVW NAIL, 6 OR MORE 05/21/2016 58507-QCIXWUP NAIL, 6 OR MORE 08/24/2016 06580-BAFTKGL NAIL, 6 OR MORE 11/30/2016 45802-AQUWOWV NAIL, 6 OR MORE 03/04/2017 70837-LUGVVJS NAIL, 6 OR MORE 06/10/2017 89526-BJCCABH NAIL, 6 OR MORE 09/16/2017 20160-ZLNMFJH NAIL, 6 OR MORE 12/23/2017 05226-QAYBWNR NAIL, 6 OR MORE 04/04/2018 72347-ZTSEBXV NAIL, 6 OR MORE 06/27/2018 97041-GBGTKTM NAIL, 6 OR MORE 09/12/2018 92580-BUHGHVO NAIL, 6 OR MORE 12/15/2018 41735-RIAUVPM NAIL, 6 OR MORE 03/02/2019 76346-KVKLCTU NAIL, 6 OR MORE 05/18/2019 74958-YDPOQTW NAIL, 6 OR MORE 08/21/2019 03605-KAJDHJX NAIL, 6 OR MORE 02/12/2020 42676-CTHKBQJ NAIL, 6 OR MORE 11/05/2020 32130-QGVEOKO NAIL, 6 OR MORE 02/06/2021 15645-UAYBSKF NAIL, 6 OR MORE 07/10/2021 05222-LOTVDFK NAIL, 6 OR MORE 10/20/2021 71838-YBBESEU NAIL, 6 OR MORE 01/29/2022 61596-RMBKRYJ NAIL, 6 OR MORE 05/07/2022 73537-APDPLKZ NAIL, 6 OR MORE 08/13/2022 08543-OEGINPW NAIL, 6 OR MORE 01/07/2023 84657-XMUYUMV NAIL, 6 OR MORE 04/22/2023 56043-YYSKJHZ NAIL, 6 OR MORE 09/23/2023 79383-WETRFOX NAIL, 6 OR MORE 12/23/2023 21407-Xdfqlqlp Plate 02/07/2015 58772-Rizuizlt Plate 07/23/2011 51443-Crlahwkm Plate 06/22/2011 79671-Gqfenlcj Plate 06/04/2011 16322-Dgbxnbag Plate 05/14/2011 32310-Gzgxmkto Plate 05/21/2011 92855-Swlrvtrn Plate 02/16/2011 99019-Zbfdvxmj Plate 04/30/2011 22633-Vkowfhri Plate 05/07/2011 85059-RSAE SKIN LESIONS, OVER 4 12/23/19 24 14676-TYPM SKIN LESIONS, OVER 4 09/23/19 24 22584-IRPI SKIN LESIONS, OVER 4 04/22/19 24 27197-LFEY SKIN LESIONS, OVER 4 01/08/20 21148-PJYC SKIN LESIONS, OVER 4 08/14/19 56213-FZAU SKIN LESIONS, OVER 4 05/07/19 97514-QFKM SKIN LESIONS, 2 TO 4 01/30/20 07580-DRAM SKIN LESIONS, 2 TO 4 10/21/19 94521-CKIL SKIN LESIONS, 2 TO 4 07/11/19 53331-JFWY SKIN LESIONS, 2 TO 4 02/07/20 21 61220-BWCT SKIN LESIONS, 2 TO 4 02/12/20 20 69943-OWGI SKIN LESIONS, 2 TO 4 11/06/19 21 18759-XSUF SKIN LESIONS, 2 TO 4 08/21/19 20 13708-VHFF SKIN LESIONS, 2 TO 4 05/18/19 20 61976-VQIN SKIN LESIONS, 2 TO 4 09/17/19 18 22066-ASRM SKIN LESIONS, 2 TO 4 12/19/19 11 63702-ZFKA SKIN LESIONS, 2 TO 4 06/22/19 12 69055-IVBU SKIN LESIONS, 2 TO 4 07/23/19 12 09199-EENX SKIN LESIONS, 2 TO 4 08/27/19 12 47824-BDTI SKIN LESIONS, 2 TO 4 11/06/19 15 70083-YBPN SKIN LESIONS, 2 TO 4 08/03/19 15 80704-GULV SKIN LESIONS, 2 TO 4 04/16/19 15 10568-PZBM SKIN LESIONS, 2 TO 4 01/16/20 14 06885-SBZG SKIN LESIONS, 2 TO 4 10/20/19 14 18006-WHSM SKIN LESIONS, 2 TO 4 01/10/20 13 40902-WDCG SKIN LESIONS, 2 TO 4 10/18/19 13 75459-NJEW SKIN LESIONS, 2 TO 4 11/05/19 12 76919-PWQG SKIN LESIONS, 2 TO 4 02/08/20 15 84749-TGBG SKIN LESIONS, 2 TO 4 05/13/19 16 99342-YKVU SKIN LESIONS, 2 TO 4 11/14/19 16 45829-BAZV SKIN LESIONS, 2 TO 4 08/12/19 16 29957-BEPG SKIN LESIONS, 2 TO 4 03/04/20 17 03770-RHGD SKIN LESIONS, 2 TO 4 12/01/19 17 18954-MMQA SKIN LESIONS, 2 TO 4 05/21/19 17 87478-BOMK SKIN LESIONS, 2 TO 4 08/25/19 17 43028-TGCV SKIN LESIONS, 2 TO 4 02/17/20 16 73872-WQPH SKIN LESIONS, 2 TO 4 03/02/20 19 73630-HJXL SKIN LESIONS, 2 TO 4 12/16/19 19 77370-JDFI SKIN LESIONS, 2 TO 4 06/28/19 19 17712-UICD SKIN LESIONS, 2 TO 4 09/13/19 19 41027-IDLM SKIN LESIONS, 2 TO 4 04/04/19 19 48753-XOEI SKIN LESIONS, 2 TO 4 12/24/19 18 90260-HJKZ SKIN LESIONS, 2 TO 4 06/11/19 18 A9911-MQVERXWV DYSTROPHIC NAILS ANY # K7782-HEXOLZBX DYSTROPHIC NAILS ANY # G4398-NPIJKEYO DYSTROPHIC NAILS ANY # R8503-YTFWSCDE DYSTROPHIC NAILS ANY # T0293-BAVRKKVW DYSTROPHIC NAILS ANY # 96894 - Tenotomy, open flexor 09/02/2017 Next Appt Details Provider Name:Wilbert Husain , 08/10/2024 11:30:00 AM, [address] [place], [address], Insurance Providers Payer Name Payer Address Payer Phone Subscriber Number Group Number Insured Name Patient Relationship to Insured Coverage Start Date Coverage End Date Medicare [facility] [address] [place] [address] [id number] Sherlyn Biggs Self - patient is the insured 1 [employer] [address] [place] [address] [phone] [id number] Sherlyn Biggs Self - patient is the insured Medical (General) History Medical History History ICD Code thyroid disorder stomach ulcer chronic sinusitis mumps measles joint implants/screws headaches/migraines depression chicken pox back, hip, knee pain Anxiety disorder hypertension Diabetic type ll Surgical History Surgery Date(Month/Year) back surgery 1997, 1998, 2009 thyroidectomy 1993 foot 2012 Hospitalization History Reason Date(Month/Year) Urgent care -pneumonia 1 day 10/2021
[2024-07-13 08:09] VITALS: BP 132/80; PULSE 72; TEMP 35.9; O2SAT 98; BMI 23.7
--- OUTSIDE RECORDS SUMMARY | 2024-07-13 08:09 | XMS_ITS ---
Author Organization [facility] Address [address] [facility] [place] [address] Care Team Providers Care Care Manager Cna Name Role Phone Gonzalez Plata Primary Care Provider Wilbert Figueroa Unavailable [phone] Allergies Allergen (clinical drug ingredient) Drug/Non Drug [...] Ordered Date Performed Result Body Sit e 33674-[id number] NAIL, 6 OR MORE 12/23/2023 N/A 48647-ACKM SKIN LESIONS, OVER 4 12/23/2023 N/A Encounters Encounter Location Date Provider Diagnosis [facility] [address] [place] [address] 12/23/2023 Wilbert Husain Type 2 diabetes mellitus [...] INSTRUCTIONS.pdf) Pending Test Test Name Order Date [id number] NAIL, 6 OR MORE 12/23/2023 77459-APVS SKIN LESIONS, OVER 4 12/23/19 24 Next Appt Details Follow Up: prn, Reason: Provider Name:Wilbert Husain , 08/10/2024 11:30:00 AM, [address] [place] [address], [phone], Procedure Notes * Category Sub-Category Detail Notes Debride Nail 6-10 Nail debridement Performance o f this nail treatment by a nonprofessional would put this patients foot and overall health at risk. Therefore, nail debridement was performed extensively to reduce/remove overall nail length, girth, thickness, subungual debris, and necrotic tissue, by manual and/or electrical means through the use of a nail nipper and/or dremel-type horseradish grinder, to a more viable healthy nail plate or bed tissue 6-10. Silver nitrate used for any petechial bleeding as necessary. Definitive antifungal treatment options have been reviewed and discussed with the patient. The patient chooses, no pharmaceutical tx - 58195 Keratoma Treatment Parring or Cutting o f Benign Hyperkeratotic Lesion(s) (-57) More than 4 Lesions - The Benign hyperkeratotic lesions, as described above were pared, and/or cut utilizing a sterile 15 blade, tissue nippers, and/or dremel - 98246 Progress Notes * Sherlyn BIGGS LDOB:1955 (68 yo F)Acc No.[id number]:12/23/2023 Progress Note Patient:?Sherlyn Biggs L Provider:?Wilbert Husain DPM :1955???Age:68 Y???Sex:Female D ate:12/23/2023 Address:[address] [place] [address] Pcp:Gonzalez Plata Subjective: * Chief Complaints: * [...] * Surgical History:?back surge ry 1997, 1998, 2009thyroidectomy 1992foot 2011 * Hospitalization/Major Diagno stic Procedure:?Urgent [...] B/L, B/L.?PIGMENTATION:?normal, B/L.?EDEMA(C):?absent, B/L.?Ophthalmology Referral: ?DIABETES EYE EXAM?Diabetic Retinopathy Screening:?No?General Examination: ?GENERAL APPEARANCE:?Reveals a pleasant, alert, well nourished, well developed, well hydrated individual, who demonstrates proper attention to hygiene/body habitus, and is in no acute distress , Pt serves as own historian for office visit today.?ORIENTED:?person, place, and time.?FOOT EXAM:?Lower Extremity Neurological Exam performed:?Yes ?Footwear Evaluation?Footwear Evaluation performed:?Yes??? Assessment: * Assessment: 1.?Type 2 diabetes mellitus [...] use of a nail nipper and/or dremel-type horseradish grinder, to a more viable healthy nail plate or bed tissue 6-10. Silver nitrate used for any petechial bleeding as necessary. Definitive antifungal treatment options have been reviewed and discussed with the patient. The patient chooses, no pharmaceutical tx - 41630.?Keratoma Treatment:?Parring or Cutting of Benign Hyperkeratotic Lesion(s)?(-57) More than 4 Lesions - The Benign hyperkeratotic lesions, as described above were pared, and/or cut utilizing a sterile 15 blade, tissue nippers, and/or dremel - 93094.? * Procedure Codes:?68684 DEBRI DE NAIL, 6 OR MORE, Modifiers: XS 72082 TRIM SKIN LESIONS, OVER 4, Modifiers: XS [...] for Eliana buenrostro/Dinah/Chuck on:?07/13/2024 08:08 AM EDT History and Physical Notes * HPI (History [...] Cavus structure, No Charcot collapse/destruction noted at [facility] FOOTWEAR EVALUATION: worn, OT were inspe cted and noted to be severely worn , [...]
== END 2024-07-13 08:48 | disposition home or self-care (01) ==
LOC: HO.HMCH 08:02
PROVIDERS: PCP Internal Medicine
DX: R13.10 Dysphagia, unspecified (principal); E11.65 Type 2 diabetes mellitus with hyperglycemia; Z72.0 Tobacco use; J44.9 Chronic obstructive pulmonary disease, unspecified; R41.3 Other amnesia; K21.9 Gastro-esophageal reflux disease without esophagitis

== ENCOUNTER → 2024-07-13 08:01 | Outpatient (BNVA) | payer MEDICARE, SELFPAY | PROVIDERS: PCP Internal Medicine | DX: R13.10 Dysphagia, unspecified (principal); E11.65 Type 2 diabetes mellitus with hyperglycemia; R41.3 Other amnesia; K21.9 Gastro-esophageal reflux disease without esophagitis; J44.9 Chronic obstructive pulmonary disease, unspecified; Z72.0 Tobacco use | CPT/HCPCS: 99212 ==

== ENCOUNTER 2024-10-11 06:16 | Outpatient (REF) | payer MEDICARE, SELFPAY ==
--- OUTSIDE RECORDS SUMMARY | 2024-08-10 08:30 | XMS_ITS ---
Author Organization [facility] Address [address] [place] [address] Care Team Providers Care Grinder Name Role Phone Gonzalez Plata Primary Care Provider Unavailabl Wilbert Ayala Unavailable [phone] REASON FOR VISIT X Chg Encounters Encounter Location Date Provider Diagnosis [address] [address] 08/10/2024 Wilbert Husain Plan Of Treatment No Information Progress Notes * Sherlyn BIGGS LDOB:1955 (68 yo F)Acc No.[id number]:08/10/2024 Progress Note Patient: Sherlyn WANG Provider: Eh Husain DPM :1955 A ge:68 Y S ex:Female Date:08/10/2024 Address:[address] [place] [address] [address] Pcp:Gonzalez Plata Subjective: * Chief Complaints: * [...] 08/10/2024 Generated for Printi ng/Faphang/eTransmitting on: 0 10/11/2024 06:18 AM EDT
--- OUTSIDE RECORDS SUMMARY | 2024-10-11 06:19 | XMS_ITS | Patient Health Record ---
Author Organization [facility] Address [address] [place] [address] Care Team Providers Care Sausage Tier Name Role Phone Gonzalez Plata MD Primary Care Provider Bhavesh Pierson [phone] Allergies Allergen (clinical drug ingredient) Drug/Non Drug Allergy documented on EMR Reaction Allergy Type Onset Date Status Penicillin Unknown Drug Allergy Active Biaxin Unknown Drug Allergy Active IVP Dye (uncoded) Unknown Allergy Ac tive Reason For Referral No Information Medications Medication SIG (Take, Route, Frequency, Duration) Notes Start Date End Date Status Levothyroxine Sodium 88 MCG 1 tablet on an empty stomach in the morning Orally Once a day Active diazePAM 5 MG 1 tablet as needed Orally TID Active Fluoxetine 40 mg 1 capsule in the mor martha Orally Once a day Active Rosuvastatin Calcium 10 MG 1 tablet Oral ly Once a day Active Prozac 20 mg 2 tablets Oral once a day Active Robaxin 500 MG 1.5 tablets Orally QID/PRN Active Omeprazole 20 MG 1 capsule Orally Onc e a day Active Cholestyramine 4 GM/DOSE 1sc oop Orally Once or Twice a day for diarrhea for 30 Active oxyCODONE HCl 15 MG 1-2 tablet as needed Orally every 4-6 hrs Active Gabapentin 300 MG 1 capsule in am and 2 in pm Orally daily Active SUMAtriptan Succinate 100 MG 1 tablet as needed Orally prn Active Flovent HFA 110 MCG/ACT 1 puff Inhalatio n Twice a day Active Social History Tobacco Use: Social History Observation Description Date Details (start date - stop date) Current Smoker NA - NA Tobacco Use/Smoking Question Answer Notes Patient is a current smoker How often do you smoke cigarettes? every day How many cigarettes a day do you smoke? 31 or mo re How soon after you wake up d o you smoke your first cigarette? within 5 minutes Are you interested in quitting? Thinking about q uitting Alcohol Screen Question Answer Notes Did you have a drink containing alcohol in the p ast year? 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 Problem 467709496 Abnormal finding of biliary tract (R19.8) Active confirmed Plan Of Treatment Pending Test Test Name Order Date BUN 12/02/2017 CREATININE 12/02/2017 LIVER PROFILE 12/02/2017 AMYLASE 12/02/2017 LIPASE 12/02/2017 IRON + IBC (FE) 12/02/2017 FERRITIN 12/02/2017 CRP 10/12/2016 CBC with MANUAL DIFFERENTIAL 10/12/2016 SED RATE (ESR) 10/12/2016 HEPATITIS B, C PROFILE 12/02/2017 CLOSTRIDIUM DIFF TOXIN A&B (C DIFF) 09/25 STOOL WBC 10/12/2016 [id number] (A1A) 12/02/2017 MITOCHONDRIAL AB 12/02/2017 SMOOTH MUSCLE ANTIBODIES 12/02/2017 CA 19-9 12/02/2017 GIARDIA AG, STOOL EIA 10/12/2016 OVA & PARASITES (O&P) 10/12/2016 CULTURE, STOOL 10/12/2016 MRI ABD W&WO CONTRAST 12/02/2017 FLUOR. ANTINUCLEAR AB SCREEN (NEFTALI) 09/2017 STOOL WBC 03/07/2018 Future Test Test Name Order Date COLONOSCOPY 08/10/2016 Insurance Providers Payer Name Payer Address Payer Phone Subscriber Number Group Number Insured Name Patient Relationship to Insured Coverage Start Date Coverage End Date [place] [address] [place] [address] [id number] MARY BETH BIGGS Self - patient is the insured [employer] ATTN CLAIMS [address] [place] [address] [phone] [id number] MARY BETH BIGGS Self - patient is the insured Medical (General) History Medical History History ICD Code EGD 08-04-2007--WNL, small HH History of gallstone pacreatitis Hypertension Panic attacks/Depression Denies [place],CVA,Lung disease,renal disease Diet-controlled DM Hyperlipidemia 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
[2024-10-11 11:11] LABS: Folate 10.6 ng/mL (> or = 4.0); Vitamin B12 193 pg/mL (200-900)
[2024-10-11 11:19] LABS: Free T4 (Free Thyroxine) 0.90 ng/dL (0.71-1.85)
== END 2024-10-11 06:17 | disposition home or self-care (01) ==
LOC: HO.HMGCLDS 06:16
PROVIDERS: PCP Internal Medicine; Referring Provider Registered Nurse; Visit Provider Internal Medicine
DX: G31.84 Mild cognitive impairment of uncertain or unknown etiology (principal); E03.9 Hypothyroidism, unspecified
CPT/HCPCS: 36415; 82607; 82746; 84439

== ENCOUNTER 2024-10-12 15:29 | Outpatient (AMB) | payer MEDICARE, SELFPAY ==
--- OUTSIDE RECORDS SUMMARY | 2024-10-12 15:31 | XMS_ITS | Patient Health Record ---
Author Organization [facility] Address [address] [place] [address] Care Team Providers Care Sewing Techniques Demonstrator Name Role Phone Gonzalez Plata MD Primary Care Provider Bhavesh Pierson [phone] Allergies Allergen (clinical drug ingredient) Drug/Non Drug [...] Problem Status W/U Status Risk Notes Problem 662670828 Gastroesophageal reflux disease without esophagitis (K21.9) Active confirmed Problem 131891433 Elevated liver enzymes (R74.8) Active confirmed Problem 40925781 Diarrhea, unspecified type (R19.7) Active confirmed Problem 425918323 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 Problem 568715913 Abnormal finding of biliary tract (R19.8) Active confirmed Plan Of Treatment Pending Test Test Name Order Date BUN 12/02/2017 CREATININE 12/02/2017 LIVER PROFILE 12/02/2017 AMYLASE 12/02/2017 LIPASE 12/02/2017 IRON + IBC (FE) 12/02/2017 FERRITIN 12/02/2017 CRP 10/12/2016 CBC with MANUAL DIFFERENTIAL 10/12/2016 SED RATE (ESR) 10/12/2016 HEPATITIS B, C PROFILE 12/02/2017 CLOSTRIDIUM DIFF TOXIN A&B (C DIFF) 09/25 STOOL WBC 10/12/2016 [id number] (A1A) 12/02/2017 MITOCHONDRIAL AB 12/02/2017 SMOOTH MUSCLE [...] Start Date Coverage End Date [place] OF [place] [address] [place] [address] [phone] [id number] MARY BETH BIGGS Self - patient is the insured MED[employer] ATTN CLAIMS [address] [place] [address] [id number] MARY BETH BIGGS Self - patient is the insured Medical (General) History Medical History History ICD Code EGD 08-04-2007--WNL, small HH History of gallstone pacreatitis Hypertension Panic attacks/Depression Denies [place],CVA,Lung disease,renal disease Diet-controlled DM Hyperlipidemia 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
[2024-10-12 15:33] VITALS: BP 132/76; PULSE 68; TEMP 36.1; O2SAT 97; BMI 27.4
--- NOTE | 2024-10-12 15:33 | A.OFFPC_ITS ---
Vital Signs 10/12/24 15:33 Height 5 ft 6 in Weight 170 lb BMI 27.4 BP 132/76 Blood Pressure Location Lt brachial Position Sitting Pulse 68 Pulse Source Pulse Oximeter Temp 97.0 F Temp Source Temporal Artery Scan Pulse Oximetry (%) 97 Oxygen Delivery Method Room Air Intake Visit Reasons: 3mth f/u Allergies clarithromycin (From BIAXIN) Allergy (Intermediate, Verified 10/12/24 15:37) N/V atorvastatin Allergy (Mild, Verified 10/12/24 15:37) Unknown Iodinated Contrast Media (IV Dye, Iodine Containing) Allergy (Mild, Verified 15:37) RASH AND NAUSEA AND VOMITING doxycycline Allergy (Unknown, Verified 10/12/24 15:37) Nausea and Vomiting lisinopril Allergy (Unknown, Verified 10/12/24 15:37) hypotension Penicillins Adverse Reaction (Unknown, Verified 10/12/24 15:37) UNKNOWN-FROM CHILDHOOD buspirone (From BuSpar) Adverse Reaction (Verified 10/12/24 15:37) Headache Tobacco use date assessed: 10/12/24 Fall risk assessment: No Falls in past year Last assessed Fall Risk: 10/12/24 Dental Screening Dental Screen Date: 10/12/24 Did you have a dental visit in the last 12 months?: No Did you have a dental problem in the last 6 months where you did not have access to dental care?: No Was dental information given to patient?: Patient declined [facility] Medical History (Updated 10/12/24 @ 16:11 by Gonzalez Plata MD) Hoarseness of voice Colonoscopy refused Medicare annual wellness visit, subsequent Nicotine dependence, cigarettes, uncomplicated Community acquired pneumonia Arm pain Scratch of eye region Trigger finger, right middle finger 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 Low back pain Trigger finger Knee pain, left Pneumonia COPD exacerbation Chest tightness Abnormal lung sounds Screening for colon cancer Weight loss Post-menopausal Herpes zoster Chest pain Migraine Left scapula fracture Asthma Peripheral neuropathy Tobacco abuse Hypercholesterolemia Vitamin D deficiency Hypothyroid COPD (chronic obstructive pulmonary disease) Insomnia GERD (gastroesophageal reflux disease) Hypertension Type 2 diabetes mellitus with hyperglycemia Surgical History History of esophagogastroduodenoscopy (EGD) History of lumbar surgery History of colonoscopy History of foot surgery History of thyroidectomy History of cholecystectomy Family History Father Prostate cancer Diabetes Hypertension Mother CVD (cardiovascular disease) Myocardial infarction Social History Housing: Apartment Alcohol intake: unknown Patient Tobacco Use Status: Current everyday Tobacco user Tobacco use type: Cigarette Cigarette Packs Per Day: 0.5 Cigarettes Per Day: 4 Years Smoked: 45 years/ Quit Feb 2023 e-Cigarette/Vaping Use: Never Used Second Hand Smoke Exposure: No Advance Directives Date on File: 02/12/21 service: No Current occupational status: disabled Cognitive needs: Yes (cane ) Hearing needs: No Vision needs: Yes Questionnaire PHQ-9 Over the last 2 weeks, how often have you been bothered by any of the following problems? 1. Little interest or pleasure in doing things: not at all 2. Feeling down, depressed, or hopeless: several days 3. Trouble falling or staying asleep, or sleeping too much: several days 4. Feeling tired or having little energy: several days 5. Poor appetite or overeating: several days 6. Feeling bad about yourself - or that you are a failure or have let yourself or your family down: several days 7. Trouble concentrating on things, such as reading the newspaper or watching television: several days 8. Moving or speaking so slowly that other people could have noticed. Or the opposite - being so fidgety or restless that you have been moving around a lot more than usual: several days 9. Thoughts that you would be better off or of hurting yourself in some way: not at all Total score: 7 Source: Developed by Drs. Bhavesh Alfred, Yuridia Suarez, Triston Gabriel and colleagues, with an educational yara from [employer]. Thrive Questionnaire Date Thrive assessed: 10/12/24 I am a: Patient What is your living situation today?: I have a steady place to live Within the past 12 months, did the food you bought not last and you didn't have the money to get more?: Sometimes True Within the past 12 months, did you worry whether your food would run out before you got money to buy more?: Sometimes True Do you have trouble paying for medicines?: No Do you have trouble getting transportation to medical appointments?: No Do you have trouble paying your heating and electricity bill?: No Do you have trouble taking care of your child, family member or friend?: No Do you have trouble with day-to-day activities such as bathing, preparing meals, shopping, managing finances, etc.?: Yes Are you currently unemployed and looking for a job?: No Are you interested in more education?: No THRIVE Score: 2 AUDIT C Alcohol Use Questionnaire (AUDIT-C) 1. How often do you have a drink containing alcohol?: Never 3. How often do you have six or more drinks on one occasion?: Never Total Score: 0 SIL-7 AMB Questionnaire SIL-7 Date SIL - 7 assessed: 04/13/24 Feeling nervous, anxious, or on edge: 0 = Not at all Not being able to stop or control worryin = Not at all Worrying too much about different things: 0 = Not at all Trouble relaxin = Not at all Being so restless that it is hard to sit still: 0 = Not at all Becoming easily annoyed or irritable: 0 = Not at all Feeling afraid as if something awful might happen: 0 = Not at all Total SIL-7 score (0-4 normal; 5-9 mild; 10-14 moderate; 15-21 severe): 0 Source: Developed by Drs. Bhavesh Alfred, Yuridia Suarez, Triston Gabriel and colleagues, with an educational yara from [employer]. Physical exam (Primary Care) Vital Signs: Last Vital Signs Temp 97.0 F 10/12/24 15:33 Pulse 68 10/12/24 15:33 BP 132/76 10/12/24 15:33 Pulse Ox 97 10/12/24 15:33 Oxygen Delivery Method Room Air 10/12/24 15:33 BMI result Body Mass Index 27.4 Tobacco/Smoking Status: Tobacco use Status Tobacco use date assessed 10/12/24 10/12/24 15:41 Patient Tobacco Use Status Current everyday Tobacco 10/12/24 15:41 Tobacco use type Cigarette 10/12/24 15:41 e-Cigarette/Vaping Use Never Used 10/12/24 15:41 PHQ-9: PHQ-9 Score PHQ-9: Total score 7 10/12/24 15:41 Thrive Assessment: Date of Thrive Assessment Date Thrive assessed 10/12/24 10/12/24 15:41 Const General: alert; No acute distress Eyes Conjunctivae: conjunctivae normal Resp Auscultation: clear to auscultation bilaterally Cardio Rate: regular rate Rhythm: regular rhythm GI Inspection: Yes normal to inspection Extrem General: Yes normal to inspection and No edema Results AMB Hemoglobin A1c AMB Hemoglobin A1c 5.7 % Last Edit by Sahara Santos CMA on 10/12/24 15:43 Results Reviewed Results Reviewed: Laboratory Last Values Hgb A1c (Clinic) 5.7 % (4.0-6.0) 10/12/24 15:41 Coding Level of Care Code Est Pt Level 4 (46991) Complex EM visit Add On G2211 Diagnoses Type 2 diabetes mellitus with hyperglycemia, without long-term current use of insulin E11.65 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: without petroleum 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 use Acquired hypothyroidism E03.9 Hypothyroidism type: acquired Gastroesophageal reflux disease without esophagitis K21.9 Esophagitis presence: without esophagitis Pulmonary emphysema, unspecified emphysema type J44.9 Tobacco abuse Z72.0 Chronic low back pain M54.50; G89.29 Hoarseness of voice R49.0 Assessment & Plan Assessment & Plan (1) Type 2 diabetes mellitus with hyperglycemia: Code(s): E11.65 - Type 2 diabetes mellitus with hyperglycemia Category: Medical Qualifiers: 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 Patient has been doing great and has been under control (2) Hypothyroid: Code(s): E03.9 - Hypothyroidism, unspecified Category: Medical Qualifiers: Hypothyroidism type: acquired Qualified Code(s): E03.9 - Hypothyroidism, unspecified Plan: Continue with thyroid medication Genevieve blood work needs to be done (3) GERD (gastroesophageal reflux disease): Code(s): K21.9 - Gastro-esophageal reflux disease without esophagitis Category: Medical Qualifiers: Esophagitis presence: without esophagitis Qualified Code(s): K21.9 - Gastro-esophageal reflux disease without esophagitis Plan: Avoid the foods that causes that usually spicy foods, tomato products, juices, coffee, soda and foods that your sensitive to. After eating do not lie down, allow 3-4 hours before in lie down. And keep the head of bed above 30 degrees to avoid the acid from going up. (4) COPD (chronic obstructive pulmonary disease): Code(s): J44.9 - Chronic obstructive pulmonary disease, unspecified Category: Medical Plan: Patient is advised strongly to stop smoking! On albuterol inhaler (5) Tobacco abuse: Comment: 4 cigarettes a day (03/2024) Code(s): Z72.0 - Tobacco use Category: Medical Plan: Strongly advised to stop smoking! (6) Chronic low back pain: Code(s): M54.50 - Low back pain, unspecified; G89.29 - Other chronic pain Category: Medical Plan: Patient is strongly advised to stop smoking! Narcotic pain meds: Is being prescribed with the understanding that these medications are potentially addictive and should be used only when absolutely necessary and must always be secured. Any remaining pills should be safely disposed off appropriately. Patient is advised that narcotics can impaired judgment and one should not drive or operate heavy machinery while taking these medications. Never share these medications with anybody and do not leave them unattended. They will not be replaced under any circumstances. (7) Hoarseness of voice: Code(s): R49.0 - Dysphonia Category: Medical Plan: seen ENT and was advise to to get ba swallow. but patient declined at first Plan History of Present Illness The patient is a 68-year-old female presenting for a follow-up visit for multiple chronic conditions including GERD, COPD, hypothyroidism, and hypercholesterolemia. The patient reports a weight gain of 20 pounds since June, which she attributes to her chronic conditions and lifestyle factors. She has a history of GERD and gastritis, with symptoms exacerbated by dietary choices and stress. The patient has been diagnosed with COPD and is currently using an albuterol inhaler. She has been advised to stop smoking, which she is attempting to do by reducing her cigarette intake to about four per day. The patient has a history of hypothyroidism and is continuing her thyroid medication as prescribed. Her last blood work in November showed normal blood counts and controlled blood sugar levels. She also has a history of hypercholesterolemia, with her last cholesterol test in November showing an LDL level of 85 mg/dL. The patient has a history of migraines and anxiety disorder, for which she is taking hydroxyzine and diazepam. She reports experiencing hoarseness and difficulty swallowing, which have been persistent issues. The patient has a vitamin B12 deficiency, which is not improving despite supplementation, likely due to malabsorption issues related to her use of omeprazole. She has been advised to start vitamin B12 injections to address this deficiency. Health Maintenance - Bone density screening conducted in 2020 - Colonoscopy performed in 2016 - Last cholesterol test in November with LDL of 85 mg/dL - Blood work in November showed normal blood counts and controlled blood sugar levels Social History - Tobacco use: Patient smokes approximately four cigarettes per day and is attempting to quit. - Functional status: Patient requires assistance with grocery shopping, laundry, and cleaning due to lower back issues. Review of Systems - General: Reports weight gain of 20 pounds since June. - Respiratory: Reports hoarseness and difficulty swallowing. Denies current d yspnea. - Gastrointestinal: Reports GERD symptoms exacerbated by dietary choices. - Neurological: Reports history of migraines. - Psychiatric: Reports anxiety disorder. Physical Exam Results - Labs: Last blood work in November showed normal blood counts and controlled blood sugar levels. - Labs: Last cholesterol test in November with LDL of 85 mg/dL. - Labs: Vitamin B12 level low despite supplementation. Plan The patient is advised to continue her current thyroid medication and to undergo further blood work to monitor her thyroid function and cholesterol levels. She is strongly advised to quit smoking to improve her COPD and overall health, with a reduction in cigarette consumption already noted. For her vitamin deficiency, the patient will begin vitamin injections due to suspected malabsorption issues. The patient is encouraged to follow up with her research quality assurance specialist for ongoing management of GERD and gastritis. She is advised to continue using her albuterol inhaler as needed for COPD and to follow up with her site surveyor. The patient is also advised to complete the recommended swallowing evaluation to address her persistent hoarseness and swallowing difficulties. Patient was informed and verbally consented to the use of an ambient scribe for clinic note documentation during this visit. Discussion Notes During the visit, I discussed with the patient the importance of quitting smoking to improve her COPD and overall health. We reviewed her current medication regimen, including the need for vitamin B12 injections due to malabsorption issues. I emphasized the necessity of completing the swallowing evaluation to address her persistent hoarseness and swallowing difficulties. We also discussed the continuation of her thyroid medication and the need for reg ular blood work to monitor her thyroid function and cholesterol levels. The patient was advised to follow up with her research quality assurance specialist and site surveyor for ongoing management of her GERD, gastritis, and COPD. Patient Instructions - Continue taking thyroid medication as prescribed. - Quit smoking to improve lung health. - Begin vitamin B12 injections as directed. - Follow up with research quality assurance specialist for GERD and gastritis management. - Use albuterol inhaler as needed for COPD. - Complete the swallowing evaluation as recommended. Orders: Orders AMB Hemoglobin A1c Today Z13.9 - Encounter for screening, unspecified Complete Blood Count Auto Diff 2 Months E11.65 - Type 2 diabetes mellitus with hyperglycemia Comprehensive Met. Panel 2 Months E11.65 - Type 2 diabetes mellitus with hyperglycemia Creatinine Urine 2 Months E11.65 - Type 2 diabetes mellitus with hyperglycemia Microalbumin, Random (w Creat) 2 Months E11.65 - Type 2 diabetes mellitus with hyperglycemia Lipid Panel 2 Months E11.65 - Type 2 diabetes mellitus with hyperglycemia, E78.00 - Pure hypercholesterolemia, unspecified Vitamin B12 and Folate 2 Months E11.65 - Type 2 diabetes mellitus with hyperglycemia Hemoglobin A1c 2 Months E11.65 - Type 2 diabetes mellitus with hyperglycemia Intrinsic Factor Antibodies 2 Months E53.8 - Deficiency of other specified B group vitamins Thyroid Stimulating Hormone 2 Months E11.65 - Type 2 diabetes mellitus with hyperglycemia Vitamin D 25-OH Total 2 Months E11.65 - Type 2 diabetes mellitus with hyperglycemia Free T4 (Free Thyroxine) 2 Months E11.65 - Type 2 diabetes mellitus with hyperglycemia FL barium swallow Today R13.10 - Dysphagia, unspecified, R49.0 - Dysphonia FL upper GI series Today R13.10 - Dysphagia, unspecified, R49.0 - Dysphonia Parietal Cell Antibody 2 Months E53.8 - Deficiency of other specified B group vitamins Medications: New cyanocobalamin (vitamin B-12) 1,000 mcg intramuscularly once a week x 4 weeks then once a month; 10 mL 1RF 4 weeks E53.8 - Deficiency of other specified B group vitamins Refilled hydroxyzine HCl 25 mg PO BEDTIME 30 tabs 3RF E53.8 - Deficiency of other specified B group vitamins promethazine 25 mg PO Q6H PRN 28 tabs 0RF for nausea/vomiting G43.909 - Migraine, unspecified, not intractable, without status migrainosus diazepam 5 mg PO TID 270 tabs 1RF muscle spasm F32.9 - Major depressive disorder, single episode, unspecified, F41.9 - Anxiety disorder, unspecified
== END 2024-10-12 16:29 | disposition home or self-care (01) ==
LOC: HO.HMCH 15:29
PROVIDERS: PCP Internal Medicine; Visit Provider Internal Medicine
DX: E11.65 Type 2 diabetes mellitus with hyperglycemia (principal); E03.9 Hypothyroidism, unspecified; K21.9 Gastro-esophageal reflux disease without esophagitis; J44.9 Chronic obstructive pulmonary disease, unspecified; Z72.0 Tobacco use; M54.50 Low back pain, unspecified; G89.29 Other chronic pain; R49.0 Dysphonia; Z13.9 Encounter for screening, unspecified

== ENCOUNTER → 2024-10-12 15:29 | Outpatient (BNVA) | payer MEDICARE, SELFPAY | PROVIDERS: PCP Internal Medicine; Visit Provider Internal Medicine | DX: E11.65 Type 2 diabetes mellitus with hyperglycemia (principal); E03.9 Hypothyroidism, unspecified; K21.9 Gastro-esophageal reflux disease without esophagitis; J44.9 Chronic obstructive pulmonary disease, unspecified; M54.50 Low back pain, unspecified; G89.29 Other chronic pain; R49.0 Dysphonia; Z72.0 Tobacco use | CPT/HCPCS: 83036; 99212 ==

== ENCOUNTER 2024-10-16 11:20 | Outpatient (AMB) | payer MEDICARE, SELFPAY ==
--- OUTSIDE RECORDS SUMMARY | 2024-08-10 08:30 | XMS_ITS ---
Author Organization [facility] Address [address] [place] [address] Care Team Providers Care Mortuary Operations Manager Name Role Phone Gonzalez Plata Primary Care Provider Unavailabl Wilbert Ayala Unavailable [phone] REASON FOR VISIT X Chg Encounters Encounter Location Date Provider Diagnosis [address] [address] 08/10/2024 Wilbert Husain Plan Of Treatment No Information Progress Notes * Sherlyn BIGGS LDOB:1955 (69 yo F)Acc No.[id number]:08/10/2024 Progress Note Patient: Sherlyn WANG Provider: Eh Husain DPM :1955 A ge:68 Y S ex:Female Date:08/10/2024 Address:[address] [place] [address] Pcp:Gonzalez Plata Subjective: * Chief Complaints: * [...] 0 08/10/2024 Generated for Printi ng/Faphang/eTransmitting on: 10/16/2024 12:38 PM EDT
--- NOTE | 2024-10-16 11:30 | AM.OFFVISNUR ---
Intake Visit Reasons: B12 (first of 4 weekly injections) Allergies clarithromycin (From BIAXIN) Allergy (Intermediate, Verified 10/12/24 15:37) N/V atorvastatin Allergy (Mild, Verified 10/12/24 15:37) Unknown Iodinated Contrast Media (IV Dye, Iodine Containing) Allergy (Mild, Verified 10/12/24 15:37) RASH AND NAUSEA AND VOMITING doxycycline Allergy (Unknown, Verified 10/12/24 15:37) Nausea and Vomiting lisinopril Allergy (Unknown, Verified 10/12/24 15:37) hypotension Penicillins Adverse Reaction (Unknown, Verified 10/12/24 15:37) UNKNOWN-FROM CHILDHOOD buspirone (From BuSpar) Adverse Reaction (Verified 10/12/24 15:37) Headache Office Meds cyanocobalamin (vitamin B-12) 1,000 mcg/mL injection solution Performing Provider: Gonzalez Plata MD [facility] Administered by: Jackelin Velazquez LPN on 10/16/24 11:30 Dose Route Admin Location Dispensed Lot Number Expiration Date [facility] Oceanographic Meteorologist 1,000 mcg IM left deltoid 1 mL [id number] 01/25/27 35021-695-97 [employer] Total Dispensed Waste 1 mL 0 % Assessment & Plan Assessment & Plan Orders: Orders AMB Vitamin B12 Injection Patient Supplied Today E53.8 - Deficiency of other specified B group vitamins Coding
--- OUTSIDE RECORDS SUMMARY | 2024-10-16 12:38 | XMS_ITS | Patient Health Record ---
Author Organization [facility] Address [address] [place] [address] Care Team Providers Care Teacher Kindergarten Name Role Phone Gonzalez Plata MD Primary Care Provider Bhavesh Pierson [phone] Allergies Allergen (clinical drug ingredient) Drug/Non Drug [...] Problem Status W/U Status Risk Notes Problem [id number] Gastroesophageal reflux disease without esophagitis (K21.9) Active confirmed Problem 944555444 Elevated liver enzymes (R74.8) Active confirmed Problem 07861324 Diarrhea, unspecified type (R19.7) Active confirmed Problem 390345466 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 Problem 230849931 Abnormal finding of biliary tract (R19.8) Active confirmed Plan Of Treatment Pending Test Test Name Order Date BUN 12/02/2017 CREATININE 12/02/2017 LIVER PROFILE 12/02/2017 AMYLASE 12/02/2017 LIPASE 12/02/2017 IRON + IBC (FE) 12/02/2017 FERRITIN 12/02/2017 CRP 10/12/2016 CBC with MANUAL DIFFERENTIAL 10/12/2016 SED RATE (ESR) 10/12/2016 HEPATITIS B, C PROFILE 12/02/2017 CLOSTRIDIUM DIFF TOXIN A&B (C DIFF) 09/25 STOOL WBC 10/12/2016 [id number] (A1A) 12/02/2017 MITOCHONDRIAL AB 12/02/2017 SMOOTH MUSCLE [...] Start Date Coverage End Date MEDICARE OF [place] [address] [place] [address] [phone] [id number] MARY BETH BIGGS Self - patient is the insured [employer] ATTN CLAIMS [address] [place] [address] [id number] MARY BETH BIGGS Self - patient is the insured Medical (General) History Medical History History ICD Code EGD 08-04-2007--WNL, small HH History of gallstone pacreatitis Hypertension Panic attacks/Depression Denies [place],CVA,Lung disease,renal disease Diet-controlled DM Hyperlipidemia 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
== END 2024-10-16 11:29 | disposition home or self-care (01) ==
LOC: HO.HMCH 11:20
PROVIDERS: PCP Internal Medicine; Visit Provider Internal Medicine
DX: E53.8 Deficiency of other specified B group vitamins (principal)

== ENCOUNTER → 2024-10-16 11:20 | Outpatient (BNVA) | payer MEDICARE, SELFPAY | PROVIDERS: PCP Internal Medicine; Visit Provider Internal Medicine | DX: E53.8 Deficiency of other specified B group vitamins (principal) | CPT/HCPCS: 96372; J3420 ==

== ENCOUNTER 2024-10-23 08:28 | Outpatient (AMB) | payer MEDICARE, SELFPAY ==
--- OUTSIDE RECORDS SUMMARY | 2024-10-23 08:44 | XMS_ITS | Patient Health Record ---
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 Problem 543910848 Abnormal finding of biliary tract (R19.8) Active confirmed Plan Of Treatment Pending Test Test Name Order Date BUN 12/02/2017 CREATININE 12/02/2017 LIVER PROFILE 12/02/2017 AMYLASE 12/02/2017 LIPASE 12/02/2017 IRON + IBC (FE) 12/02/2017 FERRITIN 12/02/2017 CRP 10/12/2016 CBC with MANUAL DIFFERENTIAL 10/12/2016 SED RATE (ESR) 10/12/2016 HEPATITIS B, C PROFILE 12/02/2017 CLOSTRIDIUM DIFF TOXIN A&B (C DIFF) 09/25 STOOL WBC 10/12/2016 [id number]-2-[id number] (A1A) 12/02/2017 MITOCHONDRIAL AB 12/02/2017 SMOOTH MUSCLE [...] Start Date Coverage End Date MEDICARE OF [place] [address] [place] [address] [id number] MARY BETH BIGGS Self - patient is the insured MED[employer] ATTN CLAIMS [address] [place] [address] [phone] [id number] MARY BETH BIGGS Self - patient is the insured Medical (General) History Medical History History ICD Code EGD 08-04-2007--WNL, small HH History of gallstone pacreatitis Hypertension Panic attacks/Depression Denies [place],CVA,Lung disease,renal disease Diet-controlled DM Hyperlipidemia 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
--- NOTE | 2024-10-23 09:22 | AM.OFFVISNUR ---
Intake Visit Reasons: B12 Allergies clarithromycin (From BIAXIN) Allergy (Intermediate, Verified 10/12/24 15:37) N/V atorvastatin Allergy (Mild, Verified 10/12/24 15:37) Unknown Iodinated Contrast Media (IV Dye, Iodine Containing) Allergy (Mild, Verified 10/12/24 15:37) RASH AND NAUSEA AND VOMITING doxycycline Allergy (Unknown, Verified 10/12/24 15:37) Nausea and Vomiting lisinopril Allergy (Unknown, Verified 10/12/24 15:37) hypotension Penicillins Adverse Reaction (Unknown, Verified 10/12/24 15:37) UNKNOWN-FROM CHILDHOOD buspirone (From BuSpar) Adverse Reaction (Verified 10/12/24 15:37) Headache Nursing Note Patient in for B12 injection and brought in friend Latoya for B12 injection teaching. Patient would prefer to do injection at home. Updated Dr. Plata with patient's preference and request and Dr. Plata approved. Advised on aseptic technique, how check medication bottle for damage, expiration dates. Demonstrated how to connect needle to syringe, how to draw medication from vial. Discussed making sure injection area is cleaned with alcohol wipe, grab skin around area where injection will be given and inject syringe in (R) deltoid and push syringe plunger until syringe is empty. Patient and Latoya voiced understanding and will call office if needed. Prescription sent to pharmacy for syringes. Office Meds cyanocobalamin (vitamin B-12) 1,000 mcg/mL injection solution Performing Provider: Gonzalez Plata MD Performing [facility] [place] [facility] Administered by: Jackelin Velazquez LPN on 10/23/24 09:23 Dose Route Admin Location Dispensed Lot Number Expiration Date [facility] Medical Certification Specialist 1,000 mcg IM left deltoid 1 mL [id number] 01/25/27 07002-523-61 [employer] Total Dispensed Waste 1 mL 0 % Assessment & Plan Assessment & Plan Orders: Orders AMB Vitamin B12 Injection Patient Supplied Today E53.8 - Deficiency of other specified B group vitamins Medications: New syringe with needle, safety (Monoject Safety Syringes) use with B12 injectable solution as directed 2 ea 11RF Coding
== END 2024-10-23 09:31 | disposition home or self-care (01) ==
LOC: HO.HMCH 08:29
PROVIDERS: PCP Internal Medicine; Visit Provider Internal Medicine
DX: E53.8 Deficiency of other specified B group vitamins (principal)

== ENCOUNTER → 2024-10-23 08:28 | Outpatient (BNVA) | payer MEDICARE, SELFPAY | PROVIDERS: PCP Internal Medicine; Visit Provider Internal Medicine | DX: E53.8 Deficiency of other specified B group vitamins (principal) | CPT/HCPCS: 96372; J3420 ==

== ENCOUNTER 2024-10-24 08:22 | Outpatient (AMB) | payer MEDICARE, SELFPAY ==
--- OUTSIDE RECORDS SUMMARY | 2024-08-10 08:30 | XMS_ITS ---
Author Organization [facility] Address [address] [place] [address] Care Team Providers Care Warehouse Processor Name Role Phone Gonzalez Plata Primary Care Provider Unavailabl Wilbert Ayala Unavailable [phone] REASON FOR VISIT X Chg Encounters Encounter Location Date Provider Diagnosis [address] [address] 08/10/2024 Wilbert Husain Plan Of Treatment No Information Progress Notes * Sherlyn BIGGS LDOB:1955 (69 yo F)Acc No.[id number]:08/10/2024 Progress Note Patient: Sherlyn WANG Provider: Eh Husain DPM :1955 A ge:68 Y S ex:Female Date:08/10/2024 Address:[address] [place] [address] [facility] Pcp:Gonzalez Plata Subjective: * Chief Complaints: * 1 . X Chg. * Medical History: Objective: * Vitals: Assessment: Plan: * Treatment: * Images: * The named appointment provid er may or may not be the originator of this progress note, and it is not deemed complete until electronically signed by the appointment provider. Sign off status: Pending * Provider: Eh Husain DPM Date: 08/10/2024 Generated for Printi ng/Faphang/eTransmitting on: 10/24/2024 08:32 AM EDT
--- NOTE | 2024-10-24 08:32 | A.OFFVIS_ITS ---
Vital Signs 10/24/24 08:32 Height 5 ft 6 in Intake Visit Reasons: 3 month f/u Allergies clarithromycin (From BIAXIN) Allergy (Intermediate, Verified 10/24/24 08:33) N/V atorvastatin Allergy (Mild, Verified 10/24/24 08:33) Unknown Iodinated Contrast Media (IV Dye, Iodine Containing) Allergy (Mild, Verified 10/24/24 08:33) RASH AND NAUSEA AND VOMITING doxycycline Allergy (Unknown, Verified 10/24/24 08:33) Nausea and Vomiting lisinopril Allergy (Unknown, Verified 10/24/24 08:33) hypotension Penicillins Adverse Reaction (Unknown, Verified 10/24/24 08:33) UNKNOWN-FROM CHILDHOOD buspirone (From BuSpar) Adverse Reaction (Verified 10/24/24 08:33) Headache Medication List - Last Reconciled 10/24/24 by Melania Rodriguez CNP albuterol sulfate 2.5 mg (3 mL) inhalation QID PRN albuterol sulfate 90 mcg/actuation 2 puffs inhalation Q4-6H PRN cholecalciferol (vitamin D3) 25 mcg PO DAILY cyanocobalamin (vitamin B-12) 1,000 mcg intramuscularly once a week x 4 weeks then once a month; 4 weeks [DIABETIC SHOES As directed] diazepam 5 mg PO TID erenumab-aooe (Aimovig Autoinjector) mg subcut .once a month [EXTRA DEPTH ORTHOPEDIC SHOES WITH CUSTOMIZED HEAT MOLDED MULTIDENSITY INNERSOLES As directed] fluoxetine 40 mg PO DAILY qulyvgenuut-mxamrxtjw-dyrwiopy 200-62.5-25 mcg (Trelegy Ellipta) 1 inh inhalation DAILY gabapentin 600 mg PO BID hydroxyzine HCl 25 mg PO BEDTIME ipratropium-albuterol 0.5 mg-3 mg(2.5 mg base)/3 mL 3 mL inhalation DAILY PRN levothyroxine take 88 mcg QD except for tuesday orally every morning; 30 days methocarbamol 500 mg PO TID PRN nebulizers (Aeroneb Go Nebulizer) As directed UPDRAFT QID omeprazole 20 mg PO BID oxycodone 15 mg PO Q4-6H 30 days promethazine 25 mg PO Q6H PRN rosuvastatin 20 mg PO DAILY 90 days sumatriptan succinate (Imitrex) 100 mg PO .QD PRN 90 days syringe with needle, safety (Monoject Safety Syringes) use with B12 injectable solution as directed HPI Comments Details: 69-year-old woman with chronic low back pain, COPD, and chronic migraine without aura. She was doing okay. Headaches were controlled with Aimovig. She had few headaches which may be triggered by heat. Sumatriptan as needed helps. She started weekly vitamin B12 injections with her PCP for low B12 and had second injection this week. She thought memory was getting a bit better. She had one episode of momentary confusion when driving in spring 2024, no further episodes. Stress was a bit better. She was sleeping more during the day and was awake during the night. 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 Low back pain Trigger finger Knee pain, left Pneumonia COPD exacerbation Chest tightness Abnormal lung sounds Screening for colon cancer Weight loss Post-menopausal Herpes zoster Chest pain Migraine Left scapula fracture Asthma Peripheral neuropathy Tobacco abuse Hypercholesterolemia Vitamin D deficiency Hypothyroid COPD (chronic obstructive pulmonary disease) Insomnia GERD (gastroesophageal reflux disease) Hypertension Type 2 diabetes mellitus with hyperglycemia Surgical History History of esophagogastroduodenoscopy (EGD) History of lumbar surgery History of colonoscopy History of foot surgery History of thyroidectomy History of cholecystectomy Family History Father Prostate cancer Diabetes Hypertension Mother CVD (cardiovascular disease) Myocardial infarction Social History Housing: Apartment Alcohol intake: unknown Patient Tobacco Use Status: Current everyday Tobacco user Tobacco use type: Cigarette Cigarette Packs Per Day: 0.5 Cigarettes Per Day: 4 Years Smoked: 45 years/ Quit Feb 2023 e-Cigarette/Vaping Use: Never Used Second Hand Smoke Exposure: No Advance Directives Date on File: 02/12/21 service: No Current occupational status: disabled Cognitive needs: Yes (cane ) Hearing needs: No Vision needs: Yes Review of Systems Const Denies chills, Denies daytime sleepiness, Denies difficulty sleeping, Denies fatigue, Denies fever(s), Denies frequent falls, Reports headache(s), Denies increased appetite, Denies poor appetite, Denies snoring, Denies weakness, Denies weight gain and Denies weight loss Eyes Denies loss of vision ENT Denies vertigo, Denies dizziness and Reports headache(s) Card Denies chest pain at rest, Denies chest pain with activity, Denies syncope, Denies leg edema and Denies palpitations Resp Denies snoring GI Denies constipation, Denies heartburn, Denies diarrhea and Denies nausea Denies urinary frequency, Denies urinary incontinence and Denies urinary urgency Musc Denies abnormal gait, Denies numbness and Denies tingling Skin/Breast Denies dry skin and Denies rash Neuro Denies abnormal gait, Denies vertigo, Denies dizziness, Denies syncope, Denies frequent falls, Reports headache(s), Denies lack of coordination, Denies loss of vision, Reports memory loss, Denies numbness, Denies restless legs, Denies seizure-like activity, Denies tingling, Denies paresthesias, Denies tremor(s) and Denies weakness Psych Denies anxiety, Denies depression, Denies auditory hallucinations, Reports memory loss, Denies visual hallucinations and Denies suicidal ideation Endo Denies fatigue and Denies palpitations Physical Exam Const Other: General Appearance:? normal, in no acute distress. Skin:? no rashes, no significant birthmarks. Heart:? S1, S2 normal, no murmurs. Lungs:? clear anteriorly and posteriorly. Extremities:? no edema. Psych:? alert, oriented, cognitive function intact, cooperative with exam. Neuro Other: Mental Status:?Normal attention, orientation, memory and affect.? Cranial Nerves:?Pupils are equal, round and reactive to light. External occular muscles are intact. Visual gandhi are full. Face is symmetrical. Facial sensations are normal. Tongue is midline. Palate elevates symmetrically. Shoulder shrugging is normal. Hearing to bedside conversation is normal. Motor Examination:?DTRs absent. Sensory Exam:?....? Coordination:?No ataxia,?no titubation.? Gait Exam: Cautious with 2 canes. Cerebellar Signs:?Zqxbmt-nr-lxyl is okay. Extrapyramidal System:?No tremor, rigidity with normal facial expressions.? Pronator Drift:?Not present.? Involuntary Movements:?No tremors seen.? Speech:?Normal.? Results Reviewed Results Reviewed: Laboratory Tests 10/11/24 06:35 Vitamin B12 193 L Folate 10.6 Assessment & Plan Assessment & Plan (1) Migraine without aura: Code(s): G43.009 - Migraine without aura, not intractable, without status migrainosus Category: Medical Qualifiers: Status migrainosus presence: without status migrainosus Intractability: not intractable Qualified Code(s): G43.009 - Migraine without aura, not intractable, without status migrainosus Plan: Continue Aimovig Solution Auto-injector 140mg/mL 1mL subcutaneous monthly Continue sumatriptan 100mg 1 tablet as needed for migraine (2) Memory change: Code(s): R41.3 - Other amnesia Category: Medical Plan: Labs reviewed which showed low vitamin B12. She was started on vitamin B12 weekly injections by PCP. She did not have EEG done that was requested at last visit and test was requested again. Plan Meds tried: amitriptyline, gabapentin, topiramate, Aimovig, sumatriptan Orders: Orders EEG electroencephalogram Today R41.3 - Other amnesia Medications: New erenumab-aooe (Aimovig Autoinjector) 140 mg subcut QMONTH 3 mL 1RF 90 days sumatriptan succinate take 1 tab at onset of headache; if no relief, may repeat 1 tab after at least 2 hrs; max = 2 tabs/24 hrs PO 10 tabs 5RF 30 days Discontinued sumatriptan succinate (Imitrex) Discontinued Reason: Order 100 mg PO .QD 90 days PRN 42 tabs 3RF migraine headache G43.909 - Migraine, unspecified, not intractable, without status migrainosus erenumab-aooe (Aimovig Autoinjector) Discontinued Reason: Order subcut .once a month Coding Level of Care Code Est Pt Level 4 (09833) Diagnoses Migraine without aura and without status migrainosus, not intractable G43.009 Status migrainosus presence: without status migrainosus Intractability: not intractable Memory change R41.3
--- OUTSIDE RECORDS SUMMARY | 2024-10-24 08:33 | XMS_ITS | Patient Health Record ---
Author Organization [facility] Address [address] [place] [address] Care Team Providers Care Cake Batter Mixer Name Role Phone Gonzalez Plata MD Primary Care Provider Bhavesh Pierson [phone] Allergies Allergen (clinical drug ingredient) Drug/Non Drug [...] Problem Status W/U Status Risk Notes Problem [id number] Gastroesophageal reflux disease without esophagitis (K21.9) Active confirmed Problem 767540892 Elevated liver enzymes (R74.8) Active confirmed Problem 19585960 Diarrhea, unspecified type (R19.7) Active confirmed Problem 251212666 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 Problem 024611241 Abnormal finding of biliary tract (R19.8) Active confirmed Plan Of Treatment Pending Test Test Name Order Date BUN 12/02/2017 CREATININE 12/02/2017 LIVER PROFILE 12/02/2017 AMYLASE 12/02/2017 LIPASE 12/02/2017 IRON + IBC (FE) 12/02/2017 FERRITIN 12/02/2017 CRP 10/12/2016 CBC with MANUAL DIFFERENTIAL 10/12/2016 SED RATE (ESR) 10/12/2016 HEPATITIS B, C PROFILE 12/02/2017 CLOSTRIDIUM DIFF TOXIN A&B (C DIFF) 09/25 STOOL WBC 10/12/2016 [id number] (A1A) 12/02/2017 MITOCHONDRIAL AB 12/02/2017 SMOOTH MUSCLE [...] Start Date Coverage End Date MEDICARE OF [place] [address] [place] [address] [id number] MARY BETH BIGGS Self - patient is the insured MEDEX ATTN CLAIMS [address] [place] [address] [id number] MARY BETH BIGGS Self - patient is the insured Medical (General) History Medical History History ICD Code EGD 08-04-2007--WNL, small HH History of gallstone pacreatitis Hypertension Panic attacks/Depression Denies [place],CVA,Lung disease,renal disease Diet-controlled DM Hyperlipidemia 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
== END 2024-10-24 08:50 | disposition home or self-care (01) ==
LOC: HO.HSM 08:23
PROVIDERS: PCP Internal Medicine; Referring Provider Nurse Practitioner Family; Visit Provider Registered Nurse
DX: G43.009 Migraine without aura, not intractable, without status migrainosus (principal); R41.3 Other amnesia
CPT/HCPCS: 99214

== ENCOUNTER → 2024-10-24 08:22 | Outpatient (BNVA) | payer MEDICARE, SELFPAY | PROVIDERS: PCP Internal Medicine; Referring Provider Nurse Practitioner Family; Visit Provider Registered Nurse | DX: G43.009 Migraine without aura, not intractable, without status migrainosus (principal); R41.3 Other amnesia | CPT/HCPCS: 99212 ==

== ENCOUNTER 2024-10-31 09:47 | Outpatient (REF) | payer MEDICARE, SELFPAY ==
--- OUTSIDE RECORDS SUMMARY | 2024-08-10 08:30 | XMS_ITS ---
Author Organization [facility] Address [address] [place] [address] Care Team Providers Care Jigman Name Role Phone Gonzalez Plata Primary Care Provider Unavailabl Wilbert Ayala Unavailable [phone] REASON FOR VISIT X Chg Encounters Encounter Location Date Provider Diagnosis [address] [address] 08/10/2024 Wilbert Husain Plan Of Treatment No Information Progress Notes * Sherlyn BIGGS LDOB:1955 (69 yo F)Acc No.[id number]:08/10/2024 Progress Note Patient: Sherlyn WANG Provider: Eh Husain DPM :1955 A ge:68 Y S ex:Female Date:08/10/2024 Address:[address] [place] [address] [address] Pcp:Gonzalez Plata Subjective: * Chief Complaints: * [...] Husain DPM Date: 0 08/10/2024 Generated for Printi ng/Faphang/eTransmitting on: 0 10/31/2024 10:15 AM EDT
--- NOTE | 2024-10-31 09:59 | EEG_ITS ---
This is a 16 channel EEG with an EKG lead. Patient is reported awake during the tracing. Background EEG rhythm is medium amplitude fast with no obvious asymmetry or paroxysmal tendency. Photic stimulation does not produce any significant abnormality. Hyperventilation is unremarkable. Cardiac lead does not reveal any significant abnormality. Impression: Unremarkable EEG. MTDD
--- OUTSIDE RECORDS SUMMARY | 2024-10-31 10:15 | XMS_ITS | Patient Health Record ---
Author Organization [facility] Address [address] [place] [address] Care Team Providers Care Cut Off Saw Tender Metal Name Role Phone Gonzalez Plata MD Primary Care Provider Bhavesh Pierson [phone] Allergies Allergen (clinical drug ingredient) Drug/Non Drug [...] Problem Status W/U Status Risk Notes Problem [id number] Gastroesophageal reflux disease without esophagitis (K21.9) Active confirmed Problem 249326495 Elevated liver enzymes (R74.8) Active confirmed Problem 19588237 Diarrhea, unspecified type (R19.7) Active confirmed Problem 438492794 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 Problem 154504636 Abnormal finding of biliary tract (R19.8) Active confirmed Plan Of Treatment Pending Test Test Name Order Date BUN 12/02/2017 CREATININE 12/02/2017 LIVER PROFILE 12/02/2017 AMYLASE 12/02/2017 LIPASE 12/02/2017 IRON + IBC (FE) 12/02/2017 FERRITIN 12/02/2017 CRP 10/12/2016 CBC with MANUAL DIFFERENTIAL 10/12/2016 SED RATE (ESR) 10/12/2016 HEPATITIS B, C PROFILE 12/02/2017 CLOSTRIDIUM DIFF TOXIN A&B (C DIFF) 09/25 STOOL WBC 10/12/2016 [id number] (A1A) 12/02/2017 MITOCHONDRIAL AB 12/02/2017 SMOOTH MUSCLE [...] Start Date Coverage End Date MEDICARE OF [place] [address] [place] [address] [id number] MARY BETH BIGGS Self - patient is the insured MEDEX ATTN CLAIMS [address] [place] [address] [id number] MARY BETH BIGGS Self - patient is [...]
== END 2024-10-31 09:48 | disposition home or self-care (01) ==
LOC: HO.NEURO 09:47
PROVIDERS: PCP Internal Medicine; Visit Provider Psychiatry & Neurology Neurology
DX: R41.3 Other amnesia (principal)
CPT/HCPCS: 95816

== ENCOUNTER → 2024-10-31 09:59 | Outpatient (BNV) | payer MEDICARE, SELFPAY | PROVIDERS: PCP Internal Medicine; Visit Provider Psychiatry & Neurology Neurology | DX: R41.3 Other amnesia (principal) | CPT/HCPCS: 95816 ==

== ENCOUNTER 2024-12-27 09:56 | Outpatient (REF) | payer MEDICARE, SELFPAY ==
--- NOTE | ~2024-12-27 | XR_ITS ---
EXAMINATION: XR FOOT, LEFT CLINICAL INFORMATION: S99.922A - Unspecified injury of left foot, initial encounter COMPARISON: None available. TECHNIQUE: AP, lateral, and oblique views of the left foot. FINDINGS: No fracture, dislocation, or suspicious bone lesion. Postoperative changes present of the distal first metatarsal with [address]. Moderate to severe degenerative changes in the first MTP joint. Moderate changes in the second MTP joint. Normal plantar arch. The midfoot and hindfoot appear normal. There is no soft tissue abnormality. XR/XR foot LT min 3V IMPRESSION: No acute bony or soft tissue abnormalities of the left foot. Electronically signed by: Nigel Ram MD 12/27/2024 10:49 AM EDT
== END 2024-12-27 09:57 | disposition home or self-care (01) ==
LOC: HO.HMGCX 09:56
PROVIDERS: PCP Internal Medicine; Visit Provider Nurse Practitioner Family
DX: S99.922A Unspecified injury of left foot, initial encounter (principal); W22.8XXA Striking against or struck by other objects, initial encounter
CPT/HCPCS: 73630; 99212

== ENCOUNTER 2024-12-27 09:56 | Outpatient (AMB) | payer MEDICARE, SELFPAY ==
--- OUTSIDE RECORDS SUMMARY | 2024-03-27 07:15 | XMS_ITS ---
Author Organization [facility] Address [address] [place] [address] Care Team Providers Care Child Support Officer Name Role Phone Gonzalez Plata Primary Care Provider Wilbert Figueroa Unavailable [phone] Allergies Allergen (clinical drug ingredient) Drug/Non Drug [...] Active Encounters Encounter Location Date Provider Diagnosis [facility] [address] [address] 03/27/2024 Wilbert Husain Plan Of Treatment Next Appt Details Provider Name:Wilbert Husain , 02/19/2025 10:00:00 AM, [address] [place] [address], [phone], Progress Notes * DIANSherlyn LDOB:1955 (69 yo F)Acc No.[id number]:03/27/2024 Progress Note Patient: Sherlyn WANG Provider: Eh Husain DPM :1955 A ge:68 Y S ex:Female Date:03/27/2024 Address:[address] [place] [address], [id number] Pcp:Gonzalez Plata Subjective: * Chief Complaints: * [...] DPM Date: Generated for Eliana buenrostro/Dinah/Chuck on: 11:06 AM EDT
--- OUTSIDE RECORDS SUMMARY | 2024-07-20 09:15 | XMS_ITS ---
Author Organization [facility] Address [address] [place] [address] Care Team Providers Care Operations Label Clerk Name Role Phone Gonzalez Plata Primary Care Provider Unavailabl Wilbert Ayala Unavailable [phone] Giraldo Encounters Encounter Location Date Provider Diagnosis [facility] [address] [place] [address] 07/20/2024 Wilbert Husain Plan Of Treatment Next Appt Details Provider Name:Wilbert Husain , 02/19/2025 10:00:00 AM, [address] [place], [address], Progress Notes * Sherlyn BIGGS LDOB:1955 (69 yo F)Acc No.[id number]:07/20/2024 Progress Note Patient: Sherlyn WANG Provider: Eh Husain DPM :1955 A ge:68 Y S ex:Female Date:07/20/2024 Address:[address] [facility], [facility] [address], [place], [place] Pcp:Gonzalez Plata Subjective: * Chief Complaints: * [address] Giraldo. * Medical History: Objective: * Vitals: Assessment: Plan: * Treatment: * Images: * The named appointment provid er may or may not be the originator of this progress note, and it is not deemed complete until electronically signed by the appointment provider. Sign off status: Pending * Provider: hE Husain DPM Date: 0 07/20/2024 Generated for Eliana buenrostro/Dinah/Chuck on: 11:07 AM EDT
--- OUTSIDE RECORDS SUMMARY | 2024-08-10 08:30 | XMS_ITS ---
Author Organization [facility] Address [address] [place] [address] Care Team Providers Care Car Clerk Pullman Name Role Phone Gonzalez Plata Primary Care Provider Unavailabl Wilbert Ayala Unavailable [phone] REASON FOR VISIT X Chg Encounters Encounter Location Date Provider Diagnosis [facility] [address] [place] [address] 08/10/2024 Wilbert Husain Plan Of Treatment Next Appt Details Provider Name:Wilbert Husain , 02/19/2025 10:00:00 AM, [address] [place], [address], Progress Notes * Sherlyn BIGGS LDOB:1955 (69 yo F)Acc No.[id number]:08/10/2024 Progress Note Patient: Sherlyn WANG Provider: Eh Husain DPM :1955 A ge:68 Y S ex:Female Date:08/10/2024 Address:[address] [facility], [facility] [address] [place], [place] Pcp:Gonzalez Plata Subjective: * Chief Complaints: * [...] 0 08/10/2024 Generated for Eliana buenrostro/Dinah/Chuck on: 1 11:06 AM EDT
[2024-12-27 10:01] VITALS: BP 114/68; PULSE 102; TEMP 37.1; O2SAT 94; BMI 28.1
--- NOTE | 2024-12-27 10:01 | AM.OFFWIN_ITS ---
Intake Vital Signs 12/27/24 10:01 Height 5 ft 6 in Weight 174 lb BMI 28.1 BP 114/68 Blood Pressure Location Lt brachial Position Sitting Pulse 102 H Pulse Source Pulse Oximeter Temp 98.8 F Temp Source Oral Pulse Oximetry (%) 94 Oxygen Delivery Method Room Air Intake Visit Reasons: EP Left foot pain/swelling Intake Note: pt presents with left foot pain bruising and intermittent swelling- slammed toes a week ago- hx of toe surgery on this side Patient Tobacco Use Status: Current everyday Tobacco user Allergies clarithromycin (From BIAXIN) Allergy (Intermediate, Verified 12/27/24 10:04) N/V atorvastatin Allergy (Mild, Verified 12/27/24 10:04) Unknown Iodinated Contrast Media (IV Dye, Iodine Containing) Allergy (Mild, Verified 12/27/24 10:04) RASH AND NAUSEA AND VOMITING doxycycline Allergy (Unknown, Verified 12/27/24 10:04) Nausea and Vomiting lisinopril Allergy (Unknown, Verified 12/27/24 10:04) hypotension Penicillins Adverse Reaction (Unknown, Verified 12/27/24 10:04) UNKNOWN-FROM CHILDHOOD buspirone (From BuSpar) Adverse Reaction (Verified 12/27/24 10:04) Headache Do you need a note to return to daycare/school/sports/work: No HPI HPI Comments History of Present Illness Details 69 y/o Female patient who presents to [facility] walk in clinic with c/o Left Foot and toes pain and swelling for a week. She injured her foot, after she hit a Step Stool at home by accident. Reports Pain with walking and putting shoes on. She has been Icing, Heat and res ting the foot with no relief. Pt does have Claw Toes B/L feet. She had a corrective surgery left foot many years ago. 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 Low back pain Trigger finger Knee pain, left Pneumonia COPD exacerbation Chest tightness Abnormal lung sounds Screening for colon cancer Weight loss Post-menopausal Herpes zoster Chest pain Migraine Left scapula fracture Asthma Peripheral neuropathy Tobacco abuse Hypercholesterolemia Vitamin D deficiency Hypothyroid COPD (chronic obstructive pulmonary disease) Insomnia GERD (gastroesophageal reflux disease) Hypertension Type 2 diabetes mellitus with hyperglycemia Surgical History History of esophagogastroduodenoscopy (EGD) History of lumbar surgery History of colonoscopy History of foot surgery History of thyroidectomy History of cholecystectomy Family History Father Prostate cancer Diabetes Hypertension Mother CVD (cardiovascular disease) Myocardial infarction Social History Housing: Apartment Alcohol intake: unknown Patient Tobacco Use Status: Current everyday Tobacco user Tobacco use type: Cigarette Cigarette Packs Per Day: 0.5 Cigarettes Per Day: 4 Years Smoked: 45 years/ Quit Feb 2023 e-Cigarette/Vaping Use: Never Used Second Hand Smoke Exposure: No Advance Directives Date on File: 02/12/21 service: No Current occupational status: disabled Cognitive needs: Yes (cane ) Hearing needs: No Vision needs: Yes Review of Systems Const All systems reviewed & are unremarkable except as noted in HPI and below Physical Exam Vital Signs: Last Vital Signs Temp 98.8 F 12/27/24 10:01 Pulse 102 H 12/27/24 10:01 BP 114/68 12/27/24 10:01 Pulse Ox 94 12/27/24 10:01 Oxygen Delivery Method Room Air 12/27/24 10:01 BMI result Body Mass Index 28.1 Const General: no acute distress Nutritional Appearance: well nourished Orientation/consciousness: patient oriented x3 Neuro General: patient oriented x3 and moves all extremities Extrem Left lower extremity: foot Details: normal capillary refill and abnormal ROM of toe (Patient has Claw toes) Details: pain with active ROM and pain with passive ROM; no crepitus Psych Speech and movement: Normal speech and movement present Assessment & Plan Assessment & Plan (1) Injury of left foot including toes: Code(s): S99.922A - Unspecified injury of left foot, initial encounter Qualifiers: Encounter type: initial encounter Qualified Code(s): S99.922A - Unspecified injury of left foot, initial encounter Plan: Ordered Xray Foot Foot Brace NSAIDs for pain and swelling. Ice/Heat and elevate. Coding Level of Care Code Est Pt Level 4 (94334) Diagnoses Injury of left foot including toes, initial encounter S99.922A Encounter type: initial encounter Time Spent (min) 20
--- OUTSIDE RECORDS SUMMARY | 2024-12-27 11:07 | XMS_ITS | Patient Health Record ---
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 Problem 988172159 Abnormal finding of biliary tract (R19.8) Active confirmed Plan Of Treatment Pending Test Test Name Order Date BUN 12/02/2017 CREATININE 12/02/2017 LIVER PROFILE 12/02/2017 AMYLASE 12/02/2017 LIPASE 12/02/2017 IRON + IBC (FE) 12/02/2017 FERRITIN 12/02/2017 CRP 10/12/2016 CBC with MANUAL DIFFERENTIAL 10/12/2016 SED RATE (ESR) 10/12/2016 HEPATITIS B, C PROFILE 12/02/2017 CLOSTRIDIUM DIFF TOXIN A&B (C DIFF) 09/25 STOOL WBC 10/12/2016 [id number] (A1A) 12/02/2017 MITOCHONDRIAL AB 12/02/2017 SMOOTH MUSCLE [...] Start Date Coverage End Date MEDICARE OF [place] [address] [place] [address] [phone] [id number] MARY BETH BIGGS Self - patient is the insured MED[employer] ATTN CLAIMS [address] [place] [address] [id number] MARY BETH BIGGS Self - patient is the insured Medical (General) History Medical History History ICD Code EGD 08-04-2007--WNL, small HH History of gallstone pacreatitis Hypertension Panic attacks/Depression Denies [place],CVA,Lung disease,renal disease Diet-controlled DM Hyperlipidemia 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
--- OUTSIDE RECORDS SUMMARY | 2024-12-27 11:07 | XMS_ITS | Patient Health Record ---
Author Organization [facility] [place] Address [address] [place] [address] Care Team Providers Care Optician Apprentice Dispensing Name Role Phone Gonzalez Plata Primary Care Provider Wilbert Figueroa Unavailable [phone] Allergies Allergen (clinical drug ingredient) Drug/Non Drug Allergy documented on EMR Reaction Allergy Type Onset Date Status amoxicillin Amoxicillin sick Drug Allergy Act carter Biaxin hives Drug Allergy Active Iodinated contrast media (substance) Iodinated Diagnostic Agents rash Drug Allergy Active Penicillin sick Drug Allergy Active Results Component Value Reference Range Notes HEMOGLOBIN A1C (GLYCOHEMOGLO BIN) Reviewed date:08/10/2024 11:20:10 AM Interpretation: Performing Lab: Notes/Report: HEMOGLOBIN A1C % (HH) 5.1 Reason For Referral No Information Medications Medication SIG (Take, Route, Frequency, Duration) Notes Start Date End Date Status Omeprazole 20 MG 1 capsule Orally Onc e a day; Duration: 30 day(s) Active Gabapentin 300 MG Orally two times a d ay, 600 mg at night (2 capsules) Active Flovent HFA 44 MCG/ACT 2 puffs Inhalatio n Twice a day Active Mirtazapine 7.5 MG as directed Orally O nce a day Active Levothyroxine Sodium 100 MCG 1 tablet every morning on an empty stomach Orally Once a day; Duration: 30 day(s) Active buPROPion HCl 100 MG 1 tablet Orally Twi ce a day; Duration: 30 day(s) Active Ritalin Not-Taking Aimovig 70 MG/ML Subcutaneous Active Synthroid Not-Taking Extra Depth Orthopedic Shoes (1 Pair) with Customized Heat Molded Multidensity Innersoles (3 Pair) as directed Dx: NIDDM/Polyneuropathy (E11.42), Hammertoe Foot Deformity (M20.41,M20.42), Preulcerative Skin Lesion(s) (L85.1 Active diazePAM 5mg daily Active Crestor 40 MG 1 tablet Orally Once a day; Duration: 30 day(s) Active Atorvastatin Calcium Not-Taking predniSONE 1 tsp Orally Once a day Not-Taking Albuterol Active Ankle Brace/High Performance S Not-Taking Lisinopril 10 MG 1/2 tablet Orally On ce a day; Duration: 30 day(s) Not-Jordan ing vitamin D 50,000 Act carter ZyPREXA Not-Taking Roxicodone Not-Takin g PROzac 20 MG 1 capsule in the mor martha Orally Once a day; Duration: 30 day(s) Active Provigil Active Vitamin B 12 Active Robaxin 500 MG 1 tablet Orally Four times a day; Duration: 30 day(s) Active Promethazine HCl 25 MG/ML 0.5 ml as needed Injection every 4 hrs Active oxyCODONE HCl 15 MG 1 tablet Orally ever y 6 hrs PRN Active Immunizations Vaccine Route Administration Date Status Comme nts Influenza Unknown 05/21/2016 Refused Influenza Unknown 06/10/2017 Refused Influenza Unknown 11/16/2024 Refused Pneumococcal Unknown 07/17/2015 Administered COVID-19 [employer]jun [employer] Arjun/Esteban Unknown 07/10/2021 R efused Social History Tobacco Use: Social History Observation [...] Are you an other tobacco user? No AUDIT-C (Standard) Question Answer Notes Did you have a drink containing alcohol in the p ast year? No Points 0 Interpretation Negative Problems Problem Type SNOMED Code ICD Code Onset Dates Problem Status W/U Status Risk Notes Problem Acquired hammer toe of right foot (0148677141032579 ) Other hammer toe(s) (acquired), right foot (M20.41) Active confirmed Response to treatment, Improvemen t Problem Acquired hammer toe of left foot (6869199967541811 ) Other hammer toe(s) (acquired), left foot (M20.42) Active confirmed Response to treatment, Improvemen t Problem Polyneuropathy due to type 2 diabetes mellitus (544977473) Type 2 diabetes mellitus with diabetic polyneuropathy (E11.42) Active confirmed Vital Signs Blood pressure diastolic 75 mm Hg 11/16/2024 Height 5ft6in in 11/16/2024 Blood pressure systolic 122 mm Hg 11/16/2024 Weight 145 lbs 11/16/2024 BMI 23.4 kg/m2 11/16/2024 Procedures Procedure Date Ordered Date Performed Result Body Sit e 07008-MQWQADS NAIL, 6 OR MORE 08/10/2024 N/A 59485-AQDV SKIN LESIONS, OVER 4 08/10/2024 N/A 47810-YVLFRVH NAIL, 6 OR MORE 11/16/2024 N/A 53641-CTLE SKIN LESIONS, OVER 4 11/16/2024 N/A Encounters Encounter Location Date Provider Diagnosis [address] [address] 08/10/2024 Wilbert Husain Type 2 diabetes mellitus with diabetic polyneuropathy E11.42 and Tinea unguium B35.[address] [address] 11/16/2024 Wilbert Husain Type 2 diabetes mellitus with diabetic polyneuropathy E11.42 ; Tinea unguium B35.1 ; Other hammer toe(s) (acquired), right foot M20.41 ; Other hammer toe(s) (acquired), left foot M20.42 ; Pain in right toe(s) M79.674 and Contusion of lesser toe of right foot without damage to nail, initial encounter S90.121A [address] [address] 03/27/2024 Wilbert Husain [address] [address] 11/12/2024 [facility] [place] [address] [place] [address] 11/13/2024 [facility] [place] [address] [place] [address] 12/13/2024 Wilbert Mccordier Assessments Encounter Date Diagnosis (ICD Code) Assessment Notes Treatment Notes Treatment Clinical Notes Section Notes 08/10/2024 Type 2 diabetes mellitus with diabetic polyneuropathy (ICD-10 - E11.42) 08/10/2024 Tinea unguium (ICD-10 - B35.1) 11/16/2024 Type 2 diabetes mellitus with diabetic polyneuropathy (ICD-10 - E11.42) 11/16/2024 Tinea unguium (ICD-10 - B35.1) 11/16/2024 Other hammer toe(s) (acquired), right foot (ICD-10 - M20.41) Patient Educated with: DIABETIC FOOT CARE INSTRUCTIONS. pdf (DIABETIC FOOT CARE INSTRUCTIONS. pdf) 11/16/2024 Other hammer toe(s) (acquired), left foot (ICD-10 - M20.42) 11/16/2024 Pain in right toe(s) (ICD-10 - M79.674) 11/16/2024 Contusion of lesser toe of right foot without damage to nail, initial encounter (ICD-10 - S90.121A) 08/10/2024 Other Plan Of Treatment Pending Test Test Name Order Date Hemoglobin A1c 11/05/2014 X ray : Foot, left 3V 05/07/2011 X ray : Foot, left 3V 05/21/2011 X ray : Foot, left 3V 06/04/2011 X ray : Foot, left 3V 06/22/2011 X ray : Foot, left 3V 07/23/2011 X ray : Foot, left 3V 08/27/2011 X ray : Foot, left 3V 11/05/2011 63905-ELBCIIQ NAIL, 6 OR MORE 10/17/2012 59328-NIUWQQA NAIL, 6 OR MORE 01/09/2013 22540-FOWCJRB NAIL, 6 OR MORE 10/19/2013 12781-RWOHOJD NAIL, 6 OR MORE 01/15/2014 80153-VIJMOVH NAIL, 6 OR MORE 04/16/2014 38945-XEFQGXA NAIL, 6 OR MORE 08/02/2014 85173-QDVVUDT NAIL, 6 OR MORE 11/05/2014 45999-ITPMMRE NAIL, 6 OR MORE 02/07/2015 09014-FCXENAY NAIL, 6 OR MORE 05/13/2015 53949-YMLNJEU NAIL, 6 OR MORE 08/12/2015 78272-HAWTNCT NAIL, 6 OR MORE 11/14/2015 99526-BIDTJOA NAIL, 6 OR MORE 02/17/2016 11403-KUDEQZT NAIL, 6 OR MORE 05/21/2016 93512-YVATOPU NAIL, 6 OR MORE 08/24/2016 78409-KVFTSCN NAIL, 6 OR MORE 11/30/2016 61067-QGAPZUP NAIL, 6 OR MORE 03/04/2017 01310-TKFCFLQ NAIL, 6 OR MORE 06/10/2017 09229-OWFYLIK NAIL, 6 OR MORE 09/16/2017 47353-SSISGMG NAIL, 6 OR MORE 12/23/2017 66832-HNEKUXO NAIL, 6 OR MORE 04/04/2018 32229-RMHKTUB NAIL, 6 OR MORE 06/27/2018 41377-MWIMJXH NAIL, 6 OR MORE 09/12/2018 63764-UEDTXVA NAIL, 6 OR MORE 12/15/2018 21774-IEEAMBN NAIL, 6 OR MORE 03/02/2019 00455-HGPEPFL NAIL, 6 OR MORE 05/18/2019 97141-BTANNHZ NAIL, 6 OR MORE 08/21/2019 70126-LVDNXHP NAIL, 6 OR MORE 02/12/2020 35821-VIYSZVA NAIL, 6 OR MORE 11/05/2020 76548-RUIDFPC NAIL, 6 OR MORE 02/06/2021 73638-CVELEMF NAIL, 6 OR MORE 07/10/2021 48215-VBSIPTI NAIL, 6 OR MORE 10/20/2021 90386-GIOAHBA NAIL, 6 OR MORE 01/29/2022 90234-ISTFSBF NAIL, 6 OR MORE 05/07/2022 19116-OHYXKNR NAIL, 6 OR MORE 08/13/2022 13139-HQWCRVZ NAIL, 6 OR MORE 01/07/2023 10011-XQCVWEN NAIL, 6 OR MORE 04/22/2023 29679-ZNIKBSJ NAIL, 6 OR MORE 09/23/2023 49519-JYYXQIY NAIL, 6 OR MORE 12/23/2023 82839-QTEDMRY NAIL, 6 OR MORE 08/10/2024 49771-MEWKWQN NAIL, 6 OR MORE 11/16/2024 93068-Pjbougyh Plate 02/07/2015 61599-Thxdmwgc Plate 07/23/2011 55123-Puqtfxrt Plate 06/22/2011 24705-Nfypwumf Plate 06/04/2011 62317-Wuzymteq Plate 05/14/2011 25540-Xkfsegbt Plate 05/21/2011 60967-Ymhwjcnv Plate 02/16/2011 51859-Hfefctns Plate 04/30/2011 73033-Xjotzsga Plate 05/07/2011 90515-AKCM SKIN LESIONS, OVER 4 11/17/19 54332-MRZC SKIN LESIONS, OVER 4 08/11/19 25 05318-UOSF SKIN LESIONS, OVER 4 12/23/19 24 78749-MLWP SKIN LESIONS, OVER 4 09/23/19 24 59538-TGGS SKIN LESIONS, OVER 4 04/22/19 24 74792-DWLV SKIN LESIONS, OVER 4 01/08/20 23 84241-AEKS SKIN LESIONS, OVER 4 08/14/19 23 16621-STKL SKIN LESIONS, OVER 4 05/07/19 23 42835-HMZC SKIN LESIONS, 2 TO 4 01/30/20 70850-QCRS SKIN LESIONS, 2 TO 4 10/21/19 34176-EOMM SKIN LESIONS, 2 TO 4 07/11/19 22 47234-SWJA SKIN LESIONS, 2 TO 4 02/07/20 21 08029-COCS SKIN LESIONS, 2 TO 4 02/12/20 20 19083-WHKJ SKIN LESIONS, 2 TO 4 11/06/19 21 30695-YQBS SKIN LESIONS, 2 TO 4 08/21/19 20 00108-WHWJ SKIN LESIONS, 2 TO 4 05/18/19 20 80601-UAOB SKIN LESIONS, 2 TO 4 09/17/19 18 79429-HRYP SKIN LESIONS, 2 TO 4 12/19/19 11 40323-ZFRR SKIN LESIONS, 2 TO 4 06/22/19 12 87220-UKSI SKIN LESIONS, 2 TO 4 07/23/19 12 09014-RRFN SKIN LESIONS, 2 TO 4 08/27/19 12 56962-DYMH SKIN LESIONS, 2 TO 4 11/06/19 15 48795-WPLJ SKIN LESIONS, 2 TO 4 08/03/19 15 75493-OIDV SKIN LESIONS, 2 TO 4 04/16/19 15 00306-MXWV SKIN LESIONS, 2 TO 4 01/16/20 14 54706-JAXA SKIN LESIONS, 2 TO 4 10/20/19 14 20071-RKST SKIN LESIONS, 2 TO 4 01/10/20 13 99632-DUCR SKIN LESIONS, 2 TO 4 10/18/19 13 90825-HCMW SKIN LESIONS, 2 TO 4 11/05/19 12 40177-QIQL SKIN LESIONS, 2 TO 4 02/08/20 15 10206-IWMC SKIN LESIONS, 2 TO 4 05/13/19 16 74960-DEKZ SKIN LESIONS, 2 TO 4 11/14/19 16 66733-EXRZ SKIN LESIONS, 2 TO 4 08/12/19 16 62885-RTDZ SKIN LESIONS, 2 TO 4 03/04/20 17 31126-ADLG SKIN LESIONS, 2 TO 4 12/01/19 17 51805-RHUS SKIN LESIONS, 2 TO 4 05/21/19 17 98011-NVCH SKIN LESIONS, 2 TO 4 08/25/19 17 89148-WZWG SKIN LESIONS, 2 TO 4 02/17/20 16 69768-EXLD SKIN LESIONS, 2 TO 4 03/02/20 19 10170-MISS SKIN LESIONS, 2 TO 4 12/16/19 19 27773-XCNC SKIN LESIONS, 2 TO 4 06/28/19 19 10052-IBQY SKIN LESIONS, 2 TO 4 09/13/19 19 43974-KKRD SKIN LESIONS, 2 TO 4 04/04/19 19 61113-TLHX SKIN LESIONS, 2 TO 4 12/24/19 18 49997-PXUM SKIN LESIONS, 2 TO 4 06/11/19 18 T9482-USAGEKSG DYSTROPHIC NAILS ANY # R5020-ZADXMVGH DYSTROPHIC NAILS ANY # N2255-WHJIMVMW DYSTROPHIC NAILS ANY # N3847-CWAOERWO DYSTROPHIC NAILS ANY # W5610-IRHYKAAW DYSTROPHIC NAILS ANY # 09071 - Tenotomy, open flexor 09/02/2017 Next Appt Details Provider Name:Wilbert Barnett Rodrigue , 02/19/2025 10:00:00 AM, [address] [place] [address], [phone], Insurance Providers Payer Name Payer Address Payer Phone Subscriber Number Group Number Insured Name Patient Relationship to Insured Coverage Start Date Coverage End Date Medicare National Govt Sv[employer] Inc [address] [place] [address] [id number] Sherlyn Biggs Self - patient is the insured 1 [employer] [address] [place] [address] [id number] Sherlyn Biggs Self - patient is the [...]
== END 2024-12-27 10:49 | disposition home or self-care (01) ==
PROVIDERS: PCP Internal Medicine; Visit Provider Nurse Practitioner Family
DX: S99.922A Unspecified injury of left foot, initial encounter (principal)

== ENCOUNTER → 2024-12-27 10:25 | Outpatient (BNV) | payer MEDICARE, SELFPAY | PROVIDERS: PCP Internal Medicine; Visit Provider Radiology Diagnostic Radiology | DX: S99.922A Unspecified injury of left foot, initial encounter (principal) | CPT/HCPCS: 73630 ==

== ENCOUNTER 2025-01-28 06:07 | Outpatient (REF) | payer MEDICARE, SELFPAY ==
--- OUTSIDE RECORDS SUMMARY | 2023-08-26 08:45 | XMS_ITS ---
Author Organization [facility] Address [address] [place] [address] Care Team Providers Care Fence Machine Operator Name Role Phone Gonzalez Plata Primary Care Provider Unavailabl Wilbert Ayala Unavailable [phone] Giraldo Encounters Encounter Location Date Provider Diagnosis [facility] [address] [place] [address] 08/26/2023 Wilbert Husain Plan Of Treatment Next Appt Details Provider Name:Wilbert Husain , 02/08/2025 01:15:00 PM, [address] [place], [address], Progress Notes * Sherlyn BIGGS LDOB:1955 (69 yo F)Acc No.[id number]:08/26/2023 Progress Note Patient: Sherlyn WANG Provider: Eh Husain DPM :1955 A ge:67 Y S ex:Female Date:08/26/2023 Address:[address] [facility] [address] [place], [place] Pcp:Gonzalez Plata Subjective: * Chief Complaints: * [...] 0 08/26/2023 Generated for Eliana buenrostro/Dinah/Chuck on: 03/30/2024 06:10 AM EST
--- OUTSIDE RECORDS SUMMARY | 2023-11-11 07:45 | XMS_ITS ---
Author Organization [facility] Address [address] [place] [address] Care Team Providers Care Community Arts Centre Manager Name Role Phone Gonzalez Plata Primary Care Provider Unavailabl Wilbert Ayala Unavailable [phone] REASON FOR VISIT seen sooner Encounters Encounter Location Date Provider Diagnosis [facility] [address] [place] [address] 11/11/2023 Wilbert Husain Plan Of Treatment Next Appt Details Provider Name:Wilbert Husain , 02/08/2025 01:15:00 PM, [address] [place], [address], Progress Notes * Sherlyn BIGGS LDOB:1955 (69 yo F)Acc No.[id number]:11/11/2023 Progress Note Patient: Sherlyn WANG Provider: Eh Husain DPM :1955 A ge:68 Y S ex:Female Date:11/11/2023 Address:[address] [facility] [facility] [address] [place], [place] Pcp:Gonzalez Plata Subjective: * Chief Complaints: * 1 . Seen sooner. * Medical History: Objective: * Vitals: Assessment: Plan: * Treatment: * Images: * The named appointment provid er may or may not be the originator of this progress note, and it is not deemed complete until electronically signed by the appointment provider. Sign off status: Pending * Provider: Eh Husain DPM Date: 0 11/11/2023 Generated for Eliana buenrostro/Dinah/Chuck on: 03/30/2024 06:10 AM EST
--- OUTSIDE RECORDS SUMMARY | 2024-03-27 06:15 | XMS_ITS ---
Author Organization [facility] Address [address] [place] [address] Care Team Providers Care Trucker Name Role Phone Gonzalez Plata Primary Care Provider Wilbert Figueroa Unavailable [phone] Allergies Allergen (clinical drug ingredient) Drug/Non Drug Allergy documented on EMR Reaction Allergy Type Onset Date Status amoxicillin Amoxicillin sick Drug Allergy Act carter Biaxin hives Drug Allergy Active Iodinated contrast [...] Active Encounters Encounter Location Date Provider Diagnosis [facility] [address] [address] 03/27/2024 Wilbert Husain Plan Of Treatment Next Appt Details Provider Name:Wilbert Husain , 02/08/2025 01:15:00 PM, [address] [place] [address], [phone], Progress Notes * DIANSherlyn LDOB:1955 (69 yo F)Acc No.[id number]:03/27/2024 Progress Note Patient: Sherlyn WANG Provider: Eh Husain DPM :1955 A ge:68 Y S ex:Female Date:03/27/2024 Address:[address] [place] [address], [address] Pcp:Gonzalez Plata Subjective: * Chief Complaints: * [...] DPM Date: Generated for Eliana buenrostro/Dinah/Chuck on: 03/30/2024 06:11 AM EST
--- OUTSIDE RECORDS SUMMARY | 2024-07-20 08:15 | XMS_ITS ---
Author Organization [facility] Address [address] [place] [address] Care Team Providers Care Lift Mechanic Name Role Phone Gonzalez Plata Primary Care Provider Unavailabl Wilbert Ayala Unavailable [phone] Giraldo Encounters Encounter Location Date Provider Diagnosis [facility] [address] [place] [address] 07/20/2024 Wilbert Husain Plan Of Treatment Next Appt Details Provider Name:Wilbert Husain , 02/08/2025 01:15:00 PM, [address] [place], [address], Progress Notes * Sherlyn BIGGS LDOB:1955 (69 yo F)Acc No.[id number]:07/20/2024 Progress Note Patient: Sherlyn WANG Provider: Eh Husain DPM :1955 A ge:68 Y S ex:Female Date:07/20/2024 Address:[address] [facility], [facility] [address], [place], [place] Pcp:Gonzalez Plata Subjective: * Chief Complaints: * [...] DPM Date: 0 07/20/2024 Generated for Eliana buenrostro/Dinah/Chuck on: 03/30/2024 06:11 AM EST
--- OUTSIDE RECORDS SUMMARY | 2024-08-10 07:30 | XMS_ITS ---
Author Organization [facility] Address [address] [place] [address] Care Team Providers Care Room Service Associate Name Role Phone Gonzalez Plata Primary Care Provider Unavailabl Wilbert Ayala Unavailable [phone] REASON FOR VISIT X Chg Encounters Encounter Location Date Provider Diagnosis [facility] [address] [place] [address] 08/10/2024 Wilbert Husain Plan Of Treatment Next Appt Details Provider Name:Wilbert Husain , 02/08/2025 01:15:00 PM, [address] [place], [address], Progress Notes * Sherlyn BIGGS LDOB:1955 (69 yo F)Acc No.[id number]:08/10/2024 Progress Note Patient: Sherlyn WANG Provider: Eh Husain DPM :1955 A ge:68 Y S ex:Female Date:08/10/2024 Address:[address] [facility], [facility] [address] [place], [place] Pcp:Gonzalez Plata Subjective: * Chief Complaints: * 1 . X Chg. * Medical History: Objective: * Vitals: Assessment: Plan: * Treatment: * Images: * The named appointment provid er may or may not be the originator of this progress note, and it is not deemed complete until electronically signed by the appointment provider. Sign off status: Pending * Provider: Eh Husain DPM Date: 0 08/10/2024 Generated for Eliana buenrostro/Dinah/Chuck on: 03/30/2024 06:10 AM EST
--- OUTSIDE RECORDS SUMMARY | 2025-01-28 06:11 | XMS_ITS | Patient Health Record ---
Author Organization [facility] [place] Address [address] [place] [address] Care Team Providers Care Tower Supervisor Name Role Phone Gonzalez Plata Primary Care Provider Wilbert Figueroa Unavailable [phone] Allergies Allergen (clinical drug ingredient) Drug/Non Drug [...] Problem Acquired hammer toe of right foot (3713742853569070 ) Other hammer toe(s) (acquired), right foot (M20.41) Active confirmed Response to treatment, Improvemen t Problem Acquired hammer toe of left foot (8547420151047070 ) Other hammer toe(s) (acquired), left foot (M20.42) Active confirmed Response to treatment, Improvemen t Problem Polyneuropathy due to type 2 diabetes mellitus (854614278) Type 2 diabetes mellitus with diabetic polyneuropathy (E11.42) Active confirmed Vital Signs Blood pressure diastolic 75 mm Hg 11/16/2024 Height 5ft6in in 11/16/2024 Blood pressure systolic 122 mm Hg 11/16/2024 Weight 145 lbs 11/16/2024 BMI 23.4 kg/m2 11/16/2024 Procedures Procedure Date Ordered Date Performed Result Body Sit e 19330-LYXRESQ NAIL, 6 OR MORE 08/10/2024 N/A 18013-FUKG SKIN LESIONS, OVER 4 08/10/2024 N/A 01045-BMRRRXS NAIL, 6 OR MORE 11/16/2024 N/A 68157-CCCK SKIN LESIONS, OVER 4 11/16/2024 N/A Encounters Encounter Location Date Provider Diagnosis [address] [address] 08/10/2024 Wilbert Husain Type 2 diabetes mellitus with diabetic polyneuropathy E11.42 and Tinea unguium B35.[address] [address] 11/16/2024 Wilbert Husain Type 2 diabetes mellitus with diabetic polyneuropathy E11.42 ; Tinea unguium B35.1 ; Other hammer toe(s) (acquired), right foot M20.41 ; Other hammer toe(s) (acquired), left foot M20.42 ; Pain in right toe(s) M79.674 and Contusion of lesser toe of right foot without damage to nail, initial encounter S90.121A [address] [address] 03/27/2024 Wilbert Husain [address] [address] 11/12/2024 [facility] [place] [address] [place] [address] 11/13/2024 [facility] [place] [address] [place] [address] 12/13/2024 Wilbert Mccordier Assessments Encounter Date Diagnosis [...] X ray : Foot, left 3V 11/05/2011 77270-YUMZSYI NAIL, 6 OR MORE 10/17/2012 99046-CUXQYLW NAIL, 6 OR MORE 01/09/2013 26190-SPMMAUD NAIL, 6 OR MORE 10/19/2013 75658-CLWOWOC NAIL, 6 OR MORE 01/15/2014 08848-IKYSSHD NAIL, 6 OR MORE 04/16/2014 02713-IGQAZTT NAIL, 6 OR MORE 08/02/2014 00611-EGGPQDJ NAIL, 6 OR MORE 11/05/2014 74937-BKLRBOX NAIL, 6 OR MORE 02/07/2015 47597-DYFTGJK NAIL, 6 OR MORE 05/13/2015 44871-VYPMANB NAIL, 6 OR MORE 08/12/2015 29072-GWQPXIX NAIL, 6 OR MORE 11/14/2015 62583-OIMSVTI NAIL, 6 OR MORE 02/17/2016 14004-ONKFYVA NAIL, 6 OR MORE 05/21/2016 05404-RYLQBCG NAIL, 6 OR MORE 08/24/2016 06216-XCLRLES NAIL, 6 OR MORE 11/30/2016 44453-QSJZSGH NAIL, 6 OR MORE 03/04/2017 76439-FQDWSOS NAIL, 6 OR MORE 06/10/2017 55473-MQLWSTI NAIL, 6 OR MORE 09/16/2017 50153-JINVBFJ NAIL, 6 OR MORE 12/23/2017 25012-DIIOJKW NAIL, 6 OR MORE 04/04/2018 00161-BDTGEQX NAIL, 6 OR MORE 06/27/2018 24905-TXWYPKW NAIL, 6 OR MORE 09/12/2018 27571-TBGAEYP NAIL, 6 OR MORE 12/15/2018 46620-JMOFJHQ NAIL, 6 OR MORE 03/02/2019 39102-MNNZKQT NAIL, 6 OR MORE 05/18/2019 78782-YIZUSQN NAIL, 6 OR MORE 08/21/2019 59335-SWDFOHU NAIL, 6 OR MORE 02/12/2020 61969-AFIXNWX NAIL, 6 OR MORE 11/05/2020 29246-SWGHBCA NAIL, 6 OR MORE 02/06/2021 62287-LXFARUX NAIL, 6 OR MORE 07/10/2021 85029-MUYKPWD NAIL, 6 OR MORE 10/20/2021 83363-GYOOERP NAIL, 6 OR MORE 01/29/2022 94648-ROHUXUX NAIL, 6 OR MORE 05/07/2022 20572-ZYKSOTJ NAIL, 6 OR MORE 08/13/2022 64056-UGIEOBY NAIL, 6 OR MORE 01/07/2023 57681-VFIQWDG NAIL, 6 OR MORE 04/22/2023 95860-FFFASZI NAIL, 6 OR MORE 09/23/2023 98234-SERTMFE NAIL, 6 OR MORE 12/23/2023 16847-PNDACGX NAIL, 6 OR MORE 08/10/2024 54332-HFGCKGZ NAIL, 6 OR MORE 11/16/2024 15667-Ynpchlyn Plate 02/07/2015 25240-Qesfmhye Plate 07/23/2011 01157-Jpyttizb Plate 06/22/2011 14445-Vusztxpx Plate 06/04/2011 43487-Eozikswu Plate 05/14/2011 51694-Jznweety Plate 05/21/2011 82995-Vyzdjivx Plate 02/16/2011 82870-Maahdles Plate 04/30/2011 56606-Ifqjvsly Plate 05/07/2011 37288-WCFI SKIN LESIONS, OVER 4 11/17/19 87027-QCEQ SKIN LESIONS, OVER 4 08/11/19 25 47613-KEAL SKIN LESIONS, OVER 4 12/23/19 24 54389-ELOY SKIN LESIONS, OVER 4 09/23/19 24 28802-DWQH SKIN LESIONS, OVER 4 04/22/19 24 04232-UQWM SKIN LESIONS, OVER 4 01/08/20 23 66465-MYZV SKIN LESIONS, OVER 4 08/14/19 23 59748-KGOF SKIN LESIONS, OVER 4 05/07/19 23 67259-CXTF SKIN LESIONS, 2 TO 4 01/30/20 34206-DCPP SKIN LESIONS, 2 TO 4 10/21/19 91216-OZYE SKIN LESIONS, 2 TO 4 07/11/19 22 84507-NGXG SKIN LESIONS, 2 TO 4 02/07/20 21 36757-AZFX SKIN LESIONS, 2 TO 4 02/12/20 20 74671-EEKD SKIN LESIONS, 2 TO 4 11/06/19 21 92253-IUVT SKIN LESIONS, 2 TO 4 08/21/19 20 21183-UABN SKIN LESIONS, 2 TO 4 05/18/19 20 07258-OEQB SKIN LESIONS, 2 TO 4 09/17/19 18 62204-ZKWI SKIN LESIONS, 2 TO 4 12/19/19 11 03586-FMOL SKIN LESIONS, 2 TO 4 06/22/19 12 05775-JVIQ SKIN LESIONS, 2 TO 4 07/23/19 12 47449-WKJE SKIN LESIONS, 2 TO 4 08/27/19 12 91624-AIXF SKIN LESIONS, 2 TO 4 11/06/19 15 32769-ZTFK SKIN LESIONS, 2 TO 4 08/03/19 15 85339-YRDL SKIN LESIONS, 2 TO 4 04/16/19 15 52245-MKKC SKIN LESIONS, 2 TO 4 01/16/20 14 40163-WVHY SKIN LESIONS, 2 TO 4 10/20/19 14 01886-QESU SKIN LESIONS, 2 TO 4 01/10/20 13 94876-IWAK SKIN LESIONS, 2 TO 4 10/18/19 13 00627-EFOS SKIN LESIONS, 2 TO 4 11/05/19 12 46249-LXCF SKIN LESIONS, 2 TO 4 02/08/20 15 61072-RZXB SKIN LESIONS, 2 TO 4 05/13/19 16 85435-WMJE SKIN LESIONS, 2 TO 4 11/14/19 16 07445-AXPR SKIN LESIONS, 2 TO 4 08/12/19 16 46645-YMDR SKIN LESIONS, 2 TO 4 03/04/20 17 81108-GOPM SKIN LESIONS, 2 TO 4 12/01/19 17 56141-JQIF SKIN LESIONS, 2 TO 4 05/21/19 17 64481-DPTH SKIN LESIONS, 2 TO 4 08/25/19 17 64217-DAOR SKIN LESIONS, 2 TO 4 02/17/20 16 11566-PGEV SKIN LESIONS, 2 TO 4 03/02/20 19 33117-CHXE SKIN LESIONS, 2 TO 4 12/16/19 19 70630-LRUH SKIN LESIONS, 2 TO 4 06/28/19 19 02806-HTKP SKIN LESIONS, 2 TO 4 09/13/19 19 23944-VQSV SKIN LESIONS, 2 TO 4 04/04/19 19 35726-YYAJ SKIN LESIONS, 2 TO 4 12/24/19 18 73271-ZFYL SKIN LESIONS, 2 TO 4 06/11/19 18 Y9466-CRYKOQVH DYSTROPHIC NAILS ANY # Q9811-QPBDGSZS DYSTROPHIC NAILS ANY # V7598-ZUIKOCAY DYSTROPHIC NAILS ANY # H6817-NFERSPDV DYSTROPHIC NAILS ANY # D3880-NZRAPQSZ DYSTROPHIC NAILS ANY # 05293 - Tenotomy, open flexor 09/02/2017 Next Appt Details Provider Name:Wilbert Barnett Rodrigue , 02/08/2025 01:15:00 PM, [address] [place] [address], [phone], Insurance Providers Payer Name Payer Address Payer Phone Subscriber Number Group Number Insured Name Patient Relationship to Insured Coverage Start Date Coverage End Date Medicare National Govt Svcs Inc [address] [place] [address] [id number] Sherlyn Biggs Self - patient is the insured 1 [employer] [address] [place] [address] [id number] Sherlyn Biggs Self - patient is the [...]
--- OUTSIDE RECORDS SUMMARY | 2025-01-28 06:12 | XMS_ITS | Patient Health Record ---
Author Organization [facility] Address [address] [place] [address] Care Team Providers Care Treating Inspector Name Role Phone Gonzalez Plata MD Primary Care Provider Bhavesh Pierson [phone] Allergies Allergen (clinical drug ingredient) Drug/Non Drug [...] Orally Once or Twice a day for diarrhea; Duration: 30 Active oxyCODONE HCl 15 MG 1-2 [...] Problem Status W/U Status Risk Notes Problem Gastroesophageal reflux disease without esophagitis (189511553) Gastroesophageal reflux disease without esophagitis (K21.9) Active confirmed Problem Elevated liver enzymes level (219074009) Elevated liver enzymes (R74.8) Active confirmed Problem Diarrhea (44602602) Diarrhea, unspecified type (R19.7) Active confirmed Problem 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 Problem Abnormal finding of biliary tract (R19.8) Active confirmed Plan Of Treatment Pending Test Test Name Order Date BUN 12/02/2017 CREATININE 12/02/2017 LIVER PROFILE 12/02/2017 AMYLASE 12/02/2017 LIPASE 12/02/2017 IRON + IBC (FE) 12/02/2017 FERRITIN 12/02/2017 CRP 10/12/2016 CBC with MANUAL DIFFERENTIAL 10/12/2016 SED RATE (ESR) 10/12/2016 HEPATITIS B, C PROFILE 12/02/2017 CLOSTRIDIUM DIFF TOXIN A&B (C DIFF) 09/25 STOOL WBC 10/12/2016 [id number] (A1A) 12/02/2017 MITOCHONDRIAL AB 12/02/2017 SMOOTH MUSCLE [...] Start Date Coverage End Date MEDICARE OF [place] [address] [place] [id number] [phone] [id number] MARY BETH BIGGS Self - patient is the insured [employer] CLAIMS [address] [place] [address] [id number] MARY BETH BIGGS Self - patient is the insured Medical (General) History Medical History History ICD Code EGD 08-04-2007--WNL, small HH History of gallstone pacreatitis Hypertension Panic attacks/Depression Denies CA,CVA,Lung disease,renal disease Diet-controlled DM Hyperlipidemia 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
[2025-01-28 10:38] LABS: MANUAL DIFF FLAG NO
[2025-01-28 10:52] LABS: Hematocrit 37.9 % (37.0-47.0); Hemoglobin 12.0 g/dl (12.0-16.0); Imm Gran Abs Auto 0.02 X10*3/uL (0.00-0.03); Imm Gran Pct Auto 0.3 % (0.0-0.4); Lymphocytes Absolute Auto 1.3 X10*3/uL (1.2-4.9); Mean Corpuscular HGB Conc 31.7 g/dl (31.0-35.0); Mean Corpuscular Hemoglobin 31.3 pg (27.0-33.0); Mean Corpuscular Volume 98.7 fL (80.0-98.0); NRBC Abs Auto 0.000 X10*3/uL (0.0-0.012); NRBC Pct Auto 0.0 /100WBC (0.0-0.2); Platelet Count 172 X10*3/uL (160-400); Red Blood Count 3.84 X10*6/uL (4.20-5.50); White Blood Count 5.9 X10*3/uL (4.8-10.8)
[2025-01-28 11:09] LABS: Alanine Aminotransferase 9 U/L (0-31); Albumin Level 3.9 g/dL (3.5-5.0); Alkaline Phosphatase 116 U/L (39-117); Anion Gap 7 (12-20); Aspartate Amino Transferase 18 U/L (5-31); Blood Urea Nitrogen 14 mg/dL (9-16); Calcium 8.4 mg/dL (8.4-10.2); Carbon Dioxide 31 mmol/L (22-29); Chloride 107 mmol/L (96-108); Cholesterol 134 mg/dL (<200); Estimated Glomerular Filt Rate > 60; HDL Cholesterol 43 mg/dL (>40); Microalbum/Creatinine Ratio Ur 8.1 ug/mg cr (<30); Potassium 4.0 mmol/L (3.3-5.1); Sodium 141 mmol/L (135-145); Total Protein 6.6 g/dL (6.5-8.0); Triglycerides 154 mg/dL (<150)
[2025-01-28 11:30] LABS: Free T4 (Free Thyroxine) 0.98 ng/dL (0.71-1.85); Thyroid Stimulating Hormone 0.27 uIU/mL (0.32-4.0)
[2025-01-28 11:34] LABS: Folate 4.3 ng/mL (> or = 4.0); Vitamin B12 297 pg/mL (200-900)
[2025-01-31 16:18] LABS: Intrinsic Factor Antibodies Negative (Negative)
== END 2025-01-28 06:08 | disposition home or self-care (01) ==
LOC: HO.HMGCLDS 06:07
PROVIDERS: PCP Internal Medicine; Visit Provider Internal Medicine
DX: E11.65 Type 2 diabetes mellitus with hyperglycemia (principal); E53.8 Deficiency of other specified B group vitamins; E78.00 Pure hypercholesterolemia, unspecified
CPT/HCPCS: 36415; 80053; 80061; 82043; 82306; 82570; 82607; 82746; 83036; 83516; 84439; 84443; 85025; 86340

== ENCOUNTER 2025-01-31 08:45 | Outpatient (REF) | payer MEDICARE, SELFPAY ==
--- OUTSIDE RECORDS SUMMARY | 2023-08-26 08:45 | XMS_ITS ---
Author Organization [facility] Address [address] [place] [address] Care Team Providers Care Upsetting Machine Operator Name Role Phone Gonzalez Plata Primary Care Provider Unavailabl Wilbert Ayala Unavailable [phone] Giraldo Encounters Encounter Location Date Provider Diagnosis [facility] [address] [place] [address] 08/26/2023 Wilbert Husain Plan Of Treatment Next Appt Details Provider Name:Wilbert Husain , 02/08/2025 01:15:00 PM, [address] [place], [address], Progress Notes * Sherlyn BIGGS LDOB:1955 (69 yo F)Acc No.[id number]:08/26/2023 Progress Note Patient: Sherlyn WANG Provider: Eh Husain DPM :1955 A ge:67 Y S ex:Female Date:08/26/2023 Address:[address] [facility] [address] [place], [place] Pcp:Gonzalez Plata Subjective: * Chief Complaints: * [address] Giraldo. * Medical History: Objective: * Vitals: Assessment: Plan: * Treatment: * Images: * The named appointment provid er may or may not be the originator of this progress note, and it is not deemed complete until electronically signed by the appointment provider. Sign off status: Pending * Provider: Eh Husain DPM Date: 0 08/26/2023 Generated for Eliana buenrostro/Dinah/Chuck on: 04/02/2024 09:19 AM EST
--- OUTSIDE RECORDS SUMMARY | 2023-11-11 07:45 | XMS_ITS ---
Author Organization [facility] Address [address] [place] [address] Care Team Providers Care Sales Architect Name Role Phone Gonzalez Plata Primary Care Provider Unavailabl Wilbert Ayala Unavailable [phone] REASON FOR VISIT seen sooner Encounters Encounter Location Date Provider Diagnosis [facility] [address] [place] [address] 11/11/2023 Wilbert Husain Plan Of Treatment Next Appt Details Provider Name:Wilbert Husain , 02/08/2025 01:15:00 PM, [address] [place], [address], Progress Notes * Sherlyn BIGGS LDOB:1955 (69 yo F)Acc No.[id number]:11/11/2023 Progress Note Patient: Sherlyn WANG Provider: Eh Husain DPM :1955 A ge:68 Y S ex:Female Date:11/11/2023 Address:[address] [facility] [address] [place], [place] Pcp:Gonzalez Plata Subjective: * Chief Complaints: * [...] 0 11/11/2023 Generated for Eliana buenrostro/Dinah/Chuck on: 04/02/2024 09:19 AM EST
--- OUTSIDE RECORDS SUMMARY | 2024-03-27 06:15 | XMS_ITS ---
Author Organization [facility] Address [address] [place] [address] Care Team Providers Care Rerolling Machine Operator Name Role Phone Gonzalez Plata Primary Care Provider Wilbert Figueroa Unavailable [phone] Allergies Allergen (clinical drug ingredient) Drug/Non Drug Allergy documented on EMR Reaction Allergy Type Onset Date Status amoxicillin Amoxicillin sick Drug Allergy Act cartre Biaxin hives Drug Allergy Active Iodinated contrast media (substance) Iodinated Diagnostic Agents rash Drug Allergy Active Penicillin sick Drug Allergy Active Medications Medication SIG (Take, Route, Frequency, Duration) Notes Start Date End Date Status Synthroid Not-Taking Ankle Brace/High Performance S Not-Taking Atorvastatin Calcium Not-Taking Ritalin Not-Taking Lisinopril 10 MG 1/2 tablet Orally On ce a day; Duration: 30 day(s) Not-Jordan ing Extra Depth Orthopedic Shoes (1 Pair) with Customized Heat Molded Multidensity Innersoles (3 Pair) as directed Dx: NIDDM/Polyneuropathy (E11.42), Hammertoe Foot Deformity (M20.41,M20.42), Preulcerative Skin Lesion(s) (L85.1 Active vitamin D 50,000 Act carter ZyPREXA Not-Taking Roxicodone Not-Takin g predniSONE 1 tsp Orally Once a day Not-Taking Vitamin B 12 Active Robaxin 500 MG 1 tablet Orally Four times a day; Duration: 30 day(s) Active Promethazine HCl 25 MG/ML 0.5 ml as needed Injection every 4 hrs Active PROzac 20 MG 1 capsule in the mor martha Orally Once a day; Duration: 30 day(s) Active Provigil Active Gabapentin 300 MG Orally two times a d ay, 600 mg at night (2 capsules) Active oxyCODONE HCl 15 MG 1 tablet Orally ever y 6 hrs PRN Active Mirtazapine 7.5 MG as directed Orally O nce a day Active Levothyroxine Sodium 100 MCG 1 tablet every morning on an empty stomach Orally Once a day; Duration: 30 day(s) Active Omeprazole 20 MG 1 capsule Orally Onc e a day; Duration: 30 day(s) Active diazePAM 5mg daily Active Crestor 40 MG 1 tablet Orally Once a day; Duration: 30 day(s) Active Flovent HFA 44 MCG/ACT 2 puffs Inhalatio n Twice a day Active buPROPion HCl 100 MG 1 tablet Orally Twi ce a day; Duration: 30 day(s) Active Aimovig 70 MG/ML Subcutaneous Active Albuterol Active Encounters Encounter Location Date Provider Diagnosis [facility] [address] [address] 03/27/2024 Wilbert Husain Plan Of Treatment Next Appt Details Provider Name:Wilbert Husain , 02/08/2025 01:15:00 PM, [address] [place] [address], [id number], Progress Notes * DIANSherlyn LDOB:1955 (69 yo F)Acc No.[id number]:03/27/2024 Progress Note Patient: Sherlyn WANG Provider: Eh Husain DPM :1955 A ge:68 Y S ex:Female Date:03/27/2024 Address:[address] [place] [address], [id number] Pcp:Gonzalez Plata Subjective: * Chief Complaints: * * Medical History: T hyroid disorder, Stomach ulcer, Chronic sinusitis, Mumps, Measles, Joint implants/screws, Headaches/migraines, Depression, Chicken pox, Back, hip, knee pain, Anxiety disorder, Hypertension, Diabetic type ll. * Medications: T aking Albuterol , Taking Aimovig 70 MG/ML Solution Auto-injector Subcutaneous , Taking buPROPion HCl 100 MG Tablet 1 tablet Orally Twice a day , Taking Crestor 40 MG Tablet 1 tablet Orally Once a day , Taking diazePAM 5mg daily , Taking Flovent HFA 44 MCG/ACT Aerosol 2 puffs Inhalation Twice a day , Taking Gabapentin 300 MG Capsule Orally two times a day, 600 mg at night (2 capsules) , Taking Levothyroxine Sodium 100 MCG Tablet 1 tablet every morning on an empty stomach Orally Once a day , Taking Mirtazapine 7.5 MG Tablet as directed Orally Once a day , Taking Omeprazole 20 MG Capsule Delayed Release 1 capsule Orally Once a day , Taking oxyCODONE HCl 15 MG Tablet 1 tablet Orally every 6 hrs , Notes to Pharmacist: PRN, Taking Promethazine HCl 25 MG/ML Solution 0.5 ml as needed Injection every 4 hrs , Taking Provigil , Taking PROzac 20 MG Capsule 1 capsule in the morning Orally Once a day , Taking Robaxin 500 MG Tablet 1 tablet Orally Four times a day , Taking Vitamin B 12 , Taking vitamin D 50,000 , Taking Extra Depth Orthopedic Shoes (1 Pair) with Customized Heat Molded Multidensity Innersoles (3 Pair) as directed Dx: NIDDM/Polyneuropathy (E11.42), Hammertoe Foot Deformity (M20.41,M20.42), Preulcerative Skin Lesion(s) (L85.1 , Not-Taking/PRN Roxicodone , Not-Taking/PRN ZyPREXA , Not-Taking/PRN predniSONE 1 tsp Orally Once a day , Not-Taking/PRN Lisinopril 10 MG Tablet 1/2 tablet Orally Once a day , Not-Taking/PRN Ankle Brace/High Performance S , Not-Taking/PRN Synthroid , Not-Taking/PRN Ritalin , Not-Taking/PRN Atorvastatin Calcium * Allergies: B iaxin: hives, Amoxicillin: sick, Iodinated Diagnostic Agents: rash, Penicillin: sick. Objective: * Vitals: Assessment: Plan: * Treatment: * Images: * The named appointment provid er may or may not be the originator of this progress note, and it is not deemed complete until electronically signed by the appointment provider. Sign off status: Pending * Provider: Eh Husain DPM Date: Generated for Eliana buenrostro/Dinah/Chuck on: 04/02/2024 09:20 AM EST
--- OUTSIDE RECORDS SUMMARY | 2024-07-20 08:15 | XMS_ITS ---
Author Organization [facility] Address [address] [place] [address] Care Team Providers Care Raise Miner Name Role Phone Gonzalez Plata Primary Care Provider Unavailabl Wilbert Ayala Unavailable [phone] Giraldo Encounters Encounter Location Date Provider Diagnosis [facility] [address] [place] [address] 07/20/2024 Wilbert Husain Plan Of Treatment Next Appt Details Provider Name:Wilbert Husain , 02/08/2025 01:15:00 PM, [address] [place], [address], Progress Notes * Sherlyn BIGGS LDOB:1955 (69 yo F)Acc No.[id number]:07/20/2024 Progress Note Patient: Sherlyn WANG Provider: Eh Husain DPM :1955 A ge:68 Y S ex:Female Date:07/20/2024 Address:[address] [facility], [facility] [address], [place], [place] Pcp:Gonzalez Plata Subjective: * Chief Complaints: * [...] * Provider: Eh Husain DPM Date: 0 07/20/2024 Generated for Eliana beunrostro/Dinah/Chuck on: 04/02/2024 09:20 AM EST
--- OUTSIDE RECORDS SUMMARY | 2024-08-10 07:30 | XMS_ITS ---
Author Organization [facility] Address [address] [place] [address] Care Team Providers Care Director Of Gift Planning Name Role Phone Gonzalez Plata Primary Care Provider Unavailabl Wilbert Ayala Unavailable [phone] REASON FOR VISIT X Chg Encounters Encounter Location Date Provider Diagnosis [facility] [address] [place] [address] 08/10/2024 Wilbert Husain Plan Of Treatment Next Appt Details Provider Name:Wilbert Husain , 02/08/2025 01:15:00 PM, [address] [place], [address], Progress Notes * Sherlyn BIGGS LDOB:1955 (69 yo F)Acc No.[id number]:08/10/2024 Progress Note Patient: Sherlyn WANG Provider: Eh Husain DPM :1955 A ge:68 Y S ex:Female Date:08/10/2024 Address:[address] [facility], [facility] [address] [place], [place] Pcp:Gonzalez Plata Subjective: * Chief Complaints: * [...] 0 08/10/2024 Generated for Eliana buenrostro/Dinah/Chuck on: 04/02/2024 09:19 AM EST
--- NOTE | ~2025-01-31 | FL_ITS ---
EXAMINATION: XR UPPER GI SERIES WITH barium swallow CLINICAL INFORMATION: Dysphagia COMPARISON: Modified barium swallow June 2023 TECHNIQUE: Single contrast barium swallow and upper GI performed. Exam limited due to decreased patient mobility, inability to stand or lie flat. The exam was performed with the patient in semiupright position on the fluoroscopy table . Barium tablet was also administered. FINDINGS: There is trace laryngeal penetration. No aspiration. There is abnormal esophageal motility. No hernia, mass, stricture or evidence of esophagitis. There is stasis of the barium tablet at the GE junction. Gastroesophageal reflux could not be adequately assessed. No reflux was observed with the patient in semiupright position. Stomach and duodenum are normal appearing. No fold thickening, mass, stricture or ulcer appreciated. FLUOROSCOPY TIME: 2 minutes 6 seconds DOSE AREA PRODUCT: 1074 uGy-m2 (microgray-meter squared) FL/FL upper GI w air w Ba Swallow IMPRESSION: Limited exam due to patient mobility. Trace laryngeal penetration. No aspiration. Abnormal esophageal motility. Stasis of the barium tablet at the GE junction. Normal-appearing stomach and duodenum. Gastroesophageal reflux not assessed. Electronically signed by: Mae Resendiz MD 01/31/2025 10:31 AM [facility]
--- OUTSIDE RECORDS SUMMARY | 2025-01-31 09:20 | XMS_ITS | Patient Health Record ---
Author Organization [facility] tab[facility] [place] Address [address] [place] [address] Care Team Providers Care Bail Bonding Agent Name Role Phone Gonzalez Plata Primary Care Provider Wilbert Figueroa Unavailable [phone] Allergies Allergen (clinical drug ingredient) Drug/Non Drug [...] Problem Acquired hammer toe of right foot (1769472138685202 ) Other hammer toe(s) (acquired), right foot (M20.41) Active confirmed Response to treatment, Improvemen t Problem Acquired hammer toe of left foot (9327404223078586 ) Other hammer toe(s) (acquired), left foot (M20.42) Active confirmed Response to treatment, Improvemen t Problem Polyneuropathy due to type 2 diabetes mellitus (564505023) Type 2 diabetes mellitus with diabetic polyneuropathy (E11.42) Active confirmed Vital Signs Blood pressure diastolic 75 mm Hg 11/16/2024 Height 5ft6in in 11/16/2024 Blood pressure systolic 122 mm Hg 11/16/2024 Weight 145 lbs 11/16/2024 BMI 23.4 kg/m2 11/16/2024 Procedures Procedure Date Ordered Date Performed Result Body Sit e 22559-KZMAJSD NAIL, 6 OR MORE 08/10/2024 N/A 68512-VRSH SKIN LESIONS, OVER 4 08/10/2024 N/A 84784-VHZGIZA NAIL, 6 OR MORE 11/16/2024 N/A 46221-OJSJ SKIN LESIONS, OVER 4 11/16/2024 N/A Encounters Encounter Location Date Provider Diagnosis [address] [address] 08/10/2024 Wilbert Husain Type 2 diabetes mellitus with diabetic polyneuropathy E11.42 and Tinea unguium B35.[address] [address] 11/16/2024 Wilbert Husain Type 2 diabetes mellitus with diabetic polyneuropathy E11.42 ; Tinea unguium B35.1 ; Other hammer toe(s) (acquired), right foot M20.41 ; Other hammer toe(s) (acquired), left foot M20.42 ; Pain in right toe(s) M79.674 and Contusion of lesser toe of right foot without damage to nail, initial encounter S90.121A [address] [address] 03/27/2024 Wilbert Husain [address] [address] 11/12/2024 [facility] [place] [address] [place] [address] 11/13/2024 [facility] [place] [address] [place] [address] 12/13/2024 Wilbert Mccordier Assessments Encounter Date Diagnosis [...] X ray : Foot, left 3V 11/05/2011 28092-AVPPXJX NAIL, 6 OR MORE 10/17/2012 34589-MOQYYWS NAIL, 6 OR MORE 01/09/2013 75908-URBBUCI NAIL, 6 OR MORE 10/19/2013 80342-ZJZQCKX NAIL, 6 OR MORE 01/15/2014 33801-BNFLJPW NAIL, 6 OR MORE 04/16/2014 87574-XJRROOW NAIL, 6 OR MORE 08/02/2014 93832-CAOWMSU NAIL, 6 OR MORE 11/05/2014 46778-OYRKUUK NAIL, 6 OR MORE 02/07/2015 14892-LUBGIHC NAIL, 6 OR MORE 05/13/2015 38865-BGEHMDH NAIL, 6 OR MORE 08/12/2015 68008-KTPNGAO NAIL, 6 OR MORE 11/14/2015 91579-PXPEZXE NAIL, 6 OR MORE 02/17/2016 63472-TPEPICT NAIL, 6 OR MORE 05/21/2016 69933-RQNSVMA NAIL, 6 OR MORE 08/24/2016 87678-OCOULME NAIL, 6 OR MORE 11/30/2016 40138-CYIDCTO NAIL, 6 OR MORE 03/04/2017 98921-LDQAGHB NAIL, 6 OR MORE 06/10/2017 88680-IMOZRAS NAIL, 6 OR MORE 09/16/2017 30023-YKOASHU NAIL, 6 OR MORE 12/23/2017 90277-XVIIMKG NAIL, 6 OR MORE 04/04/2018 98523-OWZHKJS NAIL, 6 OR MORE 06/27/2018 88020-QHLKDJC NAIL, 6 OR MORE 09/12/2018 50027-OEOFVQJ NAIL, 6 OR MORE 12/15/2018 78244-SDWNDRQ NAIL, 6 OR MORE 03/02/2019 20550-GOBWPAY NAIL, 6 OR MORE 05/18/2019 46886-WHGDLHJ NAIL, 6 OR MORE 08/21/2019 89157-AINRQYS NAIL, 6 OR MORE 02/12/2020 83303-QCIXXVI NAIL, 6 OR MORE 11/05/2020 95127-OBBLOHC NAIL, 6 OR MORE 02/06/2021 78807-FITPCTY NAIL, 6 OR MORE 07/10/2021 68966-XGIRVIA NAIL, 6 OR MORE 10/20/2021 95337-SCUZTRE NAIL, 6 OR MORE 01/29/2022 21761-EEPJKQQ NAIL, 6 OR MORE 05/07/2022 09888-ZPZGNUG NAIL, 6 OR MORE 08/13/2022 86380-ZOXUTCD NAIL, 6 OR MORE 01/07/2023 38292-INCTIFI NAIL, 6 OR MORE 04/22/2023 05479-OHQXIXD NAIL, 6 OR MORE 09/23/2023 02648-CUCAGMH NAIL, 6 OR MORE 12/23/2023 40152-TIBIPFM NAIL, 6 OR MORE 08/10/2024 03621-UDDQGDC NAIL, 6 OR MORE 11/16/2024 62235-Qqsntixj Plate 02/07/2015 32357-Ercgiwdt Plate 07/23/2011 76376-Avxhwlcz Plate 06/22/2011 69282-Qxgmmrkk Plate 06/04/2011 95935-Nxxvnikx Plate 05/14/2011 13197-Hlnwfccu Plate 05/21/2011 65069-Tnjhkals Plate 02/16/2011 88336-Ebvymvww Plate 04/30/2011 27937-Lbsbpora Plate 05/07/2011 31697-VZRC SKIN LESIONS, OVER 4 11/17/19 51851-DOGH SKIN LESIONS, OVER 4 08/11/19 25 85290-ZYDR SKIN LESIONS, OVER 4 12/23/19 24 21344-BXMF SKIN LESIONS, OVER 4 09/23/19 24 52016-ONMD SKIN LESIONS, OVER 4 04/22/19 24 14685-VTCF SKIN LESIONS, OVER 4 01/08/20 23 90512-ERGY SKIN LESIONS, OVER 4 08/14/19 23 30333-NWII SKIN LESIONS, OVER 4 05/07/19 23 03732-QJDW SKIN LESIONS, 2 TO 4 01/30/20 77913-PYUW SKIN LESIONS, 2 TO 4 10/21/19 51029-WHMZ SKIN LESIONS, 2 TO 4 07/11/19 22 83495-NLKJ SKIN LESIONS, 2 TO 4 02/07/20 21 60697-IURN SKIN LESIONS, 2 TO 4 02/12/20 20 09849-UGYL SKIN LESIONS, 2 TO 4 11/06/19 21 88649-VPVK SKIN LESIONS, 2 TO 4 08/21/19 20 34410-TRWG SKIN LESIONS, 2 TO 4 05/18/19 20 73741-VZXB SKIN LESIONS, 2 TO 4 09/17/19 18 70463-NYEL SKIN LESIONS, 2 TO 4 12/19/19 11 48619-PPAJ SKIN LESIONS, 2 TO 4 06/22/19 12 65892-EKIY SKIN LESIONS, 2 TO 4 07/23/19 12 76882-VFGW SKIN LESIONS, 2 TO 4 08/27/19 12 31396-PQMV SKIN LESIONS, 2 TO 4 11/06/19 15 85123-HYLG SKIN LESIONS, 2 TO 4 08/03/19 15 41694-RSOA SKIN LESIONS, 2 TO 4 04/16/19 15 37465-CZIE SKIN LESIONS, 2 TO 4 01/16/20 14 08888-GEAP SKIN LESIONS, 2 TO 4 10/20/19 14 79088-MGSE SKIN LESIONS, 2 TO 4 01/10/20 13 99551-XBES SKIN LESIONS, 2 TO 4 10/18/19 13 53512-HQLZ SKIN LESIONS, 2 TO 4 11/05/19 12 82328-ISJN SKIN LESIONS, 2 TO 4 02/08/20 15 11626-PHVN SKIN LESIONS, 2 TO 4 05/13/19 16 16580-FSCW SKIN LESIONS, 2 TO 4 11/14/19 16 68831-QXVP SKIN LESIONS, 2 TO 4 08/12/19 16 96335-LIGL SKIN LESIONS, 2 TO 4 03/04/20 17 57310-UDAV SKIN LESIONS, 2 TO 4 12/01/19 17 19064-DAYN SKIN LESIONS, 2 TO 4 05/21/19 17 20726-IPMF SKIN LESIONS, 2 TO 4 08/25/19 17 79201-AAPD SKIN LESIONS, 2 TO 4 02/17/20 16 75055-XEWI SKIN LESIONS, 2 TO 4 03/02/20 19 16239-NFGC SKIN LESIONS, 2 TO 4 12/16/19 19 19960-CJAA SKIN LESIONS, 2 TO 4 06/28/19 19 46383-NPGK SKIN LESIONS, 2 TO 4 09/13/19 19 56054-IKZH SKIN LESIONS, 2 TO 4 04/04/19 19 92497-QMST SKIN LESIONS, 2 TO 4 12/24/19 18 38585-NWSF SKIN LESIONS, 2 TO 4 06/11/19 18 M7096-MKVBUIFE DYSTROPHIC NAILS ANY # O1793-SQJKOTBR DYSTROPHIC NAILS ANY # T2668-SFRMDLZT DYSTROPHIC NAILS ANY # Y8340-BZBTEKGB DYSTROPHIC NAILS ANY # F0664-YHBWLAYA DYSTROPHIC NAILS ANY # 22604 - Tenotomy, open flexor 09/02/2017 Next Appt Details Provider Name:Wilbert Barnett Rodrigue , 02/08/2025 01:15:00 PM, [address] [place] [address], [phone], Insurance Providers Payer Name Payer Address Payer Phone Subscriber Number Group Number Insured Name Patient Relationship to Insured Coverage Start Date Coverage End Date Medicare [employer] [address] [place] [address] [id number] Sherlyn Biggs Self - patient is the insured [address] [employer] [address] [place] [address] [id number] Sherlyn Biggs Self - patient is the [...]
--- OUTSIDE RECORDS SUMMARY | 2025-01-31 09:21 | XMS_ITS | Patient Health Record ---
Author Organization [facility] Address [address] [place] [address] Care Team Providers Care Fisher Crab Name Role Phone Gonzalez Plata MD Primary Care Provider Bhavesh Pierson [phone] Allergies Allergen (clinical drug ingredient) Drug/Non Drug [...] Notes Problem Gastroesophageal reflux disease without esophagitis (382228885) Gastroesophageal reflux disease without esophagitis (K21.9) Active confirmed Problem Elevated liver enzymes level (715316606) Elevated liver enzymes (R74.8) Active confirmed Problem Diarrhea (11149492) Diarrhea, unspecified type (R19.7) Active confirmed Problem 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 [...] A&B (C DIFF) 09/25 STOOL WBC 10/12/2016 EBJDJ-7-BARPWCVHINR (A1A) 12/02/2017 MITOCHONDRIAL AB 12/02/2017 SMOOTH MUSCLE [...] MICHAELA [address] [place] [id number] MARY BETH BIGGS Self - patient is the insured [employer] CLAIM[employer] [address] [place] [address] [id number] MARY BETH BIGGS Self - patient is the insured Medical (General) History Medical History History ICD Code EGD 08-04-2007--WNL, small HH History of gallstone pacreatitis Hypertension Panic attacks/Depression Denies OK,CVA,Lung disease,renal disease Diet-controlled DM Hyperlipidemia 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
== END 2025-01-31 08:46 | disposition home or self-care (01) ==
LOC: HO.XRAY 08:45
PROVIDERS: PCP Internal Medicine; Visit Provider Internal Medicine
DX: R13.10 Dysphagia, unspecified (principal); R49.0 Dysphonia
CPT/HCPCS: 74246

== ENCOUNTER → 2025-01-31 08:47 | Outpatient (BNV) | payer MEDICARE, SELFPAY | PROVIDERS: PCP Internal Medicine; Visit Provider Radiology Diagnostic Radiology | DX: R13.10 Dysphagia, unspecified (principal) | CPT/HCPCS: 74246 ==

== ENCOUNTER 2025-02-04 13:38 | Outpatient (AMB) | payer MEDICARE, SELFPAY ==
[2025-02-04 13:58] VITALS: BP 140/84; PULSE 72; TEMP 36.2; O2SAT 98; BMI 27.2
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
== END 2025-02-04 14:40 | disposition home or self-care (01) ==
LOC: HO.HMCH 13:39
PROVIDERS: PCP Internal Medicine; Visit Provider Internal Medicine
DX: E11.65 Type 2 diabetes mellitus with hyperglycemia (principal); E78.00 Pure hypercholesterolemia, unspecified; E03.9 Hypothyroidism, unspecified; E53.8 Deficiency of other specified B group vitamins; K21.9 Gastro-esophageal reflux disease without esophagitis; R13.10 Dysphagia, unspecified; M54.50 Low back pain, unspecified; G89.29 Other chronic pain; G43.909 Migraine, unspecified, not intractable, without status migrainosus; J44.9 Chronic obstructive pulmonary disease, unspecified; Z72.0 Tobacco use

== ENCOUNTER → 2025-02-04 13:38 | Outpatient (BNVA) | payer MEDICARE, SELFPAY | PROVIDERS: PCP Internal Medicine; Visit Provider Internal Medicine | DX: E11.65 Type 2 diabetes mellitus with hyperglycemia (principal); E78.00 Pure hypercholesterolemia, unspecified; E03.9 Hypothyroidism, unspecified; E53.8 Deficiency of other specified B group vitamins; K21.9 Gastro-esophageal reflux disease without esophagitis; R13.10 Dysphagia, unspecified; M54.50 Low back pain, unspecified; G89.29 Other chronic pain; J44.9 Chronic obstructive pulmonary disease, unspecified; Z72.0 Tobacco use; Z13.31 Encounter for screening for depression | CPT/HCPCS: 96127; 99212 ==

== ENCOUNTER 2025-02-20 13:57 | Outpatient (REF) | payer MEDICARE, SELFPAY ==
--- NOTE | ~2025-02-20 | FL_ITS ---
EXAMINATION: Modified Barium Swallow CLINICAL INFORMATION: Dysphagia. COMPARISON: Upper GI series 01/31/2025. TECHNIQUE: Modified barium swallow was performed under lateral fluoroscopy with patient in standing position. Barium mixed with solids and liquids of different consistencies was administered by the speech pathologist. Examination was recorded in the fluoroscopy suite. FINDINGS: Patient was given numerous consistencies ranging from thin liquids to solids. There was persistent laryngeal penetration on thin liquids with 2 episodes of subglottic aspiration. These appeared to clear with strong cough and throat clearing. There was persistent transient laryngeal penetration on nectar thick liquids. On solids, the patient had an episode of stasis in the midesophagus due to esophageal dysmotility, which largely cleared upon following with liquids. FLUOROSCOPY TIME: 3 minutes, 13 seconds Number of Spot Images: N/A DOSE AREA PRODUCT: [id number] uGy-m2 (microgray-meter squared) FL/FL Modified Barium Swallow IMPRESSION: 1. 2 episodes of subglottic aspiration on thin liquids. Persistent laryngeal penetration on thin liquids. 2. Persistent transient laryngeal penetration on nectar thick liquids. No nectar thick aspiration. 3. Episode of mid esophageal stasis from solids due to esophageal dysmotility, which cleared upon following with liquids. Please refer to the dedicated speech therapy report to follow for further details. Electronically signed by: Nigel Ram MD 02/20/2025 03:44 PM [facility]
--- NOTE | 2025-02-20 16:37 | MHC.SL.IMP ---
Date of Plan of Treatment: 02/20/25 Onset of Symptoms/Illness: 08/21/23 Date Treatment Started: 02/20/25 Admitting Diagnosis: COPD, GERD, hypothyroidism, asthma Primary Speech & Language Diagnosis: R13.12 Oropharyngeal Phase Dysphagia Secondary Speech & Language Diagnosis: R13.14 Pharyngoesophageal Phase Dysphagia Reason for Today's Visit: 15848 Modified Barium Swallow Study Pre-evaluation Dietary Consistencies: Regular Pre-evaluation Liquid Consistency: Thin Pre-evaluation Medication Administration: Whole with Liquid Medical History: Modified Barium Swallow Study Fluoroscopic Evaluation of Swallowing Function CPT Code 08078 Evaluation Year: 2024 Reason for Study: Patient reporting difficulty swallowing. 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 Low back pain Trigger finger Knee pain, left Pneumonia COPD exacerbation Chest tightness Abnormal lung sounds Screening for colon cancer Weight loss Post-menopausal Herpes zoster Chest pain Migraine Left scapula fracture Asthma Peripheral neuropathy Tobacco abuse Hypercholesterolemia Vitamin D deficiency Hypothyroid COPD (chronic obstructive pulmonary disease) Insomnia GERD (gastroesophageal reflux disease) Hypertension Type 2 diabetes mellitus with hyperglycemia Surgical History History of esophagogastroduodenoscopy (EGD) History of lumbar surgery History of colonoscopy History of foot surgery History of thyroidectomy History of cholecystectomy Current (pre-evaluation) Intake/Diet: Route: PO Diet Grade: Regular Liquid Consistencies: Thin Pre-Study Functional Oral Intake Scale (FOIS): 7- Total oral intake with no restrictions Pain: None reported at time of study SUBJECTIVE: Patient is a 69 year old female referred for a modified barium swallow study (MBSS) by her primary care provider, Gonzalez Plata MD. Patient reports feeling food get stuck at the mid-chest level. She also reports coughing and choking on liquids and regurgitating solids, stating she ?can feel it go down then it comes back up again.? Patient?s swallow difficulties have been chronic with a previous MBSS on 07/22/23 showing penetration. She was recommended to continue on unmodified diet at the time and further assessment with an esophagram d/t suspected esophageal dysmotility. Patient did have an upper GI series recently on 01/31 showing trace penetration without aspiration and abnormal esophageal motility, with stasis of barium tablet at GE junction. Patient has also been referred to ENT per Dr. Plata for concerns of chronic cough and vocal hoarseness. Pertinent medical history includes COPD, herpes zoster, asthma, GERD, hypothyroidism, diabetes mellitus, and hypercholesterolemia. Food and Liquid Trials: Oral Impairment: Lip Closure: Did not test Oral Impairment: Tongue Control During Bolus Hold: 0=Cohesive bolus between tongue to palatal seal Oral Impairment: Bolus Preparation/Mastication: 1=Slow prolonged chewing/mashing with complete re-collection Oral Impairment: Bolus Transport/Lingual Motion: 1= Delayed initiation of tongue motion Oral Impairment: Oral Residue: 1=Trace residue lining oral structures Oral Impairment:Initiation of Pharyngeal Swallow: 3=Bolus head in pyriforms Pharyngeal Impairment: Soft Palate Elevation: 0=No bolus between soft palate (SP)/pharyngeal wall (PW) Pharyngeal Impairment: Laryngeal Elevation: 2=Minimal superior movement of thyroid cartilage (see description) Pharyngeal Impairment: Anterior Hyoid Excursion: 2=No anterior movement Pharyngeal Impairment: Epiglottic Movement: 2=No inversion Pharyngeal Impairment: Laryngeal Vestibular Closure:: 1=Incomplete: narrow column air/contrast in laryngeal vestibule Pharyngeal Impairment: Pharyngeal Stripping Wave: 0=Present: complete Pharyngeal Impairment: Pharyngeal Contraction: Did not test Pharyngeal Impairment: Pharyngoesophageal Segment Openin=Partial distention/partial duration: partial obstruction of flow Pharyngeal Impairment: Tongue Base (TB) Retraction: 3=Wide column of contrast/air between TB and posterior PW Pharyngeal Impairment: Pharyngeal Residue: 1=Trace residue within or on pharyngeal structures Pharyngeal Impairment: Esophageal Clearance Upright Position: 2=Esophageal retention with retrograde flow below PES Impressions and Recommendations OBJECTIVE: Time-out: performed at 14:45 Evaluation Start: 14:30; Stop: 14:35 Patient Positioning: Seated 70-90 degrees Viewing Planes: LAT & AP Contrast: MBSImP? Standardized Protocol using commercially prepared, standardized Barium viscosities, including: Varibar? THIN LIQUID (40% w/v, <15 cps) , Varibar? NECTAR (40% w/v, <150-450 cps) , Varibar? PUDDING (40% w/v, <6654-5023 cps) , 1/2 Shortbread Cookie (1 x1 x.25 ) [facility] ID: [id number] [facility] Results: Lip closure for intraoral bolus containment could not be assessed due to logistical reasons not related to physiologic impairment. Tongue control during bolus hold maintained a cohesive bolus held between tongue to palate seal. Bolus preparation and mastication resulted in slow, prolonged chewing/mashing but with complete re-collection. Bolus transport/lingual motion demonstrated delayed initiation of tongue motion. Oral residue was a trace, lining oral structures. Initiation of the pharyngeal swallow occurred when the bolus head was in the pyriform sinuses. Soft palate elevation resulted in no bolus between the soft palate and the pharyngeal wall. Laryngeal elevation was incomplete, as indicated through minimal superior movement of the thyroid cartilage with minimal approximation of the arytenoids to the epiglottic petiole. Anterior hyoid excursion demonstrated no movement. Epiglottic movement resulted in no inversion. Laryngeal vestibular closure was incomplete, with a narrow column of air/contrast noted within the laryngeal vestibule at the height of the swallow. Pharyngeal stripping wave was present and complete. Pharyngeal contraction could not be determined due to logistical reasons not related to physiologic impairment. Pharyngoesophageal segment opening demonstrated partial distension/partial duration, with partial obstruction of bolus flow. Tongue base retraction allowed a wide column of contrast or air between the retracted tongue base and the posterior pharyngeal wall. Pharyngeal residue was a trace within or on pharyngeal structures. Esophageal clearance in the upright position resulted in esophageal retention with incidence of retrograde bolus flow below the pharyngoesophageal segment. Oral Impairment Score: 5 (absence of score, component 1) Pharyngeal Impairment Score: 11 (absence of score, component 13) Esophageal Impairment Score: 2 Laryngeal Penetration and Aspiration: Neither penetration nor aspiration was observed in today's study with Cookie, Pudding-thick. Both Penetration and Aspiration were observed in today's study. [place]-thick Contrast entered the airway, remained above the vocal folds, and was ejected from the airway. Thin Contrast entered the airway, passed below the vocal folds, and no effort was made to eject. Structural Abnormalities Noted: Cricopharyngeal bar noted ASSESSMENT: This exam was performed by the radiologist and the speech pathologist. Patient was seated upright in a wheelchair for lateral view and standing for AP view. She fed herself independently and trialed the following consistencies: -Thin liquid (via individual and sequential cup sips) -[place] thick liquid (via individual cup sips) -Puree (mixture applesauce w/ barium pudding) -Regular (shortbread cookies coated w/ barium pudding) No posterior spillage from the oral cavity. Mastication was slowed and prolonged. Posterior lingual motion was delayed in initiation. Pharyngeal swallow trigger also significantly delayed, initiated as the bolus head reached the pyriforms. Post-swallow, there was trace residue coating the tongue and palate. No evidence of nasopharyngeal reflux. Note minimal laryngeal elevation, with no anterior hyoid excursion, partial to no epiglottic inversion, and incomplete laryngeal vestibular closure. There was persistent penetration above the vocal folds on trials of nectar thick liquid, which spontaneously cleared with no subsequent aspiration. On trials of thin liquid, there was persistent penetration, with episode of subglottic aspiration. A trace amount of contrast entered the airway and passed below the vocal folds with no spontaneous cough or throat clear elicited. Patient was cued by the speech pathologist to cough on command, which reduced, but did not entirely clear contrast from the airway. No evidence of aspiration or penetration on trials of puree and regular solid. There was trace residue coating the tongue base with trials of liquid and puree, and complete pharyngeal clearance seen with trials of regular liquid. Patient complained of feeling food sticking in the mid-chest. In the AP view, visualized retention at the mid-esophagus. The following compensatory strategies have not been used until today's study, but when employed, improved swallowing function: Cough Volitional decreased Aspiration Liquid Intake Recommendation: [place] Thick Liquid Intake Strategies: Small Sips, No Straws, Double Swallow Dietary Recommendations: Soft and Easy to Chew Medication Administration: Crushed with Puree Please contact the pharmacy regarding appropriate crushable or liquid drug formulations that are available whenever modified delivery is recommended. Compensatory Strategies Recommended: Sitting Upright (90 deg), Double Swallow, No Straw, Small Bites and Sips, Alternate Liquids/Solids, Rate of Ingestion Change, Avoid Specific Foods Recommended Treatments: Pharyngeal Resistive Exer, Compens. Strategy Educat. Recommendation for Speech Therapy: Outpatient Speech Therapy, Modified Barium Swallow Study - Outpatient Text Comment: Intake Recommendations: Route: PO Diet Grade: Regular Liquid Consistencies: [place] Post-Study Functional Oral Intake Scale (FOIS): 5- Total oral intake of multiple consistencies requiring special preparation Patient presents with moderate oropharyngeal and pharyngoesophageal dysphagia, marked by the following impairments: -Delayed AP transport -Delayed pharyngeal swallow trigger initiated at the level of the pyriforms -Minimal laryngeal elevation -Partial, at times absent epiglottic inversion -Incomplete laryngeal vestibular closure -Reduced tongue base retraction -CP bar - Per radiologist, ?mid esophageal stasis from solids due to esophageal dysmotility, which cleared upon following with liquids? There was persistent penetration seen with nectar thick liquids without subsequent aspiration. Silent aspiration with thin liquids. Overall good oral and pharyngeal clearance. Suggested Referrals: The patient might benefit from a referral to: Gastroenterology Indication for Referral: CP bar, concern of esophageal motility issues Therapy Recommendations: Recommend speech therapy for the treatment of dysphagia 1x weekly x 8 weeks with goals targeting patient education regarding recommended textures, training of compensatory feeding strategies, and trial of pharyngeal strengthening exercises. Recommend REGULAR (select soft, easy to chew) texture solids and NECTAR THICK liquids, pills CRUSHED in PUREE. The following strategies are recommended to maximize safety: -avoid foods which are overly hard or tough to chew -moisten foods with sauces/gravies as needed -take small bites -chew food well -alternate with sips of liquid -liquids by teaspoon or cup sip -take one sip at a time -avoid the use of straws -maintain upright 90 degree position during and for at least 60 minutes after PO intake Therapy will be initiated Frequency per Week: 1 Number of Weeks: 8 Roll Carrier Goals: ? The patient will tolerate the least restrictive diet with a safe/efficient swallow to maintain adequate nutrition and hydration. ? The patient will demonstrate improved swallowing function via repeat clinical evaluation, videoendoscopy/videofluoroscopy and/or patient self-rating scores. ? The patient and/or family will participate in further education for swallowing goals. Short Term Goals: ? Diet - The patient will tolerate a regular diet with nectar thick liquids without signs or symptoms of penetration/aspiration 100% of the time. - The patient will participate in therapeutic PO trials with the INJECTION MOLDING MACHINE SETTER. ? Guidelines - The patient will comply with/recall the following guidelines/strategies 100% of the time with minimal cuing: [place]-thick Liquid, Bolus Volume Change, Rate of Ingestion Change, Liquid Wash, Additional Swallow(s) per Bolus, No Straws. ? Independent Home Exercise - The patient will perform 10 repetitions of the Effortful Swallow, Jarvis Maneuver, Lorie Maneuver 2 times a day with 100% accuracy and no cuing as part of a home exercise program. ? Structured Therapy - The patient will demonstrate 100% accuracy and require minimal cuing in structured swallowing therapy with the INJECTION MOLDING MACHINE SETTER using the following exercises/therapy approaches and therapy assisted devices: Effortful Swallow, Jarvis Maneuver, Lorie Maneuver, . ? Education - The patient, family will verbalize/demonstrate understanding of the results of this evaluation, the above recommendations, and the swallowing guidelines. Clinician - Supplemental, Miscellaneous Communication: It is important to note MBSS objective studies are snapshots in time and Patient function might vary with factors such as time of day or concomitant medical conditions. For this reason, the final treatment plan for this patient should rest with their medical care team. Additional recommendations should be considered with the totality of the Patient in mind. Thank for the opportunity to participate in the care of this patient. If you have any questions about the content of this report, please contact the [facility] at [facility]. Education: Education regarding findings from today's study and plans for therapy were provided to Patient only through Verbal Instruction. Understanding was expressed by the Patient only. Frequency/Duration: 1x weekly x 8 weeks Date Range for Service Requested: Timeline to reassess: 3 months Rehab Therapist Clinician/Clinical Fellow: No Supervisory Statement: N/A Speech Language Pathologist: Ruma Rosa M.A., [facility]-INJECTION MOLDING MACHINE SETTER
== END 2025-02-20 13:58 | disposition home or self-care (01) ==
LOC: HO.XRAY 13:57
PROVIDERS: PCP Internal Medicine; Visit Provider Internal Medicine
DX: R13.10 Dysphagia, unspecified (principal)
CPT/HCPCS: 74230; 92611

== ENCOUNTER → 2025-02-20 14:33 | Outpatient (BNV) | payer MEDICARE, SELFPAY | PROVIDERS: PCP Internal Medicine; Visit Provider Radiology Diagnostic Radiology | DX: R13.10 Dysphagia, unspecified (principal) | CPT/HCPCS: 74230 ==